=== PATIENT | male | born 1960 | race American Indian/Alaskan Native ===

== ENCOUNTER 2016-06-20 10:57 | Emergency (ER) | payer BC, OTHER ==
[2016-06-20 11:12] VITALS: BMI 37.6
--- NOTE | 2016-06-20 13:13 | C.PDOC ---
History Of Present Illness 56 y/o male, whose PMHx includes CHF, presents to the ED complaining of intermittent episodes of twitching sensation to left medial upper arm x 2 days. Patient states he is compliant with his medications but since he is a "heart patient" he is concerned for cardiac issue. He denies chest pain, shortness of breath, weight gain, or leg swelling. Patient also complains of 2-3 episodes of watery stool for the last few days. Denies fever, abdominal pain, nausea, or vomiting. Time Seen by Provider: 06/20/16 12:46 Chief Complaint (Nursing): Upper Extremity Problem/Injury History Per: Patient History/Exam Limitations: no limitations Onset/Duration Of Symptoms: Days (2), Intermittent Episodes, Gradual, Persistent Current Symptoms Are (Timing): Still Present Exacerbating Factor(s): Nothing Recent travel outside of the [place]: No Past Medical History Reviewed: Historical Data, Nursing Documentation, Vital Signs Vital Signs: Last Vital Signs Temp 98.9 F 06/20/16 15:05 Pulse 68 06/20/16 15:05 Resp 20 06/20/16 15:05 BP 137/74 06/20/16 15:05 Pulse Ox 96 06/20/16 15:07 - Medical History PMH: Arthritis (Gout), Asthma, Bronchitis, CAD, CHF, Diverticulitis, Hiatal Hernia, HTN Surgical History: Coronary Stent (x3), Hernia Repair (4 years ago) - [facility] Procedures CORONAR ARTERIOGR-2 CATH (11/28/03) INJECT/INFUSE NEC (04/10/07) LEFT HEART CARDIAC CATH (11/28/03) LT HEART ANGIOCARDIOGRAM (11/28/03) OTHER LOCAL DESTRUC SKIN (12/10/03) Family History: States: Unknown Family Hx - Social History Hx Tobacco Use: No Hx Alcohol Use: No Hx Substance Use: No - Immunization History Hx Tetanus Toxoid Vaccination: No Hx Influenza Vaccination: No Hx Pneumococcal Vaccination: No Review Of Systems Except As Marked, All Systems Reviewed And Found Negative. Constitutional: Negative for: Fever, Other (weight gain) Cardiovascular: Positive for: Other (twitching sensation in left arm). Negative for: Chest Pain, Edema Respiratory: Negative for: Shortness of Breath Gastrointestinal: Positive for: Diarrhea. Negative for: Nausea, Vomiting, Abdominal Pain Physical Exam - Physical Exam Appears: Non-toxic, No Acute Distress Skin: Normal Color, Warm, Dry, Other (left upper ext- no erythema, warmth, ecchymosis. no swelling noted. ) Head: Atraumatic, Normacephalic Eye(s): bilateral: Normal Inspection, PERRL Oral Mucosa: Moist Neck: Normal ROM, Supple Chest: Symmetrical, No Tenderness Cardiovascular: Rhythm Regular, No Edema, No Murmur Respiratory: Normal Breath Sounds, No Rales, No Rhonchi, No Wheezing Gastrointestinal/Abdominal: Normal Exam, Soft, No Tenderness, No Guarding, No Rebound Back: Normal Inspection, No CVA Tenderness Extremity: Normal ROM, No Tenderness, No Calf Tenderness, Capillary Refill (< 2 seconds), No Swelling Pulses: Left Radial: Normal, Right Radial: Normal Neurological/Psych: Oriented x3, Normal Speech, Normal Cognition, Normal Motor, Normal Sensation ED Course And Treatment - Laboratory Results Result Diagrams: 06/20/16 14:06 06/20/16 14:06 ECG: Interpreted By Me, Viewed By Me ECG Rhythm: Sinus Rhythm ECG Interpretation: Normal Interpretation Of ECG: nsr, no st-t changes Rate From EC O2 Sat by Pulse Oximetry: 96 (ra) Pulse Ox Interpretation: Normal Medical Decision Making Medical Decision Making: Plan: * EKG * Blood Work [address] Lackey. will d/c pt from ED and he will f/u with Dr Lackey later this week. Disposition Discussed With : Kodak Lackey Jr. Doctor Will See Patient In The: Office Counseled Patient/Family Regarding: Studies Performed, Diagnosis, Need For Followup - Disposition Disposition: HOME/ ROUTINE Disposition Time: 15:07 Condition: GOOD Forms: General Discharge Instructions - Clinical Impression Clinical Impression: Muscle twitch - PA / DIVISION OPERATIONS SPECIALIST / Resident Statement MD/DO has reviewed & agrees with the documentation as recorded. - Scribe Statement The provider has reviewed the documentation as recorded by the Scribe (Kathleen Billingsley) All medical record entries made by the Scribe were at my direction and personally dictated by me. I have reviewed the chart and agree that the record accurately reflects my personal performance of the history, physical exam, medical decision making, and the department course for this patient. I have also personally directed, reviewed, and agree with the discharge instructions and disposition.
[2016-06-20 14:17] LABS: CHLORIDE 100 mmol/L (98-107)
[2016-06-20 14:18] LABS: POTASSIUM 4.6 mmol/L (3.6-5.2); SODIUM 140 mmol/L (132-148)
[2016-06-20 14:20] LABS: ALKALINE PHOSPHATASE 95 U/L (38-126); AST/SGOT 61 U/L (17-59); BILIRUBIN,TOTAL 0.6 mg/dL (0.2-1.3); BLOOD UREA NITROGEN 12 mg/dL (9-20); CARBON DIOXIDE 31 mmol/L (22-30); GFR AFRICAN-AMERICAN > 60; GLUCOSE,RANDOM 94 mg/dL (75-110); PHOSPHOROUS 3.4 mg/dL (2.5-4.5); TOTAL PROTEIN 7.4 g/dL (6.3-8.3)
[2016-06-20 14:21] LABS: ALT/SGPT 97 U/L (21-72); CALCIUM 8.6 mg/dl (8.6-10.4)
[2016-06-20 14:51] LABS: BASO % 0.2 % (0.0-2.0); EOS # 0.1 K/uL (0.0-0.7); EOS % 1.4 % (0.0-4.0); HEMATOCRIT 41.3 % (35.0-51.0); LYMPH # 1.6 K/uL (1.0-4.3); LYMPH % 37.9 % (20.0-40.0); MEAN CELL VOLUME 74.1 fL (80.0-94.0); MEAN CORPUSCULAR HEMOGLOBIN 23.1 pg (27.0-31.0); MEAN CORPUSCULAR HGB CONC 31.2 g/dL (33.0-37.0); MEAN PLATELET VOLUME 7.9 fL (7.2-11.7); MONO # 0.6 K/uL (0.0-0.8); MONO % 13.4 % (0.0-10.0); NRBC % 0.2 % (0.0-2.0); RED CELL DISTRIBUTION WIDTH 16.7 % (11.5-14.5); WHITE BLOOD COUNT 4.2 K/uL (4.8-10.8)
[2016-06-20 15:06] VITALS: BP 137/74; PULSE 68; RESP 20; TEMP 98.9; O2SAT 96
--- NOTE | 2016-06-21 19:59 | CARD ---
APPROVED REPORT EKG Measurement Heart [id number] <Conclusion> Normal sinus rhythm Normal ECG
== END 2016-06-20 15:34 | disposition home or self-care (01) ==
LOC: C.ER 10:57
DX: R25.3 Fasciculation (principal)

== ENCOUNTER 2016-06-29 12:44 | Emergency (ER) | payer BC ==
[2016-06-29 12:45] VITALS: BMI 37.6
[2016-06-29 13:24] VITALS: TEMP 98
[2016-06-29 13:33] LABS: BASO % 0.7 % (0.0-2.0); EOS # 0.1 K/uL (0.0-0.7); EOS % 1.8 % (0.0-4.0); HEMATOCRIT 40.3 % (35.0-51.0); LYMPH # 1.6 K/uL (1.0-4.3); LYMPH % 39.1 % (20.0-40.0); MEAN CELL VOLUME 73.9 fL (80.0-94.0); MEAN CORPUSCULAR HGB CONC 31.1 g/dL (33.0-37.0); MEAN PLATELET VOLUME 7.8 fL (7.2-11.7); MONO # 0.5 K/uL (0.0-0.8); MONO % 11.5 % (0.0-10.0); RED CELL DISTRIBUTION WIDTH 16.3 % (11.5-14.5)
--- NOTE | 2016-06-29 13:39 | C.PDOC ---
History Of Present Illness 56 year old male presents to the ED with complaints of shooting pain and tremors to his left arm for the past few weeks. Patient states the pain starts at his left hand, shoots up to his left shoulder, and then his arm starts to twitch. He notes it makes him a bit short of breath and it occurred 3 times today which was more frequent than usual. He reports he was seen in the ED 9 days ago for the same complaints and had a workup and was advised to drink more water for the muscle twitches. Denies chest pain, palpitations, nausea, vomiting , sweating, or any other complaints at this time. He was seen in the office by Dr Lackey last week for the same complaint. Time Seen by Provider: 06/29/16 13:04 Chief Complaint (Nursing): Chest Pain History Per: Patient History/Exam Limitations: no limitations Onset/Duration Of Symptoms: Days Current Symptoms Are (Timing): Still Present Severity: Mild Quality: "Pain" (Shooting pain) Past Medical History Reviewed: Historical Data, Nursing Documentation, Vital Signs Vital Signs: Last Vital Signs Temp 98.0 F 06/29/16 13:03 Pulse 62 06/29/16 14:14 Resp 15 06/29/16 14:14 BP 144/72 06/29/16 14:14 Pulse Ox 100 06/29/16 14:14 - Medical History PMH: Arthritis (Gout), Asthma, Bronchitis, CAD, CHF, Diverticulitis, Hiatal Hernia, HTN Surgical History: Coronary Stent (x3), Hernia Repair (4 years ago) - [facility] Procedures CORONAR ARTERIOGR-2 CATH (11/28/03) INJECT/INFUSE NEC (04/10/07) LEFT HEART CARDIAC CATH (11/28/03) LT HEART ANGIOCARDIOGRAM (11/28/03) OTHER LOCAL DESTRUC SKIN (12/10/03) Family History: States: Unknown Family Hx - Social History Hx Tobacco Use: No Hx Alcohol Use: No Hx Substance Use: No - Immunization History Hx Tetanus Toxoid Vaccination: No Hx Influenza Vaccination: No Hx Pneumococcal Vaccination: No Review Of Systems Except As Marked, All Systems Reviewed And Found Negative. Constitutional: Negative for: Fever, Chills, Sweats Cardiovascular: Negative for: Chest Pain, Palpitations Respiratory: Positive for: Shortness of Breath (+Mild SOB). Negative for: Cough Gastrointestinal: Negative for: Vomiting Musculoskeletal: Positive for: Arm Pain (+Shooting arm pain and tremors) Neurological: Negative for: Weakness, Numbness Physical Exam - Physical Exam Appears: Non-toxic, No Acute Distress Skin: Normal Color, Warm, Dry Head: Atraumatic, Normacephalic Eye(s): bilateral: Normal Inspection Oral Mucosa: Moist Neck: Supple Chest: Symmetrical Cardiovascular: Rhythm Regular Respiratory: Normal Breath Sounds, No Accessory Muscle Use Extremity: Normal ROM, No Tenderness, Capillary Refill (< 2 seconds), No Deformity, No Swelling Pulses: Left Radial: Normal, Right Radial: Normal Neurological/Psych: Oriented x3, Normal Speech, Normal Cognition, Normal Motor, Normal Sensation ED Course And Treatment - Laboratory Results Result Diagrams: 06/29/16 13:28 06/29/16 13:28 Lab Interpretation: No Acute Changes (except Ca slightly low 8.4.) ECG: Interpreted By Me, Viewed By Me ECG Rhythm: Sinus Rhythm ECG Interpretation: Normal Interpretation Of ECG: No acute ST/T wave changes Rate From EC O2 Sat by Pulse Oximetry: 98 (Room air) Pulse Ox Interpretation: Normal Progress Note: EKG and Blood work ordered and reviewed. - Physician Consult Information Time Consulting Physician Contacted: 14:40 Physician Contacted: Kodak Lackey Jr. Outcome Of Conversation: Patient to be discharged and he will follow up in the office. Disposition Counseled Patient/Family Regarding: Studies Performed, Diagnosis, Need For Followup - Disposition Disposition: HOME/ ROUTINE Disposition Time: 14:40 Condition: STABLE Additional Instructions: Encourage plenty of fluids and try to increase your calcium intake. Instructions: Muscle Spasm (ED) - Clinical Impression Clinical Impression: History of hypertension, Muscle spasm - Scribe Statement The provider has reviewed the documentation as recorded by the Scribe Surjit Celestin. Provider Attestation: All medical record entries made by the Scribe were at my direction and personally dictated by me. I have reviewed the chart and agree that the record accurately reflects my personal performance of the history, physical exam, medical decision making, and the department course for this patient. I have also personally directed, reviewed, and agree with the discharge instructions and disposition.
[2016-06-29 13:49] LABS: CHLORIDE 99 mmol/L (98-107); POTASSIUM 4.1 mmol/L (3.6-5.2); SODIUM 139 mmol/L (132-148)
[2016-06-29 13:51] LABS: GFR AFRICAN-AMERICAN > 60
[2016-06-29 13:52] LABS: ALKALINE PHOSPHATASE 70 U/L (38-126); ALT/SGPT 87 U/L (21-72); AST/SGOT 88 U/L (17-59); BILIRUBIN,TOTAL 0.6 mg/dL (0.2-1.3); BLOOD UREA NITROGEN 11 mg/dL (9-20); CALCIUM 8.4 mg/dl (8.6-10.4); CARBON DIOXIDE 30 mmol/L (22-30); GLUCOSE,RANDOM 93 mg/dL (75-110); MAGNESIUM 1.7 mg/dL (1.6-2.3); TOTAL PROTEIN 7.5 g/dL (6.3-8.3)
[2016-06-29 14:15] VITALS: BP 144/72; PULSE 62; RESP 15
[2016-06-29 14:40] VITALS: O2SAT 98
--- NOTE | 2016-06-30 21:31 | CARD ---
APPROVED REPORT EKG Measurement Heart [id number] <Conclusion> Normal sinus rhythm Normal ECG
== END 2016-06-29 15:15 | disposition home or self-care (01) ==
LOC: C.ER 12:44
DX: M62.838 Other muscle spasm (principal)

== ENCOUNTER 2016-09-09 09:50 | Emergency (ER) | payer BC, MEDICAID ==
[2016-09-09 09:50] VITALS: BMI 37.6
[2016-09-09 10:47] LABS: RBC URINE 2 /hpf (0-3); URINE BILIRUBIN NEGATIVE (NEGATIVE); URINE BLOOD NEGATIVE (NEGATIVE); URINE COLOR Yellow (YELLOW); URINE GLUCOSE (UA) NORMAL (Normal); URINE KETONE NEGATIVE (NEGATIVE); URINE LEUKOCYTE ESTERASE NEG Leu/uL (Negative); URINE PROTEIN 1+ mg/dL (NEGATIVE); URINE UROBILINOGEN NORMAL mg/dL (0.2-1.0); WBC URINE < 1 /hpf (0-5)
[2016-09-09] MEDS ORDERED: Sodium Chloride 0.9% 1,000 ML IV STA (11:12)
[2016-09-09] MEDS ORDERED: Sodium Chloride 0.9% 1,000 ML ONE (11:26)
[2016-09-09 11:41] LABS: BASO % 0.6 % (0.0-2.0); EOS % 0.2 % (0.0-4.0); LYMPH # 1.4 K/uL (1.0-4.3); LYMPH % 28.4 % (20.0-40.0); MEAN CELL VOLUME 73.7 fL (80.0-94.0); MEAN CORPUSCULAR HEMOGLOBIN 23.3 pg (27.0-31.0); MEAN CORPUSCULAR HGB CONC 31.6 g/dL (33.0-37.0); MEAN PLATELET VOLUME 7.5 fL (7.2-11.7); MONO # 0.5 K/uL (0.0-0.8); MONO % 10.3 % (0.0-10.0); NRBC % 0.1 % (0.0-2.0); RED CELL DISTRIBUTION WIDTH 16.4 % (11.5-14.5)
[2016-09-09 11:47] LABS: CHLORIDE 97 mmol/L (98-107)
[2016-09-09 11:48] LABS: POTASSIUM 4.7 mmol/L (3.6-5.2); SODIUM 136 mmol/L (132-148)
[2016-09-09 11:50] LABS: ALB/GLOB RATIO 1.4 (1.0-2.1); ALKALINE PHOSPHATASE 131 U/L (38-126); ALT/SGPT 90 U/L (21-72); AST/SGOT 58 U/L (17-59); BLOOD UREA NITROGEN 15 mg/dL (9-20); CARBON DIOXIDE 29 mmol/L (22-30); GFR AFRICAN-AMERICAN > 60; GLUCOSE,RANDOM 98 mg/dL (75-110); TOTAL PROTEIN 6.9 g/dL (6.3-8.3)
[2016-09-09 11:51] LABS: CALCIUM 8.2 mg/dl (8.6-10.4)
[2016-09-09 12:00] LABS: BILIRUBIN,TOTAL 0.3 mg/dL (0.2-1.3)
--- NOTE | 2016-09-09 12:41 | C.PDOC ---
History Of Present Illness 56 yr old male presents to the ER with complaints of right flank pain, nausea and diarrhea for the past 3 days. Patient denies chest pain, SOB, vomiting, dysuria, incontinence, weakness or numbness. Time Seen by Provider: 09/09/16 11:04 Chief Complaint (Nursing): GI Problem History Per: Patient History/Exam Limitations: no limitations Onset/Duration Of Symptoms: Days (3) Past Medical History Reviewed: Historical Data, Nursing Documentation, Vital Signs Vital Signs: Last Vital Signs Temp 98.2 F 09/09/16 12:52 Pulse 57 L 09/09/16 12:52 Resp 19 09/09/16 12:52 BP 170/98 H 09/09/16 12:52 Pulse Ox 96 09/09/16 13:54 - Medical History PMH: Arthritis, Asthma, Bronchitis, CAD, CHF, Diverticulitis, Hiatal Hernia, HTN Surgical History: Coronary Stent (x3), Hernia Repair (4 years ago) - [facility] Procedures CORONAR ARTERIOGR-2 CATH (11/28/03) INJECT/INFUSE NEC (04/10/07) LEFT HEART CARDIAC CATH (11/28/03) LT HEART ANGIOCARDIOGRAM (11/28/03) OTHER LOCAL DESTRUC SKIN (12/10/03) Family History: States: No Known Family Hx - Social History Hx Tobacco Use: No Hx Alcohol Use: Yes Hx Substance Use: No - Immunization History Hx Tetanus Toxoid Vaccination: No Hx Influenza Vaccination: No Hx Pneumococcal Vaccination: No Review Of Systems Except As Marked, All Systems Reviewed And Found Negative. Cardiovascular: Negative for: Chest Pain Respiratory: Negative for: Shortness of Breath Gastrointestinal: Positive for: Nausea. Negative for: Vomiting, Diarrhea Genitourinary: Negative for: Dysuria, Incontinence Musculoskeletal: Positive for: Other ((+) Right flank pain ) Neurological: Negative for: Weakness, Numbness Physical Exam - Physical Exam Appears: Well, Non-toxic, No Acute Distress Skin: Warm, Dry, No Rash Head: Atraumatic, Normacephalic Chest: Symmetrical, No Tenderness Cardiovascular: Rhythm Regular, No Murmur Respiratory: Normal Breath Sounds, No Rales, No Rhonchi, No Stridor, No Wheezing Gastrointestinal/Abdominal: Soft, Tenderness (Tenderness to the RUQ and right flank ), No Guarding, No Rebound Extremity: Normal ROM, No Swelling Neurological/Psych: Oriented x3, Normal Speech, Normal Motor ED Course And Treatment - Laboratory Results Result Diagrams: 09/09/16 11:36 09/09/16 11:36 O2 Sat by Pulse Oximetry: 96 - CT Scan/US CT - Abd & Pelvis Other Rad Studies (CT/US): Read By Radiologist, Radiology Report Reviewed CT/US Interpretation: PROCEDURE: CT Abdomen and Pelvis without intravenous contrast. HISTORY: Right flank pain. COMPARISON: 10/01/2015. TECHNIQUE: CT scan of the abdomen and pelvis was performed without administration of oral or intravenous contrast. Coronal and sagittal reformatted images were obtained. Radiation dose: Total exam DLP = 1623.45 mGy-cm. This CT exam was performed using one or more of the following dose reduction techniques: Automated exposure control, adjustment of the mA and/or kV according to patient size, and/or use of iterative reconstruction technique. FINDINGS: LOWER THORAX : There is bibasilar subsegmental atelectasis. LIVER: The liver is normal in size. No gross lesion or ductal dilatation. GALLBLADDER AND BILE DUCTS: No calcified gallstones. PANCREAS: The pancreas is normal in size. No gross lesion or ductal dilatation. SPLEEN: The spleen is normal in size. ADRENALS: Both adrenal glands are normal in size without discrete nodule. KIDNEYS AND URETERS: Both kidneys are normal in size without hydronephrosis or nephrolithiasis. VASCULATURE: No aortic aneurysm. BOWEL: The small bowel loops are normal in caliber. There is no evidence of bowel dilatation or wall thickening. There is colonic diverticulosis without CT evidence for acute diverticulitis. APPENDIX: Normal appendix. PERITONEUM: No free fluid. No free air. LYMPH NODES: No enlarged lymph nodes. BLADDER: Partially decompressed. REPRODUCTIVE: The prostate gland is normal in size both. BONES : No acute fracture. There is mild multilevel degenerative disc disease without destructive bony lesion. OTHER FINDINGS: None. IMPRESSION: 1. No evidence of nephrolithiasis, hydronephrosis or obstructive uropathy. 2. Colonic diverticulosis without CT evidence for acute diverticulitis. Progress Note: On re-exam patient feels better, tolerates po and is stable to be d/c home with PMD follow up. Medical Decision Making Medical Decision Making: PLAN: * CT - Abd & Pelvis * CBC * CMP * Urinalysis * Sodium Chloride IV Disposition - Disposition Disposition: HOME/ ROUTINE Disposition Time: 13:52 Condition: STABLE Additional Instructions: Follow up with your PMD within 1-2 days. Return to ED if feel worse. Prescriptions: Dicyclomine [Bentyl] 20 mg PO TID #30 tab oxyCODONE/Acetaminophen [Percocet 5/325 mg Tab] 1 tab PO QID PRN #20 tab PRN Reason: Pain Instructions: Abdominal Pain (ED) - Clinical Impression Clinical Impression: Abdominal pain - PA / SALES REPRESENTATIVE [employer] / Resident Statement MD/DO has reviewed & agrees with the documentation as recorded. - Scribe Statement The provider has reviewed the documentation as recorded by the Scribe Loyda Tripp All medical record entries made by the Deniz were at my direction and personally dictated by me. I have reviewed the chart and agree that the record accurately reflects my personal performance of the history, physical exam, medical decision making, and the department course for this patient. I have also personally directed, reviewed, and agree with the discharge instructions and disposition.
[2016-09-09 12:56] VITALS: BP 170/98; PULSE 57; RESP 19; TEMP 98.2
--- NOTE | 2016-09-09 12:59 | CT ---
PROCEDURE: CT Abdomen and Pelvis without intravenous contrast HISTORY: Right flank pain COMPARISON: 10/01/2015. TECHNIQUE: CT scan of the abdomen and pelvis was performed without administration of oral or intravenous contrast. Coronal and sagittal reformatted images were obtained. Radiation dose: Total exam DLP = 1623.45 mGy-cm. This CT exam was performed using one or more of the following dose reduction techniques: Automated exposure control, adjustment of the mA and/or kV according to patient size, and/or use of iterative reconstruction technique. FINDINGS: LOWER THORAX: There is bibasilar subsegmental atelectasis. LIVER: The liver is normal in size. No gross lesion or ductal dilatation. GALLBLADDER AND BILE DUCTS: No calcified gallstones. PANCREAS: The pancreas is normal in size. No gross lesion or ductal dilatation. SPLEEN: The spleen is normal in size. ADRENALS: Both adrenal glands are normal in size without discrete nodule. KIDNEYS AND URETERS: Both kidneys are normal in size without hydronephrosis or nephrolithiasis. VASCULATURE: No aortic aneurysm. BOWEL: The small bowel loops are normal in caliber. There is no evidence of bowel dilatation or wall thickening. There is colonic diverticulosis without CT evidence for acute diverticulitis. APPENDIX: Normal appendix. PERITONEUM: No free fluid. No free air. LYMPH NODES: No enlarged lymph nodes. BLADDER: Partially decompressed. REPRODUCTIVE: The prostate gland is normal in size both. BONES: No acute fracture. There is mild multilevel degenerative disc disease without destructive bony lesion. OTHER FINDINGS: None. IMPRESSION: 1. No evidence of nephrolithiasis, hydronephrosis or obstructive uropathy. 2. Colonic diverticulosis without CT evidence for acute diverticulitis.
[2016-09-09 13:02] VITALS: O2SAT 96
== END 2016-09-09 14:03 | disposition home or self-care (01) ==
LOC: C.ER 09:50
DX: R10.11 Right upper quadrant pain (principal)
CPT/HCPCS: 36415; 74176; 80053; 81001; 83690; 85025; 96360; 99285; J7040

== ENCOUNTER 2016-09-23 11:33 | Emergency (ER) | payer BC ==
[2016-09-23 11:34] VITALS: BMI 37.6
--- NOTE | 2016-09-23 12:58 | C.PDOC ---
History Of Present Illness 56-year-old male, presents to the emergency department with complaints of non- radiating, right-sided lower-back pain, intermittently for the past 2-3 weeks/ Patient states he had similar symptoms two weeks ago and was discharged home. States pain got better, but then it came back. Patient denies trauma, fevers, or any other associated symptoms. No numbness/weakness. Time Seen by Provider: 09/23/16 12:26 Chief Complaint (Nursing): Dizziness/Lightheaded History Per: Patient History/Exam Limitations: no limitations Onset/Duration Of Symptoms: Days Current Symptoms Are (Timing): Still Present Severity: Moderate Context: worsened with movement Recent travel outside of the [place]: No Past Medical History Reviewed: Historical Data, Nursing Documentation, Vital Signs Vital Signs: Last Vital Signs Temp 98.7 F 09/23/16 15:39 Pulse 66 09/23/16 15:39 Resp 20 09/23/16 15:39 BP 185/97 H 09/23/16 15:39 Pulse Ox 98 09/23/16 15:52 - Medical History PMH: Arthritis, Asthma, Bronchitis, CAD, CHF, Diverticulitis, Hiatal Hernia, HTN Denies: Chronic Kidney Disease Surgical History: Coronary Stent (x3), Hernia Repair (4 years ago) - [facility] Procedures CORONAR ARTERIOGR-2 CATH (11/28/03) INJECT/INFUSE NEC (04/10/07) LEFT HEART CARDIAC CATH (11/28/03) LT HEART ANGIOCARDIOGRAM (11/28/03) OTHER LOCAL DESTRUC SKIN (12/10/03) Family History: States: No Known Family Hx - Social History Hx Tobacco Use: No Hx Alcohol Use: Yes Hx Substance Use: No - Immunization History Hx Tetanus Toxoid Vaccination: No Hx Influenza Vaccination: No Hx Pneumococcal Vaccination: No Review Of Systems Except As Marked, All Systems Reviewed And Found Negative. Constitutional: Negative for: Fever, Chills Cardiovascular: Negative for: Chest Pain Respiratory: Negative for: Shortness of Breath Gastrointestinal: Negative for: Nausea, Vomiting Genitourinary: Negative for: Incontinence Musculoskeletal: Positive for: Back Pain Neurological: Negative for: Weakness, Numbness Physical Exam - Physical Exam Appears: Non-toxic, No Acute Distress Skin: Warm, Dry, No Rash Head: Atraumatic, Normacephalic Eye(s): bilateral: Normal Inspection, PERRL Nose: Normal Oral Mucosa: Moist Lips: Normal Appearing Neck: Normal ROM, Supple Chest: Symmetrical, No Tenderness Cardiovascular: Rhythm Regular, No Friction Rub, No Murmur Respiratory: Normal Breath Sounds, No Accessory Muscle Use, No Rales, No Rhonchi , No Wheezing Gastrointestinal/Abdominal: Soft, No Tenderness, No Guarding, No Rebound Back: No CVA Tenderness, No Vertebral Tenderness, Paraspinal Tenderness (right, lumbar) Extremity: Normal ROM Neurological/Psych: Oriented x3, Normal Speech, Normal Cranial Nerves, Normal Motor Gait: Steady ED Course And Treatment - Laboratory Results Result Diagrams: 09/23/16 13:40 09/23/16 14:10 O2 Sat by Pulse Oximetry: 98 (on RA) Medical Decision Making Medical Decision Making: Old records reviewed, the patient was last seen in the ED on 09/09/16 for similar symptoms, had a CT abd/pelvis which was negative and patient was discharged home. Plan: * CMP * CBC * Decadron, Lidocaine, IVFs, Toradol * Reassess and Disposition On re-exam, the patient reports improvement of symptoms. Lungs are CTA, heart is RRR, abdomen is soft, non-tender and patient is tolerating Mac. Ambulatory in the ED with steady gait. Follow up with the medical doctor within 1-2 days. Return if worsened. Disposition - Disposition Referrals: Kodak Lackey Jr., MD [Medical Doctor] - Disposition: HOME/ ROUTINE Disposition Time: 15:48 Condition: GOOD Additional Instructions: Follow up with the medical doctor within 1-2 days. Return if worsened. Prescriptions: Lidocaine 5% [Lidoderm] 1 patch TOP DAILY #7 patch Naproxen [Naprosyn] 500 mg PO BID #20 tab oxyCODONE/Acetaminophen [Percocet 5/325 mg Tab] 1 tab PO QID PRN #20 tab PRN Reason: Pain Instructions: Acute Low Back Pain (ED), Hypertension (ED) - Clinical Impression Clinical Impression: Hypertension, Back pain - PA / CLIENT SERVICE EXECUTIVE / Resident Statement MD/DO has reviewed & agrees with the documentation as recorded. - Scribe Statement The provider has reviewed the documentation as recorded by the Scribe (Daniel Doss) All medical record entries made by the Scribe were at my direction and personally dictated by me. I have reviewed the chart and agree that the record accurately reflects my personal performance of the history, physical exam, medical decision making, and the department course for this patient. I have also personally directed, reviewed, and agree with the discharge instructions and disposition.
[2016-09-23] MEDS ORDERED: Lidocaine 5% Patch TD STA (13:03)
[2016-09-23] MEDS ORDERED: Sodium Chloride 0.9% 1,000 ML IV ONE (13:03)
[2016-09-23] MEDS ORDERED: Dexamethasone 4 mg/1 ml IVP STA (13:03)
[2016-09-23] MEDS ORDERED: Dexamethasone 4 mg/1 ml ONE ×2 (13:13→13:17)
[2016-09-23] MEDS ORDERED: Lidocaine 5% Patch TD ONE (13:13)
[2016-09-23 13:46] LABS: BASO % 0.7 % (0.0-2.0); EOS # 0.1 K/uL (0.0-0.7); HEMATOCRIT 40.5 % (35.0-51.0); LYMPH # 1.9 K/uL (1.0-4.3); LYMPH % 38.4 % (20.0-40.0); MEAN CELL VOLUME 74.1 fL (80.0-94.0); MEAN CORPUSCULAR HEMOGLOBIN 22.9 pg (27.0-31.0); MEAN CORPUSCULAR HGB CONC 30.9 g/dL (33.0-37.0); MEAN PLATELET VOLUME 8.1 fL (7.2-11.7); MONO # 0.6 K/uL (0.0-0.8); MONO % 11.2 % (0.0-10.0); NRBC % 0.1 % (0.0-2.0); RED CELL DISTRIBUTION WIDTH 16.8 % (11.5-14.5)
[2016-09-23 14:27] LABS: CHLORIDE 102 mmol/L (98-107)
[2016-09-23 14:28] LABS: SODIUM 137 mmol/L (132-148)
[2016-09-23 14:30] LABS: ALB/GLOB RATIO 1.1 (1.0-2.1); ALKALINE PHOSPHATASE 94 U/L (38-126); ALT/SGPT 91 U/L (21-72); AST/SGOT 86 U/L (17-59); BILIRUBIN,TOTAL 0.7 mg/dL (0.2-1.3); BLOOD UREA NITROGEN 12 mg/dL (9-20); CARBON DIOXIDE 27 mmol/L (22-30); GFR AFRICAN-AMERICAN > 60; GLUCOSE,RANDOM 87 mg/dL (75-110); TOTAL PROTEIN 6.8 g/dL (6.3-8.3)
[2016-09-23 14:31] LABS: CALCIUM 7.8 mg/dl (8.6-10.4)
[2016-09-23 15:40] VITALS: BP 185/97; PULSE 66; RESP 20; TEMP 98.7
[2016-09-23 15:51] VITALS: O2SAT 98
== END 2016-09-23 16:04 | disposition home or self-care (01) ==
LOC: C.ER 11:33
DX: M54.5 Low back pain (principal); I10 Essential (primary) hypertension
CPT/HCPCS: 80053; 85025; 96361; 96374; 96375; 99285; J1100; J1885; J7040

== ENCOUNTER 2016-09-26 11:07 | Emergency (ER) | payer BC ==
[2016-09-26 11:07] VITALS: BMI 37.6
[2016-09-26 12:25] VITALS: RESP 20; TEMP 98.1
[2016-09-26] MEDS ORDERED: Sodium Chloride 0.9% 1,000 ML IV ONE (12:54)
--- NOTE | 2016-09-26 13:26 | C.PDOC ---
History Of Present Illness 56-year-old male, PMHx includes Hypertension, presents to the emergency department with complaints of high blood pressure. Patient states he is taking medication, but pressure is 180/100 at home. He is also experiencing intermittent back pain on movement and is requesting medication. Denies trauma, numbness/weakness, fevers, bladder/bowel incontinence, or any other associated symptoms. No other complaints at this time. Time Seen by Provider: 09/26/16 11:24 Chief Complaint (Nursing): High Blood Pressure History Per: Patient History/Exam Limitations: no limitations Onset/Duration Of Symptoms: Days Current Symptoms Are (Timing): Still Present Past Medical History Reviewed: Historical Data, Nursing Documentation, Vital Signs Vital Signs: Last Vital Signs Temp 98.1 F 09/26/16 13:40 Pulse 78 09/26/16 13:40 Resp 20 09/26/16 13:40 BP 159/63 H 09/26/16 13:40 Pulse Ox 99 09/27/16 15:32 - Medical History PMH: Arthritis, Asthma, Bronchitis, CAD, CHF, Diverticulitis, Hiatal Hernia, HTN Denies: Chronic Kidney Disease Surgical History: Coronary Stent (x3), Hernia Repair (4 years ago) - [facility] Procedures CORONAR ARTERIOGR-2 CATH (11/28/03) INJECT/INFUSE NEC (04/10/07) LEFT HEART CARDIAC CATH (11/28/03) LT HEART ANGIOCARDIOGRAM (11/28/03) OTHER LOCAL DESTRUC SKIN (12/10/03) Family History: States: No Known Family Hx - Social History Hx Tobacco Use: No Hx Alcohol Use: Yes Hx Substance Use: No - Immunization History Hx Tetanus Toxoid Vaccination: No Hx Influenza Vaccination: No Hx Pneumococcal Vaccination: No Review Of Systems Except As Marked, All Systems Reviewed And Found Negative. Constitutional: Negative for: Fever, Chills Cardiovascular: Negative for: Chest Pain, Palpitations Respiratory: Negative for: Shortness of Breath, Hemoptysis Gastrointestinal: Negative for: Vomiting Musculoskeletal: Positive for: Back Pain Neurological: Negative for: Weakness, Numbness, Headache, Dizziness Physical Exam - Physical Exam Appears: Non-toxic, No Acute Distress Skin: Warm, Dry, No Rash Head: Atraumatic, Normacephalic Eye(s): bilateral: Normal Inspection, PERRL Nose: Normal Oral Mucosa: Moist Lips: Normal Appearing Neck: Normal ROM Chest: Symmetrical Cardiovascular: Rhythm Regular, No Murmur Respiratory: Normal Breath Sounds, No Accessory Muscle Use Extremity: Normal ROM Neurological/Psych: Oriented x3, Normal Speech ED Course And Treatment O2 Sat by Pulse Oximetry: 99 Medical Decision Making Medical Decision Making: Old records reviewed, the patient was last seen on 09/23/16 for similar symptoms , had negative lab work, and was discharged home. On re-exam, the patient reports improvement of symptoms. BP improved. Lungs are CTA, heart is RRR, abdomen is soft, non-tender and patient is tolerating PO well. Ambulatory in the ED with steady gait. Follow up with the medical doctor within 1-2 days. Return if worsened. Disposition - Disposition Referrals: Kodak Lackey Jr., MD [Medical Doctor] - Disposition: HOME/ ROUTINE Disposition Time: 13:23 Condition: GOOD Additional Instructions: Follow up with the medical doctor within 1-2 days without fail. Return if worsened Prescriptions: cloNIDine [Catapres (RENAL)] 0.1 mg PO ONCE #10 tab Instructions: Hypertension (DC) - Clinical Impression Clinical Impression: HTN (hypertension), Muscle spasm - PA / CHIEF JAILER / Resident Statement MD/DO has reviewed & agrees with the documentation as recorded. - Scribe Statement The provider has reviewed the documentation as recorded by the Scribe (Daniel Doss) All medical record entries made by the Scribe were at my direction and personally dictated by me. I have reviewed the chart and agree that the record accurately reflects my personal performance of the history, physical exam, medical decision making, and the department course for this patient. I have also personally directed, reviewed, and agree with the discharge instructions and disposition.
[2016-09-26 13:41] VITALS: BP 159/63; PULSE 78; O2SAT 99
== END 2016-09-26 13:49 | disposition home or self-care (01) ==
LOC: C.ER 11:07
DX: I10 Essential (primary) hypertension (principal); M62.830 Muscle spasm of back
CPT/HCPCS: 96372; 99283; J1885; J2270

== ENCOUNTER 2016-09-29 16:19 | Emergency (ER) | payer BC ==
[2016-09-29 16:19] VITALS: BMI 37.6
[2016-09-29 16:46] VITALS: BP 174/90; PULSE 64; RESP 20; TEMP 98.3; O2SAT 97
--- NOTE | 2016-09-29 17:03 | C.PDOC ---
History Of Present Illness 56 y/o male presents to the ED with complaints of right abdominal cramping for the past few hours. Pt reports drinking a bottle of magnesium citrate due to constipation. This is patient's 4th visit to ED for vague pains this month. Seen 09/09/[address] abdomen showing diverticulosis without diverticulitis, Rx percocet for which he has ran out. Denies fever, chills, vomiting, or any other complaints. Time Seen by Provider: 09/29/16 16:44 Chief Complaint (Nursing): Abdominal Pain History Per: Patient History/Exam Limitations: no limitations Onset/Duration Of Symptoms: Hrs Current Symptoms Are (Timing): Still Present Severity: Moderate Location Of Pain/Discomfort: RUQ, RLQ Radiation Of Pain To:: None Quality Of Discomfort: Cramping Associated Symptoms: denies: Fever, Nausea, Vomiting Alleviating Factors: None Recent travel outside of the [place]: No Past Medical History Reviewed: Historical Data, Nursing Documentation, Vital Signs Vital Signs: Last Vital Signs Temp 98.3 F 09/29/16 16:45 Pulse 64 09/29/16 16:45 Resp 20 09/29/16 16:45 BP 174/90 H 09/29/16 16:45 Pulse Ox 97 09/29/16 18:38 - Medical History PMH: Arthritis, Asthma, Bronchitis, CAD, CHF, Diverticulitis, Hiatal Hernia, HTN Surgical History: Coronary Stent (x3), Hernia Repair (4 years ago) - [facility] Procedures CORONAR ARTERIOGR-2 CATH (11/28/03) INJECT/INFUSE NEC (04/10/07) LEFT HEART CARDIAC CATH (11/28/03) LT HEART ANGIOCARDIOGRAM (11/28/03) OTHER LOCAL DESTRUC SKIN (12/10/03) Family History: States: Unknown Family Hx - Social History Hx Tobacco Use: No Hx Alcohol Use: Yes Hx Substance Use: No - Immunization History Hx Tetanus Toxoid Vaccination: No Hx Influenza Vaccination: No Hx Pneumococcal Vaccination: No Review Of Systems Except As Marked, All Systems Reviewed And Found Negative. Constitutional: Negative for: Fever, Chills Gastrointestinal: Positive for: Abdominal Pain. Negative for: Vomiting Physical Exam - Physical Exam Appears: Non-toxic, No Acute Distress, Other (morbidly obese) Skin: Warm, Dry, No Rash Head: Atraumatic, Normacephalic Neck: Normal, Normal ROM, Supple Chest: Symmetrical, Other (midline diaphysis) Cardiovascular: Rhythm Regular, No Murmur Respiratory: Normal Breath Sounds, No Rales, No Rhonchi, No Wheezing Gastrointestinal/Abdominal: Soft, Tenderness (mild right sided), No Guarding, No Rebound Extremity: Normal ROM Extremity: Bilateral: Atraumatic Neurological/Psych: Oriented x3, Normal Speech ED Course And Treatment O2 Sat by Pulse Oximetry: 97 (room air) Pulse Ox Interpretation: Normal Medical Decision Making Medical Decision Making: resolving constipation, pt dx with diverticulosis and NOT diverticulitis 09/09/16 , given percocet x 20 tabs for abd pain, took a laxative (mag citrate) this am and has had crampy abd pain and diarrhea today. Benign belly exam, aside from obesity. pt defers w/u with informed consent. no recent abx and despite multiple recent ED evals (usually negative) low susp of c-diff considering more likely diarrhea from this AM's laxative use. liquid/ fruit diet for 3 days educated. Disposition Doctor Will See Patient In The: Office Counseled Patient/Family Regarding: Studies Performed, Diagnosis - Disposition Referrals: Kodak Lackey Jr., MD [Medical Doctor] - Disposition: HOME/ ROUTINE Disposition Time: 17:02 Condition: GOOD Additional Instructions: eat plenty of fresh fruits and vegetables in the next 3 days Naproxyn 500 mg every 12 hours as needed. Follow-up with Dr. Lackey as needed. Instructions: Acute Diarrhea (ED), Gas and Bloating (ED) - Clinical Impression Clinical Impression: Abdominal colic, Diarrhea - Scribe Statement The provider has reviewed the documentation as recorded by the Deniz Davis Provider Attestation: All medical record entries made by the Deniz were at my direction and personally dictated by me. I have reviewed the chart and agree that the record accurately reflects my personal performance of the history, physical exam, medical decision making, and the department course for this patient. I have also personally directed, reviewed, and agree with the discharge instructions and disposition.
--- NOTE | 2016-10-03 11:12 | CARD ---
APPROVED REPORT EKG Measurement Heart [id number] <Conclusion> Normal sinus rhythm Possible Left atrial enlargement Borderline ECG
== END 2016-09-29 17:26 | disposition home or self-care (01) ==
LOC: C.ER 16:19
DX: R10.9 Unspecified abdominal pain (principal); R19.7 Diarrhea, unspecified
CPT/HCPCS: 96372; 99284; J1885

== ENCOUNTER 2016-10-17 13:58 | Emergency (ER) | payer BC ==
[2016-10-17 13:58] VITALS: BMI 37.6
[2016-10-17 14:25] VITALS: RESP 18; O2SAT 100
--- NOTE | 2016-10-17 14:34 | C.PDOC ---
History Of Present Illness 56 yr old male presents to the ER with complaints of right foot/ankle injury and exacerbated back pain, onset [employer]. Patient states he stepped into a pothole and twisted his foot. Patient states lost balance and fell against the wall and felt a crack to the front of foot. Patient states was able to walk on scene. Patient denies head injury, LOC, leg pain, weakness or numbness. Prior records were reviewed which shows patient has multiple ER visits on 09/2016 for various symptoms. History of back pain and is s/p percocet on 09/23. R FOOT/ANKLE INJURY, EXAC BACK PAIN ONSET [employer]. PS STEPPED INTO POT HOLE AND TWISTED FOOT. LOST BALANCE AND FELL AGAINST WALL. FELT CRACK FRONT OF FOOT. + AMBUL ON SCENE. BACK PAIN L LOWER BACK. past medical history includes asthma, CAD, CHF, bronchitis, and hypertension MULT ER VISITS 09/2016 FOR VARIOUS SX. +HO CHRONIC BP. S/P PERCOCET 09/23 EXAM NAD RLE FOOT +TEND TOP OF FOOT, DIFFUSE. NO MALLEOLAR TEND. NO GROSS DEFORM. +MILD SWELL - HPI Time Seen by Provider: 10/17/16 14:23 Chief Complaint (Nursing): Lower Extremity Problem/Injury History Per: Patient History/Exam Limitations: no limitations Onset/Duration Of Symptoms: Sudden Onset ([employer]) Past Medical History Reviewed: Historical Data, Nursing Documentation, Vital Signs Vital Signs: Last Vital Signs Temp 98.7 F 10/17/16 14:15 Pulse 80 10/17/16 14:15 Resp 18 10/17/16 14:15 BP 176/70 H 10/17/16 14:15 Pulse Ox 100 10/17/16 15:42 - Medical History PMH: Arthritis, Asthma, Bronchitis, CAD, CHF, Diverticulitis, Hiatal Hernia, HTN Surgical History: Coronary Stent (x3), Hernia Repair (4 years ago) - [facility] Procedures CORONAR ARTERIOGR-2 CATH (11/28/03) INJECT/INFUSE NEC (04/10/07) LEFT HEART CARDIAC CATH (11/28/03) LT HEART ANGIOCARDIOGRAM (11/28/03) OTHER LOCAL DESTRUC SKIN (12/10/03) Family History: States: No Known Family Hx - Social History Hx Tobacco Use: No Hx Alcohol Use: No Hx Substance Use: No - Immunization History Hx Tetanus Toxoid Vaccination: No Hx Influenza Vaccination: No Hx Pneumococcal Vaccination: No Review Of Systems Except As Marked, All Systems Reviewed And Found Negative. Musculoskeletal: Positive for: Back Pain (Exacerbated ), Foot Pain (right foot/ ankle injury ). Negative for: Leg Pain Neurological: Negative for: Weakness, Numbness Physical Exam - Physical Exam Appears: Non-toxic, No Acute Distress Skin: Warm, Dry, No Rash Head: Atraumatic, Normacephalic Chest: Symmetrical, No Tenderness Cardiovascular: Rhythm Regular, No Murmur Respiratory: Normal Breath Sounds, No Rales, No Rhonchi, No Stridor, No Wheezing Back: Normal Inspection, No CVA Tenderness, No Paraspinal Tenderness Extremity: No Calf Tenderness, Other (Right Lower Extremity - Diffuse tenderness to the top of foot and mild swelling. No malleolar tenderness. No gross deformity. ) ED Course And Treatment O2 Sat by Pulse Oximetry: 100 (RA ) Pulse Ox Interpretation: Normal - Other Rad R FOOT X-Ray: Interpreted by Me (NEG) R ANKLE X-Ray: Interpreted by Me (NEG) Orthopedic Time Performed: 16:16 Time Out: Side verified, Site verified, Patient ID confirmed Procedure: Splint Type: Long, Posterior Location: Right, Leg, Foot Consent obtained: Verbal Performed by: Attending Physician Diagnosis: Sprain Capillary Refill: Normal Compartment: Normal Distal Sensation: Normal Distal Motor Function: Normal Patient tolerated procedure: Well Medical Decision Making Medical Decision Making: PLAN: * X-Ray - Right Ankle, Right Foot * Toradol IM Disposition Counseled Patient/Family Regarding: Studies Performed, Diagnosis, Need For Followup, Rx Given - Disposition Referrals: Ryan Sanchez DPM [Staff Provider] - [facility] [address] [Outside] [facility] [Outside] Disposition: HOME/ ROUTINE Disposition Time: 15:40 Condition: IMPROVED Prescriptions: Acetaminophen/Codeine [Tylenol/Codeine 300 MG/30 MG] 2 tab PO Q6H #20 tab Cyclobenzaprine [Flexeril] 10 mg PO TID #15 tab Ibuprofen [Motrin] 600 mg PO Q6 #30 tab Instructions: Ankle Sprain (ED), Acute Low Back Pain (ED) - Clinical Impression Clinical Impression: Ankle sprain, Back sprain - Scribe Statement The provider has reviewed the documentation as recorded by the Deniz Tripp Provider Attestation: All medical record entries made by the Wallyibe were at my direction and personally dictated by me. I have reviewed the chart and agree that the record accurately reflects my personal performance of the history, physical exam, medical decision making, and the department course for this patient. I have also personally directed, reviewed, and agree with the discharge instructions and disposition.
--- NOTE | 2016-10-17 15:56 | RAD ---
PROCEDURE: Right Ankle Radiographs. HISTORY: TRAUMA COMPARISON: None FINDINGS: BONES: No acute fracture. Plantar calcaneal spur. JOINTS: Pes planus deformity. Tibiotalar articulation appears intact. Osteoarthritis at talonavicular articulation. SOFT TISSUES: Normal. OTHER FINDINGS: None. IMPRESSION: No acute fracture. Talonavicular osteoarthritis. Pes planus. Plantar calcaneal spur.
--- NOTE | 2016-10-17 15:58 | RAD ---
PROCEDURE: Right Foot Radiographs. HISTORY: trauma COMPARISON: None. FINDINGS: BONES: No acute fracture. Plantar calcaneal spur. Incidentally noted os peroneum. Talonavicular osteoarthritis. JOINTS: Normal. SOFT TISSUES: Normal. OTHER FINDINGS: None. IMPRESSION: No acute fracture.
[2016-10-17 16:38] VITALS: BP 174/82; PULSE 62; TEMP 98
== END 2016-10-17 16:40 | disposition home or self-care (01) ==
LOC: C.ER 13:58
DX: S93.401A Sprain of unspecified ligament of right ankle, initial encounter (principal); S33.5XXA Sprain of ligaments of lumbar spine, initial encounter; W17.2XXA Fall into hole, initial encounter; Y92.410 Unspecified street and highway as the place of occurrence of the external cause
CPT/HCPCS: 29505; 73610; 73630; 96372; 97116; 97161; 99284; G8978; G8979; G8980; J1885

== ENCOUNTER 2016-10-25 09:58 | Observation (INO) | payer BC ==
[2016-10-25 09:58] VITALS: BMI 37.6
--- NOTE | 2016-10-25 10:21 | C.PDOC ---
History Of Present Illness 56 y/o male, history of CAD with bypass, presents to ED with c/o facial numbness. Patient reports he woke up at 6 AM with left sided facial numbness and left sided hand and arm numbness. Patient reports symptoms are gradually improving and notes symptoms have resolved on arrival to ER at 10:00. Denies chest pain, SOB, fever, or other associated symptoms. PMD: Dr. Lackey Time Seen by Provider: 10/25/16 10:08 Chief Complaint (Nursing): Weakness/Neurological Deficit History Per: Patient History/Exam Limitations: no limitations Onset/Duration Of Symptoms: Hrs Current Symptoms Are (Timing): Gone Seizure Or Post-ictal Symptoms: None Fall Associated With With Symptoms: No Past Medical History Reviewed: Historical Data, Nursing Documentation, Vital Signs Vital Signs: Last Vital Signs Temp 98.7 F 10/25/16 10:00 Pulse 59 L 10/25/16 11:09 Resp 20 10/25/16 11:09 BP 158/75 H 10/25/16 11:09 Pulse Ox 99 10/25/16 11:28 - Medical History PMH: Arthritis, Asthma, Bronchitis, CAD, CHF, Diverticulitis, Hiatal Hernia, HTN Surgical History: Coronary Stent (x3), Hernia Repair (4 years ago) - [facility] Procedures CORONAR ARTERIOGR-2 CATH (11/28/03) INJECT/INFUSE NEC (04/10/07) LEFT HEART CARDIAC CATH (11/28/03) LT HEART ANGIOCARDIOGRAM (11/28/03) OTHER LOCAL DESTRUC SKIN (12/10/03) Family History: States: Unknown Family Hx - Social History Hx Tobacco Use: No Hx Alcohol Use: Yes Hx Substance Use: No - Immunization History Hx Tetanus Toxoid Vaccination: No Hx Influenza Vaccination: No Hx Pneumococcal Vaccination: No Review Of Systems Except As Marked, All Systems Reviewed And Found Negative. Constitutional: Negative for: Fever, Chills ENT: Negative for: Ear Pain Cardiovascular: Negative for: Chest Pain, Palpitations Respiratory: Negative for: Cough, Shortness of Breath, Wheezing Gastrointestinal: Negative for: Nausea, Vomiting, Abdominal Pain Genitourinary: Negative for: Dysuria Musculoskeletal: Negative for: Neck Pain Skin: Negative for: Rash Neurological: Positive for: Numbness (left sided face, left arm/hand). Negative for: Weakness, Incoordination, Change in Speech, Confusion, Seizures, Altered Mental Status, Headache, Dizziness Physical Exam - Physical Exam Appears: Well, Non-toxic, No Acute Distress Skin: Normal Color, Warm, Dry Head: Atraumatic, Normacephalic Eye(s): bilateral: Normal Inspection, PERRL, EOMI Nose: Normal Oral Mucosa: Moist Neck: Normal ROM, No Midline Cervical Tenderness, No Paracervical Tenderness, Supple Chest: Symmetrical Cardiovascular: Rhythm Regular Respiratory: Normal Breath Sounds, No Accessory Muscle Use, No Rales, No Rhonchi , No Wheezing Gastrointestinal/Abdominal: Soft, No Tenderness, No Mass, No Distention, No Guarding, No Rebound Back: Normal Inspection Extremity: Normal ROM, No Tenderness, No Calf Tenderness, Capillary Refill (< 2 sec.), No Swelling Extremity: Bilateral: Normal Color And Temperature Neurological/Psych: Oriented x3, Normal Speech, Normal Cognition, Normal Cranial Nerves, Normal Motor, Normal Sensation Gait: Steady ED Course And Treatment - Laboratory Results Result Diagrams: 10/25/16 10:27 10/25/16 10:27 O2 Sat by Pulse Oximetry: 99 (RA) Pulse Ox Interpretation: Normal - Other Rad Chest XRay X-Ray: Read By Radiologist Interpretation: IMPRESSION: Mild venous congestion. Mild bilateral hilar prominence. - CT Scan/US CT Head Other Rad Studies (CT/US): Read By Radiologist, Radiology Report Reviewed CT/US Interpretation: FINDINGS: HEMORRHAGE: No intracranial hemorrhage. BRAIN : No mass effect or edema. Intracranial atherosclerotic calcifications. The gomez-white matter differentiation appears intact. If there is persistent neurologic deficit, an MRI is a more sensitive exam in the setting of acute ischemia. VENTRICLES: No hydrocephalus. CALVARIUM: Unremarkable. PARANASAL SINUSES: Unremarkable as visualized. No significant inflammatory changes. MASTOID AIR CELLS: Unremarkable as visualized. No inflammatory changes. OTHER FINDINGS: None. IMPRESSION: No acute intracranial pathology identified. Please note that MRI with diffusion imaging is more sensitive in the detection of acute ischemic event. NIHSS Stroke Scale - Date/Time Evaluation Performed Date Performed: 10/25/16 Time Performed: 11:25 When Was NIHSS Performed: Baseline - How Severe is the Stoke Level of Consciousness: 0=Alert LOC to Questions: 0=Both comments correct LOC to commands: 0=Obeys both correctly Best Gaze: 0=Normal Visual: 0=No visual loss Facial: 0=Normal Motor Arm - Left: 0=No drift Motor Arm - Right: 0=No drift Motor Leg - Left: 0=No drift Motor Leg - Right: 0=No drift Limb Ataxia: 0=Absent Sensory: 0=Normal Best Language: 0=No aphasia Dysarthia: 0=Normal articulation Extinction & Inattention (Neglect): 0=Normal, no object Score: 0 Severity Of Stroke: 0= No Stroke rTPA Inclusion/Exclusion - Refusal of Treatment Patient Refused Treatment: No - Inclusion Criteria for Altepase Patient is 18 years or Older: Yes The Clinical Diagnosis of Ischemic Stroke That is Causing a Potentially Disabling Neurological Deficit: No Time of Onset is Well Established to be Less Than 270 Minute Before Treatment Would Begin: No Risk/Benefit Discussed With Patient/Family Member Present: No Medical Decision Making Medical Decision Making: Patient not at TPA candidate due to being outside of window and resolution of symptoms by arrival. Head CT, EKG, CxR, labs ordered. 11:22AM Cxray shows mild venous congestion. CT head shows no acute intracranial pathology. Aspirin ordered but patient refusing as he reports he took 325mg at 4am today. EKG shows sinus bradycardia at 59bpm with non-specific ST changes. Trop x 1 negative. Other labs grossly normal. Dr. Lackey admitting to Dr. Avalos currently. Will transfer care to Dr. Avalos for tele observation for tia. Disposition - Disposition Disposition: HOSPITALIZED Disposition Time: 11:23 Condition: FAIR - Clinical Impression Clinical Impression: TIA (transient ischemic attack) - Scribe Statement The provider has reviewed the documentation as recorded by the Deniz Cohen Provider Attestation: All medical record entries made by the Deniz were at my direction and personally dictated by me. I have reviewed the chart and agree that the record accurately reflects my personal performance of the history, physical exam, medical decision making, and the department course for this patient. I have also personally directed, reviewed, and agree with the discharge instructions and disposition.
[2016-10-25 10:38] LABS: BASO % 0.2 % (0.0-2.0); EOS # 0.1 K/uL (0.0-0.7); EOS % 2.4 % (0.0-4.0); HEMATOCRIT 41.1 % (35.0-51.0); LYMPH # 1.3 K/uL (1.0-4.3); LYMPH % 36.3 % (20.0-40.0); MEAN CELL VOLUME 74.3 fL (80.0-94.0); MEAN CORPUSCULAR HEMOGLOBIN 23.6 pg (27.0-31.0); MEAN CORPUSCULAR HGB CONC 31.8 g/dL (33.0-37.0); MEAN PLATELET VOLUME 7.6 fL (7.2-11.7); MONO # 0.4 K/uL (0.0-0.8); MONO % 12.8 % (0.0-10.0); NRBC % 0.2 % (0.0-2.0); RED CELL DISTRIBUTION WIDTH 16.7 % (11.5-14.5); WHITE BLOOD COUNT 3.4 K/uL (4.8-10.8)
[2016-10-25 10:39] LABS: CHLORIDE 96 mmol/L (98-107)
[2016-10-25 10:40] LABS: POTASSIUM 3.8 mmol/L (3.6-5.2); SODIUM 140 mmol/L (132-148)
[2016-10-25 10:41] LABS: CHOLESTEROL 130 mg/dL (0-199)
[2016-10-25 10:42] LABS: ALB/GLOB RATIO 1.2 (1.0-2.1); ALKALINE PHOSPHATASE 73 U/L (38-126); ALT/SGPT 94 U/L (21-72); AST/SGOT 79 U/L (17-59); BILIRUBIN,TOTAL 0.6 mg/dL (0.2-1.3); BLOOD UREA NITROGEN 8 mg/dL (9-20); CALCIUM 8.1 mg/dl (8.6-10.4); CARBON DIOXIDE 31 mmol/L (22-30); GFR AFRICAN-AMERICAN > 60; GLUCOSE,RANDOM 88 mg/dL (75-110)
[2016-10-25 10:46] LABS: INR 1.1
--- NOTE | 2016-10-25 10:51 | RAD ---
HISTORY: facial numbness COMPARISON: 02/12/2016 FINDINGS: LUNGS: Mild venous congestion. Mild bilateral hilar prominence. PLEURA: No significant pleural effusion identified, no pneumothorax apparent. CARDIOVASCULAR: Mild cardiomegaly. OSSEOUS STRUCTURES: Degenerative changes in the spine and shoulders. VISUALIZED UPPER ABDOMEN: Normal. OTHER FINDINGS: None. IMPRESSION: Mild venous congestion. Mild bilateral hilar prominence.
--- NOTE | 2016-10-25 11:20 | CT ---
PROCEDURE: CT HEAD WITHOUT CONTRAST. HISTORY: facial numbness COMPARISON: Noncontrast head CT performed 03/08/16 TECHNIQUE: Axial computed tomography images were obtained through the head/brain without intravenous contrast. Radiation dose: Total exam DLP = 954.68 mGy-cm. This CT exam was performed using one or more of the following dose reduction techniques: Automated exposure control, adjustment of the mA and/or kV according to patient size, and/or use of iterative reconstruction technique. FINDINGS: HEMORRHAGE: No intracranial hemorrhage. BRAIN: No mass effect or edema. Intracranial atherosclerotic calcifications. The gomez-white matter differentiation appears intact. If there is persistent neurologic deficit, an MRI is a more sensitive exam in the setting of acute ischemia. VENTRICLES: No hydrocephalus. CALVARIUM: Unremarkable. PARANASAL SINUSES: Unremarkable as visualized. No significant inflammatory changes. MASTOID AIR CELLS: Unremarkable as visualized. No inflammatory changes. OTHER FINDINGS: None. IMPRESSION: No acute intracranial pathology identified. Please note that MRI with diffusion imaging is more sensitive in the detection of acute ischemic event.
--- NOTE | 2016-10-25 12:32 | CP.PCM.HP ---
History of Present Illness - History of Present Illness History of Present Illness: 56 years old male with past medical history of bronchitis, CAD x3 stents, S/P CABG, CHF, diverticulitis, hiatal hernia S/P hernia repair 4 years back, hypertension presented to the emergency department with complaint of left-sided facial numbness and left-sided upper limb numbness when he woke up at 6 AM stop Patient reports symptoms improved gradually and have resolved on arrival to ER. No fever, nausea, vomiting No chest pain, shortness of breath, cough, limb swelling. No diarrhea, urinary symptoms. No recent history of trauma/fall/head injury. Present on Admission - Present on Admission Any Indicators Present on Admission: No Past Patient History - Infectious Disease Hx of Infectious Diseases: None - Past Medical History & Family History Past Medical History?: Yes - Past Social History Smoking Status: Never Smoked - CARDIAC Hx Congestive Heart Failure: Yes Hx Hypertension: Yes - PULMONARY Hx Asthma: Yes Hx Bronchitis: Yes - NEUROLOGICAL Hx Neurological Disorder: No - HEENT Hx HEENT Problems: No - ENDOCRINE/METABOLIC Hx Endocrine Disorders: No - HEMATOLOGICAL/ONCOLOGICAL Hx Blood Disorders: No - INTEGUMENTARY Hx Dermatological Problems: Yes Hx Cellulitis: Yes - MUSCULOSKELETAL/RHEUMATOLOGICAL Hx Arthritis: Yes - GASTROINTESTINAL Hx Diverticulitis: Yes - GENITOURINARY/GYNECOLOGICAL Hx Genitourinary Disorders: No - PSYCHIATRIC Hx Substance Use: No - SURGICAL HISTORY Hx Coronary Stent: Yes (x3) - ANESTHESIA Hx Anesthesia: Yes Hx Anesthesia Reactions: No Hx Malignant Hyperthermia: No Meds Home Medications: Home Medication List Medication Instructions Recorded Confirmed Type Aspirin [Ecotrin] 81 mg PO DAILY #30 tabec 10/27/16 Rx Rosuvastatin Calcium [Crestor] 10 mg PO HS #30 tab 10/27/16 Rx Temazepam [Restoril] 15 mg PO HS PRN #10 cap 10/27/16 Rx Allergies/Adverse Reactions: Allergies Allergy/AdvReac Type Severity Reaction Status Date / Time cephalexin monohydrate AdvReac VOMITING Verified 11/05/16 10:18 [From Keflex] iodixanol [From Visipaque] AdvReac VOMITING Verified 11/05/16 10:18 ctscan dye AdvReac VOMITING Uncoded 11/05/16 10:18 Physical Exam - Constitutional Appears: Well - Head Exam Head Exam: ATRAUMATIC, NORMAL INSPECTION, NORMOCEPHALIC - Eye Exam Eye Exam: EOMI, Normal appearance, PERRL Pupil Exam: NORMAL ACCOMODATION, PERRL - ENT Exam ENT Exam: Mucous Membranes Moist, Normal Exam - Neck Exam Neck exam: Positive for: Normal Inspection - Respiratory Exam Respiratory Exam: Decreased Breath Sounds - Cardiovascular Exam Cardiovascular Exam: REGULAR RHYTHM, +S1, +S2 - GI/Abdominal Exam GI & Abdominal Exam: Diminished Bowel Sounds, Soft - Rectal Exam Rectal Exam: Deferred Results - Vital Signs Recent Vital Signs: Last Vital Signs Temp 98.7 F 10/25/16 10:00 Pulse 59 L 10/25/16 11:09 Resp 20 10/25/16 11:09 BP 158/75 H 10/25/16 11:09 Pulse Ox 99 10/25/16 11:28 - Labs Result Diagrams: 10/25/16 10:27 10/25/16 10:27 Assessment & Plan (1) Abdominal colic Status: Acute (2) Abdominal pain Status: Acute (3) Abdominal pain Status: Acute (4) Abdominal pain Status: Acute (5) Abscess Status: Acute (6) Acute bronchitis Status: Acute (7) Allergic reaction Status: Acute (8) Ankle sprain Status: Acute (9) Arm pain Status: Acute (10) Back pain Status: Acute (11) Back sprain Status: Acute (12) CAD (coronary artery disease) Status: Acute (13) Chest pain Status: Acute (14) Cough Status: Acute (15) Dental caries Status: Acute (16) Diarrhea Status: Acute (17) Diarrhea Status: Acute (18) Diverticulitis Status: Acute (19) Eye infection Status: Acute (20) Flank pain Status: Acute (21) Gastroenteritis Status: Acute (22) Gout Status: Acute (23) Gout attack Status: Acute (24) Gout of wrist Status: Acute (25) History of hypertension Status: Acute (26) Hypertension Status: Acute (27) Left facial numbness Status: Acute (28) Muscle spasm Status: Acute (29) Muscle twitch Status: Acute (30) Pain Status: Acute (31) Palpitations Status: Acute (32) Palpitations Status: Acute (33) Pancolitis Status: Acute (34) Poorly controlled blood pressure Status: Acute (35) Prophylactic measure Status: Acute (36) Rectal bleed Status: Acute (37) TIA (transient ischemic attack) Status: Acute (38) TIA (transient ischemic attack) Status: Acute (39) Upper respiratory infection Status: Acute (40) Vertigo Status: Acute (41) Viral URI with cough Status: Acute (42) Vomiting Status: Acute (43) Wound check, abscess Status: Acute (44) Dizziness Status: Chronic (45) HTN (hypertension) Status: Chronic (46) History of CHF (congestive heart failure) Status: Chronic (47) History of coronary artery disease Status: Chronic (48) History of gout Status: Chronic - Assessment and Plan (Free Text) Plan: Labs and meds reviewed Labs within normal limits CT head notedno acute intracranial pathology EKG noted Neuro consult Neuro checks Aspirin Coreg Colchicine
--- NOTE | 2016-10-25 20:41 | CP.PCM.CON ---
History of Present Illness - History of Present Illness History of Present Illness: CC: left facial numbness and left arm discomfort HPI: 54 year old AAM With past medical history significant for hypertension morbid obesity gout moderate coronary artery disease status post catheterization 3 who presented with complains of left facial numbness and a sharp shooting left arm discomfort which woke him at 4:30 in the morning. According to the patient he has been having intermittent episodes of chest pain accompanied with palpitations and fluttering in the chest for a couple of weeks prior to presentation. The morning of presentation when he had the above symptoms it was accompanied with some dizziness and neck pain. He describes the symptom as a sharp shooting left arm pain.There were no associated symptoms of shortness of breath , there were no alleviating or relieving factors. Review of Systems - Review of Systems All systems: reviewed and no additional remarkable complaints except - Constitutional Constitutional: As Per HPI, Fatigue - EENT Eyes: As Per HPI Ears: As Per HPI Nose/Mouth/Throat: As Per HPI - Cardiovascular Cardiovascular: Chest Pain, Dyspnea, Lightheadedness - Respiratory Respiratory: As Per HPI - Gastrointestinal Gastrointestinal: As Per HPI - Reproductive: Male Reproductive:Male: As Per HPI - Musculoskeletal Musculoskeletal: As Per HPI - Integumentary Integumentary: As Per HPI - Neurological Neurological: Dizziness, Paresthesias - Psychiatric Psychiatric: As Per HPI - Endocrine Endocrine: As Per HPI - Hematologic/Lymphatic Hematologic: As Per HPI Past Patient History - Infectious Disease Hx of Infectious Diseases: None - Past Medical History & Family History Past Medical History?: Yes Pertinent Family History: Both parents had PPM in their 80's. Brother has CHF - Past Social History Smoking Status: Never Smoked - CARDIAC Hx Congestive Heart Failure: Yes Hx Hypertension: Yes - PULMONARY Hx Asthma: Yes Hx Bronchitis: Yes - NEUROLOGICAL Hx Neurological Disorder: No - HEENT Hx HEENT Problems: No - RENAL Hx Chronic Kidney Disease: No - ENDOCRINE/METABOLIC Hx Endocrine Disorders: No - HEMATOLOGICAL/ONCOLOGICAL Hx Blood Disorders: No - INTEGUMENTARY Hx Dermatological Problems: Yes Hx Cellulitis: Yes - MUSCULOSKELETAL/RHEUMATOLOGICAL Hx Arthritis: Yes - GASTROINTESTINAL Hx Diverticulitis: Yes - GENITOURINARY/GYNECOLOGICAL Hx Genitourinary Disorders: No - PSYCHIATRIC Hx Substance Use: No - SURGICAL HISTORY Hx Coronary Stent: Yes (x3) - ANESTHESIA Hx Anesthesia: Yes Hx Anesthesia Reactions: No Hx Malignant Hyperthermia: No Meds Allergies/Adverse Reactions: Allergies Allergy/AdvReac Type Severity Reaction Status Date / Time cephalexin monohydrate AdvReac VOMITING Verified 10/25/16 10:08 [From Keflex] iodixanol [From Visipaque] AdvReac VOMITING Verified 10/25/16 10:08 ctscan dye AdvReac VOMITING Uncoded 10/25/16 10:08 - Medications Medications: Current Medications Allopurinol (Zyloprim) 100 mg PO DAILY [facility] Aspirin (Aspirin) 325 mg PO DAILY [facility] Carvedilol (Coreg) 25 mg PO BID [facility] Last Admin: 10/25/16 17:20 Dose: 25 mg Colchicine (Colocrys) 0.6 mg PO DAILY [facility] Lisinopril (Zestril) 40 mg PO BID [facility] Last Admin: 10/25/16 17:20 Dose: 40 mg Pneumococcal Polyvalent Vaccine (Pneumovax 23 Vaccine) 0.5 ml IM .ONCE ONE Stop: 10/28/16 10:01 Rosuvastatin Calcium (Crestor) 10 mg PO [facility] Physical Exam - Constitutional Appears: Well - Head Exam Head Exam: ATRAUMATIC, NORMAL INSPECTION, NORMOCEPHALIC - Eye Exam Eye Exam: EOMI, Normal appearance, PERRL Pupil Exam: NORMAL ACCOMODATION, PERRL - Neck Exam Neck exam: Positive for: Normal Inspection - Respiratory Exam Respiratory Exam: Clear to Auscultation Bilateral, NORMAL BREATHING PATTERN - Cardiovascular Exam Cardiovascular Exam: REGULAR RHYTHM, +S1, +S2, Systolic Murmur - GI/Abdominal Exam GI & Abdominal Exam: Normal Bowel Sounds, Soft. absent: Tenderness - Rectal Exam Rectal Exam: Deferred - Extremities Exam Extremities exam: Positive for: normal inspection - Back Exam Back exam: NORMAL INSPECTION - Neurological Exam Neurological exam: Alert, CN II-XII Intact, Oriented x3, Reflexes Normal - Psychiatric Exam Psychiatric exam: Normal Affect, Normal Mood - Skin Skin Exam: Dry, Intact, Normal Color, Warm Results - Vital Signs Recent Vital Signs: Last Vital Signs Temp 98.3 F 10/25/16 15:56 Pulse 60 10/25/16 19:50 Resp 20 10/25/16 19:50 BP 163/73 H 10/25/16 19:50 Pulse Ox 97 10/25/16 15:56 - Labs Result Diagrams: 10/25/16 10:27 10/25/16 10:27 Assessment & Plan (1) TIA (transient ischemic attack) Assessment and Plan: etiology ? thomboembolic carotid dopplers echo monitor on telemetry MRI asa, statins, acei Status: Acute (2) Chest pain Assessment and Plan: atpical recent ischemic w/u in 11/16 showed no evidence of ischemia CIDNI keep pt on asa, bb, statins Status: Acute (3) History of hypertension Assessment and Plan: bp fluctuant cont with coreg and acei Status: Acute (4) CAD (coronary artery disease) Assessment and Plan: hx of cardiac catheterization and moderate CAD per pt keep pt on asa bb, statins Status: Acute
--- NOTE | 2016-10-26 05:23 | CON ---
DATE: HISTORY OF PRESENT ILLNESS: This is a 56-year-old black male with past medical history of coronary artery disease bypass and hernia surgery ------ and came here with the complaint of fascial numbness when he woke up at 6 'o clock in the morning and also numbness and pain in the left upper extremity. Symptoms resolved, came to the hospital. His blood pressure is goes up and blood pressure was 158/75. No shortness of breath. No chest pain. PAST MEDICAL HISTORY: As above. Has some arthritis, asthma, gout, coronary artery disease, CHF, diverticulitis, hiatal hernia, and hypertension. SURGICAL HISTORY: Coronary stent and hernia surgery. REVIEW OF SYSTEMS: A 10-point review of systems was negative except shortness of breath. PHYSICAL EXAMINATION HEENT: Normocephalic and atraumatic NECK: Supple. NEUROLOGIC: Awake, alert, oriented to x3. No aphasia. Cranial nerves II and XII tested. Pupil reactive. EOM intact. Visual bolden full. No facial asymmetry. Tongue midline. Motor examination, moves all the extremities equally. Tone normal. Deep tendon reflexes 1+. Both plantars are downgoing. Sensory appears intact. Gait deferred. Cerebellar, no dysmetria on [id number] or heel or ball. IMPRESSION: Possible transient ischemic attack. CAT scan of the head was negative. Workup is in progress. We will follow up. Tani Alba MD
--- NOTE | 2016-10-26 09:55 | CP.PCM.PCO ---
Physician Communication Note - Physician Communication Note Physician Communication Note: c/w asa and keep sbp btw 120-130 mm hg. c/w presnt mx.
[2016-10-26] MEDS: Enoxaparin 40 mg Syringe SC SCH (10:02)
--- NOTE | 2016-10-26 11:02 | CP.PCM.PN ---
Subjective - Date & Time of Evaluation Date of Evaluation: 10/26/16 Time of Evaluation: 13:20 - Subjective Subjective: clinically same Objective - Vital Signs/Intake and Output Vital Signs (last 24 hours): Temp Pulse Resp BP Pulse Ox 98.1 F 64 98 H 164/81 H 98 10/26/16 08:06 10/26/16 09:58 10/26/16 08:06 10/26/16 10:01 10/25/16 23:00 Intake and Output: 10/26/16 10/26/16 06:59 18:59 Intake Total 900 Output Total 950 Balance -50 - Medications Medications: Current Medications Allopurinol (Zyloprim) 100 mg PO DAILY [facility] Last Admin: 10/26/16 10:01 Dose: 100 mg Aspirin (Aspirin) 325 mg PO DAILY [facility] Last Admin: 10/26/16 10:01 Dose: 325 mg Carvedilol (Coreg) 25 mg PO BID [facility] Last Admin: 10/26/16 10:01 Dose: 25 mg Colchicine (Colocrys) 0.6 mg PO DAILY [facility] Last Admin: 10/26/16 10:19 Dose: 0.6 mg Diphenhydramine HCl (Benadryl) 25 mg PO TID PRN PRN Reason: Itching / Pruritus Last Admin: 10/25/16 23:04 Dose: 25 mg Enoxaparin Sodium (Lovenox) 40 mg SC DAILY [facility] Last Admin: 10/26/16 10:02 Dose: 40 mg Lisinopril (Zestril) 40 mg PO BID [facility] Last Admin: 10/26/16 10:01 Dose: 40 mg Pneumococcal Polyvalent Vaccine (Pneumovax 23 Vaccine) 0.5 ml IM .ONCE ONE Stop: 10/28/16 10:01 Rosuvastatin Calcium (Crestor) 10 mg PO HS [facility] Last Admin: 10/25/16 21:26 Dose: 10 mg Temazepam (Restoril) 15 mg PO HS PRN PRN Reason: Sleep Last Admin: 10/25/16 23:04 Dose: 15 mg - Labs Labs: PT 13.1 SECONDS (9.7-12.2) H 10/25/16 10:27 INR 1.1 10/25/16 10:27 APTT 31 SECONDS (21-34) 10/25/16 10:27 - Constitutional Appears: Well - Head Exam Head Exam: ATRAUMATIC, NORMAL INSPECTION, NORMOCEPHALIC - Eye Exam Eye Exam: EOMI, Normal appearance, PERRL Pupil Exam: NORMAL ACCOMODATION, PERRL - ENT Exam ENT Exam: Mucous Membranes Moist, Normal Exam - Neck Exam Neck Exam: Full ROM, Normal Inspection. absent: Lymphadenopathy - Respiratory Exam Respiratory Exam: Decreased Breath Sounds - Cardiovascular Exam Cardiovascular Exam: REGULAR RHYTHM, +S1, +S2 - GI/Abdominal Exam GI & Abdominal Exam: Soft, Diminished Bowel Sounds - Rectal Exam Rectal Exam: Deferred Assessment and Plan (1) Abdominal colic Status: Acute (2) Abdominal pain Status: Acute (3) Abdominal pain Status: Acute (4) Abdominal pain Status: Acute (5) Abscess Status: Acute (6) Acute bronchitis Status: Acute (7) Allergic reaction Status: Acute (8) Ankle sprain Status: Acute (9) Arm pain Status: Acute (10) Back pain Status: Acute (11) Back sprain Status: Acute (12) CAD (coronary artery disease) Status: Acute (13) Chest pain Status: Acute (14) Cough Status: Acute (15) Dental caries Status: Acute (16) Diarrhea Status: Acute (17) Diarrhea Status: Acute (18) Diverticulitis Status: Acute (19) Eye infection Status: Acute (20) Flank pain Status: Acute (21) Gastroenteritis Status: Acute (22) Gout Status: Acute (23) Gout attack Status: Acute (24) Gout of wrist Status: Acute (25) History of hypertension Status: Acute (26) Hypertension Status: Acute (27) Left facial numbness Status: Acute (28) Muscle spasm Status: Acute (29) Muscle twitch Status: Acute (30) Pain Status: Acute (31) Palpitations Status: Acute (32) Palpitations Status: Acute (33) Pancolitis Status: Acute (34) Poorly controlled blood pressure Status: Acute (35) Prophylactic measure Status: Acute (36) Rectal bleed Status: Acute (37) TIA (transient ischemic attack) Status: Acute (38) TIA (transient ischemic attack) Status: Acute (39) Upper respiratory infection Status: Acute (40) Vertigo Status: Acute (41) Viral URI with cough Status: Acute (42) Vomiting Status: Acute (43) Wound check, abscess Status: Acute (44) Dizziness Status: Chronic (45) HTN (hypertension) Status: Chronic (46) History of CHF (congestive heart failure) Status: Chronic (47) History of coronary artery disease Status: Chronic (48) History of gout Status: Chronic - Assessment and Plan (Free Text) Plan: pt clinically better pending echo Neuro on board Neuro checks Aspirin Coreg Colchicine dvt px Dr Angulo
--- NOTE | 2016-10-26 12:58 | VASCLAB ---
PROCEDURE: HISTORY: TIA COMPARISON: None available. TECHNIQUE: Grayscale and duplex Doppler evaluation of the cervical carotid and vertebral arteries were performed. The common carotid, carotid bifurcations and cervical Internal Carotid Artery (ICA) and proximal External Carotid Artery (ECA) were evaluated. The vertebral arteries were evaluated for gross patency and flow direction. Report prepared by Timur Barton, BS, RVT FINDINGS: RIGHT CAROTID ARTERIES: 1. Common Carotid Artery: No significant focal plaque formation of the right common carotid artery. Maximum Peak Systolic velocity: 87 cm/sec: End-diastolic velocity 10 cm/sec. 2. Carotid Bifurcation: plaque formation. Maximum Peak Systolic velocity: 74 cm/sec: End-diastolic velocity 11 cm/sec. 3. Internal Carotid Artery: Plaque description: 3.1. Proximal Segment: Peak systolic velocity 45 cm/sec: End-diastolic velocity 10 cm/sec - % stenosis 0-15% 3.2. Middle Segment: Peak systolic velocity 58 cm/sec: End-diastolic velocity 18 cm/sec - % stenosis 0-15% 3.3. Distal Segment: Peak systolic velocity 78 cm/sec: End-diastolic velocity 19 cm/sec - % stenosis 0-15% 4. External Carotid Artery: No significant focal plaque formation. Peak systolic velocity 64 cm/sec 5. ICA/CCA Ratio: 0.9 LEFT CAROTID ARTERIES: 1. Common Carotid Artery: No significant focal plaque formation of the left common carotid artery. Maximum Peak Systolic velocity: 85 cm/sec: End-diastolic velocity 11 cm/sec. 2. Carotid Bifurcation: plaque formation. Maximum Peak Systolic velocity: 64 cm/sec: End-diastolic velocity 7 cm/sec. 3. Internal Carotid Artery: Plaque description: 3.1. Proximal Segment: Peak systolic velocity 55 cm/sec: End-diastolic velocity 18 cm/sec - % stenosis 0-15% 3.2. Middle Segment: Peak systolic velocity 77 cm/sec: End-diastolic velocity 24 cm/sec - % stenosis 0-15% 3.3. Distal Segment: Peak systolic velocity 89 cm/sec: End-diastolic velocity 22 cm/sec - % stenosis 0-15% 4. External Carotid Artery: No significant focal plaque formation. Peak systolic velocity 82 cm/sec 5. ICA/CCA Ratio: 1.0 VERTEBRAL ARTERIES: 1. Right Vertebral Artery: The right vertebral artery flow direction is antegrade. 2. Left Vertebral Artery: The left vertebral artery flow direction is antegrade. OTHER FINDINGS: 1. Right Brachial Blood pressure: 184 mmHg. 2. Left Brachial Blood pressure: 180 mmHg. IMPRESSION: RIGHT: Duplex scan does not suggest hemodynamically significant stenosis of the right extracranial carotid arteries. LEFT: Duplex scan does not suggest hemodynamically significant stenosis of the left extracranial carotid arteries.
--- NOTE | 2016-10-27 01:42 | CP.PCM.PN ---
Subjective - Date & Time of Evaluation Date of Evaluation: 10/26/16 Time of Evaluation: 20:00 - Subjective Subjective: feeling better echo pending Objective - Vital Signs/Intake and Output Vital Signs (last 24 hours): Temp Pulse Resp BP Pulse Ox 98.4 F 82 20 157/95 H 99 10/26/16 16:05 10/26/16 16:05 10/26/16 16:05 10/26/16 17:47 10/26/16 16:05 Intake and Output: 10/26/16 10/27/16 18:59 06:59 Intake Total 500 480 Output Total 350 Balance 150 480 - Medications Medications: Current Medications Allopurinol (Zyloprim) 100 mg PO DAILY [facility] Last Admin: 10/26/16 10:01 Dose: 100 mg Aspirin (Aspirin) 325 mg PO DAILY [facility] Last Admin: 10/26/16 10:01 Dose: 325 mg Carvedilol (Coreg) 25 mg PO BID [facility] Last Admin: 10/26/16 17:47 Dose: 25 mg Colchicine (Colocrys) 0.6 mg PO DAILY [facility] Last Admin: 10/26/16 10:19 Dose: 0.6 mg Diphenhydramine HCl (Benadryl) 25 mg PO TID PRN PRN Reason: Itching / Pruritus Last Admin: 10/26/16 21:40 Dose: 25 mg Enoxaparin Sodium (Lovenox) 40 mg SC DAILY [facility] Last Admin: 10/26/16 10:02 Dose: 40 mg Lisinopril (Zestril) 40 mg PO BID [facility] Last Admin: 10/26/16 17:47 Dose: 40 mg Pneumococcal Polyvalent Vaccine (Pneumovax 23 Vaccine) 0.5 ml IM .ONCE ONE Stop: 10/28/16 10:01 Rosuvastatin Calcium (Crestor) 10 mg PO HS [facility] Last Admin: 10/26/16 21:40 Dose: 10 mg Temazepam (Restoril) 15 mg PO HS PRN PRN Reason: Sleep Last Admin: 10/26/16 21:40 Dose: 15 mg - Labs Labs: PT 13.1 SECONDS (9.7-12.2) H 10/25/16 10:27 INR 1.1 10/25/16 10:27 APTT 31 SECONDS (21-34) 10/25/16 10:27 - Constitutional Appears: Well - Head Exam Head Exam: ATRAUMATIC, NORMAL INSPECTION, NORMOCEPHALIC - Eye Exam Eye Exam: EOMI, Normal appearance, PERRL Pupil Exam: NORMAL ACCOMODATION, PERRL - ENT Exam ENT Exam: Mucous Membranes Moist, Normal Exam - Neck Exam Neck Exam: Full ROM, Normal Inspection. absent: Lymphadenopathy - Respiratory Exam Respiratory Exam: Clear to Ausculation Bilateral, NORMAL BREATHING PATTERN - Cardiovascular Exam Cardiovascular Exam: REGULAR RHYTHM, +S1, +S2, Murmur - GI/Abdominal Exam GI & Abdominal Exam: Soft, Normal Bowel Sounds. absent: Tenderness - Rectal Exam Rectal Exam: Deferred - Extremities Exam Extremities Exam: Full ROM, Normal Capillary Refill, Normal Inspection. absent : Joint Swelling, Pedal Edema - Back Exam Back Exam: NORMAL INSPECTION - Neurological Exam Neurological Exam: Alert, Awake, CN II-XII Intact, Oriented x3 - Psychiatric Exam Psychiatric exam: Normal Affect, Normal Mood - Skin Skin Exam: Dry, Intact, Normal Color, Warm Assessment and Plan (1) TIA (transient ischemic attack) Assessment & Plan: w/u in progress carotid/MRI Status: Acute (2) Chest pain Assessment & Plan: atypical acs ruled out echo pending Status: Acute (3) History of hypertension Assessment & Plan: cont with coreg and acei Status: Acute (4) CAD (coronary artery disease) Assessment & Plan: stable outpt w/u Status: Acute
[2016-10-27 09:04] VITALS: PULSE 62
[2016-10-27] MEDS: Enoxaparin 40 mg Syringe SC SCH (09:27)
--- NOTE | 2016-10-27 13:19 | CP.PCM.PN ---
Subjective - Date & Time of Evaluation Date of Evaluation: 10/27/16 Time of Evaluation: 11:40 - Subjective Subjective: clinically same Objective - Vital Signs/Intake and Output Vital Signs (last 24 hours): Temp Pulse Resp BP Pulse Ox 98.0 F 62 18 145/78 96 10/27/16 07:10 10/27/16 07:10 10/27/16 07:10 10/27/16 09:27 10/27/16 07:10 Intake and Output: 10/27/16 10/27/16 06:59 18:59 Intake Total 600 Balance 600 - Medications Medications: Current Medications Allopurinol (Zyloprim) 100 mg PO DAILY [facility] Last Admin: 10/27/16 09:29 Dose: Not Given Aspirin (Aspirin) 325 mg PO DAILY [facility] Last Admin: 10/27/16 09:27 Dose: 325 mg Carvedilol (Coreg) 25 mg PO BID [facility] Last Admin: 10/27/16 09:27 Dose: 25 mg Colchicine (Colocrys) 0.6 mg PO DAILY [facility] Last Admin: 10/27/16 09:27 Dose: 0.6 mg Diphenhydramine HCl (Benadryl) 25 mg PO TID PRN PRN Reason: Itching / Pruritus Last Admin: 10/26/16 21:40 Dose: 25 mg Enoxaparin Sodium (Lovenox) 40 mg SC DAILY [facility] Last Admin: 10/27/16 09:27 Dose: 40 mg Lisinopril (Zestril) 40 mg PO BID [facility] Last Admin: 10/27/16 09:27 Dose: 40 mg Pneumococcal Polyvalent Vaccine (Pneumovax 23 Vaccine) 0.5 ml IM .ONCE ONE Stop: 10/28/16 10:01 Rosuvastatin Calcium (Crestor) 10 mg PO HS [facility] Last Admin: 10/26/16 21:40 Dose: 10 mg Temazepam (Restoril) 15 mg PO HS PRN PRN Reason: Sleep Last Admin: 10/26/16 21:40 Dose: 15 mg - Labs Labs: PT 13.1 SECONDS (9.7-12.2) H 10/25/16 10:27 INR 1.1 10/25/16 10:27 APTT 31 SECONDS (21-34) 10/25/16 10:27 - Constitutional Appears: Well - Head Exam Head Exam: ATRAUMATIC, NORMAL INSPECTION, NORMOCEPHALIC - Eye Exam Eye Exam: EOMI, Normal appearance, PERRL Pupil Exam: NORMAL ACCOMODATION, PERRL - ENT Exam ENT Exam: Mucous Membranes Moist, Normal Exam - Neck Exam Neck Exam: Full ROM, Normal Inspection. absent: Lymphadenopathy - Respiratory Exam Respiratory Exam: Decreased Breath Sounds - Cardiovascular Exam Cardiovascular Exam: REGULAR RHYTHM, +S1, +S2 - GI/Abdominal Exam GI & Abdominal Exam: Soft, Diminished Bowel Sounds - Rectal Exam Rectal Exam: Deferred Assessment and Plan (1) Abdominal colic Status: Acute (2) Abdominal pain Status: Acute (3) Abdominal pain Status: Acute (4) Abdominal pain Status: Acute (5) Abscess Status: Acute (6) Acute bronchitis Status: Acute (7) Allergic reaction Status: Acute (8) Ankle sprain Status: Acute (9) Arm pain Status: Acute (10) Back pain Status: Acute (11) Back sprain Status: Acute (12) CAD (coronary artery disease) Status: Acute (13) Chest pain Status: Acute (14) Cough Status: Acute (15) Dental caries Status: Acute (16) Diarrhea Status: Acute (17) Diarrhea Status: Acute (18) Diverticulitis Status: Acute (19) Eye infection Status: Acute (20) Flank pain Status: Acute (21) Gastroenteritis Status: Acute (22) Gout Status: Acute (23) Gout attack Status: Acute (24) Gout of wrist Status: Acute (25) History of hypertension Status: Acute (26) Hypertension Status: Acute (27) Left facial numbness Status: Acute (28) Muscle spasm Status: Acute (29) Muscle twitch Status: Acute (30) Pain Status: Acute (31) Palpitations Status: Acute (32) Palpitations Status: Acute (33) Pancolitis Status: Acute (34) Poorly controlled blood pressure Status: Acute (35) Prophylactic measure Status: Acute (36) Rectal bleed Status: Acute (37) TIA (transient ischemic attack) Status: Acute (38) TIA (transient ischemic attack) Status: Acute (39) Upper respiratory infection Status: Acute (40) Vertigo Status: Acute (41) Viral URI with cough Status: Acute (42) Vomiting Status: Acute (43) Wound check, abscess Status: Acute (44) Dizziness Status: Chronic (45) HTN (hypertension) Status: Chronic (46) History of CHF (congestive heart failure) Status: Chronic (47) History of coronary artery disease Status: Chronic (48) History of gout Status: Chronic - Assessment and Plan (Free Text) Plan: pt clinically better no acute event overnight cleared for discharge fup as advised abhishek home meds fup with Dr Kev arvizu return to ed if symptoms recur
[2016-10-27 17:10] VITALS: RESP 20; TEMP 98.2; O2SAT 97
--- NOTE | 2016-10-27 17:19 | CP.PCM.PN ---
Subjective - Date & Time of Evaluation Date of Evaluation: 10/27/16 Time of Evaluation: 17:18 - Subjective Subjective: PT SEEN BY DR. Florinda AREVALO AND CLEARED FOR D/C HOME TODAY. RX TO BE GIVEN FOR ASA AND CRESTOR. ALSO RX FOR RESTORIL PRN. PT TO F/U WITH DR. AREVALO, DR. RODAS AND DR. OAKES IN THE OFFICE. D/C INSTRUCTIONS DISCUSSED WITH PT. Objective - Vital Signs/Intake and Output Vital Signs (last 24 hours): Temp Pulse Resp BP Pulse Ox 98.2 F 62 20 169/69 H 97 10/27/16 16:00 10/27/16 16:00 10/27/16 16:00 10/27/16 16:00 10/27/16 16:00 Intake and Output: 10/27/16 10/27/16 06:59 18:59 Intake Total 600 Balance 600 - Medications Medications: Current Medications Allopurinol (Zyloprim) 100 mg PO DAILY [facility] Last Admin: 10/27/16 09:29 Dose: Not Given Aspirin (Aspirin) 325 mg PO DAILY [facility] Last Admin: 10/27/16 09:27 Dose: 325 mg Carvedilol (Coreg) 25 mg PO BID [facility] Last Admin: 10/27/16 09:27 Dose: 25 mg Colchicine (Colocrys) 0.6 mg PO DAILY [facility] Last Admin: 10/27/16 09:27 Dose: 0.6 mg Diphenhydramine HCl (Benadryl) 25 mg PO TID PRN PRN Reason: Itching / Pruritus Last Admin: 10/26/16 21:40 Dose: 25 mg Enoxaparin Sodium (Lovenox) 40 mg SC DAILY [facility] Last Admin: 10/27/16 09:27 Dose: 40 mg Lisinopril (Zestril) 40 mg PO BID [facility] Last Admin: 10/27/16 09:27 Dose: 40 mg Pneumococcal Polyvalent Vaccine (Pneumovax 23 Vaccine) 0.5 ml IM .ONCE ONE Stop: 10/28/16 10:01 Rosuvastatin Calcium (Crestor) 10 mg PO HS [facility] Last Admin: 10/26/16 21:40 Dose: 10 mg Temazepam (Restoril) 15 mg PO HS PRN PRN Reason: Sleep Last Admin: 10/26/16 21:40 Dose: 15 mg - Labs Labs: PT 13.1 SECONDS (9.7-12.2) H 10/25/16 10:27 INR 1.1 10/25/16 10:27 APTT 31 SECONDS (21-34) 10/25/16 10:27
[2016-10-27 17:36] VITALS: BP 185/66
[2016-10-28] MEDS ORDERED: Pneumococcal 23-Valent Vaccine IM ONE (10:00)
--- NOTE | 2016-10-28 13:13 | CARD ---
APPROVED REPORT EKG Measurement Heart [id number] <Conclusion> Sinus bradycardia Nonspecific T wave abnormality Abnormal ECG
--- NOTE | 2016-11-11 06:43 | CARD ---
APPROVED REPORT EXAM: Two-dimensional and M-mode echocardiogram with Doppler and color Doppler. Other Information Quality : GoodRhythm : NSR INDICATION CVA/TIA Chest Pain Congestive Heart Failure Palpitations RISK FACTORS Hypertension M-Mode DIMENSIONS RVDd1.04 (2.1-3.2cm)Left Atrium (MM)5.08 (2.5-4.0cm) IVSd1.30 (0.7-1.1cm)Aortic Root3.17 (2.2-3.7cm) LVDd5.73 (4.0-5.6cm)Aortic Cusp Exc.2.47 (1.5-2.0cm) PWd1.43 (0.7-1.1cm)FS (%) 37 % LVDs3.60 (2.0-3.8cm)LVEF (%)66 (>50%) Mitral Valve MV E Mjfhocxq14.0cm/sMV A Gbwkjxsr07.8cm/sE/A ratio1.3 TDI E/Lateral E'0.0E/Medial E'0.0 Tricuspid Valve TR Peak [id number]/sTR Peak Gr.[id number] LEFT VENTRICLE The left ventricle is normal size. There is normal left ventricular wall thickness. Left ventricle systolic function is normal. The Ejection Fraction is 65-70%. There is normal LV segmental wall motion. The left ventricular diastolic function is normal. RIGHT VENTRICLE The right ventricle is normal size. There is normal right ventricular wall thickness. The right ventricular systolic function is normal. ATRIA The left atrium is moderately dilated. The right atrium size is normal. The interatrial septum is intact with no evidence for an atrial septal defect. AORTIC VALVE The aortic valve is normal in structure. No aortic regurgitation is present. There is no aortic valvular stenosis. There is no aortic valvular vegetation. MITRAL VALVE The mitral valve is normal in structure. There is no evidence of mitral valve prolapse. There is no mitral valve stenosis. There is no mitral valve regurgitation noted. TRICUSPID VALVE The tricuspid valve is normal in structure. There is mild tricuspid regurgitation. Right ventricular systolic pressure is estimated at 30-40 mmHg. There is mild pulmonary hypertension. PULMONIC VALVE The pulmonic valve is not well visualized. There is mild pulmonic valvular regurgitation. GREAT VESSELS The aortic root is normal in size. PERICARDIAL EFFUSION There is no significant pericardial effusion. <Conclusion> Left ventricle systolic function is normal. The Ejection Fraction is 65-70%. No aortic regurgitation is present. There is no mitral valve regurgitation noted. There is mild tricuspid regurgitation. There is mild pulmonary hypertension. There is mild pulmonic valvular regurgitation.
== END 2016-10-27 18:10 | disposition home or self-care (01) ==
LOC: C.ER 09:58 → C.9E 11:24 → C.6T 12:43
PROVIDERS: ADMIT Internal Medicine Nephrology; ATTEND Internal Medicine Nephrology
DX: R53.1 Weakness (principal); I25.10 Atherosclerotic heart disease of native coronary artery without angina pectoris; I11.0 Hypertensive heart disease with heart failure; I50.9 Heart failure, unspecified; J45.909 Unspecified asthma, uncomplicated; M10.9 Gout, unspecified; Z95.5 Presence of coronary angioplasty implant and graft; Z68.41 Body mass index [BMI] 40.0-44.9, adult
CPT/HCPCS: 70450; 71010; 80053; 80061; 82948; 84484; 85025; 85610; 85730; 86850; 86900; 93005; 93306; 93880; 97116; 97161; 99285; G0378; G8978; G8979; G8980; J1650

== ENCOUNTER 2016-11-05 10:14 | Emergency (ER) | payer BC ==
[2016-11-05 10:14] VITALS: BMI 37.6
[2016-11-05 10:22] VITALS: PULSE 65; RESP 16; TEMP 97.9; O2SAT 97
--- NOTE | 2016-11-05 11:04 | C.PDOC ---
History Of Present Illness 56 yr old male with PMHx of HTN presents to the ER stating upon waking up this morning he felt dizzy. Reports checking his blood pressure and found it be 200/ 110. Patient reports he took his clonidine. Patient states he is only suppose to take clonidine when his blood pressure is 200, however did not take his Coreg and lisinopril today. Denies fever, vision changes, chest pain, SOB, nausea, vomiting, weakness or numbness. Time Seen by Provider: 11/05/16 10:23 Chief Complaint (Nursing): High Blood Pressure History Per: Patient History/Exam Limitations: no limitations Onset/Duration Of Symptoms: Sudden Onset (This morning ) Past Medical History Reviewed: Historical Data, Nursing Documentation, Vital Signs Vital Signs: Last Vital Signs Temp 97.9 F 11/05/16 10:18 Pulse 65 11/05/16 10:18 Resp 16 11/05/16 10:18 BP 169/60 H 11/05/16 12:59 Pulse Ox 97 11/05/16 12:18 - Medical History PMH: Arthritis, Asthma, Bronchitis, CAD, CHF, Diverticulitis, Hiatal Hernia, HTN Surgical History: Coronary Stent (x3), Hernia Repair (4 years ago) - [facility] Procedures CORONAR ARTERIOGR-2 CATH (11/28/03) INJECT/INFUSE NEC (04/10/07) LEFT HEART CARDIAC CATH (11/28/03) LT HEART ANGIOCARDIOGRAM (11/28/03) OTHER LOCAL DESTRUC SKIN (12/10/03) Family History: States: No Known Family Hx - Social History Hx Tobacco Use: No Hx Alcohol Use: No Hx Substance Use: No - Immunization History Hx Tetanus Toxoid Vaccination: No Hx Influenza Vaccination: No Hx Pneumococcal Vaccination: No Review Of Systems Except As Marked, All Systems Reviewed And Found Negative. Constitutional: Negative for: Fever Eyes: Negative for: Vision Change Cardiovascular: Negative for: Chest Pain Respiratory: Negative for: Shortness of Breath Gastrointestinal: Negative for: Nausea, Vomiting Neurological: Positive for: Dizziness. Negative for: Weakness, Numbness Physical Exam - Physical Exam Appears: Non-toxic, No Acute Distress, Other ((+) Obese ) Skin: Warm, Dry, No Rash Head: Atraumatic, Normacephalic Chest: Symmetrical, No Tenderness Cardiovascular: Rhythm Regular, No Murmur Respiratory: Normal Breath Sounds, No Rales, No Rhonchi, No Stridor, No Wheezing Extremity: Normal ROM, No Swelling Neurological/Psych: Oriented x3, Normal Speech, Normal Motor ED Course And Treatment - Laboratory Results Result Diagrams: 11/05/16 11:27 11/05/16 11:27 ECG: Interpreted By Me, Viewed By Me ECG Rhythm: Sinus Rhythm ECG Interpretation: Normal Interpretation Of ECG: Normal axis. Normal intervals. Rate From EC (BPM) O2 Sat by Pulse Oximetry: 97 (RA ) - CT Scan/US CT - Head Other Rad Studies (CT/US): Read By Radiologist, Radiology Report Reviewed CT/US Interpretation: PROCEDURE: CT HEAD WITHOUT CONTRAST. HISTORY: R/O Bleed. COMPARISON: 10/25/2016. TECHNIQUE: Axial computed tomography images were obtained through the head/brain without intravenous contrast. Radiation dose: Total exam DLP = 986 mGy-cm. This CT exam was performed using one or more of the following dose reduction techniques: Automated exposure control, adjustment of the mA and/or kV according to patient size, and/or use of iterative reconstruction technique. FINDINGS: HEMORRHAGE: No intracranial hemorrhage. BRAIN: No mass effect or edema. Scattered focal lucencies in the subcortical and periventricular white matter suggestive for chronic microvascular ischemic change. Stable calcification in the posterior left occipital lobe. Small punctate hypodensities in the right cerebellum on series 2 , image 10 and image 9 which may represent small lacunar infarcts. VENTRICLES: Unremarkable. No hydrocephalus. CALVARIUM: Unremarkable. PARANASAL SINUSES : Mild mucosal thickening in the right maxillary sinus. MASTOID AIR CELLS: Unremarkable as visualized. No inflammatory changes. OTHER FINDINGS: Intracranial arterial calcifications. IMPRESSION: Chronic microvascular ischemic changes. Small punctate hypodensities in the right cerebellum on series 2, image 10 and image 9 which may represent small lacunar infarcts. Mild mucosal thickening of the right maxillary sinus. If focal neurologic deficit persists, consider MRI. Medical Decision Making Medical Decision Making: PLAN: * CT - Head * EKG * Troponin * CBC * CMP * Antivert PO * Coreg PO * Lisinopril PO Disposition - Disposition Referrals: Kodak Lackey Jr., MD [Medical Doctor] - Disposition: HOME/ ROUTINE Disposition Time: 12:20 Condition: IMPROVED Additional Instructions: Thank you for letting us take care of you today. Your provider was Dr. Passafaro. You were treated for hypertension. The emergency medical care you received today was directed at your acute symptoms. If you were prescribed any medication, please fill it and take as directed. It may take several days for your symptoms to resolve. Return to the Emergency Department if your symptoms worsen, do not improve, or if you have any other problems. Please contact your doctor or call one of the physicians/clinics you have been referred to that are listed on the Patient Visit Information form that is included in your discharge packet. Bring any paperwork you were given at discharge with you along with any medications you are taking to your follow up visit. Our treatment cannot replace ongoing medical care by a primary care provider (PCP) outside of the emergency department. Thank you for allowing the [facility] team to be part of your care today. Follow up with your primary doctor on Monday for a repeat blood pressure check and further management. Instructions: Hypertension (ED) Forms: [employer] (Frisian) - Clinical Impression Clinical Impression: HTN (hypertension) - Scribe Statement The provider has reviewed the documentation as recorded by the Deniz Tripp Provider Attestation: All medical record entries made by the Deniz were at my direction and personally dictated by me. I have reviewed the chart and agree that the record accurately reflects my personal performance of the history, physical exam, medical decision making, and the department course for this patient. I have also personally directed, reviewed, and agree with the discharge instructions and disposition.
--- NOTE | 2016-11-05 11:33 | CT ---
PROCEDURE: CT HEAD WITHOUT CONTRAST. HISTORY: R/O Bleed COMPARISON: 10/25/2016 TECHNIQUE: Axial computed tomography images were obtained through the head/brain without intravenous contrast. Radiation dose: Total exam DLP = 986 mGy-cm. This CT exam was performed using one or more of the following dose reduction techniques: Automated exposure control, adjustment of the mA and/or kV according to patient size, and/or use of iterative reconstruction technique. FINDINGS: HEMORRHAGE: No intracranial hemorrhage. BRAIN: No mass effect or edema. Scattered focal lucencies in the subcortical and periventricular white matter suggestive for chronic microvascular ischemic change. Stable calcification in the posterior left occipital lobe. Small punctate hypodensities in the right cerebellum on series 2, image 10 and image 9 which may represent small lacunar infarcts. VENTRICLES: Unremarkable. No hydrocephalus. CALVARIUM: Unremarkable. PARANASAL SINUSES: Mild mucosal thickening in the right maxillary sinus. MASTOID AIR CELLS: Unremarkable as visualized. No inflammatory changes. OTHER FINDINGS: Intracranial arterial calcifications. IMPRESSION: Chronic microvascular ischemic changes. Small punctate hypodensities in the right cerebellum on series 2, image 10 and image 9 which may represent small lacunar infarcts. Mild mucosal thickening of the right maxillary sinus. If focal neurologic deficit persists, consider MRI.
[2016-11-05 11:35] LABS: BASO % 0.4 % (0.0-2.0); EOS # 0.1 K/uL (0.0-0.7); EOS % 2.1 % (0.0-4.0); HEMOGLOBIN 12.9 g/dL (12.0-18.0); LYMPH # 1.5 K/uL (1.0-4.3); LYMPH % 38.8 % (20.0-40.0); MEAN CORPUSCULAR HEMOGLOBIN 23.3 pg (27.0-31.0); MEAN CORPUSCULAR HGB CONC 31.1 g/dL (33.0-37.0); MEAN PLATELET VOLUME 7.5 fL (7.2-11.7); MONO # 0.4 K/uL (0.0-0.8); MONO % 9.5 % (0.0-10.0); NEUT # 1.9 K/uL (1.8-7.0); NEUT % 49.2 % (50.0-75.0); NRBC % 0.1 % (0.0-2.0); RBC 5.54 Mil/uL (4.40-5.90); RED CELL DISTRIBUTION WIDTH 16.6 % (11.5-14.5); WHITE BLOOD COUNT 3.9 K/uL (4.8-10.8)
[2016-11-05 11:44] LABS: ALBUMIN 3.6 g/dL (3.5-5.0)
[2016-11-05 11:46] LABS: GFR AFRICAN-AMERICAN > 60; GFR NON-AFRICAN AMERICAN > 60
[2016-11-05 11:47] LABS: ALB/GLOB RATIO 1.1 (1.0-2.1); ALT/SGPT 114 U/L (21-72); AST/SGOT 74 U/L (17-59); BLOOD UREA NITROGEN 12 mg/dL (9-20)
[2016-11-05 11:48] LABS: CALCIUM 8.4 mg/dl (8.6-10.4)
[2016-11-05 13:00] VITALS: BP 169/60
== END 2016-11-05 13:00 | disposition home or self-care (01) ==
LOC: C.ER 10:14
DX: I10 Essential (primary) hypertension (principal)

== ENCOUNTER 2016-12-23 12:46 | Observation (INO) | payer BC ==
[2016-12-23 12:46] VITALS: BMI 37.6
[2016-12-23] MEDS ORDERED: Aspirin 325 mg EC Tablets PO STA (13:35)
[2016-12-23] MEDS ORDERED: Aspirin 325 mg EC Tablets PO ONE (13:59)
[2016-12-23 14:05] LABS: BASO % 0.5 % (0.0-2.0); EOS # 0.1 K/uL (0.0-0.7); EOS % 1.6 % (0.0-4.0); HEMATOCRIT 42.5 % (35.0-51.0); LYMPH # 1.6 K/uL (1.0-4.3); LYMPH % 38.3 % (20.0-40.0); MEAN CELL VOLUME 74.5 fL (80.0-94.0); MEAN CORPUSCULAR HEMOGLOBIN 23.9 pg (27.0-31.0); MEAN PLATELET VOLUME 7.7 fL (7.2-11.7); MONO # 0.6 K/uL (0.0-0.8); MONO % 13.5 % (0.0-10.0); NRBC % 0.1 % (0.0-2.0); RED CELL DISTRIBUTION WIDTH 16.1 % (11.5-14.5); WHITE BLOOD COUNT 4.3 K/uL (4.8-10.8)
[2016-12-23 14:13] LABS: INR 1.2
--- NOTE | 2016-12-23 14:20 | RAD ---
PROCEDURE: CHEST RADIOGRAPH, 1 VIEW HISTORY: SOB COMPARISON: Comparison is made to 10/25/2016 FINDINGS: LUNGS: No evidence of new infiltrate or consolidation in the lungs PLEURA: No pneumothorax or pleural fluid seen. CARDIOVASCULAR: Normal. OSSEOUS STRUCTURES: No significant abnormalities. VISUALIZED UPPER ABDOMEN: Normal. OTHER FINDINGS: None. IMPRESSION: No active disease.
--- NOTE | 2016-12-23 15:01 | C.PDOC ---
History Of Present Illness 56 year old male, with a past medical history of HTN, CAD, and CHF, presents to the ED with complaints of sweats, palpitations, lightheadedness, and high blood pressure for two days. Patient states he has had " three cardiac caths in my life." Blood pressure was measured to be 162/102 and has been "high for a couple of days." Patient has been taking various medications for symptoms including Naproxen, baby aspirin, prednisone, and lisinopril. He denies headache , weakness, numbness, slurred speech, visual changes, or chest pain. Time Seen by Provider: 12/23/16 13:05 Chief Complaint (Nursing): High Blood Pressure History Per: Patient History/Exam Limitations: no limitations Onset/Duration Of Symptoms: Days (2 days ) Current Symptoms Are (Timing): Still Present Associated Symptoms: Dizziness (described as lightheadedness ). denies: Chest Pain, Headache Recent travel outside of the [place]: No Additional History Per: Prior Records Past Medical History Reviewed: Historical Data, Nursing Documentation, Vital Signs Vital Signs: Last Vital Signs Temp 98.2 F 12/23/16 17:10 Pulse 62 12/23/16 17:10 Resp 20 12/23/16 17:10 BP 160/84 H 12/23/16 17:10 Pulse Ox 98 12/23/16 18:24 - Medical History PMH: Arthritis, Asthma, Bronchitis, CAD, CHF, Diverticulitis, Hiatal Hernia, HTN Surgical History: Coronary Stent (x3), Hernia Repair (4 years ago) - [facility] Procedures CORONAR ARTERIOGR-2 CATH (11/28/03) INJECT/INFUSE NEC (04/10/07) LEFT HEART CARDIAC CATH (11/28/03) LT HEART ANGIOCARDIOGRAM (11/28/03) OTHER LOCAL DESTRUC SKIN (12/10/03) Family History: States: Unknown Family Hx - Social History Hx Tobacco Use: No Hx Alcohol Use: Yes Hx Substance Use: No - Immunization History Hx Tetanus Toxoid Vaccination: No Hx Influenza Vaccination: No Hx Pneumococcal Vaccination: No Review Of Systems Constitutional: Positive for: Sweats, Other (high blood pressure ). Negative for: Fever, Chills Cardiovascular: Positive for: Palpitations, Light Headedness. Negative for: Chest Pain, Paroxysmal Noc. Dyspnea Respiratory: Negative for: Cough, Shortness of Breath Gastrointestinal: Negative for: Nausea, Vomiting, Abdominal Pain, Diarrhea Neurological: Negative for: Weakness, Numbness, Headache Physical Exam - Physical Exam Appears: Non-toxic, No Acute Distress, Other (Patient appears comfortable and is obese) Skin: Warm, Dry Head: Atraumatic, Normacephalic Eye(s): bilateral: Normal Inspection, PERRL, EOMI Oral Mucosa: Moist Neck: Supple Chest: Symmetrical, No Deformity, No Tenderness Cardiovascular: Rhythm Regular, No Murmur Respiratory: Normal Breath Sounds, No Rales, No Rhonchi, No Wheezing Gastrointestinal/Abdominal: Soft, No Tenderness, No Distention, No Guarding, No Rebound Extremity: Normal ROM, No Tenderness, No Pedal Edema, No Calf Tenderness, Capillary Refill (good capillary refill, less than two seconds ), No Deformity, No Swelling Neurological/Psych: Oriented x3, Normal Speech, Normal Cognition, Normal Cranial Nerves, No Cerebellar Signs, Normal Motor, Normal Sensation Gait: Steady ED Course And Treatment - Laboratory Results Result Diagrams: 12/23/16 13:58 12/23/16 14:58 Lab Interpretation: Normal (trop/bnp neg.) ECG: Interpreted By Me, Viewed By Mi ECG Interpretation: Normal Rate From EC O2 Sat by Pulse Oximetry: 98 (room air ) Pulse Ox Interpretation: Normal - Radiology CXR: Interpreted by Me CXR Interpretation: Yes: No Acute Disease, Heart Size (+ megaly) Progress Note: EKG and blood work was ordered. Patient was given aspirin and placed on Oxygen via nasal cannula. Reevaluation Time: 15:47 Reassessment Condition: Improved (remains asymptomatic) - Physician Consult Information Outcome Of Conversation: 1545: d/w Dr. Lackey- PMD, ok to Tele obs. Medical Decision Making Medical Decision Making: though bp and labs wnl, and no s/s of CHF, pt with worstening SOB, TORRES, palps which may be anginal equivalent. ASA given Consider stress test/Card Echo Disposition Doctor Will See Patient In The: Hospital Counseled Patient/Family Regarding: Studies Performed, Diagnosis - Disposition Disposition: HOSPITALIZED Disposition Time: 15:48 Condition: GOOD - Clinical Impression Clinical Impression: History of CHF (congestive heart failure), Palpitation - Scribe Statement The provider has reviewed the documentation as recorded by the Wallyibcorey Rodriguez All medical record entries made by the Scribe were at my direction and personally dictated by me. I have reviewed the chart and agree that the record accurately reflects my personal performance of the history, physical exam, medical decision making, and the department course for this patient. I have also personally directed, reviewed, and agree with the discharge instructions and disposition.
[2016-12-23 15:10] LABS: CHLORIDE 98 mmol/L (98-107)
[2016-12-23 15:11] LABS: POTASSIUM 4.5 mmol/L (3.6-5.2); SODIUM 139 mmol/L (132-148)
[2016-12-23 15:13] LABS: ALB/GLOB RATIO 1.1 (1.0-2.1); AST/SGOT 114 U/L (17-59); BILIRUBIN,TOTAL 0.6 mg/dL (0.2-1.3); CARBON DIOXIDE 29 mmol/L (22-30); GFR AFRICAN-AMERICAN > 60; TOTAL PROTEIN 7.4 g/dL (6.3-8.3)
[2016-12-23 15:14] LABS: ALKALINE PHOSPHATASE 77 U/L (38-126); ALT/SGPT 148 U/L (21-72); BLOOD UREA NITROGEN 8 mg/dL (9-20); CALCIUM 8.7 mg/dl (8.6-10.4); GLUCOSE,RANDOM 81 mg/dL (75-110)
--- NOTE | 2016-12-23 16:39 | CP.PCM.HP ---
History of Present Illness - History of Present Illness History of Present Illness: CC: My blood pressure is high Patient is a 56 year old male with PMHx HTN, CHF, Gout, sleep apnea who presents to the ED with complaint of elevated blood pressure, light headedness, and episode of palpitations. Patient states he checks his blood pressure at home and has noticed his systolic pressure in 170s and diastolic pressure in low 100s the past few days. Patient states that he was also feeling light- headed at that time and had one episode of palpitations yesterday that resolved on its own after a few minutes. Patient denies nausea, vomiting, diaphoresis. Patient states that he has not been taking his lasix for a while because it makes him urinate too often throughout the day. Patient states compliance with all other medications. Patient currently denying light-headedness, palpitations , chest pain, leg swelling, dyspnea. PMD: Darya PMHx: HTN, CHF, sleep apnea, gout Meds: lisinopril 40mg BID, uloric 40mg PO daily, colchicine 0.12, coreg 25mg BID , ASA 325 daily PSHx: abdominal hernia, left wrist complication due to gout, left axilla cyst removal FamHx: parents and brother with CAD, stents, father with permanent pacemaker SocialHx: denies tobacco, alcohol, drugs; lives with girlfriend Present on Admission - Present on Admission Any Indicators Present on Admission: No Review of Systems - Constitutional Constitutional: Sleep Apnea. absent: Chills, Fever - EENT Eyes: absent: Blurred Vision - Cardiovascular Cardiovascular: absent: Chest Pain, Chest Pain at Rest, Diaphoresis, Dyspnea - Respiratory Respiratory: absent: Cough Past Patient History - Infectious Disease Hx of Infectious Diseases: None - Past Medical History & Family History Past Medical History?: Yes - Past Social History Smoking Status: Never Smoked - CARDIAC Hx Congestive Heart Failure: Yes Hx Hypertension: Yes - PULMONARY Hx Asthma: Yes Hx Bronchitis: Yes - NEUROLOGICAL Hx Neurological Disorder: No - HEENT Hx HEENT Problems: No - RENAL Hx Chronic Kidney Disease: No - ENDOCRINE/METABOLIC Hx Endocrine Disorders: No - HEMATOLOGICAL/ONCOLOGICAL Hx Blood Disorders: No - INTEGUMENTARY Hx Dermatological Problems: Yes Hx Cellulitis: Yes - MUSCULOSKELETAL/RHEUMATOLOGICAL Hx Arthritis: Yes - GASTROINTESTINAL Hx Diverticulitis: Yes - GENITOURINARY/GYNECOLOGICAL Hx Genitourinary Disorders: No - PSYCHIATRIC Hx Substance Use: No - SURGICAL HISTORY Hx Coronary Stent: Yes (x3) - ANESTHESIA Hx Anesthesia: Yes Hx Anesthesia Reactions: No Hx Malignant Hyperthermia: No Meds Allergies/Adverse Reactions: Allergies Allergy/AdvReac Type Severity Reaction Status Date / Time cephalexin monohydrate AdvReac VOMITING Verified 12/23/16 12:57 [From Keflex] iodixanol [From Visipaque] AdvReac VOMITING Verified 12/23/16 12:57 ctscan dye AdvReac VOMITING Uncoded 11/05/16 10:18 Physical Exam - Constitutional Appears: Non-toxic, No Acute Distress - Head Exam Head Exam: ATRAUMATIC, NORMOCEPHALIC - Eye Exam Eye Exam: EOMI, Normal appearance - ENT Exam ENT Exam: Mucous Membranes Moist - Respiratory Exam Respiratory Exam: Clear to Auscultation Bilateral, NORMAL BREATHING PATTERN. absent: Rales, Rhonchi, Wheezes, Respiratory Distress - Cardiovascular Exam Cardiovascular Exam: REGULAR RHYTHM, +S1, +S2. absent: JVD - GI/Abdominal Exam GI & Abdominal Exam: Normal Bowel Sounds, Soft. absent: Tenderness - Extremities Exam Additional comments: trace pitting edema bilateral lower extremities - Neurological Exam Neurological exam: Alert, Oriented x3 - Psychiatric Exam Psychiatric exam: Normal Affect - Skin Skin Exam: Dry, Warm Results - Vital Signs Recent Vital Signs: Last Vital Signs Temp 98.2 F 12/23/16 15:26 Pulse 61 12/23/16 15:26 Resp 18 12/23/16 15:26 BP 165/101 H 12/23/16 15:26 Pulse Ox 98 12/23/16 15:48 - Labs Result Diagrams: 12/23/16 13:58 12/23/16 14:58 Labs: Laboratory Results - last 24 hr 12/23/16 12/23/16 12/23/16 13:58 13:58 14:58 WBC 4.3 L RBC 5.70 Hgb 13.6 Hct 42.5 MCV 74.5 L MCH 23.9 L MCHC 32.0 L RDW 16.1 H Plt Count 309 MPV 7.7 Neut % (Auto) 46.1 L Lymph % (Auto) 38.3 [place] % (Auto) 13.5 H Eos % (Auto) 1.6 Baso % (Auto) 0.5 Neut # 2.0 Lymph # 1.6 [place] # 0.6 Eos # 0.1 Baso # 0.0 PT 13.0 H INR 1.2 APTT 29 Sodium 139 Potassium 4.5 Chloride 98 Carbon Dioxide 29 Anion Gap 16 BUN 8 L Creatinine 0.9 Est GFR ( Amer) > 60 Est GFR (Non-Af Amer) > 60 Random Glucose 81 Calcium 8.7 Total Bilirubin 0.6 AST 114 H ALT 148 H D Alkaline Phosphatase 77 Troponin I < 0.0120 NT-Pro-B Natriuret Pep 35.0 Total Protein 7.4 Albumin 3.9 Globulin 3.5 Albumin/Globulin Ratio 1.1 Assessment & Plan - Assessment and Plan (Free Text) Assessment: Hypertensive urgency continue home medications lisinopril 40mg PO BID and coreg 25 BID adding lasix 80 PO daily, to start now first CINDI negative, continue to trend monitor on telemetry check lipid panel in AM, check Hgb A1c CHF last echo 10/2016: LVEF 65-70%, no arotic regurgitation, mild tricuspid regurgitation, mild pulmonary HTN, mild pulmonary valve regurgitation continue lisinopril, coreg, aspirin adding lasix 80mg PO daily BNP 35 HLD continue crestor 10mg PO HS (patient admits not taking at home) Gout continue colchicine 0.12mg PO daily pt takes uloric at home- non-formulary here Prophylactic measure pepcid 20mg PO BID heparin 5000u sc q8 restoril 15mg PO HS prn All medical management as per Dr. Lackey
[2016-12-24 07:03] LABS: BASO % 0.7 % (0.0-2.0); EOS # 0.1 K/uL (0.0-0.7); EOS % 1.5 % (0.0-4.0); HEMATOCRIT 41.5 % (35.0-51.0); LYMPH # 1.4 K/uL (1.0-4.3); MEAN CORPUSCULAR HEMOGLOBIN 24.1 pg (27.0-31.0); MEAN CORPUSCULAR HGB CONC 32.5 g/dL (33.0-37.0); MEAN PLATELET VOLUME 7.9 fL (7.2-11.7); MONO # 0.4 K/uL (0.0-0.8); MONO % 11.2 % (0.0-10.0); NRBC % 0.1 % (0.0-2.0)
[2016-12-24 07:14] LABS: ALB/GLOB RATIO 1.2 (1.0-2.1); ALKALINE PHOSPHATASE 76 U/L (38-126); ALT/SGPT 138 U/L (21-72); AST/SGOT 99 U/L (17-59); BILIRUBIN,TOTAL 0.5 mg/dL (0.2-1.3); BLOOD UREA NITROGEN 11 mg/dL (9-20); CALCIUM 8.9 mg/dl (8.6-10.4); CARBON DIOXIDE 26 mmol/L (22-30); CHLORIDE 100 mmol/L (98-107); CHOLESTEROL 114 mg/dL (0-199); GFR AFRICAN-AMERICAN > 60; GLUCOSE,RANDOM 94 mg/dL (75-110); POTASSIUM 4.2 mmol/L (3.6-5.2); SODIUM 137 mmol/L (132-148); TOTAL PROTEIN 6.8 g/dL (6.3-8.3)
--- NOTE | 2016-12-24 16:28 | CP.PCM.DIS ---
Provider - Provider Date of Admission: 12/23/16 15:45 Attending physician: Kodak Lackey Jr, MD Primary care physician: Dr. Lackey Time Spent in preparation of Discharge (in minutes): 45 Diagnosis - Discharge Diagnosis (1) Hypertensive urgency Status: Acute Comment: Patient was discharged with home meds and new Rx of Lasix 80 mg PO daily. Hospital Course - Lab Results Lab Results: Most Recent Lab Values WBC 4.0 K/uL (4.8-10.8) L 12/24/16 06:50 RBC 5.61 Mil/uL (4.40-5.90) 12/24/16 06:50 Hgb 13.5 g/dL (12.0-18.0) 12/24/16 06:50 Hct 41.5 % (35.0-51.0) 12/24/16 06:50 MCV 74.0 fL (80.0-94.0) L 12/24/16 06:50 MCH 24.1 pg (27.0-31.0) L 12/24/16 06:50 MCHC 32.5 g/dL (33.0-37.0) L 12/24/16 06:50 RDW 16.0 % (11.5-14.5) H 12/24/16 06:50 Plt Count 293 K/uL (130-400) 12/24/16 06:50 MPV 7.9 fL (7.2-11.7) 12/24/16 06:50 Neut % (Auto) 50.6 % (50.0-75.0) 12/24/16 06:50 Lymph % (Auto) 36.0 % (20.0-40.0) 12/24/16 06:50 [place] % (Auto) 11.2 % (0.0-10.0) H 12/24/16 06:50 Eos % (Auto) 1.5 % (0.0-4.0) 12/24/16 06:50 Baso % (Auto) 0.7 % (0.0-2.0) 12/24/16 06:50 Neut # 2.0 K/uL (1.8-7.0) 12/24/16 06:50 Lymph # 1.4 K/uL (1.0-4.3) 12/24/16 06:50 [place] # 0.4 K/uL (0.0-0.8) 12/24/16 06:50 Eos # 0.1 K/uL (0.0-0.7) 12/24/16 06:50 Baso # 0.0 K/uL (0.0-0.2) 12/24/16 06:50 PT 13.0 SECONDS (9.7-12.2) H 12/23/16 13:58 INR 1.2 12/23/16 13:58 APTT 29 SECONDS (21-34) 12/23/16 13:58 Sodium 137 mmol/L (132-148) 12/24/16 06:50 Potassium 4.2 mmol/L (3.6-5.2) 12/24/16 06:50 Chloride 100 mmol/L (98-107) 12/24/16 06:50 Carbon Dioxide 26 mmol/L (22-30) 12/24/16 06:50 Anion Gap 16 (10-20) 12/24/16 06:50 BUN 11 mg/dL (9-20) 12/24/16 06:50 Creatinine 0.8 MG/DL (0.8-1.5) 12/24/16 06:50 Est GFR ( Amer) > 60 12/24/16 06:50 Est GFR (Non-Af Amer) > 60 12/24/16 06:50 Random Glucose 94 mg/dL (75-110) 12/24/16 06:50 Hemoglobin A1c 6.2 % (4.2-6.5) 12/23/16 19:57 Calcium 8.9 mg/dl (8.6-10.4) 12/24/16 06:50 Total Bilirubin 0.5 mg/dL (0.2-1.3) 12/24/16 06:50 AST 99 U/L (17-59) H 12/24/16 06:50 ALT 138 U/L (21-72) H 12/24/16 06:50 Alkaline Phosphatase 76 U/L (38-126) 12/24/16 06:50 Total Creatine Kinase 228 U/L (55-170) H 12/24/16 02:25 CK-MB (Mass) 0.52 ng/mL (0.0-3.38) 12/24/16 02:25 Troponin I < 0.0120 ng/mL (0.00-0.120) 12/23/16 14:58 Troponin I, Quant < 0.0120 ng/mL (0.00-0.120) 12/24/16 02:25 NT-Pro-B Natriuret Pep 35.0 pg/mL (0-900) 12/23/16 14:58 Total Protein 6.8 g/dL (6.3-8.3) 12/24/16 06:50 Albumin 3.7 g/dL (3.5-5.0) 12/24/16 06:50 Globulin 3.0 gm/dL (2.2-3.9) 12/24/16 06:50 Albumin/Globulin Ratio 1.2 (1.0-2.1) 12/24/16 06:50 Triglycerides 177 mg/dL (0-149) H D 12/24/16 06:50 Cholesterol 114 mg/dL (0-199) 12/24/16 06:50 LDL Cholesterol Direct 66 mg/dL (0-129) 12/24/16 06:50 HDL Cholesterol 29 mg/dL (30-70) L 12/24/16 06:50 - Hospital Course Hospital Course: CC: My blood pressure is high Patient is a 56 year old male with PMHx HTN, CHF, Gout, sleep apnea who presents to the ED with complaint of elevated blood pressure, light headedness, and episode of palpitations. Patient states he checks his blood pressure at home and has noticed his systolic pressure in 170s and diastolic pressure in low 100s the past few days. Patient states that he was also feeling light- headed at that time and had one episode of palpitations yesterday that resolved on its own after a few minutes. Patient denies nausea, vomiting, diaphoresis. Patient states that he has not been taking his lasix for a while because it makes him urinate too often throughout the day. Patient states compliance with all other medications. Patient currently denying light-headedness, palpitations , chest pain, leg swelling, dyspnea. BP in the ED was found to be 167/90. Patient was observed overnight. Home medications were restarted lisinopril 40mg PO BID and coreg 25 BID and lasix 80 PO daily was added. CINDI was negative X 3 and EKG was reviewed by Dr. Lackey. NSR 54 bpm. CXR done showed no active disease. Patient was discharged with home medications plus new prescription of Lasix 80 mg PO daily. Patient to make appointment with Dr. Lackey on Tuesday 12/26. This is only a summary course. Please see chart for full details. Discharge Exam - Head Exam Head Exam: ATRAUMATIC, NORMOCEPHALIC - Eye Exam Eye Exam: EOMI, Normal appearance Pupil Exam: NORMAL ACCOMODATION, PERRL - ENT Exam ENT Exam: Mucous Membranes Moist - Neck Exam Neck exam: Full Rom - Respiratory Exam Respiratory Exam: Clear to PA & Lateral, NORMAL BREATHING PATTERN - Cardiovascular Exam Cardiovascular Exam: REGULAR RHYTHM, RRR - GI/Abdominal Exam GI & Abdominal Exam: Normal Bowel Sounds - Extremities Exam Extremities exam: full ROM - Back Exam Back exam: FULL ROM - Neurological Exam Neurological exam: Alert, CN II-XII Intact, Oriented x3 - Psychiatric Exam Psychiatric exam: Normal Affect, Normal Mood - Skin Skin Exam: Dry, Intact, Warm Discharge Plan - Discharge Medications Prescriptions: Furosemide [Lasix] 80 mg PO DAILY #30 tab - Follow Up Plan Condition: GOOD Disposition: HOME/ ROUTINE Instructions: Furosemide (By mouth), Heart Failure (DC), Palpitations (DC), Heart Healthy Diet (DC), Dizziness (GEN) Additional Instructions: Please discharge patient to home as per Dr. Lackey. Please resume all home medications as prescribed. Please take Lasix 80 mg PO daily. Patient left before prescription was given. Medication transmitted to pharmacy on file. Please follow up with Dr. Lackey within 1 week of discharge. Please return to the emergency room if symptoms return. Referrals: Kodak Lackey Jr., MD [Medical Doctor] -
[2016-12-24 17:36] VITALS: BP 135/85; PULSE 65; RESP 20; TEMP 98.2; O2SAT 96
--- NOTE | 2016-12-26 16:32 | CARD ---
APPROVED REPORT EKG Measurement Heart [id number] <Conclusion> Sinus bradycardia Nonspecific T wave abnormality Abnormal ECG
== END 2016-12-24 18:25 | disposition home or self-care (01) ==
LOC: C.ER 12:46 → C.9E 15:45 → C.6T 17:05
PROVIDERS: ADMIT Internal Medicine; ATTEND Internal Medicine
DX: I16.0 Hypertensive urgency (principal); I11.0 Hypertensive heart disease with heart failure; I50.9 Heart failure, unspecified; I25.10 Atherosclerotic heart disease of native coronary artery without angina pectoris; G47.30 Sleep apnea, unspecified; E78.5 Hyperlipidemia, unspecified; J45.909 Unspecified asthma, uncomplicated; M10.9 Gout, unspecified; Z95.5 Presence of coronary angioplasty implant and graft
CPT/HCPCS: 36415; 71010; 80053; 80061; 83036; 83880; 84484; 85025; 85610; 85730; 99285; G0378; J1644

== ENCOUNTER 2017-02-13 10:44 | Emergency (ER) | payer BC ==
[2017-02-13 10:46] VITALS: BMI 37.6
--- NOTE | 2017-02-13 12:35 | C.PDOC ---
History Of Present Illness 56 year old male, with a PMHx of Diverticulitis, presents to the ED with complaints of abdominal pain and diarrhea for one day. Patient reports he believes it is a stomach virus but was concerned when he saw red specks in his stool. He took Imodium this morning and notes he is feeling better in the ED. Patient reports symptoms feels similar to when he had diverticulitis but symptoms are currently much more mild. Patient denies chest pain, shortness of breath, nausea, vomiting, fever, or chills. Time Seen by Provider: 02/13/17 11:40 Chief Complaint (Nursing): Abdominal Pain History Per: Patient History/Exam Limitations: no limitations Onset/Duration Of Symptoms: Days (1 day ) Current Symptoms Are (Timing): Better Location Of Pain/Discomfort: Diffuse Radiation Of Pain To:: None Quality Of Discomfort: "Pain" Associated Symptoms: Diarrhea. denies: Fever, Chills, Nausea, Vomiting Exacerbating Factors: None Alleviating Factors: OTC Meds (imodium ) Recent travel outside of the [place]: No Past Medical History Reviewed: Historical Data, Nursing Documentation, Vital Signs Vital Signs: Last Vital Signs Temp 97.7 F 02/13/17 13:11 Pulse 69 02/13/17 13:11 Resp 18 02/13/17 13:11 BP 134/79 02/13/17 13:11 Pulse Ox 98 02/13/17 13:15 - Medical History PMH: Arthritis, Asthma, Bronchitis, CAD, CHF, Diverticulitis, Hiatal Hernia, HTN Surgical History: Coronary Stent (x3), Hernia Repair (4 years ago) - [facility] Procedures CORONAR ARTERIOGR-2 CATH (11/28/03) INJECT/INFUSE NEC (04/10/07) LEFT HEART CARDIAC CATH (11/28/03) LT HEART ANGIOCARDIOGRAM (11/28/03) OTHER LOCAL DESTRUC SKIN (12/10/03) Family History: States: Unknown Family Hx - Social History Hx Tobacco Use: No Hx Alcohol Use: Yes Hx Substance Use: No - Immunization History Hx Tetanus Toxoid Vaccination: No Hx Influenza Vaccination: No Hx Pneumococcal Vaccination: No Review Of Systems Constitutional: Negative for: Fever, Chills Cardiovascular: Negative for: Chest Pain, Palpitations Gastrointestinal: Positive for: Abdominal Pain, Diarrhea. Negative for: Nausea , Vomiting Genitourinary: Negative for: Dysuria, Hematuria Physical Exam - Physical Exam Appears: Non-toxic, No Acute Distress Skin: Warm, Dry, No Rash Head: Atraumatic, Normacephalic, No Tenderness Eye(s): bilateral: Normal Inspection, PERRL, EOMI Oral Mucosa: Moist Neck: Supple Chest: Symmetrical, No Deformity Cardiovascular: Rhythm Regular, No Murmur Respiratory: No Rales, No Rhonchi, No Wheezing, Other (clear to auscultation bilaterally ) Gastrointestinal/Abdominal: Soft, No Tenderness, No Distention, No Guarding, No Rebound Extremity: Normal ROM, No Tenderness Neurological/Psych: Oriented x3 Gait: Steady ED Course And Treatment O2 Sat by Pulse Oximetry: 98 (RA) Progress Note: Patient was given . Disposition Counseled Patient/Family Regarding: Diagnosis, Need For Followup, Rx Given - Disposition Referrals: YOUR,PMD [Other] Disposition: HOME/ ROUTINE Disposition Time: 12:58 Condition: IMPROVED Prescriptions: Ciprofloxacin [Cipro] 1 tab PO BID #14 tab Metronidazole [Flagyl] 500 mg PO BID #14 tab Phenobarb/Hyoscy/Atropine/Scop [ Tablet] 16.2 mg PO Q6 PRN #20 tablet PRN Reason: Diarrhea Instructions: Acute Diarrhea (ED) Forms: [facility] (Nigerien) - Clinical Impression Clinical Impression: Diarrhea - Scribe Statement The provider has reviewed the documentation as recorded by the Scribe Rosa Rodriguez All medical record entries made by the Scribe were at my direction and personally dictated by me. I have reviewed the chart and agree that the record accurately reflects my personal performance of the history, physical exam, medical decision making, and the department course for this patient. I have also personally directed, reviewed, and agree with the discharge instructions and disposition.
[2017-02-13 13:12] VITALS: BP 134/79; PULSE 69; RESP 18; TEMP 97.7
[2017-02-13] MEDS ORDERED: Belladonna-Phenobarbital PO STA (13:14)
[2017-02-13 13:15] VITALS: O2SAT 98
[2017-02-13] MEDS ORDERED: Belladonna-Phenobarbital ONE (13:17)
== END 2017-02-13 13:33 | disposition home or self-care (01) ==
LOC: C.ER 10:44
DX: R19.7 Diarrhea, unspecified (principal)

== ENCOUNTER 2017-04-28 10:57 | Emergency (ER) | payer BC, MEDICAID ==
[2017-04-28 10:57] VITALS: BMI 37.6
[2017-04-28 11:40] VITALS: O2SAT 98
[2017-04-28] MEDS ORDERED: Belladonna-Phenobarbital PO STA (12:25)
--- NOTE | 2017-04-28 12:27 | C.PDOC ---
History Of Present Illness 57 year old male, with a PMHx of Diverticulitis, presents to the ED with complaints of RUQ abdominal pain that developed this morning. Pt reports few episodes of watery diarrhea. Pt reports having similar symptoms in the past which was diagnosed as stomach virus. Pt notes he was concerned because he saw specs of blood in the stool today. Denies fever, chills, chest pain, SOB, nausea , vomiting, back pain, dysuria, or hematuria. Time Seen by Provider: 04/28/17 11:55 Chief Complaint (Nursing): Abdominal Pain History Per: Patient History/Exam Limitations: no limitations Onset/Duration Of Symptoms: Days Current Symptoms Are (Timing): Still Present Location Of Pain/Discomfort: RUQ Radiation Of Pain To:: None Quality Of Discomfort: "Pain" Associated Symptoms: Diarrhea. denies: Nausea, Vomiting, Loss Of Appetite, Back Pain, Chest Pain, Constipation, Urinary Symptoms Exacerbating Factors: None Alleviating Factors: None Recent travel outside of the [place]: No Additional History Per: Patient Past Medical History Reviewed: Historical Data, Nursing Documentation, Vital Signs Vital Signs: Last Vital Signs Temp 98.6 F 04/28/17 11:36 Pulse 68 04/28/17 11:36 Resp 18 04/28/17 11:36 BP 130/82 04/28/17 11:36 Pulse Ox 98 04/28/17 12:42 - Medical History PMH: Arthritis, Asthma, Bronchitis, CAD, CHF, Diverticulitis, Hiatal Hernia, HTN Denies: Chronic Kidney Disease Surgical History: Coronary Stent (x3), Hernia Repair (4 years ago) - [facility] Procedures CORONAR ARTERIOGR-2 CATH (11/28/03) INJECT/INFUSE NEC (04/10/07) LEFT HEART CARDIAC CATH (11/28/03) LT HEART ANGIOCARDIOGRAM (11/28/03) OTHER LOCAL DESTRUC SKIN (12/10/03) Family History: States: Unknown Family Hx - Social History Hx Tobacco Use: No Hx Alcohol Use: Yes Hx Substance Use: No - Immunization History Hx Tetanus Toxoid Vaccination: Yes Hx Influenza Vaccination: Yes Hx Pneumococcal Vaccination: Yes Review Of Systems Except As Marked, All Systems Reviewed And Found Negative. Constitutional: Negative for: Fever, Chills Cardiovascular: Negative for: Chest Pain, Palpitations Respiratory: Negative for: Cough, Shortness of Breath Gastrointestinal: Positive for: Abdominal Pain, Diarrhea, Hematochezia. Negative for: Nausea, Vomiting, Constipation Genitourinary: Negative for: Dysuria, Frequency, Hematuria, Penile Discharge Musculoskeletal: Negative for: Back Pain Physical Exam - Physical Exam Appears: Well, Non-toxic, No Acute Distress Skin: Normal Color, Warm, Dry, No Rash, No Ecchymosis Head: Normacephalic Eye(s): bilateral: PERRL Nose: No Flaring, No Discharge Oral Mucosa: Moist, No Drooling Throat: No Erythema, No Drooling Neck: Supple Cardiovascular: Rhythm Regular, No Murmur Respiratory: No Accessory Muscle Use, No Rales, No Rhonchi, No Wheezing Gastrointestinal/Abdominal: Soft, Tenderness (mild tenderness Right lateral abdominal wall/ RIght flank tenderness. NO skin cahnges.), No Guarding, No Rebound, Hernia Back: No CVA Tenderness Extremity: Normal ROM, No Pedal Edema, No Deformity Neurological/Psych: Oriented x3, Normal Speech ED Course And Treatment - Laboratory Results Result Diagrams: 04/28/17 12:47 04/28/17 12:47 Lab Interpretation: No Changes Compared To Prior Results O2 Sat by Pulse Oximetry: 98 (RA) Pulse Ox Interpretation: Normal - Other Rad Abdomen, 2 views X-Ray: Read By Radiologist Interpretation: COMPARISON: CT abdomen and pelvis without contrast performed 09/09/16. FINDINGS: Examination limited by habitus. BOWEL: Nonobstructive bowel gas pattern. No definite free air. BONES: Degenerative changes of the spine and bilateral hips. OTHER FINDINGS: None. IMPRESSION: No acute findings identified. Progress Note: Blood work, UA, Abdomen x-ray ordered and reviewed. Pt was given . On re-eval, pt is afebrile, hemodynamicaly stable. Non-toxic. Ambulatory in ED with stable gait. Pt is asking for food, " hungry". Afebrile, hemodynamicaly stable. Non-toxic. Abd: benign, (-) guarding, (-) rebound. Back : (-) CVA tenderness. Blood work, UA results review , compare to previous visit to ED and appears unchanged, at baseline. Abd xray review (-) air-fluid level, gas pattern c/w constipation. Pt has clinical findings c/w Right sided flank tenderness r/o muscle strain. Pt advised. ref. to f/u with PMD in 2 -3 days for re-eavl. Disposition Counseled Patient/Family Regarding: Diagnosis, Need For Followup, Rx Given - Disposition Referrals: [facility] [Outside] Kodak Lackey Jr., MD [Medical Doctor] - Disposition: HOME/ ROUTINE Disposition Time: 13:48 Condition: STABLE Additional Instructions: Light duty Take medication for pain as need Follow up with PMD in 2 -3 days for re-evaluation. Return to ED if any worsening or new changes. Prescriptions: Methocarbamol [Robaxin] 500 mg PO TID #14 tab Polyethylene Glycol 3350 [Miralax] 17 gm PO DAILY #1 bottle traMADol [Ultram] 50 mg PO TID #7 tab Instructions: Abdominal Pain (ED), Muscle Strain (ED) Forms: [employer] [facility] (Greenlandic) - Clinical Impression Clinical Impression: Abdominal bloating, Muscle strain - PA / BUSINESS SERVICES REPRESENTATIVE / Resident Statement MD/DO has reviewed & agrees with the documentation as recorded. - Scribe Statement The provider has reviewed the documentation as recorded by the Wallyibcorey moseley All medical record entries made by the Wallyibcorey were at my direction and personally dictated by me. I have reviewed the chart and agree that the record accurately reflects my personal performance of the history, physical exam, medical decision making, and the department course for this patient. I have also personally directed, reviewed, and agree with the discharge instructions and disposition.
[2017-04-28] MEDS ORDERED: Belladonna-Phenobarbital ONE (12:47)
[2017-04-28 12:51] LABS: BASO % 0.8 % (0.0-2.0); EOS # 0.1 K/uL (0.0-0.7); EOS % 1.9 % (0.0-4.0); HEMOGLOBIN 13.8 g/dL (12.0-18.0); LYMPH # 1.8 K/uL (1.0-4.3); LYMPH % 39.4 % (20.0-40.0); MEAN CELL VOLUME 75.9 fL (80.0-94.0); MEAN CORPUSCULAR HEMOGLOBIN 25.5 pg (27.0-31.0); MEAN CORPUSCULAR HGB CONC 33.6 g/dL (33.0-37.0); MEAN PLATELET VOLUME 7.4 fL (7.2-11.7); MONO # 0.5 K/uL (0.0-0.8); MONO % 10.1 % (0.0-10.0); NEUT # 2.2 K/uL (1.8-7.0); NEUT % 47.8 % (50.0-75.0); NRBC % 0.1 % (0.0-2.0); RBC 5.41 Mil/uL (4.40-5.90); RED CELL DISTRIBUTION WIDTH 15.8 % (11.5-14.5); WHITE BLOOD COUNT 4.7 K/uL (4.8-10.8)
[2017-04-28 13:02] LABS: SQUAMOUS EPITHIAL < 1 /hpf (0-5); URINE BACTERIA RARE (<OCC); URINE BILIRUBIN NEGATIVE (NEGATIVE); URINE BLOOD NEGATIVE (NEGATIVE); URINE CLARITY Clear (Clear); URINE COLOR Straw (YELLOW); URINE GLUCOSE (UA) NORMAL (Normal); URINE LEUKOCYTE ESTERASE NEG Leu/uL (Negative); URINE NITRATE NEGATIVE (NEGATIVE); URINE PROTEIN NEGATIVE (NEGATIVE); URINE UROBILINOGEN NORMAL mg/dL (0.2-1.0)
[2017-04-28 13:03] LABS: ALBUMIN 4.2 g/dL (3.5-5.0); ALT/SGPT 120 U/L (21-72); AST/SGOT 114 U/L (17-59); BLOOD UREA NITROGEN 14 mg/dL (9-20); CALCIUM 8.9 mg/dl (8.6-10.4); GFR AFRICAN-AMERICAN > 60; GFR NON-AFRICAN AMERICAN > 60; LIPASE 126 U/L (23-300)
--- NOTE | 2017-04-28 14:10 | RAD ---
HISTORY: pain COMPARISON: CT abdomen and pelvis without contrast performed 09/09/16 FINDINGS: Examination limited by habitus. BOWEL: Nonobstructive bowel gas pattern. No definite free air. BONES: Degenerative changes of the spine and bilateral hips. OTHER FINDINGS: None. IMPRESSION: No acute findings identified.
[2017-04-28 15:26] VITALS: BP 140/72; PULSE 82; RESP 20; TEMP 99
== END 2017-04-28 15:25 | disposition home or self-care (01) ==
LOC: C.ER 10:57
DX: R14.0 Abdominal distension (gaseous) (principal); S39.011A Strain of muscle, fascia and tendon of abdomen, initial encounter; X58.XXXA Exposure to other specified factors, initial encounter

== ENCOUNTER 2017-05-08 08:04 | Emergency (ER) | payer MEDICAID ==
[2017-05-08 08:05] VITALS: BMI 37.6
[2017-05-08 08:13] VITALS: O2SAT 98
[2017-05-08 09:05] LABS: BASO % 0.9 % (0.0-2.0); EOS # 0.1 K/uL (0.0-0.7); EOS % 2.1 % (0.0-4.0); HEMOGLOBIN 12.2 g/dL (12.0-18.0); LYMPH # 1.8 K/uL (1.0-4.3); LYMPH % 41.3 % (20.0-40.0); MEAN CELL VOLUME 75.5 fL (80.0-94.0); MEAN CORPUSCULAR HEMOGLOBIN 25.4 pg (27.0-31.0); MEAN CORPUSCULAR HGB CONC 33.7 g/dL (33.0-37.0); MEAN PLATELET VOLUME 7.5 fL (7.2-11.7); MONO # 0.4 K/uL (0.0-0.8); MONO % 8.3 % (0.0-10.0); NEUT # 2.1 K/uL (1.8-7.0); NEUT % 47.4 % (50.0-75.0); NRBC % 0.1 % (0.0-2.0); RBC 4.79 Mil/uL (4.40-5.90); RED CELL DISTRIBUTION WIDTH 15.4 % (11.5-14.5); WHITE BLOOD COUNT 4.3 K/uL (4.8-10.8)
[2017-05-08 09:14] LABS: ALB/GLOB RATIO 1.1 (1.0-2.1); ALBUMIN 3.7 g/dL (3.5-5.0); ALT/SGPT 54 U/L (21-72); AST/SGOT 53 U/L (17-59); BLOOD UREA NITROGEN 15 mg/dL (9-20); CALCIUM 9.3 mg/dl (8.6-10.4); GFR AFRICAN-AMERICAN > 60; GFR NON-AFRICAN AMERICAN > 60
[2017-05-08 09:20] LABS: B-TYPE NATRIURETIC PEPTIDE 34.7 pg/mL (0-900)
--- NOTE | 2017-05-08 09:31 | C.PDOC ---
History Of Present Illness 57 y/o male, with history of HTN and CAD, presents to the ER complaining of fluttering, sharp, and electric like chest pain which began last night. Patient states that the pain is resolved at this time . Patient denies having SOB, dizziness, fever, chills, headache, nausea, vomiting, and diarrhea. Time Seen by Provider: 05/08/17 08:22 Chief Complaint (Nursing): Chest Pain History Per: Patient History/Exam Limitations: no limitations Onset/Duration Of Symptoms: Days Severity: Moderate Quality: Sharp Past Medical History Reviewed: Historical Data, Nursing Documentation, Vital Signs Vital Signs: Last Vital Signs Temp 98.6 F 05/08/17 09:47 Pulse 61 05/08/17 09:47 Resp 20 05/08/17 09:47 BP 135/91 H 05/08/17 09:47 Pulse Ox 98 05/08/17 11:15 - Medical History PMH: Arthritis, Asthma, Bronchitis, CAD, CHF, Diverticulitis, Hiatal Hernia, HTN Denies: Chronic Kidney Disease Surgical History: Coronary Stent (x3), Hernia Repair (4 years ago) - [facility] Procedures CORONAR ARTERIOGR-2 CATH (11/28/03) INJECT/INFUSE NEC (04/10/07) LEFT HEART CARDIAC CATH (11/28/03) LT HEART ANGIOCARDIOGRAM (11/28/03) OTHER LOCAL DESTRUC SKIN (12/10/03) Family History: States: No Known Family Hx - Social History Hx Tobacco Use: No Hx Alcohol Use: Yes Hx Substance Use: No - Immunization History Hx Tetanus Toxoid Vaccination: Yes Hx Influenza Vaccination: Yes Hx Pneumococcal Vaccination: Yes Review Of Systems Except As Marked, All Systems Reviewed And Found Negative. Constitutional: Negative for: Fever, Chills Cardiovascular: Positive for: Chest Pain Respiratory: Negative for: Shortness of Breath Gastrointestinal: Negative for: Nausea, Vomiting, Diarrhea Neurological: Negative for: Dizziness Physical Exam - Physical Exam Appears: Well, Non-toxic, No Acute Distress, Other (cooperative, conversational) Skin: Normal Color, Warm Head: Atraumatic, Normacephalic Eye(s): bilateral: Normal Inspection Nose: Normal Oral Mucosa: Moist Neck: Supple Chest: Symmetrical Gastrointestinal/Abdominal: Normal Exam, Soft, Other (obese) Extremity: Normal ROM, No Pedal Edema Neurological/Psych: Oriented x3, Normal Speech, Normal Motor, Normal Sensation ED Course And Treatment - Laboratory Results Result Diagrams: 05/08/17 08:51 05/08/17 08:51 O2 Sat by Pulse Oximetry: 98 (RA) Pulse Ox Interpretation: Normal - Other Rad No standard instances X-Ray: Viewed By Me, Read By Radiologist Interpretation: HISTORY: chest pain. COMPARISON: Chest x-ray performed . TECHNIQUE: Chest, one view. FINDINGS: Examination limited by habitus. LUNGS: Bilateral hilar prominence. No focal consolidation. Please note that chest x-ray has limited sensitivity for the detection of pulmonary masses. PLEURA: No significant pleural effusion identified. No definite pneumothorax. CARDIOVASCULAR: Borderline cardiomegaly. OSSEOUS STRUCTURES: No acute osseous abnormality identified. VISUALIZED UPPER ABDOMEN: Unremarkable. OTHER FINDINGS: None. IMPRESSION: Borderline cardiomegaly. Bilateral hilar prominence. Medical Decision Making Medical Decision Making: Impression: Chest Pain Plan: --CXR --Labs --EKG Progress: CXR was unremarkable. Case was discussed with . Disposition Discussed With : Kodak Lackey Jr. Doctor Will See Patient In The: ED Counseled Patient/Family Regarding: Studies Performed, Diagnosis - Disposition Disposition: HOME/ ROUTINE Disposition Time: 09:31 Condition: STABLE Instructions: Chest Pain (ED) Forms: [facility] (Senegalese), General Discharge Instructions - POA Present On Arrival: None - Clinical Impression Clinical Impression: Chest pain - Scribe Statement The provider has reviewed the documentation as recorded by the Wallyibcorey Arredondo Provider Attestation: All medical record entries made by the Wallyibcorey were at my direction and personally dictated by me. I have reviewed the chart and agree that the record accurately reflects my personal performance of the history, physical exam, medical decision making, and the department course for this patient. I have also personally directed, reviewed, and agree with the discharge instructions and disposition.
[2017-05-08 09:47] VITALS: BP 135/91; PULSE 61; RESP 20; TEMP 98.6
--- NOTE | 2017-05-08 10:17 | RAD ---
HISTORY: chest pain COMPARISON: Chest x-ray performed 12/23/16 TECHNIQUE: Chest, one view. FINDINGS: Examination limited by habitus. LUNGS: Bilateral hilar prominence. No focal consolidation. Please note that chest x-ray has limited sensitivity for the detection of pulmonary masses. PLEURA: No significant pleural effusion identified. No definite pneumothorax. CARDIOVASCULAR: Borderline cardiomegaly. OSSEOUS STRUCTURES: No acute osseous abnormality identified. VISUALIZED UPPER ABDOMEN: Unremarkable. OTHER FINDINGS: None. IMPRESSION: Borderline cardiomegaly. Bilateral hilar prominence.
--- NOTE | 2017-05-09 11:52 | CARD ---
APPROVED REPORT EKG Measurement Heart [id number] <Conclusion> Normal sinus rhythm Nonspecific T wave abnormality Abnormal ECG
== END 2017-05-08 09:50 | disposition home or self-care (01) ==
LOC: C.ER 08:04
DX: R07.9 Chest pain, unspecified (principal); I10 Essential (primary) hypertension; I25.10 Atherosclerotic heart disease of native coronary artery without angina pectoris

== ENCOUNTER 2017-05-09 08:20 | Emergency (ER) | payer MEDICAID ==
[2017-05-09 08:21] VITALS: BMI 37.6
--- NOTE | 2017-05-09 09:08 | C.PDOC ---
History Of Present Illness 57-year-old male, PMHx includes Hypertension, Hernia, and CAD s/p 3 stents, presents to the emergency department with complaints of left sided chest pain lasting three seconds at a time, intermittent in nature, that is associated with "swelling." that started a few days ago. Patient notes he was seen in ED yesterday, and was discharged home, but symptoms returned last night, resulting in him returning to the ED fir re-evaluation. Patient notes he had a cardiac echo that showed cardiomegaly. Patient states that the pain has resolved at this time, and is usually only recurring at night. Patient denies having SOB, dizziness, fever, chills, headache, nausea, vomiting/diarrhea, or any other associated symptoms. No other complaints at this time. Chief Complaint (Nursing): Chest Pain History Per: Patient History/Exam Limitations: no limitations Onset/Duration Of Symptoms: Days Current Symptoms Are (Timing): Still Present Past Medical History Reviewed: Historical Data, Nursing Documentation, Vital Signs Vital Signs: Last Vital Signs Temp 98.6 F 05/09/17 10:49 Pulse 63 05/09/17 10:49 Resp 18 05/09/17 10:49 BP 131/69 05/09/17 10:49 Pulse Ox 99 05/09/17 14:07 - Medical History PMH: Arthritis, Asthma, Bronchitis, CAD, CHF, Diverticulitis, Hiatal Hernia, HTN Surgical History: Coronary Stent (x3), Hernia Repair (4 years ago) - [facility] Procedures CORONAR ARTERIOGR-2 CATH (11/28/03) INJECT/INFUSE NEC (04/10/07) LEFT HEART CARDIAC CATH (11/28/03) LT HEART ANGIOCARDIOGRAM (11/28/03) OTHER LOCAL DESTRUC SKIN (12/10/03) Family History: States: No Known Family Hx - Social History Hx Tobacco Use: No Hx Alcohol Use: Yes Hx Substance Use: No - Immunization History Hx Tetanus Toxoid Vaccination: Yes Hx Influenza Vaccination: Yes Hx Pneumococcal Vaccination: Yes Review Of Systems Except As Marked, All Systems Reviewed And Found Negative. Constitutional: Negative for: Fever, Chills Cardiovascular: Positive for: Chest Pain. Negative for: Palpitations, Edema, Light Headedness Respiratory: Negative for: Cough, Shortness of Breath Gastrointestinal: Negative for: Nausea, Vomiting, Abdominal Pain Musculoskeletal: Negative for: Neck Pain, Back Pain Neurological: Negative for: Weakness, Headache, Dizziness Physical Exam - Physical Exam Appears: Non-toxic, No Acute Distress Skin: Warm, Dry, No Rash Head: Atraumatic, Normacephalic Eye(s): bilateral: Normal Inspection, PERRL Nose: Normal Oral Mucosa: Moist Lips: Normal Appearing Neck: Normal ROM Chest: Symmetrical, Tenderness (Reproducible with palpation) Cardiovascular: Rhythm Regular, No Murmur, No JVD Respiratory: Normal Breath Sounds, No Accessory Muscle Use Gastrointestinal/Abdominal: Soft, No Tenderness Extremity: Normal ROM Neurological/Psych: Oriented x3, Normal Speech ED Course And Treatment - Laboratory Results Result Diagrams: 05/09/17 09:59 05/09/17 09:59 O2 Sat by Pulse Oximetry: 99 (RA) Pulse Ox Interpretation: Normal - Radiology CXR: Viewed By Me, Read By Radiologist (Borderline cardiomegaly. Bilateral hilar prominence) Medical Decision Making Medical Decision Making: Plan: * EKG * CMP, Trop I * CBC * Chest X-Ray * Reassess and Disposition Reassess Trop is negative. Patients labs are unremarkable. Patient with atypical chest wall pain, will be discharged for outpatient f/u with PMD. Disposition - Disposition Referrals: [facility] [Outside] Disposition: HOME/ ROUTINE Disposition Time: 14:09 Condition: GOOD Instructions: Chest Wall Pain (ED) Forms: [facility] (Estonian) Print Language: SLOVAK - Clinical Impression Clinical Impression: Chest discomfort, Atypical chest pain - Scribe Statement The provider has reviewed the documentation as recorded by the Scribe (Daniel Doss) All medical record entries made by the Scribe were at my direction and personally dictated by me. I have reviewed the chart and agree that the record accurately reflects my personal performance of the history, physical exam, medical decision making, and the department course for this patient. I have also personally directed, reviewed, and agree with the discharge instructions and disposition.
[2017-05-09 10:03] LABS: EOS # 0.1 K/uL (0.0-0.7); EOS % 1.5 % (0.0-4.0); HEMOGLOBIN 13.1 g/dL (12.0-18.0); LYMPH # 1.8 K/uL (1.0-4.3); LYMPH % 35.9 % (20.0-40.0); MEAN CELL VOLUME 75.8 fL (80.0-94.0); MEAN CORPUSCULAR HEMOGLOBIN 24.9 pg (27.0-31.0); MEAN CORPUSCULAR HGB CONC 32.8 g/dL (33.0-37.0); MEAN PLATELET VOLUME 7.4 fL (7.2-11.7); MONO # 0.5 K/uL (0.0-0.8); MONO % 9.8 % (0.0-10.0); NEUT # 2.6 K/uL (1.8-7.0); NEUT % 51.8 % (50.0-75.0); NRBC % 0.1 % (0.0-2.0); RBC 5.25 Mil/uL (4.40-5.90); RED CELL DISTRIBUTION WIDTH 14.9 % (11.5-14.5); WHITE BLOOD COUNT 5.1 K/uL (4.8-10.8)
[2017-05-09 10:15] LABS: ALBUMIN 4.1 g/dL (3.5-5.0); ALT/SGPT 60 U/L (21-72); AST/SGOT 56 U/L (17-59); BLOOD UREA NITROGEN 17 mg/dL (9-20); CALCIUM 8.9 mg/dl (8.6-10.4); GFR AFRICAN-AMERICAN > 60; GFR NON-AFRICAN AMERICAN > 60
--- NOTE | 2017-05-09 10:20 | RAD ---
HISTORY: chest pain COMPARISON: Chest x-ray performed 05/08/17 TECHNIQUE: Chest, one view. FINDINGS: Emanation limited by habitus. LUNGS: No focal consolidation. Please note that chest x-ray has limited sensitivity for the detection of pulmonary masses. PLEURA: No significant pleural effusion identified. No definite pneumothorax . CARDIOVASCULAR: Borderline cardiomegaly. Bilateral hilar prominence. OSSEOUS STRUCTURES: Degenerative changes of the spine. VISUALIZED UPPER ABDOMEN: Unremarkable. OTHER FINDINGS: None. IMPRESSION: No focal consolidation, significant pleural effusion, or definite pneumothorax identified. Borderline cardiomegaly. Bilateral hilar prominence.
[2017-05-09 10:50] VITALS: BP 131/69; PULSE 63; RESP 18; TEMP 98.6
[2017-05-09 14:07] VITALS: O2SAT 99
--- NOTE | 2017-05-10 13:54 | CARD ---
APPROVED REPORT EKG Measurement Heart [id number] <Conclusion> Normal sinus rhythm Nonspecific T wave abnormality Abnormal ECG
== END 2017-05-09 10:57 | disposition home or self-care (01) ==
LOC: C.ER 08:20
DX: R07.89 Other chest pain (principal)

== ENCOUNTER 2017-06-08 01:09 | Emergency (ER) | payer MEDICAID, MEDICARE ==
[2017-06-08 01:10] VITALS: BMI 37.6
--- NOTE | 2017-06-08 01:24 | C.PDOC ---
History Of Present Illness pt tripped and fell around 8 pm,landed on his buttocks and hurt his left wrist. While trying to sleep, left wrist started to hurt more. NO LOC , remembers the event. Dull throbbing pain., Moves all fingers and good pulses Time Seen by Provider: 06/08/17 01:23 Chief Complaint (Nursing): Upper Extremity Problem/Injury History Per: Patient History/Exam Limitations: no limitations Onset/Duration Of Symptoms: Hrs Current Symptoms Are (Timing): Still Present Quality: Squeezing Severity: Moderate Pain Scale Rating Of: 4 Exacerbating Factor(s): Movement Recent travel outside of the [place]: No Additional History Per: Patient Past Medical History Reviewed: Historical Data, Nursing Documentation, Vital Signs Vital Signs: Last Vital Signs Temp 98 F 06/08/17 01:16 Pulse 71 06/08/17 01:16 Resp 20 06/08/17 01:16 BP 175/88 H 06/08/17 01:16 Pulse Ox 98 06/08/17 02:15 - Medical History PMH: Arthritis, Asthma, Bronchitis, CAD, CHF, Diverticulitis, Hiatal Hernia, HTN Denies: Chronic Kidney Disease Surgical History: Coronary Stent (x3), Hernia Repair (4 years ago) - [facility] Procedures CORONAR ARTERIOGR-2 CATH (11/28/03) INJECT/INFUSE NEC (04/10/07) LEFT HEART CARDIAC CATH (11/28/03) LT HEART ANGIOCARDIOGRAM (11/28/03) OTHER LOCAL DESTRUC SKIN (12/10/03) Family History: States: No Known Family Hx - Social History Hx Tobacco Use: No Hx Alcohol Use: Yes Hx Substance Use: No - Immunization History Hx Tetanus Toxoid Vaccination: Yes Hx Influenza Vaccination: Yes Hx Pneumococcal Vaccination: Yes Review Of Systems Constitutional: Negative for: Fever, Chills Cardiovascular: Negative for: Chest Pain Respiratory: Negative for: Shortness of Breath Musculoskeletal: Positive for: Back Pain, Other (lweft wrist pain) Skin: Negative for: Rash Neurological: Negative for: Weakness Psych: Negative for: Anxiety Physical Exam - Physical Exam Appears: Non-toxic, No Acute Distress Skin: Warm, Dry Neck: Trachea Midline, Supple Back: CVA Tenderness (mild right), No Vertebral Tenderness, No Muscle Spasm, No Paraspinal Tenderness, Straight Leg Raising (pain 40 degrees) Extremity: Tenderness (left wrist), Capillary Refill, Swelling (mild left wrist) , Other (moves all fingers, old surgical scar dorsum left wrist) Extremity: Bilateral: Normal Color And Temperature, Normal ROM Pulses: Left Radial: Normal, Right Radial: Normal, Left Dorsalis Pedis: Normal, Right Dorsalis Pedis: Normal Neurological/Psych: Oriented x3, Normal Speech, Normal Cognition Gait: Steady ED Course And Treatment O2 Sat by Pulse Oximetry: 98 Pulse Ox Interpretation: Normal - Other Rad wrist X-Ray: Interpreted by Me, Viewed By Me Interpretation: no fx or dislocation Disposition Counseled Patient/Family Regarding: Studies Performed, Diagnosis, Need For Followup, Rx Given - Disposition Referrals: Kodak aLckey Jr., MD [Family Provider] - Disposition: HOME/ ROUTINE Disposition Time: 01:24 Condition: FAIR Prescriptions: traMADol [Ultram] 50 mg PO QID PRN #20 tab PRN Reason: Pain, Severe (8-10) Instructions: Low Back Pain (DC), Wrist Sprain (DC) Forms: [facility] (Beninese) - Clinical Impression Clinical Impression: Wrist pain, left, Fall, Back pain
[2017-06-08] MEDS ORDERED: HYDROmorphone 1 mg/ml ISec IM STA (02:12)
[2017-06-08] MEDS ORDERED: HYDROmorphone 1 mg/ml ISec ONE (02:16)
[2017-06-08 03:26] VITALS: TEMP 97.5
[2017-06-08 05:22] VITALS: BP 135/78; PULSE 64; RESP 18; O2SAT 97
--- NOTE | 2017-06-08 09:08 | RAD ---
PROCEDURE: Left Wrist Radiographs. HISTORY: fall COMPARISON: None. FINDINGS: BONES: No acute fracture or destructive bony lesion identified. JOINTS: Limited degenerative changes seen at the radiocarpal joints. No dislocation. SOFT TISSUES: Normal. OTHER FINDINGS: Old ununited ulnar styloid fracture is noted versus accessory ossicle. IMPRESSION: No acute fracture or dislocation identified. Limited degenerative changes seen at the radial side of the wrist as discussed above.
== END 2017-06-08 05:32 | disposition home or self-care (01) ==
LOC: C.ER 01:09
DX: M25.532 Pain in left wrist (principal); M54.9 Dorsalgia, unspecified; I25.10 Atherosclerotic heart disease of native coronary artery without angina pectoris; I10 Essential (primary) hypertension; I50.9 Heart failure, unspecified
CPT/HCPCS: 73110; 82948; 96372; 99285; J1170

== ENCOUNTER 2017-07-08 11:48 | Emergency (ER) | payer MEDICARE ==
[2017-07-08 11:49] VITALS: BMI 37.6
--- NOTE | 2017-07-08 12:32 | C.PDOC ---
History Of Present Illness 57 year old male presents to ED for evaluation of episode of tight left lateral chest wall pain yesterday. Patient states his blood pressure was high yesterday and this morning returned to normal limits after taking his BP medication. Notes taking 2 Aspirin today and yesterday. Although he does not have chest pain today or at this time, and feels "fine". Denies cough, shortness of breath , palpitations, lightheadedness, headache, n/v/d, back pain, or fever. Time Seen by Provider: 07/08/17 12:19 Chief Complaint (Nursing): Chest Pain History Per: Patient History/Exam Limitations: no limitations Onset/Duration Of Symptoms: Days Current Symptoms Are (Timing): Gone Severity: None Pain Scale Rating Of: 0 Quality: Sharp Associated Symptoms: denies: Nausea, Dyspnea, Diaphoresis, Syncope Modifying Factors: None Exacerbating Factors: None Alleviating Factors: None Recent travel outside of the [place]: No Additional History Per: Patient Past Medical History Reviewed: Historical Data, Nursing Documentation, Vital Signs Vital Signs: Last Vital Signs Temp 97.9 F 07/08/17 13:49 Pulse 69 07/08/17 13:18 Resp 16 07/08/17 13:18 BP 133/77 07/08/17 13:18 Pulse Ox 97 07/08/17 13:26 - Medical History PMH: Arthritis, Asthma, Bronchitis, CAD, CHF, Diverticulitis, Hiatal Hernia, HTN Denies: Chronic Kidney Disease Surgical History: Coronary Stent (x3), Hernia Repair (4 years ago) - [facility] Procedures CORONAR ARTERIOGR-2 CATH (11/28/03) INJECT/INFUSE NEC (04/10/07) LEFT HEART CARDIAC CATH (11/28/03) LT HEART ANGIOCARDIOGRAM (11/28/03) OTHER LOCAL DESTRUC SKIN (12/10/03) Family History: States: Unknown Family Hx - Social History Hx Tobacco Use: No Hx Alcohol Use: Yes Hx Substance Use: No - Immunization History Hx Tetanus Toxoid Vaccination: Yes Hx Influenza Vaccination: Yes Hx Pneumococcal Vaccination: Yes Review Of Systems Except As Marked, All Systems Reviewed And Found Negative. Constitutional: Negative for: Fever, Chills Cardiovascular: Negative for: Chest Pain, Palpitations, Edema, Light Headedness Respiratory: Negative for: Cough, Shortness of Breath Gastrointestinal: Negative for: Nausea, Vomiting, Abdominal Pain Neurological: Negative for: Weakness, Numbness, Headache, Dizziness Physical Exam - Physical Exam Appears: Well, Non-toxic, No Acute Distress Skin: Normal Color, Warm, Dry Head: Atraumatic, Normacephalic Eye(s): bilateral: Normal Inspection, EOMI Oral Mucosa: Moist Neck: Normal ROM, Supple Chest: Symmetrical, No Tenderness Cardiovascular: Rhythm Regular, No Murmur Respiratory: Normal Breath Sounds, No Rales, No Rhonchi, No Wheezing Gastrointestinal/Abdominal: Soft, No Tenderness Extremity: Normal ROM, No Pedal Edema, No Deformity Neurological/Psych: Oriented x3, Normal Speech ED Course And Treatment - Laboratory Results Result Diagrams: 07/08/17 12:36 07/08/17 12:36 ECG: Interpreted By Me, Viewed By Me ECG Rhythm: Sinus Rhythm ECG Interpretation: No Acute Changes Rate From EC (bpm) O2 Sat by Pulse Oximetry: 97 (RA) Pulse Ox Interpretation: Normal Medical Decision Making Medical Decision Making: Impression: chest pain Prior records reviewed: patient has multiple ER visits for similar chest pain presentation and cardiac workup Plan: Blood work CXR Reassess Labs, EKG and CXR reviewed with no acute changes from prior visit. Patient remained seated comfortably in no distress and denied any chest pain or SOB during ED evaluation. Based on negative findings on secured entrance monitor and labs, likely ACS. Patient is stable for discharge and advised to follow up with Dr Lackey, or return to hospital if symptoms persist. Disposition Counseled Patient/Family Regarding: Studies Performed, Diagnosis, Need For Followup - Disposition Referrals: Kodak Lackey Jr., MD [Medical Doctor] - Disposition: HOME/ ROUTINE Disposition Time: 13:50 Condition: STABLE Additional Instructions: Please follow up with Dr Lackey outpatient. Continue with current medications. Return to the emergency department at any time if symptoms persist or worsen. Instructions: Chest Pain (DC) Forms: [facility] (Faroese) - POA Present On Arrival: None - Clinical Impression Clinical Impression: Chest discomfort - PA / NUTRITION FACULTY MEMBER / Resident Statement MD/DO has reviewed & agrees with the documentation as recorded. - Scribe Statement The provider has reviewed the documentation as recorded by the Scribe Shelli Avalos All medical record entries made by the Scribe were at my direction and personally dictated by me. I have reviewed the chart and agree that the record accurately reflects my personal performance of the history, physical exam, medical decision making, and the department course for this patient. I have also personally directed, reviewed, and agree with the discharge instructions and disposition.
[2017-07-08 12:47] LABS: BASO % 0.5 % (0.0-2.0); EOS % 0.4 % (0.0-4.0); HEMOGLOBIN 13.2 g/dL (12.0-18.0); LYMPH # 1.2 K/uL (1.0-4.3); LYMPH % 23.9 % (20.0-40.0); MEAN CELL VOLUME 74.3 fL (80.0-94.0); MEAN CORPUSCULAR HEMOGLOBIN 24.4 pg (27.0-31.0); MEAN CORPUSCULAR HGB CONC 32.8 g/dL (33.0-37.0); MEAN PLATELET VOLUME 7.8 fL (7.2-11.7); MONO # 0.3 K/uL (0.0-0.8); MONO % 6.1 % (0.0-10.0); NEUT # 3.6 K/uL (1.8-7.0); NEUT % 69.1 % (50.0-75.0); RBC 5.42 Mil/uL (4.40-5.90); RED CELL DISTRIBUTION WIDTH 15.7 % (11.5-14.5); WHITE BLOOD COUNT 5.2 K/uL (4.8-10.8)
[2017-07-08 12:51] LABS: INR 1.1; PROTHROMBIN TIME 12.3 SECONDS (9.7-12.2)
[2017-07-08 12:56] LABS: ALBUMIN 4.1 g/dL (3.5-5.0); ALT/SGPT 54 U/L (21-72); AST/SGOT 52 U/L (17-59); BLOOD UREA NITROGEN 19 mg/dL (9-20); CALCIUM 8.9 mg/dl (8.6-10.4); GFR AFRICAN-AMERICAN > 60; GFR NON-AFRICAN AMERICAN > 60
[2017-07-08 13:20] VITALS: BP 133/77; PULSE 69; RESP 16
[2017-07-08 13:26] VITALS: O2SAT 97
[2017-07-08 13:50] VITALS: TEMP 97.9
--- NOTE | 2017-07-08 15:15 | RAD ---
Chest x-ray two views History: Chest pain. Comparison: 05/09/2017 Findings: Mild venous congestion. Right hilar prominence. Mild patchy consolidative changes in the right infrahilar region. Top normal heart size. Upper lobe granulomatous changes. Impression: Mild venous congestion. Right hilar prominence. Mild patchy consolidative changes in the right infrahilar region. Top normal heart size. Upper lobe granulomatous changes.
== END 2017-07-08 13:54 | disposition home or self-care (01) ==
LOC: C.ER 11:48
DX: R07.89 Other chest pain (principal)

== ENCOUNTER 2017-10-05 10:23 | Emergency (ER) | payer MEDICARE ==
[2017-10-05 10:24] VITALS: BMI 37.6
[2017-10-05 10:29] VITALS: PULSE 69
--- NOTE | 2017-10-05 11:30 | C.PDOC ---
History Of Present Illness 57 y/o male with history of CHF and Hemorrhoids presents to ED with c/o bright red spots in stool noticed for 2 days. Patient denies fever, abdominal pain, nausea, vomiting or any other complaints at this time. Time Seen by Provider: 10/05/17 11:05 Chief Complaint (Nursing): GI Problem History Per: Patient History/Exam Limitations: no limitations Onset/Duration Of Symptoms: Days Current Symptoms Are (Timing): Still Present Past Medical History Reviewed: Historical Data, Nursing Documentation, Vital Signs Vital Signs: Last Vital Signs Temp 99.1 F 10/05/17 10:27 Pulse 69 10/05/17 10:27 Resp 16 10/05/17 10:27 BP 123/75 10/05/17 10:27 Pulse Ox 98 10/05/17 11:35 - Medical History PMH: Arthritis, Asthma, Bronchitis, CAD, CHF, Diverticulitis, Hiatal Hernia, HTN Surgical History: Coronary Stent (x3), Hernia Repair (4 years ago) - [facility] Procedures CORONAR ARTERIOGR-2 CATH (11/28/03) INJECT/INFUSE NEC (04/10/07) LEFT HEART CARDIAC CATH (11/28/03) LT HEART ANGIOCARDIOGRAM (11/28/03) OTHER LOCAL DESTRUC SKIN (12/10/03) Family History: States: No Known Family Hx - Social History Hx Tobacco Use: No Hx Alcohol Use: Yes Hx Substance Use: No - Immunization History Hx Tetanus Toxoid Vaccination: Yes Hx Influenza Vaccination: Yes Hx Pneumococcal Vaccination: Yes Review Of Systems Constitutional: Negative for: Fever, Chills Gastrointestinal: Positive for: Hematochezia. Negative for: Nausea, Vomiting, Abdominal Pain, Diarrhea Musculoskeletal: Negative for: Back Pain Skin: Negative for: Rash Physical Exam - Physical Exam Appears: Non-toxic, No Acute Distress Skin: Warm, Dry, No Rash Head: Atraumatic, Normacephalic Eye(s): bilateral: Normal Inspection Oral Mucosa: Moist Neck: Normal ROM, Supple Cardiovascular: Rhythm Regular Respiratory: Normal Breath Sounds, No Rales, No Rhonchi, No Wheezing Gastrointestinal/Abdominal: Soft, No Tenderness, No Guarding, Hernia ( protruding and non tender), Other (obese abdomen. surgical scar intact) Rectal: Normal Exam, No Heme Positive, No Blood Streaked Stool Back: No CVA Tenderness, No Paraspinal Tenderness Neurological/Psych: Oriented x3, Normal Speech, Normal Cognition ED Course And Treatment O2 Sat by Pulse Oximetry: 98 (RA) Pulse Ox Interpretation: Normal Disposition Counseled Patient/Family Regarding: Diagnosis, Need For Followup, Rx Given - Disposition Referrals: Kodak Lackey Jr., MD [Medical Doctor] - Disposition: HOME/ ROUTINE Disposition Time: 11:42 Condition: STABLE Prescriptions: Docusate Sodium [Colace] 100 mg PO BID #30 capsule Psyllium Husk/Aspartame [Metamucil Fiber Singles Packet] 3.4 gm PO DAILY #30 powd.pack Forms: [facility] (Nicaraguan), General Discharge Instructions - POA Present On Arrival: None - Clinical Impression Clinical Impression: Rectal bleeding - Scribe Statement The provider has reviewed the documentation as recorded by the Scribcorey Frazier All medical record entries made by the Scribe were at my direction and personally dictated by me. I have reviewed the chart and agree that the record accurately reflects my personal performance of the history, physical exam, medical decision making, and the department course for this patient. I have also personally directed, reviewed, and agree with the discharge instructions and disposition.
[2017-10-05 11:54] VITALS: BP 131/84; RESP 18; TEMP 98.3; O2SAT 97
== END 2017-10-05 11:58 | disposition home or self-care (01) ==
LOC: C.ER 10:23
DX: K62.5 Hemorrhage of anus and rectum (principal)

== ENCOUNTER 2017-10-19 11:53 | Emergency (ER) | payer MEDICARE ==
[2017-10-19 11:53] VITALS: BMI 37.6
[2017-10-19 12:03] VITALS: TEMP 98.8; O2SAT 96
--- NOTE | 2017-10-19 12:43 | C.PDOC ---
History Of Present Illness 57yo male with history of hypertension, CAD, comes to ER with complaints of palpitations and mild chest pain since last night. Patient states the pain has now resolved and denies any associated shortness of breath. He also denies any fever, chills, weakness, numbness, and offers no other medical complaints. Time Seen by Provider: 10/19/17 12:02 Chief Complaint (Nursing): Palpitations History Per: Patient History/Exam Limitations: no limitations Current Symptoms Are (Timing): Gone Associated Symptoms: denies: Nausea, Dyspnea, Diaphoresis, Syncope Additional History Per: Patient Past Medical History Reviewed: Historical Data, Nursing Documentation, Vital Signs Vital Signs: Last Vital Signs Temp 98.8 F 10/19/17 11:58 Pulse 84 10/19/17 13:23 Resp 19 10/19/17 13:23 BP 141/70 10/19/17 13:23 Pulse Ox 96 10/19/17 13:23 - Medical History PMH: Arthritis, Asthma, Bronchitis, CAD, CHF, Diverticulitis, Hiatal Hernia, HTN Denies: Chronic Kidney Disease Surgical History: Coronary Stent (x3), Hernia Repair (4 years ago) - [facility] Procedures CORONAR ARTERIOGR-2 CATH (11/28/03) INJECT/INFUSE NEC (04/10/07) LEFT HEART CARDIAC CATH (11/28/03) LT HEART ANGIOCARDIOGRAM (11/28/03) OTHER LOCAL DESTRUC SKIN (12/10/03) Family History: States: Unknown Family Hx - Social History Hx Tobacco Use: No Hx Alcohol Use: Yes Hx Substance Use: No - Immunization History Hx Tetanus Toxoid Vaccination: Yes Hx Influenza Vaccination: Yes Hx Pneumococcal Vaccination: Yes Review Of Systems Except As Marked, All Systems Reviewed And Found Negative. Constitutional: Negative for: Fever, Chills Cardiovascular: Negative for: Chest Pain, Palpitations Respiratory: Negative for: Shortness of Breath Gastrointestinal: Negative for: Nausea, Vomiting, Abdominal Pain Neurological: Negative for: Weakness, Numbness Physical Exam - Physical Exam Appears: Non-toxic, No Acute Distress, Other (morbidly obese) Skin: Normal Color, Warm, Dry Head: Atraumatic, Normacephalic Eye(s): bilateral: Normal Inspection Neck: Normal ROM, Supple Chest: Symmetrical, No Tenderness Cardiovascular: Rhythm Regular, No Murmur Respiratory: Normal Breath Sounds Gastrointestinal/Abdominal: Soft, No Tenderness Back: Normal Inspection Extremity: Normal ROM, No Pedal Edema, No Deformity Neurological/Psych: Oriented x3 ED Course And Treatment - Laboratory Results Result Diagrams: 10/19/17 12:41 10/19/17 12:41 O2 Sat by Pulse Oximetry: 96 (RA) Pulse Ox Interpretation: Normal Progress Note: Labs, EKG, Urinalysis, CXR ordered. Patient given Aspirin and IV Fluids Medical Decision Making Medical Decision Making: atypical pain, palpitations. pt cannot characterize pain, only states it lasted for seconds. numouse visits for similar. labs imaging pending pt reassesed no symptoms, pt reading newspaper. offered obs, declines states will return with worsening symptoms or concerns. Disposition - Disposition Referrals: [facility] [Outside] [facility] [Outside] Maldonado Valdivia MD [Staff Provider] - Disposition: HOME/ ROUTINE Disposition Time: 03:00 Condition: STABLE Additional Instructions: you are declining observation in the hospital . return to er wiht worsening symtoms or concerns. Instructions: Chest Pain Forms: [employer] (Serbian) - Clinical Impression Clinical Impression: Chest pain, Palpitations - Scribe Statement The provider has reviewed the documentation as recorded by the Deniz Tamez Provider Attestation: All medical record entries made by the Wallyibe were at my direction and personally dictated by me. I have reviewed the chart and agree that the record accurately reflects my personal performance of the history, physical exam, medical decision making, and the department course for this patient. I have also personally directed, reviewed, and agree with the discharge instructions and disposition.
[2017-10-19 12:47] LABS: BASO % 0.4 % (0.0-2.0); EOS # 0.1 K/uL (0.0-0.7); EOS % 1.8 % (0.0-4.0); HEMOGLOBIN 12.3 g/dL (12.0-18.0); LYMPH # 1.6 K/uL (1.0-4.3); LYMPH % 36.2 % (20.0-40.0); MEAN CORPUSCULAR HEMOGLOBIN 24.8 pg (27.0-31.0); MEAN CORPUSCULAR HGB CONC 33.5 g/dL (33.0-37.0); MEAN PLATELET VOLUME 7.1 fL (7.2-11.7); MONO # 0.4 K/uL (0.0-0.8); MONO % 8.8 % (0.0-10.0); NEUT # 2.4 K/uL (1.8-7.0); NEUT % 52.8 % (50.0-75.0); NRBC % 0.1 % (0.0-2.0); RBC 4.96 Mil/uL (4.40-5.90); RED CELL DISTRIBUTION WIDTH 15.4 % (11.5-14.5); WHITE BLOOD COUNT 4.5 K/uL (4.8-10.8)
[2017-10-19 12:56] LABS: INR 1.2; PROTHROMBIN TIME 13.3 SECONDS (9.7-12.2)
--- NOTE | 2017-10-19 13:01 | RAD ---
Date of service: 10/19/2017 PROCEDURE: CHEST RADIOGRAPH, 1 VIEW HISTORY: chest pain COMPARISON: 07/08/2017. FINDINGS: LUNGS: Clear. PLEURA: No pneumothorax or pleural fluid seen. CARDIOVASCULAR: No radiographic findings to suggest acute or significant cardiovascular disease. OSSEOUS STRUCTURES: No significant abnormalities. VISUALIZED UPPER ABDOMEN: Normal. OTHER FINDINGS: None. IMPRESSION: No active disease. No acute/significant interval changes.
[2017-10-19 13:08] LABS: ALB/GLOB RATIO 1.2 (1.0-2.1); ALT/SGPT 58 U/L (21-72); AST/SGOT 54 U/L (17-59); BLOOD UREA NITROGEN 14 mg/dL (9-20); CALCIUM 9.4 mg/dl (8.6-10.4); GFR AFRICAN-AMERICAN > 60; GFR NON-AFRICAN AMERICAN > 60
[2017-10-19 13:26] VITALS: BP 141/70; PULSE 84; RESP 19
[2017-10-19 13:36] LABS: SQUAMOUS EPITHIAL < 1 /hpf (0-5); URINE BILIRUBIN NEGATIVE (NEGATIVE); URINE BLOOD NEGATIVE (NEGATIVE); URINE CLARITY Clear (Clear); URINE COLOR Straw (YELLOW); URINE GLUCOSE (UA) NORMAL (Normal); URINE LEUKOCYTE ESTERASE NEG Leu/uL (Negative); URINE PROTEIN NEGATIVE (NEGATIVE); URINE UROBILINOGEN NORMAL mg/dL (0.2-1.0)
== END 2017-10-19 13:53 | disposition home or self-care (01) ==
LOC: C.ER 11:53
DX: R07.9 Chest pain, unspecified (principal); R00.2 Palpitations; I25.10 Atherosclerotic heart disease of native coronary artery without angina pectoris; I11.0 Hypertensive heart disease with heart failure; I50.9 Heart failure, unspecified; Z95.5 Presence of coronary angioplasty implant and graft

== ENCOUNTER 2017-11-01 16:59 | Emergency (ER) | payer MEDICARE ==
[2017-11-01 16:59] VITALS: BMI 37.6
[2017-11-01 17:20] VITALS: RESP 20
[2017-11-01 18:45] LABS: SQUAMOUS EPITHIAL 1 /hpf (0-5); URINE BACTERIA RARE (<OCC); URINE BILIRUBIN NEGATIVE (NEGATIVE); URINE BLOOD NEGATIVE (NEGATIVE); URINE CLARITY Clear (Clear); URINE COLOR Yellow (YELLOW); URINE GLUCOSE (UA) NORMAL (Normal); URINE HYALINE CAST 0-2 /lpf (0-2); URINE LEUKOCYTE ESTERASE NEG Leu/uL (Negative); URINE PROTEIN NEGATIVE (NEGATIVE); URINE UROBILINOGEN NORMAL mg/dL (0.2-1.0)
--- NOTE | 2017-11-01 19:58 | C.PDOC ---
Time Seen by Provider: 11/01/17 17:47 Chief Complaint (Nursing): Abdominal Pain History Per: Patient Onset/Duration Of Symptoms: Days (few), Intermittent Episodes (lasting only 1 second) Current Symptoms Are (Timing): Still Present Severity: Moderate Location Of Pain/Discomfort: RLQ Radiation Of Pain To:: None Quality Of Discomfort: Sharp, Stabbing Exacerbating Factors: None Alleviating Factors: None Additional History Per: Prior Records Past Medical History Reviewed: Historical Data, Nursing Documentation, Vital Signs Vital Signs: Last Vital Signs Temp 98.9 F 11/01/17 17:17 Pulse 85 11/01/17 17:17 Resp 20 11/01/17 17:17 BP 155/81 H 11/01/17 17:17 Pulse Ox 98 11/01/17 17:17 - Medical History PMH: Arthritis, Asthma, Bronchitis, CAD, CHF, Diverticulitis, Hiatal Hernia, HTN Surgical History: Coronary Stent (x3), Hernia Repair ([facility]) - [facility] Procedures CORONAR ARTERIOGR-2 CATH (11/28/03) INJECT/INFUSE NEC (04/10/07) LEFT HEART CARDIAC CATH (11/28/03) LT HEART ANGIOCARDIOGRAM (11/28/03) OTHER LOCAL DESTRUC SKIN (12/10/03) Family History: States: Unknown Family Hx - Social History Hx Tobacco Use: No Hx Alcohol Use: Yes Hx Substance Use: No - Immunization History Hx Tetanus Toxoid Vaccination: Yes Hx Influenza Vaccination: Yes Hx Pneumococcal Vaccination: Yes Review Of Systems Except As Marked, All Systems Reviewed And Found Negative. Constitutional: Negative for: Fever, Weakness Cardiovascular: Negative for: Chest Pain Respiratory: Negative for: Shortness of Breath Gastrointestinal: Negative for: Vomiting, Diarrhea, Constipation, Melena, Hematochezia, Hematemesis Genitourinary: Negative for: Dysuria, Hematuria, Scrotal Pain Musculoskeletal: Negative for: Neck Pain, Back Pain, Leg Pain Skin: Negative for: Rash Neurological: Negative for: Weakness, Numbness Physical Exam - Physical Exam Appears: Non-toxic, No Acute Distress Skin: Normal Color, Warm, Dry, No Rash Head: Atraumatic, Normacephalic Eye(s): bilateral: PERRL, EOMI Neck: Normal ROM, Supple Cardiovascular: Rhythm Regular Respiratory: Normal Breath Sounds, No Accessory Muscle Use Gastrointestinal/Abdominal: Soft, No Tenderness Back: No CVA Tenderness Male Genital: No Testicular Tenderness, No Testicular Swelling, No Inguinal Tenderness, No Inguinal Swelling, No Scrotal Swelling Extremity: Normal ROM, No Pedal Edema, No Calf Tenderness Neurological/Psych: Oriented x3, Normal Motor, Normal Sensation ED Course And Treatment - Laboratory Results Interpretation Of Abnormal: Urinalysis normal O2 Sat by Pulse Oximetry: 98 Pulse Ox Interpretation: Normal Progress Note: Pt is asymptomatic in the ED. Reassessment Condition: Improved Disposition Counseled Patient/Family Regarding: Studies Performed, Diagnosis, Need For Followup - Disposition Referrals: Kodak Lackey Jr., MD [Medical Doctor] - Disposition: HOME/ ROUTINE Disposition Time: 19:58 Condition: STABLE Additional Instructions: Follow up with your doctor for further evaluation and treatment. Return to the ER if you develop fever, vomiting, pain becomes constant, worsening of symptoms or if you have any other concerns. Forms: [facility] (Upper Sorbian), General Discharge Instructions - Clinical Impression Clinical Impression: Intermittent abdominal pain
[2017-11-01 20:15] VITALS: BP 158/77; PULSE 71; TEMP 98; O2SAT 99
== END 2017-11-01 20:15 | disposition home or self-care (01) ==
LOC: C.ER 16:59
DX: R10.31 Right lower quadrant pain (principal)

== ENCOUNTER 2017-11-06 11:33 | Emergency (ER) | payer MEDICARE ==
[2017-11-06 11:34] VITALS: BMI 37.6
--- NOTE | 2017-11-06 12:52 | C.PDOC ---
History Of Present Illness 57 y/o male with PMHx of incisional hernia presents to the ER complaining of worsening pain near the hernia site for the past 2-3 days. Of note, patient is already scheduled to see surgery for evaluation. Pain worsened over the weekend and became associated with nausea. Otherwise patient denies any vomiting, diarrhea, fever, chills, chest pain, or SOB. Patient was instructed by PMD to come to the ER for any worsening symptoms. PMD: Dr. Lackey Time Seen by Provider: 11/06/17 12:26 Chief Complaint (Nursing): Abdominal Pain History Per: Patient History/Exam Limitations: no limitations Onset/Duration Of Symptoms: Days Current Symptoms Are (Timing): Still Present Past Medical History Reviewed: Historical Data, Nursing Documentation, Vital Signs Vital Signs: Last Vital Signs Temp 98.5 F 11/06/17 16:24 Pulse 62 11/06/17 16:24 Resp 14 11/06/17 16:24 BP 135/90 11/06/17 16:24 Pulse Ox 98 11/06/17 16:28 - Medical History PMH: Arthritis, Asthma, Bronchitis, CAD, CHF, Diverticulitis, Hiatal Hernia, HTN Surgical History: Coronary Stent (x3), Hernia Repair ([facility]) - [facility] Procedures CORONAR ARTERIOGR-2 CATH (11/28/03) INJECT/INFUSE NEC (04/10/07) LEFT HEART CARDIAC CATH (11/28/03) LT HEART ANGIOCARDIOGRAM (11/28/03) OTHER LOCAL DESTRUC SKIN (12/10/03) Family History: States: Unknown Family Hx - Social History Hx Tobacco Use: No Hx Alcohol Use: Yes Hx Substance Use: No - Immunization History Hx Tetanus Toxoid Vaccination: Yes Hx Influenza Vaccination: Yes Hx Pneumococcal Vaccination: Yes Review Of Systems Except As Marked, All Systems Reviewed And Found Negative. Gastrointestinal: Positive for: Nausea, Abdominal Pain Physical Exam - Physical Exam Appears: Non-toxic, No Acute Distress Skin: Normal Color, Warm, Dry Head: Atraumatic, Normacephalic Eye(s): bilateral: Normal Inspection, PERRL, EOMI Oral Mucosa: Moist Neck: Normal ROM, Supple Chest: Symmetrical Cardiovascular: Rhythm Regular, No Murmur Respiratory: Normal Breath Sounds, No Rales, No Rhonchi, No Wheezing Gastrointestinal/Abdominal: Soft, No Guarding, No Rebound, Hernia (incisional hernia with tenderness) Back: Normal Inspection, No CVA Tenderness Extremity: Bilateral: Atraumatic, Normal Color And Temperature, Normal ROM Neurological/Psych: Oriented x3, Normal Speech, Normal Cranial Nerves ED Course And Treatment - Laboratory Results Result Diagrams: 11/06/17 13:05 11/06/17 13:05 O2 Sat by Pulse Oximetry: 98 (RA) Pulse Ox Interpretation: Normal - CT Scan/US CT A/P Other Rad Studies (CT/US): Read By Radiologist, Radiology Report Reviewed CT/US Interpretation: Accession No. : [id number]. Patient Name / ID : KAYY ZAMORA / [id number]. Exam Date : 11/06/2017 15:06:37 ( Approved ). Study Comment : Sex / Age : M / 57Y. Creator : Yovani Samuel MD. Dictator : Yovani Samuel MD. 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 Approver2 : Report Date : 11/06/2017 15:59:19. My Comment : . Date of service: 11/06/2017. PROCEDURE: CT Abdomen and Pelvis without intravenous contrast. HISTORY: Abdominal pain. COMPARISON: 09/09/2016. TECHNIQUE: Without contrast.. Contrast dose: 0. Radiation dose: Total exam DLP = 1145.74 mGy-cm. This CT exam was performed using one or more of the following dose reduction techniques: Automated exposure control, adjustment of the mA and/or kV according to patient size, and/or use of iterative reconstruction technique. FINDINGS: LOWER THORAX: Unremarkable. LIVER: Unremarkable. No gross lesion or ductal dilatation. GALLBLADDER AND BILE DUCTS : Unremarkable. PANCREAS: Unremarkable. No gross lesion or ductal dilatation. SPLEEN: Unremarkable. ADRENALS: Unremarkable. No mass. KIDNEYS AND URETERS: Unremarkable. No hydronephrosis. No solid mass. VASCULATURE: Unremarkable. No aortic aneurysm. BOWEL: Diverticulosis, multifocal, including hepatic flexure, transverse colon, descending colon. No evidence of diverticulitis. No bowel obstruction. APPENDIX: Not identified. No secondary findings of appendicitis. PERITONEUM: Unremarkable. No free fluid. No free air. LYMPH NODES: Nonspecific sub cm bilateral pelvic lymph nodes are identified. There are no significantly enlarged retroperitoneal or pelvic lymph nodes. BLADDER: Unremarkable. REPRODUCTIVE: Normal prostate. BONES: No acute fracture. OTHER FINDINGS: None. IMPRESSION: No acute abnormality. Colonic diverticulosis without evidence of diverticulitis. Nonspecific subcentimeter pelvic lymphadenopathy. No additional abnormality. Medical Decision Making Medical Decision Making: Impression: Hernia Initial Plan: * CMP * CBC * Lipase * Troponin I * Urinalysis * 20 mg IV Pepcid * 30 mg IV Toradol * 4 mg IV Zofran * CT A/P with IV contrast Discussed w/ Dr. Lackey who states patient is scheduled to see surgery. If imaging is normal, patient can be discharged home and follow up with surgery at scheduled appointment. 1625 - hernia is reducible. Patient symptoms resolved. Will discharge home to follow up with surgeon and Dr. Lackey as planned. Copy of CT report provided. Disposition Discussed With Dr.: Kodak Lackey Jr. Doctor Will See Patient In The: Office Counseled Patient/Family Regarding: Studies Performed, Diagnosis, Need For Followup, Rx Given - Disposition Referrals: Kodak Lackey Jr., MD [Medical Doctor] - Disposition: HOME/ ROUTINE Disposition Time: 16:26 Condition: IMPROVED Additional Instructions: follow up with your doctor within 2 days you must call to make an appointment take medication as needed for pain return to ER if symptoms worsens or progress Prescriptions: Famotidine [Pepcid] 20 mg PO BID #20 tab Ondansetron ODT [Zofran ODT] 4 mg PO TID PRN #12 odt PRN Reason: Nausea/Vomiting Instructions: Acute Abdomen (Belly Pain), Adult (DC), Abdominal Hernia (DC) Forms: [facility] (Brazilian), General Discharge Instructions - Clinical Impression Clinical Impression: Abdominal pain, Hernia - Scribe Statement The provider has reviewed the documentation as recorded by the Deniz Saenz Provider Attestation: All medical record entries made by the Deniz were at my direction and personally dictated by me. I have reviewed the chart and agree that the record accurately reflects my personal performance of the history, physical exam, medical decision making, and the department course for this patient. I have also personally directed, reviewed, and agree with the discharge instructions and disposition.
[2017-11-06 13:09] LABS: EOS # 0.1 K/uL (0.0-0.7); HEMOGLOBIN 12.3 g/dL (12.0-18.0); MEAN CORPUSCULAR HEMOGLOBIN 24.4 pg (27.0-31.0); MONO # 0.7 K/uL (0.0-0.8); RED CELL DISTRIBUTION WIDTH 15.6 % (11.5-14.5)
[2017-11-06 13:12] LABS: SQUAMOUS EPITHIAL 4 /hpf (0-5); URINE BILIRUBIN NEGATIVE (NEGATIVE); URINE BLOOD NEGATIVE (NEGATIVE); URINE CLARITY Clear (Clear); URINE COLOR Yellow (YELLOW); URINE GLUCOSE (UA) NORMAL (Normal); URINE LEUKOCYTE ESTERASE NEG Leu/uL (Negative); URINE PROTEIN NEGATIVE (NEGATIVE); URINE UROBILINOGEN NORMAL mg/dL (0.2-1.0)
[2017-11-06 13:21] LABS: BASO % 0.5 % (0.0-2.0); EOS % 1.8 % (0.0-4.0); LYMPH # 2.6 K/uL (1.0-4.3); LYMPH % 34.1 % (20.0-40.0); MEAN CELL VOLUME 75.4 fL (80.0-94.0); MEAN CORPUSCULAR HGB CONC 32.4 g/dL (33.0-37.0); MEAN PLATELET VOLUME 7.7 fL (7.2-11.7); MONO % 8.7 % (0.0-10.0); NEUT # 4.3 K/uL (1.8-7.0); NEUT % 54.9 % (50.0-75.0); NRBC % 0.2 % (0.0-2.0); RBC 5.04 Mil/uL (4.40-5.90)
[2017-11-06 13:23] LABS: WHITE BLOOD COUNT 7.8 K/uL (4.8-10.8)
[2017-11-06 13:32] LABS: ALB/GLOB RATIO 1.2 (1.0-2.1); ALBUMIN 3.9 g/dL (3.5-5.0); ALT/SGPT 47 U/L (21-72); AST/SGOT 43 U/L (17-59); BLOOD UREA NITROGEN 15 mg/dL (9-20); GFR AFRICAN-AMERICAN > 60; GFR NON-AFRICAN AMERICAN > 60; LIPASE 89 U/L (23-300)
--- NOTE | 2017-11-06 16:00 | CT ---
Date of service: 11/06/2017 PROCEDURE: CT Abdomen and Pelvis without intravenous contrast HISTORY: Abdominal pain COMPARISON: 09/09/2016 TECHNIQUE: Without contrast.. Contrast dose: 0 Radiation dose: Total exam DLP = 1145.74 mGy-cm. This CT exam was performed using one or more of the following dose reduction techniques: Automated exposure control, adjustment of the mA and/or kV according to patient size, and/or use of iterative reconstruction technique. FINDINGS: LOWER THORAX: Unremarkable. LIVER: Unremarkable. No gross lesion or ductal dilatation. GALLBLADDER AND BILE DUCTS: Unremarkable. PANCREAS: Unremarkable. No gross lesion or ductal dilatation. SPLEEN: Unremarkable. ADRENALS: Unremarkable. No mass. KIDNEYS AND URETERS: Unremarkable. No hydronephrosis. No solid mass. VASCULATURE: Unremarkable. No aortic aneurysm. BOWEL: Diverticulosis, multifocal, including hepatic flexure, transverse colon, descending colon. No evidence of diverticulitis. No bowel obstruction. APPENDIX: Not identified. No secondary findings of appendicitis. PERITONEUM: Unremarkable. No free fluid. No free air. LYMPH NODES: Nonspecific sub cm bilateral pelvic lymph nodes are identified. There are no significantly enlarged retroperitoneal or pelvic lymph nodes. BLADDER: Unremarkable. REPRODUCTIVE: Normal prostate BONES: No acute fracture. OTHER FINDINGS: None. IMPRESSION: No acute abnormality. Colonic diverticulosis without evidence of diverticulitis. Nonspecific subcentimeter pelvic lymphadenopathy. No additional abnormality.
[2017-11-06 16:25] VITALS: BP 135/90; PULSE 62; RESP 14; TEMP 98.5; O2SAT 98
== END 2017-11-06 16:47 | disposition home or self-care (01) ==
LOC: C.ER 11:33
DX: K43.2 Incisional hernia without obstruction or gangrene (principal); R10.9 Unspecified abdominal pain
CPT/HCPCS: 74176; 80053; 81001; 83690; 84484; 85025; 96374; 96375; 99284; J1885; J2405

== ENCOUNTER 2017-11-09 17:31 | Observation (INO) | payer MEDICARE ==
[2017-11-09 18:02] VITALS: BMI 37.3
[2017-11-09 18:24] LABS: BASO % 0.6 % (0.0-2.0); EOS # 0.1 K/uL (0.0-0.7); EOS % 1.8 % (0.0-4.0); HEMOGLOBIN 12.7 g/dL (12.0-18.0); LYMPH # 1.8 K/uL (1.0-4.3); LYMPH % 27.7 % (20.0-40.0); MEAN CELL VOLUME 74.9 fL (80.0-94.0); MEAN CORPUSCULAR HEMOGLOBIN 24.8 pg (27.0-31.0); MEAN PLATELET VOLUME 6.7 fL (7.2-11.7); MONO # 0.5 K/uL (0.0-0.8); MONO % 8.2 % (0.0-10.0); NEUT # 4.1 K/uL (1.8-7.0); NEUT % 61.7 % (50.0-75.0); NRBC % 0.1 % (0.0-2.0); RBC 5.11 Mil/uL (4.40-5.90); RED CELL DISTRIBUTION WIDTH 15.6 % (11.5-14.5); WHITE BLOOD COUNT 6.7 K/uL (4.8-10.8)
--- NOTE | 2017-11-09 18:30 | C.PDOC ---
History Of Present Illness 57 y/o male presents to ED with c/o left facial numbness and left arm numbness at 2:30pm. Patient states he felt dizzy and lightheaded, thought he was going to pass out, reports episode lasted 2 minutes and resolved. At ED patient is asymptomatic and denies weakness, chest pain, sob or any other complaints at this time. Time Seen by Provider: 11/09/17 18:29 Chief Complaint (Nursing): Weakness/Neurological Deficit History Per: Patient History/Exam Limitations: no limitations Onset/Duration Of Symptoms: Hrs Current Symptoms Are (Timing): Still Present Past Medical History Reviewed: Historical Data, Nursing Documentation, Vital Signs Vital Signs: Last Vital Signs Temp 98.7 F 11/09/17 18:07 Pulse 67 11/09/17 18:40 Resp 20 11/09/17 18:07 BP 157/90 H 11/09/17 18:07 Pulse Ox 96 11/09/17 19:01 - Medical History PMH: Arthritis, Asthma, Bronchitis, CAD, CHF, Diverticulitis, Hiatal Hernia, HTN Surgical History: Coronary Stent (x3), Hernia Repair ([facility]) - [facility] Procedures CORONAR ARTERIOGR-2 CATH (11/28/03) INJECT/INFUSE NEC (04/10/07) LEFT HEART CARDIAC CATH (11/28/03) LT HEART ANGIOCARDIOGRAM (11/28/03) OTHER LOCAL DESTRUC SKIN (12/10/03) Family History: States: No Known Family Hx - Social History Hx Tobacco Use: No Hx Alcohol Use: Yes Hx Substance Use: No - Immunization History Hx Tetanus Toxoid Vaccination: Yes Hx Influenza Vaccination: Yes Hx Pneumococcal Vaccination: Yes Review Of Systems Except As Marked, All Systems Reviewed And Found Negative. Cardiovascular: Positive for: Light Headedness Neurological: Positive for: Numbness. Negative for: Weakness Physical Exam - Physical Exam Appears: Non-toxic, No Acute Distress Skin: Warm, Dry, No Rash Head: Atraumatic, Normacephalic Eye(s): bilateral: Normal Inspection (No nystagmus) Oral Mucosa: Moist Neck: Supple Cardiovascular: Rhythm Regular Respiratory: Normal Breath Sounds, No Rales, No Rhonchi, No Wheezing Gastrointestinal/Abdominal: Soft, No Tenderness, No Guarding, No Rebound Extremity: Normal ROM, Capillary Refill (<2 seconds) Neurological/Psych: Oriented x3, Normal Speech, Normal Cognition, Normal Cranial Nerves, Normal Motor, Normal Sensation, Normal Reflexes ED Course And Treatment - Laboratory Results Result Diagrams: 11/09/17 18:20 11/09/17 18:20 ECG: Interpreted By Me, Viewed By Me ECG Rhythm: Sinus Rhythm, Nonspecific Changes Rate From EC (BPM) O2 Sat by Pulse Oximetry: 96 (RA) Pulse Ox Interpretation: Normal NIHSS Stroke Scale 2 - Date/Time Evaluation Performed Date Performed: 11/09/17 Time Performed: 18:50 When Was NIHSS Performed: Baseline - How Severe is the Stroke Level of Consciousness: 0=Alert LOC to Questions: 0=Both comments correct LOC to commands: 0=Obeys both correctly Best Gaze: 0=Normal Visual: 0=No visual loss Facial: 0=Normal Motor Arm - Left: 0=No drift Motor Arm - Right: 0=No drift Motor Leg - Left: 0=No drift Motor Leg - Right: 0=No drift Limb Ataxia: 0=Absent Sensory: 0=Normal Best Language: 0=No aphasia Dysarthia: 0=Normal articulation Extinction & Inattention (Neglect): 0=Normal, no object Score: 0 Medical Decision Making Medical Decision Makin- Went to see patient but he was taken to ct scan prior to my evaluation 18:50- D/w Dr. Bentley, not TPA candidate case s/o Dr. Ferro at 1900 pending labs, evaluation and disposition Disposition - Disposition Disposition Time: 19:00 Condition: FAIR Forms: [facility] (Kiswahili) - Clinical Impression Clinical Impression: TIA (transient ischemic attack) - Scribe Statement The provider has reviewed the documentation as recorded by the Scribe Todd Frazier All medical record entries made by the Scribe were at my direction and personally dictated by me. I have reviewed the chart and agree that the record accurately reflects my personal performance of the history, physical exam, medical decision making, and the department course for this patient. I have also personally directed, reviewed, and agree with the discharge instructions and disposition. Physician Patient Turnover Patient Signed Over To: Colleen Ferro Handoff Comments: pending labs, disposition
[2017-11-09 18:33] LABS: INR 1.1; PROTHROMBIN TIME 12.3 SECONDS (9.7-12.2)
--- NOTE | 2017-11-09 18:38 | CT ---
Date of service: 11/09/2017 PROCEDURE: CT HEAD WITHOUT CONTRAST. HISTORY: Left-sided weakness. Hypertension. Presenting with dizziness. COMPARISON: 11/05/2016. TECHNIQUE: Axial computed tomography images were obtained through the head/brain without intravenous contrast. Coronal and sagittal reconstructed images. Radiation dose: Total exam DLP = 905.22 mGy-cm. This CT exam was performed using one or more of the following dose reduction techniques: Automated exposure control, adjustment of the mA and/or kV according to patient size, and/or use of iterative reconstruction technique. FINDINGS: HEMORRHAGE: No intracranial hemorrhage. BRAIN: No mass effect or edema. No atrophy or chronic microvascular ischemic changes. VENTRICLES: Unremarkable. No hydrocephalus. CALVARIUM: Unremarkable. PARANASAL SINUSES: Mild chronic ethmoid air cell disease. MASTOID AIR CELLS: Unremarkable as visualized. No inflammatory changes. OTHER FINDINGS: None. IMPRESSION: No acute intracranial abnormalities. No significant findings to account for the clinical presentation. No significant interval change compared to the prior examination(s). Code stroke protocol: Study completed 18:31. Radiologist notified 18:28. Results conveyed verbally at 18:35 findings discussed with the attending in the emergency department Dr. Hernandez. Interpretation finalized and available for review 18:37
[2017-11-09 18:39] LABS: ALB/GLOB RATIO 1.2 (1.0-2.1); ALBUMIN 4.3 g/dL (3.5-5.0); ALT/SGPT 53 U/L (21-72); AST/SGOT 38 U/L (17-59); BLOOD UREA NITROGEN 20 mg/dL (9-20); CALCIUM 9.5 mg/dl (8.6-10.4); GFR AFRICAN-AMERICAN > 60; GFR NON-AFRICAN AMERICAN > 60; HDL CHOLESTEROL 38 mg/dL (30-70)
[2017-11-09 18:46] LABS: LDL CHOLESTEROL 73 mg/dL (0-129)
[2017-11-09] MEDS ORDERED: Aspirin 325 mg EC Tablets PO STA (18:51)
--- NOTE | 2017-11-09 18:57 | RAD ---
Date of service: 11/09/2017 HISTORY: Code Stroke COMPARISON: 10/19/2017 FINDINGS: LUNGS: Opacity at right base common nonspecific. Limited examination due to body habitus. Follow-up advised to exclude developing pneumonia. No other abnormal opacity elsewhere. PLEURA: No significant pleural effusion identified, no pneumothorax apparent. CARDIOVASCULAR: Normal. OSSEOUS STRUCTURES: No significant abnormalities. VISUALIZED UPPER ABDOMEN: Normal. OTHER FINDINGS: None. IMPRESSION: Abnormal opacity at right base. Limited examination. Followup to exclude developing pneumonia.
[2017-11-09] MEDS ORDERED: Aspirin 325 mg EC Tablets PO ONE (19:02)
[2017-11-10 00:04] VITALS: RESP 20
--- NOTE | 2017-11-10 03:30 | CP.PCM.HP ---
History of Present Illness - History of Present Illness History of Present Illness: HPI: Patient is a 57 year old male with a past medical history of HTN, CHF, gout , and sleep apnea, who presents to the hospital with complaints of numbness in the left side of the face, left arm, dizziness, and sweating. The patient states that around 2:30pm, he felt dizzy, has profuse sweating, felt numb on his left face and left arm, and felt like he was going to black out. This episode lasted for a few minutes and then all symptoms resolved. He then experienced the same symptoms around 4pm, which also resolved after a few minutes. He has never had similar symptoms in the past. He did not try anything at home to relieve his symptoms and nothing made it worse. Currently, the patient reports feeling better and denies symptoms of dizziness, numbness, tingling, slurred speech, weakness, sweating, changes in vision, chest pain, palpitations, nausea, vomiting, fevers, headaches, dysuria, constipation. PMD: Dr. Lackey PMHx: HTN, CHF, gout, sleep apnea SurgHx: Cardiac cath x3 in 2017, Wrist surgery 2017, Herniorrhaphy FamHx: Father- DM, pacemaker; Mother- Pacemaker; Brother- MD SocHx: denies tobacco, alcohol, and drug use; lives with girlfriend of 22yr in ; retired, on disability for CHF. Allergies: Keflex (anaphylaxis); IV contrast (anaphylaxis) Medications: Coreg, Lisinopril, Uloric, Lasix, Pepcid, Naproxen prn, Colchicine (does not remember doses) Present on Admission - Present on Admission Any Indicators Present on Admission: No Review of Systems - Constitutional Constitutional: absent: Chills, Fever, Headache, Weakness - EENT Eyes: Change in Vision, Other Visual Disturbances Ears: Dizziness - Cardiovascular Cardiovascular: absent: Chest Pain, Dyspnea, Edema, Lightheadedness, Palpitations - Respiratory Respiratory: absent: Cough, Dyspnea, Hemoptysis, Dyspnea on Exertion - Gastrointestinal Gastrointestinal: absent: Abdominal Pain, Constipation, Diarrhea, Hematemesis, Hematochezia, Melena, Nausea, Vomiting - Genitourinary Genitourinary: absent: Dysuria, Hematuria - Neurological Neurological: Dizziness, Numbness (left face, left arm), Tingling (left face, left arm), Other Visual Disturbances ("felt like about to black out"). absent: Abnormal Speech, Headaches - Endocrine Endocrine: absent: Palpitations - Hematologic/Lymphatic Hematologic: absent: Easy Bleeding, Easy Bruising Past Patient History - Infectious Disease Hx of Infectious Diseases: None - Past Medical History & Family History Past Medical History?: Yes - Past Social History Smoking Status: Never Smoked - CARDIAC Hx Congestive Heart Failure: Yes Hx Hypertension: Yes - PULMONARY Hx Asthma: Yes Hx Bronchitis: Yes - NEUROLOGICAL Hx Neurological Disorder: No - HEENT Hx HEENT Problems: No - ENDOCRINE/METABOLIC Hx Endocrine Disorders: No - HEMATOLOGICAL/ONCOLOGICAL Hx Blood Disorders: No - INTEGUMENTARY Hx Dermatological Problems: Yes Hx Cellulitis: Yes - MUSCULOSKELETAL/RHEUMATOLOGICAL Hx Arthritis: Yes - GASTROINTESTINAL Hx Diverticulitis: Yes - GENITOURINARY/GYNECOLOGICAL Hx Genitourinary Disorders: No - PSYCHIATRIC Hx Substance Use: No - SURGICAL HISTORY Hx Coronary Stent: Yes (x3) - ANESTHESIA Hx Anesthesia: Yes Hx Anesthesia Reactions: No Hx Malignant Hyperthermia: No Meds Allergies/Adverse Reactions: Allergies Allergy/AdvReac Type Severity Reaction Status Date / Time cephalexin monohydrate AdvReac VOMITING Verified 11/09/17 18:01 [From Keflex] iodixanol [From Visipaque] AdvReac VOMITING Verified 11/09/17 18:01 ctscan dye AdvReac VOMITING Uncoded 11/09/17 18:01 Physical Exam - Constitutional Appears: No Acute Distress - Head Exam Head Exam: ATRAUMATIC, NORMAL INSPECTION - Eye Exam Eye Exam: EOMI, Normal appearance, PERRL Pupil Exam: PERRL - ENT Exam ENT Exam: Mucous Membranes Moist - Respiratory Exam Respiratory Exam: Clear to Auscultation Bilateral, NORMAL BREATHING PATTERN. absent: Rales, Rhonchi, Wheezes, Respiratory Distress - Cardiovascular Exam Cardiovascular Exam: REGULAR RHYTHM, +S1, +S2 - GI/Abdominal Exam GI & Abdominal Exam: Normal Bowel Sounds, Soft. absent: Firm, Mass Additional comments: obese; vertical well healed scar below umbilicus; ventral hernia noted - Extremities Exam Extremities exam: Positive for: pedal edema (mild pitting edema b/l LE), pedal pulses present. Negative for: tenderness - Neurological Exam Neurological exam: Alert, CN II-XII Intact, Oriented x3 - Expanded Neurological Exam Expanded Patient oriented to: person, place, time Cranial nerves: EOM's Intact: Normal, Facial Palsey w/Forehead Movement: Normal , Facial Palsey w/o Forehead Movement: Normal, Facial Sensation: Normal, Tongue Deviation: Normal Cerebellar Function: Finger to Nose: Normal, Heel to Babcock: Normal Upper motor neuron: Babinski Sign: Normal, Scott Neglect: Normal, Pronator Drift : Normal, Sensory Extinction: Normal Neuro motor strength exam: Left Upper Extremity: 5, Right Upper Extremity: 5, Left Lower Extremity: 5, Right Lower Extremity: 5 - Psychiatric Exam Psychiatric exam: Normal Affect, Normal Mood - Skin Skin Exam: Dry, Intact, Normal Color, Warm Results - Vital Signs Recent Vital Signs: Last Vital Signs Temp 98.0 F 11/09/17 23:30 Pulse 73 11/09/17 23:30 Resp 20 11/09/17 23:30 BP 160/84 H 11/09/17 23:30 Pulse Ox 98 11/09/17 23:30 - Labs Result Diagrams: 11/09/17 18:20 11/09/17 18:20 Labs: Laboratory Results - last 24 hr 11/09/17 11/09/17 11/09/17 18:08 18:20 18:20 WBC 6.7 RBC 5.11 Hgb 12.7 Hct 38.3 MCV 74.9 L MCH 24.8 L MCHC 33.0 RDW 15.6 H Plt Count 285 MPV 6.7 L Neut % (Auto) 61.7 Lymph % (Auto) 27.7 [place] % (Auto) 8.2 Eos % (Auto) 1.8 Baso % (Auto) 0.6 Neut # (Auto) 4.1 Lymph # (Auto) 1.8 [place] # (Auto) 0.5 Eos # (Auto) 0.1 Baso # (Auto) 0.0 PT 12.3 H INR 1.1 APTT 37 H Sodium Potassium Chloride Carbon Dioxide Anion Gap BUN Creatinine Est GFR ( Amer) Est GFR (Non-Af Amer) POC Glucose (mg/dL) 109 Random Glucose Hemoglobin A1c Calcium Total Bilirubin AST ALT Alkaline Phosphatase Troponin I Total Protein Albumin Globulin Albumin/Globulin Ratio Triglycerides Cholesterol LDL Cholesterol Direct HDL Cholesterol Blood Type Antibody Screen 11/09/17 11/09/17 11/09/17 18:20 18:20 18:31 WBC RBC Hgb Hct MCV MCH MCHC RDW Plt Count MPV Neut % (Auto) Lymph % (Auto) [place] % (Auto) Eos % (Auto) Baso % (Auto) Neut # (Auto) Lymph # (Auto) [place] # (Auto) Eos # (Auto) Baso # (Auto) PT INR APTT Sodium 142 Potassium 3.9 Chloride 100 Carbon Dioxide 31 H Anion Gap 15 BUN 20 Creatinine 1.1 Est GFR ( Amer) > 60 Est GFR (Non-Af Amer) > 60 POC Glucose (mg/dL) Random Glucose 109 Hemoglobin A1c 6.5 Calcium 9.5 Total Bilirubin 0.3 AST 38 ALT 53 Alkaline Phosphatase 103 Troponin I < 0.0120 Total Protein 7.7 Albumin 4.3 Globulin 3.4 Albumin/Globulin Ratio 1.2 Triglycerides 264 H D Cholesterol 154 LDL Cholesterol Direct 73 HDL Cholesterol 38 Blood Type O POSITIVE Antibody Screen Negative Assessment & Plan - Assessment and Plan (Free Text) Assessment: TIA - Neurology consulted: Dr. Bentley; help appreciated - Per Dr. Bentley: not a TPA candidate; order Brain MRI and Echo - Admitted to telemetry; continue to monitor; neuro checks Q4 - NIH score 0 - In the ED, was given ASA 325mg PO once, Plavix 300mg PO once - Head CT: no acute intracranial abnormalities - Continue home medication: Crestor 10mg PO HS, ASA 325mg PO daily - Brain MRI: f/u - Echo: f/u HTN - Admitted to telemetry - Continue home medication: Coreg 25mg PO BID, Lisinopril 40mg PO BID - Monitor vitals CHF - Continue home medication: Lasix 40mg PO daily, Coreg 25mg PO BID Gout - Continue home medication: Uloric 40mg PO daily, Colocrys 0.12mg PO daily Prophylaxis - DVT: SCDs - GI: Pepcid 20mg PO BID (home med) - Heart healthy, 2g Na, Mod carb diet Management per Dr. Lackey
[2017-11-10 08:49] LABS: BASO % 0.4 % (0.0-2.0); EOS # 0.1 K/uL (0.0-0.7); HEMOGLOBIN 12.4 g/dL (12.0-18.0); LYMPH # 1.1 K/uL (1.0-4.3); LYMPH % 26.2 % (20.0-40.0); MEAN CELL VOLUME 74.8 fL (80.0-94.0); MEAN CORPUSCULAR HEMOGLOBIN 24.5 pg (27.0-31.0); MEAN CORPUSCULAR HGB CONC 32.8 g/dL (33.0-37.0); MEAN PLATELET VOLUME 7.2 fL (7.2-11.7); MONO # 0.4 K/uL (0.0-0.8); MONO % 8.9 % (0.0-10.0); NEUT # 2.7 K/uL (1.8-7.0); NEUT % 62.5 % (50.0-75.0); NRBC % 0.2 % (0.0-2.0); RBC 5.04 Mil/uL (4.40-5.90); RED CELL DISTRIBUTION WIDTH 15.4 % (11.5-14.5); WHITE BLOOD COUNT 4.3 K/uL (4.8-10.8)
[2017-11-10 09:03] LABS: ALB/GLOB RATIO 1.2 (1.0-2.1); ALBUMIN 3.9 g/dL (3.5-5.0); ALT/SGPT 55 U/L (21-72); AST/SGOT 52 U/L (17-59); BLOOD UREA NITROGEN 18 mg/dL (9-20); GFR AFRICAN-AMERICAN > 60; GFR NON-AFRICAN AMERICAN > 60
--- NOTE | 2017-11-10 09:32 | CP.PCM.CON ---
<Kaelyn Esteban - Last Filed: 11/10/17 15:06> History of Present Illness - History of Present Illness History of Present Illness: Neurology Consult Note for Dr. Bentley. Patient is a 57 year old male with a past medical history of HTN, CHF, gout, and sleep apnea, who presents to the hospital with complaints of numbness in the left side of the face, left arm, dizziness, and sweating. Patient experienced symptoms of left arm/facial numbness twice yesterday afternoon at 2: 30pm and 4:00pm. Symptoms resolved spontaneously both times after a couple of minutes. Neurology consulted on the case due to Code Stroke. Patient had NIH score of 0 on admission. He was given ASA 325 PO/Plavix 300mg PO once. Head CT w/o contrast on admission was negative for any acute intracranial abnormallties. Patient denies any fevers, headache, dizziness, vision changes, current motor or sensory loss, lack of tearing, dry mouth, hearing loss, tinnitus, facial/orbital pain, recent camping trips. PMHx: As stated Above PSHx: Cardiac Cath x3 in 2017, Herniagraphy, Wrist Surgery in 2017 Allergies: Keflex (anaphylaxis); IV contrast (anaphylaxis) SocialHx: Denies tobacco, alcohol, and illcit drug use. Lives with girlfriend of 22 years in . Is sexually active with his girlfriend. Uses protection. Hos: 2016 for Elevated BP/CHF Meds: Reviewed. Review of Systems - Review of Systems All systems: reviewed and no additional remarkable complaints except Review of Systems: As per HPI Past Patient History - Infectious Disease Hx of Infectious Diseases: None - Past Medical History & Family History Past Medical History?: Yes - Past Social History Smoking Status: Never Smoked - CARDIAC Hx Congestive Heart Failure: Yes Hx Hypertension: Yes - PULMONARY Hx Asthma: Yes Hx Bronchitis: Yes - NEUROLOGICAL Hx Neurological Disorder: No - HEENT Hx HEENT Problems: No - ENDOCRINE/METABOLIC Hx Endocrine Disorders: No - HEMATOLOGICAL/ONCOLOGICAL Hx Blood Disorders: No - INTEGUMENTARY Hx Dermatological Problems: Yes Hx Cellulitis: Yes - MUSCULOSKELETAL/RHEUMATOLOGICAL Hx Arthritis: Yes - GASTROINTESTINAL Hx Diverticulitis: Yes - GENITOURINARY/GYNECOLOGICAL Hx Genitourinary Disorders: No - PSYCHIATRIC Hx Substance Use: No - SURGICAL HISTORY Hx Coronary Stent: Yes (x3) - ANESTHESIA Hx Anesthesia: Yes Hx Anesthesia Reactions: No Hx Malignant Hyperthermia: No Meds Allergies/Adverse Reactions: Allergies Allergy/AdvReac Type Severity Reaction Status Date / Time cephalexin monohydrate AdvReac VOMITING Verified 11/09/17 18:01 [From Keflex] iodixanol [From Visipaque] AdvReac VOMITING Verified 11/09/17 18:01 ctscan dye AdvReac VOMITING Uncoded 11/09/17 18:01 - Medications Medications: Current Medications Aspirin (Aspirin) 325 mg PO DAILY [facility] Carvedilol (Coreg) 25 mg PO BID [facility] Colchicine (Colocrys) 0.12 mg PO DAILY [facility] Docusate Sodium (Colace) 100 mg PO BID [facility] Famotidine (Pepcid) 20 mg PO BID [facility] Furosemide (Lasix) 40 mg PO DAILY [facility] Home Med (Febuxostat [Uloric]) 40 mg PO DAILY [facility] Lisinopril (Zestril) 40 mg PO BID [facility] Rosuvastatin Calcium (Crestor) 10 mg PO HS [facility] Physical Exam - Constitutional Appears: Well, Non-toxic, No Acute Distress - Head Exam Head Exam: ATRAUMATIC, NORMAL INSPECTION, NORMOCEPHALIC Additional comments: Face, non-tender to palpation. - Eye Exam Eye Exam: EOMI, Normal appearance, PERRL. absent: Scleral icterus - ENT Exam ENT Exam: Mucous Membranes Moist - Respiratory Exam Respiratory Exam: Clear to Auscultation Bilateral. absent: Accessory Muscle Use - Cardiovascular Exam Cardiovascular Exam: +S1, +S2 - GI/Abdominal Exam GI & Abdominal Exam: absent: Soft - Extremities Exam Extremities exam: Positive for: normal inspection. Negative for: pedal edema - Neurological Exam Neurological exam: Alert, CN II-XII Intact, Oriented x3 Additional comments: No motor or sensory Deficit Normal DTR in Upper extremity 5/5 Muscle Strength in Upper and lower extremity. Negative Tinel's Sign on Left forearm. - Psychiatric Exam Psychiatric exam: Normal Affect, Normal Mood - Skin Skin Exam: Dry, Intact, Normal Color, Warm Results - Vital Signs Recent Vital Signs: Last Vital Signs Temp 98.2 F 11/10/17 07:00 Pulse 58 L 11/10/17 07:00 Resp 20 11/10/17 07:00 BP 163/83 H 11/10/17 07:00 Pulse Ox 97 11/10/17 07:00 - Labs Result Diagrams: 11/10/17 08:37 11/10/17 08:37 Labs: Laboratory Results - last 24 hr 11/09/17 11/09/17 11/09/17 18:08 18:20 18:20 WBC 6.7 RBC 5.11 Hgb 12.7 Hct 38.3 MCV 74.9 L MCH 24.8 L MCHC 33.0 RDW 15.6 H Plt Count 285 MPV 6.7 L Neut % (Auto) 61.7 Lymph % (Auto) 27.7 [place] % (Auto) 8.2 Eos % (Auto) 1.8 Baso % (Auto) 0.6 Neut # (Auto) 4.1 Lymph # (Auto) 1.8 [place] # (Auto) 0.5 Eos # (Auto) 0.1 Baso # (Auto) 0.0 PT 12.3 H INR 1.1 APTT 37 H Sodium Potassium Chloride Carbon Dioxide Anion Gap BUN Creatinine Est GFR ( Amer) Est GFR (Non-Af Amer) POC Glucose (mg/dL) 109 Random Glucose Hemoglobin A1c Calcium Total Bilirubin AST ALT Alkaline Phosphatase Troponin I Total Protein Albumin Globulin Albumin/Globulin Ratio Triglycerides Cholesterol LDL Cholesterol Direct HDL Cholesterol Blood Type Antibody Screen 11/09/17 11/09/17 11/09/17 18:20 18:20 18:31 WBC RBC Hgb Hct MCV MCH MCHC RDW Plt Count MPV Neut % (Auto) Lymph % (Auto) [place] % (Auto) Eos % (Auto) Baso % (Auto) Neut # (Auto) Lymph # (Auto) [place] # (Auto) Eos # (Auto) Baso # (Auto) PT INR APTT Sodium 142 Potassium 3.9 Chloride 100 Carbon Dioxide 31 H Anion Gap 15 BUN 20 Creatinine 1.1 Est GFR ( Amer) > 60 Est GFR (Non-Af Amer) > 60 POC Glucose (mg/dL) Random Glucose 109 Hemoglobin A1c 6.5 Calcium 9.5 Total Bilirubin 0.3 AST 38 ALT 53 Alkaline Phosphatase 103 Troponin I < 0.0120 Total Protein 7.7 Albumin 4.3 Globulin 3.4 Albumin/Globulin Ratio 1.2 Triglycerides 264 H D Cholesterol 154 LDL Cholesterol Direct 73 HDL Cholesterol 38 Blood Type O POSITIVE Antibody Screen Negative 11/10/17 11/10/17 08:37 08:37 WBC 4.3 L RBC 5.04 Hgb 12.4 Hct 37.8 MCV 74.8 L MCH 24.5 L MCHC 32.8 L RDW 15.4 H Plt Count 282 MPV 7.2 Neut % (Auto) 62.5 Lymph % (Auto) 26.2 [place] % (Auto) 8.9 Eos % (Auto) 2.0 Baso % (Auto) 0.4 Neut # (Auto) 2.7 Lymph # (Auto) 1.1 [place] # (Auto) 0.4 Eos # (Auto) 0.1 Baso # (Auto) 0.0 PT INR APTT Sodium 141 Potassium 4.1 Chloride 100 Carbon Dioxide 29 Anion Gap 16 BUN 18 Creatinine 0.9 Est GFR ( Amer) > 60 Est GFR (Non-Af Amer) > 60 POC Glucose (mg/dL) Random Glucose 103 Hemoglobin A1c Calcium 9.0 Total Bilirubin 0.4 AST 52 ALT 55 Alkaline Phosphatase 67 Troponin I Total Protein 7.2 Albumin 3.9 Globulin 3.3 Albumin/Globulin Ratio 1.2 Triglycerides Cholesterol LDL Cholesterol Direct HDL Cholesterol Blood Type Antibody Screen Assessment & Plan - Assessment and Plan (Free Text) Assessment: 57 year old male with a past medical history of HTN, CHF, gout, and sleep apnea , who presents to the hospital with complaints of numbness in the left side of the face, left arm, dizziness, and sweating. Patient experienced symptoms of left arm/facial numbness twice yesterday afternoon at 2:30pm and 4:00pm. Symptoms resolved on there own both times after a couple of minutes. Neurology consulted on the case due to Code Stroke. Patient had NIH score of 0 on admission. Plan: Code Stroke (Left Facial palsy and left arm numbness) DDx: Thalamic Stroke, TIA,Bels Palsy, Hemiplegic Migraine, ASA/Plavix given in the ED NIHSS - [address] Head - Negative Carotid Doppler - F/U Read MRI Head - F/U. Will put Ativan PRN for claustrophobia. ECHO - F/U Read Cont. ASA 325 Daily Blood Pressure Control w/ goal blood pressure of 130/80. Discussed with Dr. Bentley. Kaelyn Esteban, PGY-2 <Marcos Bentley - Last Filed: 11/10/17 22:11> Results - Vital Signs Recent Vital Signs: Last Vital Signs Temp 97.9 F 11/10/17 15:00 Pulse 63 08/10/18 16:00 Resp 20 11/10/17 15:00 BP 167/86 H 11/10/17 17:32 Pulse Ox 99 11/10/17 15:00 - Labs Result Diagrams: 11/10/17 08:37 11/10/17 08:37 Labs: Laboratory Results - last 24 hr 11/10/17 11/10/17 11/10/17 06:49 08:37 08:37 WBC 4.3 L RBC 5.04 Hgb 12.4 Hct 37.8 MCV 74.8 L MCH 24.5 L MCHC 32.8 L RDW 15.4 H Plt Count 282 MPV 7.2 Neut % (Auto) 62.5 Lymph % (Auto) 26.2 [place] % (Auto) 8.9 Eos % (Auto) 2.0 Baso % (Auto) 0.4 Neut # (Auto) 2.7 Lymph # (Auto) 1.1 [place] # (Auto) 0.4 Eos # (Auto) 0.1 Baso # (Auto) 0.0 Sodium 141 Potassium 4.1 Chloride 100 Carbon Dioxide 29 Anion Gap 16 BUN 18 Creatinine 0.9 Est GFR ( Amer) > 60 Est GFR (Non-Af Amer) > 60 POC Glucose (mg/dL) 105 Random Glucose 103 Calcium 9.0 Total Bilirubin 0.4 AST 52 ALT 55 Alkaline Phosphatase 67 Total Protein 7.2 Albumin 3.9 Globulin 3.3 Albumin/Globulin Ratio 1.2 11/10/17 11:39 WBC RBC Hgb Hct MCV MCH MCHC RDW Plt Count MPV Neut % (Auto) Lymph % (Auto) [place] % (Auto) Eos % (Auto) Baso % (Auto) Neut # (Auto) Lymph # (Auto) [place] # (Auto) Eos # (Auto) Baso # (Auto) Sodium Potassium Chloride Carbon Dioxide Anion Gap BUN Creatinine Est GFR ( Amer) Est GFR (Non-Af Amer) POC Glucose (mg/dL) 97 Random Glucose Calcium Total Bilirubin AST ALT Alkaline Phosphatase Total Protein Albumin Globulin Albumin/Globulin Ratio Assessment & Plan - Assessment and Plan (Free Text) Assessment: Patient seen and examined with resident and plan reviewed. Mr. Shrestha most likely has had a lacunar infarct secondary to hypertension. IN light of his multiple risk factors, he is high risk for infarct, but not a Tpa candidate. Therefore we will admit fo stroke evaluation and MRI Brain. Plan: 1. Control BP for now to normal parameters 2. MRI Brain 3. ECHo 4. aspirin 325 mg po daily 5. pt/st/ot Thank you dr. bentley
[2017-11-10] MEDS ORDERED: Home Med 1 UNIT (Febuxostat [Uloric] 40 MG) PO SCH (10:00)
--- NOTE | 2017-11-10 14:28 | CARD ---
APPROVED REPORT Date of service: 11/10/2017 EXAM: Two-dimensional and M-mode echocardiogram with Doppler and color Doppler. INDICATION CVA/TIA Congestive Heart Failure Palpitations RISK FACTORS Hypertension 2D DIMENSIONS IVSd1.2 (0.7-1.1cm)Aortic Root (2D)2.8 (2.0-3.7cm) LVDd5.0 (3.9-5.9cm)PWd1.1 (0.7-1.1cm) LVDs3.7 (2.5-4.0cm)FS (%) 25.4 % LVEF (%)57.0 (>50%) M-Mode DIMENSIONS RVDd1.21 (2.1-3.2cm)Left Atrium (MM)4.76 (2.5-4.0cm) IVSd0.98 (0.7-1.1cm)Aortic Root3.24 (2.2-3.7cm) LVDd6.17 (4.0-5.6cm)Aortic Cusp Exc.2.11 (1.5-2.0cm) PWd1.09 (0.7-1.1cm)FS (%) 44 % LVDs3.44 (2.0-3.8cm)LVEF (%)60 (>50%) Mitral Valve MV E Jgwesmmx38.7cm/sMV A Hpgcieno17.8cm/sE/A ratio2.3 TDI E/Lateral E'0.0E/Medial E'0.0 Tricuspid Valve TR Peak [id number]/sTR Peak [id number] LEFT VENTRICLE The left ventricle is normal size. There is normal left ventricular wall thickness. The left ventricular function is normal. The left ventricular ejection fraction is within the normal range. There is normal LV segmental wall motion. The left ventricular diastolic function is normal. Normal left atrial pressure. RIGHT VENTRICLE The right ventricle is normal size. The right ventricular systolic function is normal. ATRIA The left atrium is mildly dilated. The right atrium size is normal. AORTIC VALVE The aortic valve is normal in structure. No aortic regurgitation is present. MITRAL VALVE The mitral valve is normal in structure. There is no mitral valve regurgitation noted. TRICUSPID VALVE The tricuspid valve is normal in structure. There is mild tricuspid regurgitation. Right ventricular systolic pressure is estimated at - 36 mmHg. PULMONIC VALVE The pulmonary valve is normal in structure. There is trace pulmonic valvular regurgitation. GREAT VESSELS The aortic root is normal in size. The IVC is normal in size and collapses >50% with inspiration. PERICARDIAL EFFUSION There is no pericardial effusion. <Conclusion> Normal bi-ventricular function. The left atrium is mildly dilated. There is mild tricuspid regurgitation. Right ventricular systolic pressure is estimated at - 36 mmHg. There is no pericardial effusion.
--- NOTE | 2017-11-10 15:43 | CP.PCM.PN ---
Subjective - Date & Time of Evaluation Date of Evaluation: 11/10/17 Time of Evaluation: 15:40 - Subjective Subjective: PGY-1 Medicine Progress Note for Dr. Lackey's service Patient seen and examined at bedside. Patient offers no acute complaints. Patient states he has no residual weakness in his left upper or lower extremity. Patient states since he has been in the hospital he has no return of numbness or weakness. Patient denies chest pain, nausea, vomiting, sob, weakness , headaches, dizziness, dysuria, constipation, diarrhea, weakness in extremities , numbness, tingling, and slurred speech. Objective - Vital Signs/Intake and Output Vital Signs (last 24 hours): Temp Pulse Resp BP Pulse Ox 98.2 F 58 L 20 163/83 H 97 11/10/17 07:00 11/10/17 07:00 11/10/17 07:00 11/10/17 09:31 11/10/17 07:00 - Medications Medications: Current Medications Aspirin (Aspirin) 325 mg PO DAILY [facility] Last Admin: 11/10/17 09:30 Dose: 325 mg Carvedilol (Coreg) 25 mg PO BID [facility] Last Admin: 11/10/17 09:30 Dose: 25 mg Colchicine (Colocrys) 0.12 mg PO DAILY [facility] Docusate Sodium (Colace) 100 mg PO BID [facility] Last Admin: 11/10/17 09:30 Dose: 100 mg Famotidine (Pepcid) 20 mg PO BID [facility] Last Admin: 11/10/17 09:30 Dose: 20 mg Furosemide (Lasix) 40 mg PO DAILY [facility] Last Admin: 11/10/17 09:31 Dose: 40 mg Home Med (Febuxostat [Uloric]) 40 mg PO DAILY [facility] Lisinopril (Zestril) 40 mg PO BID [facility] Last Admin: 11/10/17 09:31 Dose: 40 mg Lorazepam (Ativan) 1 mg PO ONCE PRN PRN Reason: Anxiety Rosuvastatin Calcium (Crestor) 10 mg PO HS [facility] - Labs Labs: 11/10/17 08:37 11/10/17 08:37 PT 12.3 SECONDS (9.7-12.2) H 11/09/17 18:20 INR 1.1 11/09/17 18:20 APTT 37 SECONDS (21-34) H 11/09/17 18:20 - Constitutional Appears: Non-toxic, No Acute Distress - Head Exam Head Exam: NORMAL INSPECTION, NORMOCEPHALIC - Eye Exam Eye Exam: EOMI, Normal appearance. absent: Nystagmus, Scleral icterus - Respiratory Exam Respiratory Exam: Clear to Ausculation Bilateral, NORMAL BREATHING PATTERN. absent: Rales, Rhonchi, Wheezes - Cardiovascular Exam Cardiovascular Exam: REGULAR RHYTHM, +S1, +S2. absent: Tachycardia, Murmur - GI/Abdominal Exam GI & Abdominal Exam: Distended, Soft, Normal Bowel Sounds. absent: Firm, Guarding, Tenderness Additional comments: patient reports he has hernia; surgery planned for beginning of next month - Extremities Exam Extremities Exam: Normal Inspection. absent: Calf Tenderness, Pedal Edema - Back Exam Back Exam: NORMAL INSPECTION. absent: CVA tenderness (L), CVA tenderness (R) - Psychiatric Exam Psychiatric exam: Normal Affect, Normal Mood - Skin Skin Exam: Intact, Normal Color Assessment and Plan - Assessment and Plan (Free Text) Assessment: Patient is a 57 y.o male w/ PMH HTN, CHF, gout, and sleep apnea who presents to the hospital with complaints of numbness in the left side of the face and arm with dizziness and sweating. Plan: TIA HTN CHF Gout
--- NOTE | 2017-11-10 16:38 | CP.PCM.DIS ---
Provider - Provider Date of Admission: 11/09/17 19:25 Attending physician: Kodak Lackey Jr, MD Time Spent in preparation of Discharge (in minutes): 45 Hospital Course - Lab Results Lab Results: Most Recent Lab Values WBC 4.3 K/uL (4.8-10.8) L 11/10/17 08:37 RBC 5.04 Mil/uL (4.40-5.90) 11/10/17 08:37 Hgb 12.4 g/dL (12.0-18.0) 11/10/17 08:37 Hct 37.8 % (35.0-51.0) 11/10/17 08:37 MCV 74.8 fL (80.0-94.0) L 11/10/17 08:37 MCH 24.5 pg (27.0-31.0) L 11/10/17 08:37 MCHC 32.8 g/dL (33.0-37.0) L 11/10/17 08:37 RDW 15.4 % (11.5-14.5) H 11/10/17 08:37 Plt Count 282 K/uL (130-400) 11/10/17 08:37 MPV 7.2 fL (7.2-11.7) 11/10/17 08:37 Neut % (Auto) 62.5 % (50.0-75.0) 11/10/17 08:37 Lymph % (Auto) 26.2 % (20.0-40.0) 11/10/17 08:37 Ware % (Auto) 8.9 % (0.0-10.0) 11/10/17 08:37 Eos % (Auto) 2.0 % (0.0-4.0) 11/10/17 08:37 Baso % (Auto) 0.4 % (0.0-2.0) 11/10/17 08:37 Neut # (Auto) 2.7 K/uL (1.8-7.0) 11/10/17 08:37 Lymph # (Auto) 1.1 K/uL (1.0-4.3) 11/10/17 08:37 Ware # (Auto) 0.4 K/uL (0.0-0.8) 11/10/17 08:37 Eos # (Auto) 0.1 K/uL (0.0-0.7) 11/10/17 08:37 Baso # (Auto) 0.0 K/uL (0.0-0.2) 11/10/17 08:37 PT 12.3 SECONDS (9.7-12.2) H 11/09/17 18:20 INR 1.1 11/09/17 18:20 APTT 37 SECONDS (21-34) H 11/09/17 18:20 Sodium 141 mmol/L (132-148) 11/10/17 08:37 Potassium 4.1 mmol/L (3.6-5.2) 11/10/17 08:37 Chloride 100 mmol/L (98-107) 11/10/17 08:37 Carbon Dioxide 29 mmol/L (22-30) 11/10/17 08:37 Anion Gap 16 (10-20) 11/10/17 08:37 BUN 18 mg/dL (9-20) 11/10/17 08:37 Creatinine 0.9 mg/dL (0.8-1.5) 11/10/17 08:37 Est GFR ( Amer) > 60 11/10/17 08:37 Est GFR (Non-Af Amer) > 60 11/10/17 08:37 POC Glucose (mg/dL) 97 mg/dL (65-110) 11/10/17 11:39 Random Glucose 103 mg/dL (75-110) 11/10/17 08:37 Hemoglobin A1c 6.5 % (4.2-6.5) 11/09/17 18:20 Calcium 9.0 mg/dl (8.6-10.4) 11/10/17 08:37 Total Bilirubin 0.4 mg/dL (0.2-1.3) 11/10/17 08:37 AST 52 U/L (17-59) 11/10/17 08:37 ALT 55 U/L (21-72) 11/10/17 08:37 Alkaline Phosphatase 67 U/L (38-126) 11/10/17 08:37 Troponin I < 0.0120 ng/mL (0.00-0.120) 11/09/17 18:20 Total Protein 7.2 g/dL (6.3-8.3) 08/10/18 08:37 Albumin 3.9 g/dL (3.5-5.0) 11/10/17 08:37 Globulin 3.3 gm/dL (2.2-3.9) 11/10/17 08:37 Albumin/Globulin Ratio 1.2 (1.0-2.1) 11/10/17 08:37 Triglycerides 264 mg/dL (0-149) H D 11/09/17 18:20 Cholesterol 154 mg/dL (0-199) 11/09/17 18:20 LDL Cholesterol Direct 73 mg/dL (0-129) 11/09/17 18:20 HDL Cholesterol 38 mg/dL (30-70) 11/09/17 18:20 Blood Type O POSITIVE 11/09/17 18:31 Antibody Screen Negative 11/09/17 18:31 - Hospital Course Hospital Course: PMD: Dr. Lackey PMHx: HTN, CHF, gout, sleep apnea SurgHx: Cardiac cath x3 in 2017, Wrist surgery 2017, Herniorrhaphy FamHx: Father- DM, pacemaker; Mother- Pacemaker; Brother- MA SocHx: denies tobacco, alcohol, and drug use; lives with girlfriend of 22yr in ; retired, on disability for CHF. Allergies: Keflex (anaphylaxis); IV contrast (anaphylaxis) Medications: Coreg, Lisinopril, Uloric, Lasix, Pepcid, Naproxen prn, Colchicine Upon Admission: Patient is a 57 year old male with a past medical history of HTN, CHF, gout, and sleep apnea, who presents to the hospital with complaints of numbness in the left side of the face, left arm, dizziness, and sweating. The patient states that around 2:30pm, he felt dizzy, has profuse sweating, felt numb on his left face and left arm, and felt like he was going to black out. This episode lasted for a few minutes and then all symptoms resolved. He then experienced the same symptoms around 4pm, which also resolved after a few minutes. He has never had similar symptoms in the past. He did not try anything at home to relieve his symptoms and nothing made it worse. Currently, the patient reports feeling better and denies symptoms of dizziness, numbness, tingling, slurred speech, weakness, sweating, changes in vision, chest pain, palpitations, nausea, vomiting, fevers, headaches, dysuria, constipation. Hospital Course: Patient is a 57 yo male who came to the hospital for evaluation of left left face and arm numbness with facial droop x 2 episodes before arriving at hospital. Code stroke was called; NIH was 0 at initial evaluation. Patient has no residual deficits, no focal neurologic deficits, no hemiparesis, or weakness. CT head was negative stroke. Patient is have outpatient MRI done and followup with neurologist and PMD. Discharge Plan: Patient is stable for discharge to home as per Dr. Lackey. Patient should followup with Dr. Bentley and Dr. Lackey within 1 week after discharge from hospital. Patient should continue taking all of his home medications, no medication adjustments were made in this admission. Patient to have MRI Head w.o contrast outpatient. Patient is instructed to return to the hospital if symptoms recur or worsen. Disclaimer: Entailed above is a synopsis of patient's admission to hospital. For a full report please refer to the EMR. Discharge Exam - Head Exam Head Exam: ATRAUMATIC, NORMAL INSPECTION, NORMOCEPHALIC - Eye Exam Eye Exam: EOMI, Normal appearance. absent: Nystagmus, Scleral icterus - Respiratory Exam Respiratory Exam: NORMAL BREATHING PATTERN. absent: Rales, Rhonchi, Wheezes, Respiratory Distress - Cardiovascular Exam Cardiovascular Exam: REGULAR RHYTHM, +S1, +S2. absent: Tachycardia, Systolic Murmur - GI/Abdominal Exam GI & Abdominal Exam: Normal Bowel Sounds, Soft. absent: Distended, Firm, Guarding, Tenderness - Extremities Exam Extremities exam: normal inspection - Back Exam Back exam: NORMAL INSPECTION. absent: CVA tenderness (L), CVA tenderness (R) - Neurological Exam Neurological exam: Alert, Normal Gait, Oriented x3 Additional comments: no motor strength deficits no hemiparesis no slurred speech no facial droop - Psychiatric Exam Psychiatric exam: Normal Affect, Normal Mood - Skin Skin Exam: Intact, Normal Color Discharge Plan - Follow Up Plan Condition: FAIR Disposition: HOME/ ROUTINE Additional Instructions: Patient is stable for discharge to home as per Dr. Lackey. Patient should followup with Dr. Bentley and Dr. Lackey within 1 week after discharge from hospital. Patient should continue taking all of his home medications, no medication adjustments were made in this admission. Patient to have MRI Head w.o contrast outpatient, a script has been provided with discharge instructions. Patient is instructed to return to the hospital if symptoms recur or worsen. Patient understands the plan as listed above and agrees. Referrals: Kodak Lackey Jr., MD [Medical Doctor] - Marcos Bentley MD [Staff Provider] -
[2017-11-10 17:05] VITALS: TEMP 97.9; O2SAT 99
[2017-11-10 17:32] VITALS: BP 167/86
[2017-11-10 21:27] VITALS: PULSE 63
--- NOTE | 2017-11-11 12:33 | CARD ---
APPROVED REPORT Date of service: 11/09/2017 EKG Measurement Heart [id number] <Conclusion> Normal sinus rhythm Nonspecific T wave abnormality Borderline EKG
--- NOTE | 2017-11-12 15:58 | VASCLAB ---
Date of service: 11/10/2017 PROCEDURE: HISTORY: TIA COMPARISON: None available. TECHNIQUE: Grayscale and duplex Doppler evaluation of the cervical carotid and vertebral arteries were performed. The common carotid, carotid bifurcations and cervical Internal Carotid Artery (ICA) and proximal External Carotid Artery (ECA) were evaluated. The vertebral arteries were evaluated for gross patency and flow direction. Report prepared by Timur Barton, BS, RVT FINDINGS: RIGHT CAROTID ARTERIES: 1. Common Carotid Artery: No significant focal plaque formation of the right common carotid artery. Maximum Peak Systolic velocity: 77 cm/sec: End-diastolic velocity 14 cm/sec. 2. Carotid Bifurcation: plaque formation. Maximum Peak Systolic velocity: 71 cm/sec: End-diastolic velocity 13 cm/sec. 3. Internal Carotid Artery: Plaque description: 3.1. Proximal Segment: Peak systolic velocity 39 cm/sec: End-diastolic velocity 11 cm/sec - % stenosis 0-15% 3.2. Middle Segment: Peak systolic velocity 94 cm/sec: End-diastolic velocity 31 cm/sec - % stenosis 0-15% 3.3. Distal Segment: Peak systolic velocity 73 cm/sec: End-diastolic velocity 24 cm/sec - % stenosis 0-15% 4. External Carotid Artery: No significant focal plaque formation. Peak systolic velocity 76 cm/sec 5. ICA/CCA Ratio: 1.2 LEFT CAROTID ARTERIES: 1. Common Carotid Artery: No significant focal plaque formation of the left common carotid artery. Maximum Peak Systolic velocity: 85 cm/sec: End-diastolic velocity 12 cm/sec. 2. Carotid Bifurcation: plaque formation. Maximum Peak Systolic velocity: 88 cm/sec: End-diastolic velocity 11 cm/sec. 3. Internal Carotid Artery: Plaque description: 3.1. Proximal Segment: Peak systolic velocity 70 cm/sec: End-diastolic velocity 19 cm/sec - % stenosis 0-15% 3.2. Middle Segment: Peak systolic velocity 73 cm/sec: End-diastolic velocity 25 cm/sec - % stenosis 0-15% 3.3. Distal Segment: Peak systolic velocity 99 cm/sec: End-diastolic velocity 36 cm/sec - % stenosis 0-15% 4. External Carotid Artery: No significant focal plaque formation. Peak systolic velocity 98 cm/sec 5. ICA/CCA Ratio: 1.2 VERTEBRAL ARTERIES: 1. Right Vertebral Artery: The right vertebral artery flow direction is antegrade. 2. Left Vertebral Artery: The left vertebral artery flow direction is antegrade. OTHER FINDINGS: 1. Right Brachial Blood pressure: 142 mmHg. 2. Left Brachial Blood pressure: 136 mmHg. IMPRESSION: RIGHT: Duplex scan does not suggest hemodynamically significant stenosis of the right extracranial carotid arteries. LEFT: Duplex scan does not suggest hemodynamically significant stenosis of the left extracranial carotid arteries.
== END 2017-11-10 17:45 | disposition home or self-care (01) ==
LOC: C.ER 17:31 → C.9E 19:25 → C.6T 22:12
PROVIDERS: ADMIT Internal Medicine; ATTEND Internal Medicine
DX: G45.9 Transient cerebral ischemic attack, unspecified (principal); I11.0 Hypertensive heart disease with heart failure; I50.9 Heart failure, unspecified; I63.9 Cerebral infarction, unspecified; M10.9 Gout, unspecified; G47.30 Sleep apnea, unspecified; Z83.3 Family history of diabetes mellitus; Z95.5 Presence of coronary angioplasty implant and graft; Z79.899 Other long term (current) drug therapy; Z79.82 Long term (current) use of aspirin; J45.909 Unspecified asthma, uncomplicated
CPT/HCPCS: 36415; 70450; 71045; 80053; 80061; 82948; 83036; 84484; 85025; 85610; 85730; 86850; 86900; 93005; 93306; 93880; 97116; 97161; 97165; 97530; 99285; G0378; G8978; G8979; G8980; G8987; G8988; G8989

== ENCOUNTER 2017-12-15 11:14 | Emergency (ER) | payer MEDICARE ==
[2017-12-15 11:14] VITALS: BMI 37.3
[2017-12-15 11:44] VITALS: PULSE 66; RESP 18
--- NOTE | 2017-12-15 12:18 | C.PDOC ---
History Of Present Illness 57 y/o male presents to ED for evaluation of intermittent lightheadedness for the last 2month. Pt states he called his PMD, Dr. Lackey, and informed him about the symptoms and was instructed to report to ED for further evaluation. Also noted his blood pressure has been fluctuating for the last few days. Pt was seen here 4 days ago with similar complaints, was evaluated and discharged. Otherwise, denies chest pain, shortness of breath, nausea, vomiting, headache, weakness, numbness, or fever. Time Seen by Provider: 12/15/17 12:03 Chief Complaint (Nursing): Dizziness/Lightheaded History Per: Patient History/Exam Limitations: no limitations Onset/Duration Of Symptoms: Days Current Symptoms Are (Timing): Still Present Possible Causative Factor(s): Lightheaded W/Standing Recent travel outside of the [place]: No Additional History Per: Patient Past Medical History Reviewed: Historical Data, Nursing Documentation, Vital Signs Vital Signs: Last Vital Signs Temp 99.3 F 12/15/17 16:50 Pulse 66 12/15/17 16:50 Resp 18 12/15/17 16:50 BP 162/79 H 12/15/17 16:50 Pulse Ox 99 12/15/17 18:37 - Medical History PMH: Arthritis, Asthma, Bronchitis, CAD, CHF, Diverticulitis, Hiatal Hernia, HTN Surgical History: Coronary Stent (x3), Hernia Repair ([facility]) - [facility] Procedures CORONAR ARTERIOGR-2 CATH (11/28/03) INJECT/INFUSE NEC (04/10/07) LEFT HEART CARDIAC CATH (11/28/03) LT HEART ANGIOCARDIOGRAM (11/28/03) OTHER LOCAL DESTRUC SKIN (12/10/03) Family History: States: Unknown Family Hx - Social History Hx Tobacco Use: No Hx Alcohol Use: Yes Hx Substance Use: No - Immunization History Hx Tetanus Toxoid Vaccination: Yes Hx Influenza Vaccination: Yes Hx Pneumococcal Vaccination: Yes Review Of Systems Except As Marked, All Systems Reviewed And Found Negative. Constitutional: Negative for: Fever, Chills Cardiovascular: Positive for: Light Headedness. Negative for: Chest Pain, Palpitations, Edema Respiratory: Negative for: Shortness of Breath Gastrointestinal: Negative for: Nausea, Vomiting, Abdominal Pain Musculoskeletal: Negative for: Neck Pain Neurological: Negative for: Weakness, Numbness, Headache Physical Exam - Physical Exam Appears: Non-toxic, No Acute Distress Skin: Normal Color, Warm, Dry Head: Atraumatic, Normacephalic Eye(s): bilateral: Normal Inspection, PERRL, EOMI Ear(s): Bilateral: Normal Oral Mucosa: Moist Neck: Normal ROM, Supple Chest: Symmetrical, No Tenderness Cardiovascular: Rhythm Regular Respiratory: Normal Breath Sounds, No Rales, No Rhonchi, No Wheezing Gastrointestinal/Abdominal: Soft, No Tenderness Extremity: Normal ROM, No Swelling Pulses: Right Radial: Normal Neurological/Psych: Oriented x3, Normal Speech, Normal Cognition ED Course And Treatment - Laboratory Results Result Diagrams: 12/15/17 14:01 12/15/17 14:01 ECG: Interpreted By Me, Viewed By Me ECG Rhythm: Sinus Rhythm ECG Interpretation: No Acute Changes Interpretation Of ECG: Diffuse T wave abnormalities. Rate From EC (bpm) O2 Sat by Pulse Oximetry: 99 (RA) Pulse Ox Interpretation: Normal - CT Scan/US Head CT Other Rad Studies (CT/US): Read By Radiologist, Radiology Report Reviewed CT/US Interpretation: FINDINGS: Mild streak artifact limits evaluation of the skullbase. HEMORRHAGE: No intracranial hemorrhage. BRAIN: Mild atrophy. No mass effect or edema. The gomez-white matter differentiation appears intact. Please note that MRI with diffusion imaging is more sensitive in the detection of acute ischemic event. VENTRICLES: No hydrocephalus. CALVARIUM: Unremarkable. PARANASAL SINUSES: Unremarkable as visualized. No significant inflammatory changes. MASTOID AIR CELLS: Unremarkable as visualized. No inflammatory changes. OTHER FINDINGS: None. IMPRESSION: No acute intracranial pathology identified. CXR Other Rad Studies (CT/US): Read By Radiologist, Radiology Report Reviewed CT/US Interpretation: FINDINGS: Examination limited by habitus and hypoinflation. LUNGS: Mild biapical pleural thickening. Minimal bibasilar atelectasis. Please note that chest x-ray has limited sensitivity for the detection of pulmonary masses. PLEURA: No significant pleural effusion identified. No definite pneumothorax . CARDIOVASCULAR: Cardiomegaly. Bilateral hilar prominence. OSSEOUS STRUCTURES: Degenerative changes. VISUALIZED UPPER ABDOMEN: Unremarkable. OTHER FINDINGS: None. IMPRESSION: Mild biapical pleural thickening. Minimal bibasilar atelectasis. Bilateral hilar prominence. Cardiomegaly. Medical Decision Making Medical Decision Making: Plan: Blood work Urinalysis EKG CXR Head CT IV fluids On re-eval, pt is resting comfortably, no acute distress. No focal deficit. Pt is ambulating well. Patient wants to be d/c home. Patient is being discharged home and is instructed to follow up with PMD in 1-2 days for further evaluation. Disposition - Disposition Disposition: HOME/ ROUTINE Disposition Time: 16:36 Condition: STABLE Additional Instructions: Follow up with PMD within 1-2 days. Return to ED if feel worse. Instructions: Dizziness, Nonvertigo, (DC) Forms: [employer] ([place]) - Clinical Impression Clinical Impression: Dizziness - PA / MANAGER PULMONARY / Resident Statement MD/DO has reviewed & agrees with the documentation as recorded. - Scribe Statement The provider has reviewed the documentation as recorded by the Scribe Shelli Avalos All medical record entries made by the Wallyibcorey were at my direction and personally dictated by me. I have reviewed the chart and agree that the record accurately reflects my personal performance of the history, physical exam, medical decision making, and the department course for this patient. I have also personally directed, reviewed, and agree with the discharge instructions and disposition.
[2017-12-15] MEDS ORDERED: Sodium Chloride 0.9% 500 ML IV STA (13:12)
--- NOTE | 2017-12-15 13:27 | RAD ---
HISTORY: SOB COMPARISON: Chest x-ray performed 11/09/17 TECHNIQUE: Chest, one view. FINDINGS: Examination limited by habitus and hypoinflation. LUNGS: Mild biapical pleural thickening. Minimal bibasilar atelectasis. Please note that chest x-ray has limited sensitivity for the detection of pulmonary masses. PLEURA: No significant pleural effusion identified. No definite pneumothorax . CARDIOVASCULAR: Cardiomegaly. Bilateral hilar prominence. OSSEOUS STRUCTURES: Degenerative changes. VISUALIZED UPPER ABDOMEN: Unremarkable. OTHER FINDINGS: None. IMPRESSION: Mild biapical pleural thickening. Minimal bibasilar atelectasis. Bilateral hilar prominence. Cardiomegaly.
--- NOTE | 2017-12-15 13:43 | CT ---
Date of service: 12/15/2017 PROCEDURE: CT HEAD WITHOUT CONTRAST. HISTORY: near syncope COMPARISON: Noncontrast head CT performed 11/09/17 TECHNIQUE: Axial computed tomography images were obtained through the head/brain without intravenous contrast. Radiation dose: Total exam DLP = 1482.03 mGy-cm. This CT exam was performed using one or more of the following dose reduction techniques: Automated exposure control, adjustment of the mA and/or kV according to patient size, and/or use of iterative reconstruction technique. FINDINGS: Mild streak artifact limits evaluation of the skullbase. HEMORRHAGE: No intracranial hemorrhage. BRAIN: Mild atrophy. No mass effect or edema. The gomez-white matter differentiation appears intact. Please note that MRI with diffusion imaging is more sensitive in the detection of acute ischemic event. VENTRICLES: No hydrocephalus. CALVARIUM: Unremarkable. PARANASAL SINUSES: Unremarkable as visualized. No significant inflammatory changes. MASTOID AIR CELLS: Unremarkable as visualized. No inflammatory changes. OTHER FINDINGS: None. IMPRESSION: No acute intracranial pathology identified.
[2017-12-15 14:07] LABS: BASO % 0.6 % (0.0-2.0); EOS # 0.1 K/uL (0.0-0.7); EOS % 1.1 % (0.0-4.0); HEMOGLOBIN 12.8 g/dL (12.0-18.0); LYMPH # 1.7 K/uL (1.0-4.3); LYMPH % 31.7 % (20.0-40.0); MEAN CELL VOLUME 74.9 fL (80.0-94.0); MEAN CORPUSCULAR HEMOGLOBIN 24.1 pg (27.0-31.0); MEAN CORPUSCULAR HGB CONC 32.2 g/dL (33.0-37.0); MEAN PLATELET VOLUME 7.1 fL (7.2-11.7); MONO # 0.6 K/uL (0.0-0.8); MONO % 10.8 % (0.0-10.0); NEUT % 55.8 % (50.0-75.0); NRBC % 0.1 % (0.0-2.0); RBC 5.31 Mil/uL (4.40-5.90); RED CELL DISTRIBUTION WIDTH 15.7 % (11.5-14.5); WHITE BLOOD COUNT 5.3 K/uL (4.8-10.8)
[2017-12-15 14:08] LABS: SQUAMOUS EPITHIAL 8 /hpf (0-5); URINE BILIRUBIN NEGATIVE (NEGATIVE); URINE BLOOD NEGATIVE (NEGATIVE); URINE CLARITY Clear (Clear); URINE COLOR Yellow (YELLOW); URINE GLUCOSE (UA) NORMAL (Normal); URINE LEUKOCYTE ESTERASE NEG Leu/uL (Negative); URINE PROTEIN NEGATIVE (NEGATIVE)
[2017-12-15 14:15] LABS: INR 1.2; PROTHROMBIN TIME 12.7 SECONDS (9.7-12.2)
[2017-12-15] MEDS ORDERED: Sodium Chloride 0.9% 1,000 ML ONE (14:24)
[2017-12-15 14:28] LABS: ALB/GLOB RATIO 1.3 (1.0-2.1); ALBUMIN 4.4 g/dL (3.5-5.0); ALT/SGPT 62 U/L (21-72); AST/SGOT 54 U/L (17-59); BLOOD UREA NITROGEN 17 mg/dL (9-20); CALCIUM 9.1 mg/dl (8.6-10.4); GFR NON-AFRICAN AMERICAN > 60
[2017-12-15 14:36] LABS: CK-MB 0.68 ng/mL (0.0-3.38)
[2017-12-15 16:50] VITALS: BP 162/79; TEMP 99.3
[2017-12-15 17:24] VITALS: O2SAT 99
== END 2017-12-15 16:54 | disposition home or self-care (01) ==
LOC: C.ER 11:14
DX: R42 Dizziness and giddiness (principal)

== ENCOUNTER 2017-12-20 14:41 | Emergency (ER) | payer MEDICARE ==
[2017-12-20 14:41] VITALS: BMI 37.3
[2017-12-20 14:49] VITALS: TEMP 98.6; O2SAT 97
--- NOTE | 2017-12-20 15:26 | C.PDOC ---
History Of Present Illness 57 year old male presents to the ER with a complaint of dizziness since last week. Patient recently had an MRI done, however, he has been unable to get his results since his PMD is away. He tried calling his doctor's office who advised him to come to the ER for treatment. Denies weakness, numbness, chest pain, nausea, or vomiting. Time Seen by Provider: 12/20/17 14:50 Chief Complaint (Nursing): Dizziness/Lightheaded History Per: Patient History/Exam Limitations: no limitations Onset/Duration Of Symptoms: Days Current Symptoms Are (Timing): Still Present Seizure Or Post-ictal Symptoms: None Possible Causative Factor(s): Other (Not known) Fall Associated With With Symptoms: No Recent travel outside of the [place]: No - Symptoms Of CVA Associated Symptoms: denies: Impaired Speech, Seizure Activity, New Vision Deficit(Left), New Vision Deficit(Right), Decreased Ability To Walk, New Confusion Past Medical History Reviewed: Historical Data, Nursing Documentation, Vital Signs Vital Signs: Last Vital Signs Temp 98.6 F 12/20/17 14:44 Pulse 66 12/20/17 14:44 Resp 18 12/20/17 14:44 BP 180/100 H 12/20/17 14:44 Pulse Ox 97 12/20/17 15:46 - Medical History PMH: Arthritis, Asthma, Bronchitis, CAD, CHF, Diverticulitis, Hiatal Hernia, HTN Surgical History: Coronary Stent (x3), Hernia Repair ([facility]) - [facility] Procedures CORONAR ARTERIOGR-2 CATH (11/28/03) INJECT/INFUSE NEC (04/10/07) LEFT HEART CARDIAC CATH (11/28/03) LT HEART ANGIOCARDIOGRAM (11/28/03) OTHER LOCAL DESTRUC SKIN (12/10/03) Family History: States: Unknown Family Hx - Social History Hx Tobacco Use: No Hx Alcohol Use: Yes Hx Substance Use: No - Immunization History Hx Tetanus Toxoid Vaccination: Yes Hx Influenza Vaccination: Yes Hx Pneumococcal Vaccination: Yes Review Of Systems Constitutional: Negative for: Fever, Chills Cardiovascular: Negative for: Chest Pain, Palpitations Respiratory: Negative for: Cough Gastrointestinal: Negative for: Nausea, Vomiting Neurological: Positive for: Dizziness. Negative for: Weakness, Numbness Physical Exam - Physical Exam Appears: Non-toxic Skin: Normal Color, Warm, Dry, No Rash Head: Atraumatic, Normacephalic Eye(s): bilateral: Normal Inspection, PERRL, EOMI Ear(s): Bilateral: Normal Oral Mucosa: Moist Neck: Normal, Supple Chest: Symmetrical, No Tenderness Cardiovascular: Rhythm Regular Respiratory: Normal Breath Sounds, No Rales, No Rhonchi, No Wheezing Gastrointestinal/Abdominal: Soft, No Tenderness, Hernia (Soft reducible umbilical), Other (Obese) Back: Normal Inspection, No CVA Tenderness Extremity: Normal ROM (x4) Neurological/Psych: Oriented x3, Normal Speech, Normal Motor Gait: Steady ED Course And Treatment O2 Sat by Pulse Oximetry: 97 (room air) Pulse Ox Interpretation: Normal Medical Decision Making Medical Decision Making: Antivert administered. MRI results were faxed and reviewed. On reevaluation, patient reports improvement of symptoms, he is resting comfortably in the ER in no acute distress, ambulatory with steady gait, vitals are stable, will discharge home with Rx and instructions to follow up with PMD. Disposition - Disposition Referrals: Kodak Lackey Jr., MD [Medical Doctor] - Disposition: HOME/ ROUTINE Disposition Time: 16:13 Condition: STABLE Additional Instructions: Follow up with the medical doctor within 1-2 days without fail. return if worsened. Prescriptions: Meclizine HCl 25 mg PO TID PRN #25 tablet PRN Reason: Dizziness Instructions: Vertigo (a Type of Dizziness) (DC) Forms: [employer] ([place]ian) - Clinical Impression Clinical Impression: Vertigo - PA / HIGH [employer]S TEACHER / Resident Statement MD/DO has reviewed & agrees with the documentation as recorded. - Scribe Statement The provider has reviewed the documentation as recorded by the Scribcore[employer] Workman All medical record entries made by the Wallyibcorey were at my direction and personally dictated by me. I have reviewed the chart and agree that the record accurately reflects my personal performance of the history, physical exam, medical decision making, and the department course for this patient. I have also personally directed, reviewed, and agree with the discharge instructions and disposition.
[2017-12-20 16:56] VITALS: BP 168/82; PULSE 64; RESP 20
== END 2017-12-20 16:57 | disposition home or self-care (01) ==
LOC: C.ER 14:41
DX: R42 Dizziness and giddiness (principal)

== ENCOUNTER 2017-12-31 20:28 | Emergency (ER) | payer MEDICARE ==
[2017-12-31 20:28] VITALS: BMI 37.3
[2017-12-31 21:04] VITALS: BP 133/82; RESP 20; TEMP 98.3
[2017-12-31] MEDS ORDERED: Magnesium Citrate Oral SOL (300 ml) PO ONE (21:17)
--- NOTE | 2017-12-31 21:20 | C.PDOC ---
History Of Present Illness 57yo male, comes to ER reporting right sided abdominal pain. Patient states his diet mostly includes BBQ and fried chicken. Patient's max weight was 500lbs and now is down to 265 lbs. He denies any fever, chills, vomiting or diarrhea. NO other complaints. Time Seen by Provider: 12/31/17 21:12 Chief Complaint (Nursing): Abdominal Pain History Per: Patient History/Exam Limitations: no limitations Onset/Duration Of Symptoms: Days Current Symptoms Are (Timing): Still Present Location Of Pain/Discomfort: RUQ, RLQ Quality Of Discomfort: "Pain" Associated Symptoms: denies: Nausea, Vomiting, Diarrhea Additional History Per: Patient Past Medical History Reviewed: Historical Data, Nursing Documentation, Vital Signs Vital Signs: Last Vital Signs Temp 98.3 F 12/31/17 20:52 Pulse 82 12/31/17 20:52 Resp 20 12/31/17 20:52 BP 133/82 12/31/17 20:52 Pulse Ox 94 L 12/31/17 20:52 - Medical History PMH: Arthritis, Asthma, Bronchitis, CAD, CHF, Diverticulitis, Hiatal Hernia, HTN Surgical History: Coronary Stent (x3), Hernia Repair ([facility]) - [facility] Procedures CORONAR ARTERIOGR-2 CATH (11/28/03) INJECT/INFUSE NEC (04/10/07) LEFT HEART CARDIAC CATH (11/28/03) LT HEART ANGIOCARDIOGRAM (11/28/03) OTHER LOCAL DESTRUC SKIN (12/10/03) Family History: States: Unknown Family Hx - Social History Hx Tobacco Use: No Hx Alcohol Use: Yes Hx Substance Use: No - Immunization History Hx Tetanus Toxoid Vaccination: Yes Hx Influenza Vaccination: Yes Hx Pneumococcal Vaccination: Yes Review Of Systems Except As Marked, All Systems Reviewed And Found Negative. Constitutional: Negative for: Fever, Chills Gastrointestinal: Positive for: Abdominal Pain. Negative for: Nausea, Vomiting, Diarrhea Physical Exam - Physical Exam Appears: Non-toxic, No Acute Distress, Other (morbidly obese) Skin: Warm, Dry Head: Atraumatic, Normacephalic Eye(s): bilateral: Normal Inspection Neck: Supple Chest: Symmetrical Cardiovascular: Rhythm Regular Respiratory: Normal Breath Sounds Gastrointestinal/Abdominal: Soft, No Tenderness, Other (globus abdomen; alternatingly tympanic and dull to percussion) Extremity: Normal ROM Neurological/Psych: Oriented x3 ED Course And Treatment O2 Sat by Pulse Oximetry: 94 (RA) Medical Decision Making Medical Decision Making: Prior visits reviewed, patient has had [address] Abd/Pelvis and [address] head due to dramatic presentation, with no significant findings. crampy abd colic, R sided, alternating tympanic and dull to percussion c/w constipation max weight 500# down to 265# now Still with significant dietary indescretions Defers w/u with informed consent and prefers laxative now and re-eval in AM PRN bottle of Mag Citrate given Disposition Doctor Will See Patient In The: Office Counseled Patient/Family Regarding: Studies Performed, Diagnosis - Disposition Referrals: Kodak Lackey Jr., MD [Medical Doctor] - Disposition: HOME/ ROUTINE Disposition Time: 21:19 Condition: GOOD Additional Instructions: drink bottle of Mag Citrate now and re-evaluate your abdominal discomfort after using the bathroom 2-3 times diet and exercise changes 7 fresh fruits/vegetables/day drink more water Follow-up w Dr Lackey or return to ED as needed. Instructions: Constipation, Adult (DC) Forms: [employer] (Bhutanese) - Clinical Impression Clinical Impression: Abdominal pain, colicky - Scribe Statement The provider has reviewed the documentation as recorded by the Deniz Tamez Provider Attestation: All medical record entries made by the Deniz were at my direction and personally dictated by me. I have reviewed the chart and agree that the record accurately reflects my personal performance of the history, physical exam, medical decision making, and the department course for this patient. I have also personally directed, reviewed, and agree with the discharge instructions and disposition.
[2017-12-31] MEDS ORDERED: Magnesium Citrate Oral SOL (300 ml) ONE (21:21)
[2017-12-31 21:26] VITALS: PULSE 78
[2017-12-31 21:59] VITALS: O2SAT 94
== END 2017-12-31 21:25 | disposition home or self-care (01) ==
LOC: C.ER 20:28
DX: R10.9 Unspecified abdominal pain (principal); R10.84 Generalized abdominal pain; I50.9 Heart failure, unspecified; I25.10 Atherosclerotic heart disease of native coronary artery without angina pectoris; I10 Essential (primary) hypertension

== ENCOUNTER 2018-01-29 10:09 | Emergency (ER) | payer MEDICARE ==
[2018-01-29 10:09] VITALS: BMI 37.3
[2018-01-29 10:34] VITALS: RESP 20; O2SAT 98
--- NOTE | 2018-01-29 10:56 | RAD ---
Date of service: 01/29/2018 PROCEDURE: CHEST RADIOGRAPH, 1 VIEW HISTORY: abd pain COMPARISON: Chest radiograph dated 12/15/2017. FINDINGS: LUNGS: Clear. PLEURA: No pneumothorax or pleural fluid seen. CARDIOVASCULAR: Aortic atherosclerotic calcifications. Cardiomediastinal silhouette stably prominent. OSSEOUS STRUCTURES: Unchanged. VISUALIZED UPPER ABDOMEN: Normal. OTHER FINDINGS: None. IMPRESSION: No active disease.
[2018-01-29 10:57] LABS: BASO # 0.1 K/uL (0.0-0.2); BASO % 1.1 % (0.0-2.0); EOS # 0.1 K/uL (0.0-0.7); EOS % 1.2 % (0.0-4.0); HEMOGLOBIN 13.3 g/dL (12.0-18.0); LYMPH # 1.9 K/uL (1.0-4.3); LYMPH % 40.8 % (20.0-40.0); MEAN CELL VOLUME 74.8 fL (80.0-94.0); MEAN CORPUSCULAR HGB CONC 32.1 g/dL (33.0-37.0); MEAN PLATELET VOLUME 7.2 fL (7.2-11.7); MONO # 0.5 K/uL (0.0-0.8); MONO % 11.2 % (0.0-10.0); NEUT # 2.1 K/uL (1.8-7.0); NEUT % 45.7 % (50.0-75.0); NRBC % 0.1 % (0.0-2.0); RBC 5.52 Mil/uL (4.40-5.90); RED CELL DISTRIBUTION WIDTH 15.9 % (11.5-14.5); WHITE BLOOD COUNT 4.7 K/uL (4.8-10.8)
[2018-01-29 11:07] LABS: ALB/GLOB RATIO 1.2 (1.0-2.1); ALBUMIN 4.3 g/dL (3.5-5.0); BLOOD UREA NITROGEN 16 mg/dL (9-20); CALCIUM 8.3 mg/dl (8.6-10.4); GFR NON-AFRICAN AMERICAN > 60; LIPASE 80 U/L (23-300)
[2018-01-29 11:16] LABS: ALT/SGPT 47 U/L (21-72); AST/SGOT 39 U/L (17-59)
[2018-01-29 12:53] VITALS: BP 148/86; PULSE 59; TEMP 98.4
--- NOTE | 2018-01-29 13:07 | C.PDOC ---
History Of Present Illness 57 y/o male presents to ED with c/o left sided sharp chest pain for 2 days worse with movement. Patient also c/o rash to right arm since earlier today. Patient denies sob, cough, fever, new exposures or any other complaints at this time. Time Seen by Provider: 01/29/18 10:26 Chief Complaint (Nursing): Chest Pain History Per: Patient History/Exam Limitations: no limitations Onset/Duration Of Symptoms: Days Current Symptoms Are (Timing): Still Present Past Medical History Reviewed: Historical Data, Nursing Documentation, Vital Signs Vital Signs: Last Vital Signs Temp 98.4 F 01/29/18 12:52 Pulse 59 L 01/29/18 12:52 Resp 20 01/29/18 12:52 BP 148/86 01/29/18 12:52 Pulse Ox 98 01/29/18 12:52 - Medical History PMH: Arthritis, Asthma, Bronchitis, CAD, CHF, Diverticulitis, Hiatal Hernia, HTN Surgical History: Coronary Stent (x3), Hernia Repair ([facility]) - [facility] Procedures CORONAR ARTERIOGR-2 CATH (11/28/03) INJECT/INFUSE NEC (04/10/07) LEFT HEART CARDIAC CATH (11/28/03) LT HEART ANGIOCARDIOGRAM (11/28/03) OTHER LOCAL DESTRUC SKIN (12/10/03) Family History: States: No Known Family Hx - Social History Hx Tobacco Use: No Hx Alcohol Use: Yes Hx Substance Use: No - Immunization History Hx Tetanus Toxoid Vaccination: No Hx Influenza Vaccination: Yes Hx Pneumococcal Vaccination: No Review Of Systems Constitutional: Negative for: Fever, Chills Cardiovascular: Positive for: Chest Pain Respiratory: Negative for: Cough, Shortness of Breath Gastrointestinal: Negative for: Nausea, Vomiting Skin: Positive for: Rash Physical Exam - Physical Exam Appears: Non-toxic, No Acute Distress Skin: Warm, Dry, Rash (small urticaria to right upper arm. No erythema or drainage) Head: Atraumatic, Normacephalic Eye(s): bilateral: Normal Inspection Oral Mucosa: Moist Neck: Normal ROM, Supple Cardiovascular: Rhythm Regular Respiratory: Normal Breath Sounds, No Rales, No Rhonchi, No Wheezing Gastrointestinal/Abdominal: Soft, No Tenderness, No Guarding, No Rebound Extremity: No Pedal Edema, Capillary Refill (<2 seconds) Neurological/Psych: Oriented x3, Normal Speech, Normal Cognition ED Course And Treatment - Laboratory Results Result Diagrams: 01/29/18 10:44 01/29/18 10:44 ECG: Interpreted By Me, Viewed By Me ECG Rhythm: Sinus Rhythm Rate From EC (BPM) O2 Sat by Pulse Oximetry: 98 (RA) Pulse Ox Interpretation: Normal Disposition - Disposition Referrals: Kodak Lackey Jr., MD [Medical Doctor] - Disposition: HOME/ ROUTINE Disposition Time: 12:20 Condition: GOOD Additional Instructions: SERA SULTANA, thank you for letting us take care of you today. Your provider was Maldonado Escalante DO and you were treated for RASH ON RT ARM. The emergency medical care you received today was directed at your acute symptoms. If you were prescribed any medication, please fill it and take as directed. It may take several days for your symptoms to resolve. Return to the Emergency Department if your symptoms worsen, do not improve, or if you have any other problems. Please contact your doctor or call one of the physicians/clinics you have been referred to that are listed on the Patient Visit Information form that is included in your discharge packet. Bring any paperwork you were given at discharge with you along with any medications you are taking to your follow up visit. Our treatment cannot replace ongoing medical care by a primary care provider outside of the emergency department. Thank you for allowing the [facility] team to be part of your care today. Follow up with your primary care doctor in 3-5 days for re-evaluation and further management. Prescriptions: predniSONE [Prednisone] 40 mg PO DAILY #10 tab Instructions: Skin Rash (DC) Forms: [employer] (Tunisian) - Clinical Impression Clinical Impression: Dermatitis, Non-cardiac chest pain - Scribe Statement The provider has reviewed the documentation as recorded by the Wallyibcorey Frazier All medical record entries made by the Scribe were at my direction and personally dictated by me. I have reviewed the chart and agree that the record accurately reflects my personal performance of the history, physical exam, medical decision making, and the department course for this patient. I have also personally directed, reviewed, and agree with the discharge instructions and disposition.
--- NOTE | 2018-01-30 12:31 | CARD ---
APPROVED REPORT Date of service: 01/29/2018 EKG Measurement Heart [id number] <Conclusion> Normal sinus rhythm Normal ECG
== END 2018-01-29 13:00 | disposition home or self-care (01) ==
LOC: C.ER 10:09
DX: R07.89 Other chest pain (principal); L30.9 Dermatitis, unspecified

== ENCOUNTER 2018-02-10 09:46 | Emergency (ER) | payer MEDICARE ==
[2018-02-10 09:46] VITALS: BMI 37.3
[2018-02-10 09:55] VITALS: RESP 18
--- NOTE | 2018-02-10 10:04 | C.PDOC ---
History Of Present Illness 57 y/o male, with PMHx of HTN, hyperlipidemia, presents to ED for evaluation of "left hand twitching" since last night. Notes his hands feel cold. Of note, pt has been seen here numerous times in the past for various, vague complaints. Denies fever, or other complaints. Time Seen by Provider: 02/10/18 10:02 Chief Complaint (Nursing): Upper Extremity Problem/Injury History Per: Patient History/Exam Limitations: no limitations Past Medical History Reviewed: Historical Data, Nursing Documentation, Vital Signs Vital Signs: Last Vital Signs Temp 98.2 F 02/10/18 09:52 Pulse 72 02/10/18 09:52 Resp 18 02/10/18 09:52 BP 149/80 02/10/18 09:52 Pulse Ox 100 02/10/18 09:52 - Medical History PMH: Arthritis, Asthma, Bronchitis, CAD, CHF, Diverticulitis, Hiatal Hernia, HTN Surgical History: Coronary Stent (x3), Hernia Repair ([facility]) - [facility] Procedures CORONAR ARTERIOGR-2 CATH (11/28/03) INJECT/INFUSE NEC (04/10/07) LEFT HEART CARDIAC CATH (11/28/03) LT HEART ANGIOCARDIOGRAM (11/28/03) OTHER LOCAL DESTRUC SKIN (12/10/03) Family History: States: Unknown Family Hx - Social History Hx Tobacco Use: No Hx Alcohol Use: Yes Hx Substance Use: No - Immunization History Hx Tetanus Toxoid Vaccination: Yes Hx Influenza Vaccination: Yes Hx Pneumococcal Vaccination: Yes Review Of Systems Except As Marked, All Systems Reviewed And Found Negative. Constitutional: Negative for: Fever, Chills Cardiovascular: Negative for: Chest Pain, Palpitations Respiratory: Negative for: Cough, Shortness of Breath Gastrointestinal: Negative for: Nausea, Vomiting, Abdominal Pain Musculoskeletal: Positive for: Hand Pain (left hand twitching) Neurological: Negative for: Weakness, Numbness Physical Exam - Physical Exam Appears: Non-toxic, No Acute Distress Skin: Normal Color, Warm, Dry Head: Atraumatic, Normacephalic Eye(s): bilateral: Normal Inspection Oral Mucosa: Moist Neck: Supple Cardiovascular: Rhythm Regular, No Murmur Respiratory: Normal Breath Sounds, No Rales, No Rhonchi, No Wheezing Gastrointestinal/Abdominal: Soft, No Tenderness Extremity: Normal ROM, No Tenderness, Capillary Refill (less than 2 seconds), No Deformity, No Swelling Extremity: Bilateral: Atraumatic, Normal Color And Temperature Pulses: Left Radial: Normal, Right Radial: Normal Neurological/Psych: Oriented x3, Normal Speech, Normal Motor, Normal Sensation ED Course And Treatment O2 Sat by Pulse Oximetry: 100 (RA) Pulse Ox Interpretation: Normal Medical Decision Making Medical Decision Making: ?reynauds. refuses labs Pt declines lab testing at initial evaluation, now agrees to have urine checked. Urinalysis was ordered. pt reassesed urine neg symptosm resolved. asking numeorus times for dc. Disposition - Disposition Referrals: Konrad Hastings MD [Staff Provider] - Disposition: HOME/ ROUTINE Disposition Time: 12:00 Condition: STABLE Additional Instructions: you are declining lab evaluation todya. return to any er with worsening symptoms or concerns. Instructions: Dysuria, Adult (DC), Neuropathic Pain, Hand Numbness Forms: [employer] (Albanian) - Clinical Impression Clinical Impression: Cold hands, Dysuria - Scribe Statement The provider has reviewed the documentation as recorded by the Scribe KP All medical record entries made by the Scribe were at my direction and p ersonally dictated by me. I have reviewed the chart and agree that the record accurately reflects my personal performance of the history, physical exam, medical decision making, and the department course for this patient. I have also personally directed, reviewed, and agree with the discharge instructions and disposition.
[2018-02-10 11:32] LABS: SQUAMOUS EPITHIAL 1 /hpf (0-5); URINE BILIRUBIN NEGATIVE (NEGATIVE); URINE BLOOD NEGATIVE (NEGATIVE); URINE CLARITY Clear (Clear); URINE COLOR Yellow (YELLOW); URINE GLUCOSE (UA) NORMAL (Normal); URINE LEUKOCYTE ESTERASE NEG Leu/uL (Negative); URINE PROTEIN 1+ mg/dL (NEGATIVE); URINE UROBILINOGEN NORMAL mg/dL (0.2-1.0)
[2018-02-10 11:39] VITALS: PULSE 78; TEMP 98
[2018-02-10 12:00] VITALS: BP 139/76
[2018-02-10 13:31] VITALS: O2SAT 100
== END 2018-02-10 12:00 | disposition home or self-care (01) ==
LOC: C.ER 09:46
DX: R30.0 Dysuria (principal); R20.9 Unspecified disturbances of skin sensation; E78.5 Hyperlipidemia, unspecified; I50.9 Heart failure, unspecified; I10 Essential (primary) hypertension; I25.10 Atherosclerotic heart disease of native coronary artery without angina pectoris

== ENCOUNTER 2018-03-09 13:19 | Emergency (ER) | payer MEDICARE ==
[2018-03-09 13:22] VITALS: BMI 37.3
[2018-03-09 13:51] VITALS: TEMP 97.9
--- NOTE | 2018-03-09 13:58 | C.PDOC ---
History Of Present Illness 58 y/o male with PMHx of HTN, CAD, and CHF, presents to the ED complaining of palpitations that began this morning. Patient describes feeling his heart racing. He denies any chest pain, SOB, diaphoresis, nausea, vomiting, fevers, or chills. Patient offers no other complaints at this time. He reports symptoms have improved at present and he feels better. Time Seen by Provider: 03/09/18 13:31 Chief Complaint (Nursing): Palpitations History Per: Patient History/Exam Limitations: no limitations Onset/Duration Of Symptoms: Hrs Current Symptoms Are (Timing): Gone Quality Of Symptoms: Rapid Heart Rate Past Medical History Reviewed: Historical Data, Nursing Documentation, Vital Signs Vital Signs: Last Vital Signs Temp 97.9 F 03/09/18 13:30 Pulse 65 03/09/18 13:30 Resp 21 03/09/18 13:30 BP 162/75 H 03/09/18 13:30 Pulse Ox 98 03/09/18 13:30 - Medical History PMH: Arthritis, Asthma, Bronchitis, CAD, CHF, Diverticulitis, Hiatal Hernia, HTN Surgical History: Coronary Stent (x3), Hernia Repair ([facility]) - [facility] Procedures CORONAR ARTERIOGR-2 CATH (11/28/03) INJECT/INFUSE NEC (04/10/07) LEFT HEART CARDIAC CATH (11/28/03) LT HEART ANGIOCARDIOGRAM (11/28/03) OTHER LOCAL DESTRUC SKIN (12/10/03) Family History: States: Unknown Family Hx - Social History Hx Tobacco Use: No Hx Alcohol Use: Yes Hx Substance Use: No - Immunization History Hx Tetanus Toxoid Vaccination: No Hx Influenza Vaccination: Yes (12/2017) Hx Pneumococcal Vaccination: No Review Of Systems Constitutional: Negative for: Fever, Chills, Sweats Eyes: Negative for: Vision Change Cardiovascular: Positive for: Palpitations. Negative for: Chest Pain Respiratory: Negative for: Cough, Shortness of Breath Gastrointestinal: Negative for: Nausea, Vomiting Neurological: Negative for: Weakness, Numbness, Headache, Dizziness Physical Exam - Physical Exam Additional Physical Exam Comments: Constitutional: No acute distress. Head: Normocephalic. Atraumatic. Eyes: PERRL. ENT: Moist mucous membranes. Neck: Supple. Cardiovascular: Regular rate. No extra heart sounds. Radial pulse 2+ bilaterally. Chest: No tenderness. Respiratory: Clear to auscultation bilaterally. No crackles. GI: Soft. Nontender. Nondistended. Back: No CVA tenderness. Musculoskeletal: No tenderness or swelling of extremities. Skin: No rash. Neurologic: Alert, no focal deficit. ED Course And Treatment - Laboratory Results Result Diagrams: 03/09/18 14:01 03/09/18 14:01 ECG: Interpreted By Me, Viewed By Me ECG Rhythm: Sinus Rhythm Interpretation Of ECG: no ST elevations, normal intervals Rate From EC (bpm) O2 Sat by Pulse Oximetry: 98 (RA) Pulse Ox Interpretation: Normal Medical Decision Making Medical Decision Making: Impression: Palpitations Plan: --CMP --CK-MB --CPK --Trop --CBC --Chest x-ray CXR: FINDINGS: LUNGS: The lungs are well inflated and clear. PLEURA: No pleural effusions or pneumothorax. CARDIOVASCULAR: The heart is normal in size. No aortic atherosclerotic calcifi cation present. OSSEOUS STRUCTURES: Within normal limits for the patient's age. VISUALIZED UPPER ABDOMEN: Normal. OTHER FINDINGS: None. IMPRESSION: No active pulmonary disease. Patient with no symptoms while in ED. Work up unremarkable. No chest pain. Discharged home, f/u PMD, instructed to return to ED for any chest pain or dyspnea. Disposition - Disposition Referrals: Kodak Lackey Jr., MD [Medical Doctor] - Disposition: HOME/ ROUTINE Disposition Time: 14:44 Condition: STABLE Instructions: Palpitations Forms: [facility] (Romanian) - Clinical Impression Clinical Impression: Palpitations - Scribe Statement The provider has reviewed the documentation as recorded by the Wallyibcorey Saenz Provider Attestation: All medical record entries made by the Scribe were at my direction and per sonally dictated by me. I have reviewed the chart and agree that the record accurately reflects my personal performance of the history, physical exam, medical decision making, and the department course for this patient. I have also personally directed, reviewed, and agree with the discharge instructions and disposition.
[2018-03-09 14:05] LABS: BASO % 0.3 % (0.0-2.0); EOS % 1.2 % (0.0-4.0); HEMOGLOBIN 13.5 g/dL (12.0-18.0); LYMPH # 1.4 K/uL (1.0-4.3); LYMPH % 33.6 % (20.0-40.0); MEAN CELL VOLUME 76.1 fL (80.0-94.0); MEAN CORPUSCULAR HEMOGLOBIN 24.6 pg (27.0-31.0); MEAN CORPUSCULAR HGB CONC 32.3 g/dL (33.0-37.0); MEAN PLATELET VOLUME 6.9 fL (7.2-11.7); MONO # 0.4 K/uL (0.0-0.8); MONO % 9.9 % (0.0-10.0); NEUT # 2.2 K/uL (1.8-7.0); NRBC % 0.1 % (0.0-2.0); RBC 5.5 Mil/uL (4.40-5.90); RED CELL DISTRIBUTION WIDTH 16.3 % (11.5-14.5); WHITE BLOOD COUNT 4.1 K/uL (4.8-10.8)
[2018-03-09 14:23] LABS: ALB/GLOB RATIO 1.2 (1.0-2.1); ALBUMIN 4.1 g/dL (3.5-5.0); ALT/SGPT 38 U/L (21-72); AST/SGOT 46 U/L (17-59); BLOOD UREA NITROGEN 17 mg/dL (9-20); CALCIUM 8.9 mg/dl (8.6-10.4); GFR NON-AFRICAN AMERICAN > 60
--- NOTE | 2018-03-09 14:28 | RAD ---
Date of service: 03/09/2018 HISTORY: palpitations COMPARISON: 01/29/2018. FINDINGS: LUNGS: The lungs are well inflated and clear. PLEURA: No pleural effusions or pneumothorax. CARDIOVASCULAR: The heart is normal in size. No aortic atherosclerotic calcification present. OSSEOUS STRUCTURES: Within normal limits for the patient's age. VISUALIZED UPPER ABDOMEN: Normal. OTHER FINDINGS: None. IMPRESSION: No active pulmonary disease.
[2018-03-09 14:29] VITALS: BP 132/60; PULSE 67; RESP 18
[2018-03-09 14:33] LABS: CK-MB 0.78 ng/mL (0.0-3.38)
[2018-03-09 14:40] VITALS: O2SAT 98
--- NOTE | 2018-03-13 18:56 | CARD ---
APPROVED REPORT Date of service: 03/09/2018 EKG Measurement Heart [id number] <Conclusion> Normal sinus rhythm Nonspecific T wave abnormality Abnormal ECG
== END 2018-03-09 14:58 | disposition home or self-care (01) ==
LOC: C.ER 13:19
DX: R00.2 Palpitations (principal)

== ENCOUNTER 2018-05-01 17:59 | Inpatient (IN) | payer MEDICARE ==
[2018-05-01 17:59] VITALS: PULSE 115; BMI 37.3
--- NOTE | 2018-05-01 18:49 | C.PDOC ---
History Of Present Illness 58 year old male with a Hx of HTN, arrhythmia on coreg no anticoagulation, high cholesterol, CHF on 40mg of lasix, presents to the ER with a complaint of palpitations that began one hour [employer] with chest pain. Patient reports having pa lpitations with chest pain at the same time. Last week patient had similar occurrence for which he was admitted at [place]. He reports receiving 25mg of cardizem and 325mg of aspirin by EMS. Patient reports symptoms have much improved, now with mild chest pain. Denies SOB, trauma, fall, or other com plaints. He reports taking 25mg of coreg and 40mg of lasix earlier. Patient's PMD is Dr. Lackey. Time Seen by Provider: 05/01/18 18:34 Chief Complaint (Nursing): Palpitations History Per: Patient History/Exam Limitations: no limitations Onset/Duration Of Symptoms: Hrs Current Symptoms Are (Timing): Better Recent travel outside of the [place]: No Past Medical History Reviewed: Historical Data, Nursing Documentation, Vital Signs Vital Signs: Last Vital Signs Temp 97.8 F 05/01/18 18:18 Pulse 82 05/01/18 18:18 Resp 16 05/01/18 18:18 BP 133/77 05/01/18 18:18 Pulse Ox 97 05/01/18 18:18 - Medical History PMH: Arthritis, Asthma, Bronchitis, CAD, CHF, Diverticulitis, Hiatal Hernia, HTN Denies: Chronic Kidney Disease Surgical History: Coronary Stent (x3), Hernia Repair ([facility]) - [facility] Procedures CORONAR ARTERIOGR-2 CATH (11/28/03) INJECT/INFUSE NEC (04/10/07) LEFT HEART CARDIAC CATH (11/28/03) LT HEART ANGIOCARDIOGRAM (11/28/03) OTHER LOCAL DESTRUC SKIN (12/10/03) Family History: States: Unknown Family Hx - Social History Hx Tobacco Use: No Hx Alcohol Use: Yes Hx Substance Use: No - Immunization History Hx Tetanus Toxoid Vaccination: Yes Hx Influenza Vaccination: Yes Hx Pneumococcal Vaccination: Yes Review Of Systems Except As Marked, All Systems Reviewed And Found Negative. Cardiovascular: Positive for: Chest Pain, Palpitations Physical Exam - Physical Exam Appears: Non-toxic Skin: Normal Color, Warm, Dry Head: Atraumatic, Normacephalic Eye(s): bilateral: Normal Inspection Oral Mucosa: Moist Neck: Normal, Supple Chest: Symmetrical, No Tenderness Cardiovascular: Rhythm Regular Respiratory: Normal Breath Sounds, No Rales, No Rhonchi, No Wheezing Gastrointestinal/Abdominal: Soft, No Tenderness Back: No CVA Tenderness Extremity: Normal ROM (x4) Neurological/Psych: Oriented x3, Normal Speech Gait: Steady ED Course And Treatment - Laboratory Results Result Diagrams: 05/01/18 19:48 05/01/18 19:48 ECG: Interpreted By Me, Viewed By Me ECG Rhythm: Atrial Flutter ECG Interpretation: Abnormal Interpretation Of EC:1 block, no STEMI Rate From EC O2 Sat by Pulse Oximetry: 97 (room air) Pulse Ox Interpretation: Normal Medical Decision Making Medical Decision Making: Afib with rvr 4:1 block, atrial flutter. Spoke with Dr. Valdivia who wanted tele admission, coreg 25mg, and 75 of lovenox. Spoke with Dr. Lackey, will accept patient to his service. Already given ASA in the field Repeat EKG w/ out stemi, afib. Pt in NAD CBC unremarkable CXR unremarkable Paged Dr. Lackey's Med resident: to see pt. Disposition - Disposition Disposition Time: 20:10 Condition: STABLE Forms: [facility] (Malay) - Clinical Impression Clinical Impression: Atrial flutter - Scribe Statement The provider has reviewed the documentation as recorded by the Scribe Timur Workman All medical record entries made by the Scribe were at my direction and personally dictated by me. I have reviewed the chart and agree that the record accurately reflects my personal performance of the history, physical exam, medical decision making, and the department course for this patient. I have also personally directed, reviewed, and agree with the discharge instructions and dis position.
[2018-05-01] MEDS ORDERED: Enoxaparin 80 mg Syringe SC STA (18:52)
[2018-05-01] MEDS ORDERED: Enoxaparin 40 mg Syringe ONE (19:25)
[2018-05-01 19:52] LABS: EOS # 0.1 K/uL (0.0-0.7); EOS % 1.1 % (0.0-4.0); HEMOGLOBIN 13.6 g/dL (12.0-18.0); LYMPH # 1.5 K/uL (1.0-4.3); MEAN CELL VOLUME 76.1 fL (80.0-94.0); MEAN CORPUSCULAR HGB CONC 31.5 g/dL (33.0-37.0); MEAN PLATELET VOLUME 7.4 fL (7.2-11.7); MONO # 0.4 K/uL (0.0-0.8); MONO % 8.3 % (0.0-10.0); NEUT # 3.1 K/uL (1.8-7.0); NEUT % 59.6 % (50.0-75.0); RBC 5.67 Mil/uL (4.40-5.90); RED CELL DISTRIBUTION WIDTH 16.2 % (11.5-14.5); WHITE BLOOD COUNT 5.1 K/uL (4.8-10.8)
[2018-05-01 20:06] LABS: INR 1.3; PROTHROMBIN TIME 13.7 SECONDS (9.7-12.2)
[2018-05-01 20:09] LABS: ALB/GLOB RATIO 1.3 (1.0-2.1); ALBUMIN 4.2 g/dL (3.5-5.0); ALT/SGPT 39 U/L (21-72); AST/SGOT 39 U/L (17-59); BLOOD UREA NITROGEN 20 mg/dL (9-20); CALCIUM 8.6 mg/dl (8.6-10.4); GFR NON-AFRICAN AMERICAN 57
--- NOTE | 2018-05-01 22:06 | CP.PCM.HP ---
History of Present Illness - History of Present Illness History of Present Illness: PGY1 H&P for Dr. Lackey's service CC: palpitations, SOB, chest discomfort This is a 58 year old male with PMH of CHF, CAD, HTN, hiatal hernia, sleep apnea, morbid obesity, gout, recently diagnosed arrhythmia (atrial flutter/atrial fibrillation) who was brought in by EMS with complaints of palpitations, high blood pressure and a heaviness in his chest earlier today. Chest heaviness is described as being located in the middle of his chest, and associated with shortness of breath described as difficulty catching his breath. He was also experiencing slight dizziness, lightheadedness and a little nausea during this time. Pt states that he was just making dinner when the symptoms began out of nowhere, and only resolved after administration of cardizem 25 mg IVP in the EMS. He denies fever, chills, sharp chest pain, ripping quality of chest pain, syncope, numbness or tingling, headache, blurry vision, neck pain, arm pain, cough, abdominal pain, n/v/d, recent travel, recent illness, car rides extending longer than 4 hours, leg pain or swelling. Patient reports that he had a similar episode on 04/21, where he was admitted to [facility] and discharged (04/23) on xarelto starter pack (20 mg PO daily). Patient followed up with PMD, who referred him to Dr. Valdivia, cardiology. However, pt has not been able to follow up with cardiology yet. PMD: Darya PMH: CHF, CAD, HTN, hiatal hernia, sleep apnea, morbid obesity, gout, recently diagnosed arrhythmia (atrial flutter/atrial fibrillation) PSH: hernia repair 2018, left wrist surgery because of gout flare 2016, catheterization x 3 (no stents placed, last done more than 10 years ago) Meds: Lasix 40 mg PO daily, ASA 325 PO daily, Coreg 25 mg PO BID, Lisinopril 40 mg PO BID, Crestor 10 mg PO QHS, Xarelto 20 mg PO. Uloric 40 mg PO daily (not taking it), Colchicine as needed Allx: Keflex, contrast dye FHx: Father with pacemaker, brother with pacemaker, strong cardiac history in family. Mother with asthma. SHx: denies history of smoking, occasional etoh use. Pt is on disability due to CHF and lives in with his girlfriend. Present on Admission - Present on Admission Any Indicators Present on Admission: No Review of Systems - Review of Systems All systems: reviewed and no additional remarkable complaints except (as per HPI) Past Patient History - Infectious Disease Hx of Infectious Diseases: None - Past Medical History & Family History Past Medical History?: Yes - Past Social History Smoking Status: Never Smoked - CARDIAC Hx Congestive Heart Failure: Yes Hx Hypertension: Yes - PULMONARY Hx Asthma: Yes Hx Bronchitis: Yes - NEUROLOGICAL Hx Neurological Disorder: No - HEENT Hx HEENT Problems: No - RENAL Hx Chronic Kidney Disease: No - ENDOCRINE/METABOLIC Hx Endocrine Disorders: No - HEMATOLOGICAL/ONCOLOGICAL Hx Blood Disorders: No - INTEGUMENTARY Hx Dermatological Problems: No - MUSCULOSKELETAL/RHEUMATOLOGICAL Hx Arthritis: Yes - GASTROINTESTINAL Hx Diverticulitis: Yes - GENITOURINARY/GYNECOLOGICAL Hx Genitourinary Disorders: No - PSYCHIATRIC Hx Substance Use: No - SURGICAL HISTORY Hx Coronary Stent: Yes (x3) - ANESTHESIA Hx Anesthesia: Yes Hx Anesthesia Reactions: No Hx Malignant Hyperthermia: No Meds Allergies/Adverse Reactions: Allergies Allergy/AdvReac Type Severity Reaction Status Date / Time cephalexin monohydrate AdvReac VOMITING Verified 04/21/18 16:49 [From Keflex] iodixanol [From Visipaque] AdvReac VOMITING Verified 04/21/18 16:49 ctscan dye AdvReac VOMITING Uncoded 04/21/18 16:49 Physical Exam - Constitutional Appears: Non-toxic, No Acute Distress - Head Exam Head Exam: ATRAUMATIC, NORMAL INSPECTION - Eye Exam Eye Exam: Conjunctival injection (bilaterally), EOMI, PERRL. absent: Normal appearance (proptosis bilaterally) Additional comments: arcus senilis bilaterally - ENT Exam ENT Exam: Mucous Membranes Moist - Neck Exam Neck exam: Positive for: Normal Inspection - Respiratory Exam Respiratory Exam: NORMAL BREATHING PATTERN. absent: Decreased Breath Sounds, Clear to Auscultation Bilateral, Rales, Rhonchi, Wheezes, Respiratory Distress - Cardiovascular Exam Cardiovascular Exam: Irregular Rhythm, +S1, +S2 - GI/Abdominal Exam GI & Abdominal Exam: Distended (baseline as per pt), Hernia (ventral hernia), Normal Bowel Sounds, Soft. absent: Guarding, Rebound, Rigid, Tenderness - Extremities Exam Extremities exam: Positive for: normal capillary refill, normal inspection, pedal pulses present. Negative for: calf tenderness, pedal edema, tenderness - Back Exam Back exam: NORMAL INSPECTION. absent: CVA tenderness (L), CVA tenderness (R) - Neurological Exam Neurological exam: Alert, Oriented x3 - Psychiatric Exam Psychiatric exam: Normal Affect, Normal Mood - Skin Skin Exam: Dry, Normal Color, Warm Results - Vital Signs Recent Vital Signs: Last Vital Signs Temp 97.9 F 05/01/18 21:35 Pulse 99 H 05/01/18 21:35 Resp 19 05/01/18 21:35 BP 152/73 H 05/01/18 21:35 Pulse Ox 97 05/01/18 21:35 - Labs Result Diagrams: 05/01/18 19:48 05/01/18 19:48 Labs: Laboratory Results - last 24 hr 05/01/18 05/01/18 05/01/18 19:48 19:48 19:48 WBC 5.1 RBC 5.67 Hgb 13.6 Hct 43.2 MCV 76.1 L MCH 24.0 L MCHC 31.5 L RDW 16.2 H Plt Count 372 MPV 7.4 Neut % (Auto) 59.6 Lymph % (Auto) 30.0 [place] % (Auto) 8.3 Eos % (Auto) 1.1 Baso % (Auto) 1.0 Neut # (Auto) 3.1 Lymph # (Auto) 1.5 [place] # (Auto) 0.4 Eos # (Auto) 0.1 Baso # (Auto) 0.0 PT 13.7 H INR 1.3 APTT 29 Sodium 139 Potassium 4.2 Chloride 101 Carbon Dioxide 28 Anion Gap 14 BUN 20 Creatinine 1.3 Est GFR ( Amer) > 60 Est GFR (Non-Af Amer) 57 Random Glucose 102 D Calcium 8.6 Total Bilirubin 0.3 AST 39 ALT 39 Alkaline Phosphatase 68 Troponin I < 0.0120 Total Protein 7.5 Albumin 4.2 Globulin 3.3 Albumin/Globulin Ratio 1.3 TSH 3rd Generation 1.38 Assessment & Plan - Assessment and Plan (Free Text) Assessment: This is a 58 year old male with PMH of CHF, CAD, HTN, hiatal hernia, sleep apnea, morbid obesity, gout, recently diagnosed arrhythmia (atrial flutter/atrial fibrillation) who was brought in by EMS with complaints of palpitations, high blood pressure and a heaviness in his chest. Plan: Symptomatic arrythmia (atrial fibrillation/atrial flutter), possibly due to hx of MAZIN, family cardiac hx, hx of CHF Currently asymptomatic on my initial evaluation Pt found to be in Afib with RVR in the ED, went into Atrial flutter 4-1 conduction block Patient reports that he had a similar episode on 04/21, where he was admitted to [facility] and discharged (04/23) on xarelto starter pack (20 mg PO daily). CXR shows some pulmonary vascular congestion, no pulmonary edema; will f/u o fficial reading in am Magnesium is 1.8 Phosphorous is 3.8 ED physician spoke with Dr. Valdivia, cardiology: Coreg 25mg PO given, and Lovenox 75 mg SC given Continue Xarelto 20 mg PO daily, Coreg 25 mg PO BID Troponin x1 is negative, will trend CINDI q6h x2 with EKG q6h x2 Cardiology consulted, Dr. Valdivia. Recommendations appreciated F/u echocardiogram Polydipsia, Polyuria, xerostomia; possible due to home lasix treatment Glucose is 102 on admission F/u HgbA1c in am Hx of CAD Continue home ASA 325 mg PO, Coreg 25 mg PO BID F/u cardiology recommendations for further management Hx of CHF Other than new onset arrythmia, CHF seems to be well controlled Echocardiogram 11/10/17 shows LVEF of 57%, normal biventricular function, left atrium is mildly dilated, mild tricuspid regurgitation, RVSP is estimated at 36 mmHg. Will hold home lasix 40 mg PO daily as Cr is 1.3 (1.1 on 04/23 at [facility]) F/u cardiology recommendations for further management F/u echocardiogram Hx of HLD Continue home Rosuvastatin 10 mg PO QHS F/u lipid panel in am Hx of HTN Continue home Lisinopril 40 mg PO BID F/u cardiology recommendations for further management Hx of gout Pharmacy does not have uloric 40 mg PO, we use Allopurinol Cr is 1.3, will re-evaluation need for gout medication in the am Hx of sleep apnea, likely due to morbid obesity BMI>40.0 Pt does not use cpap at home, will consider cpap if needed SpO2>95% on RA GI ppx: Protonix 40 mg PO daily VTE ppx: Pt will be started on Xarelto 20 mg PO in the am, he received Lovenox 75 units SC in the ED as per cardio, SCDs HHD Dispo: admit to telemetry Case was reviewed and discussed with attending physician, Dr. Lackey All medical management as per Dr. Darya Rodriguez PGY1
[2018-05-01] MEDS ORDERED: Magnesium Sulfate 1 gm in D5W 1 GM/100 ML BAG IVPB SCH (22:15)
[2018-05-02 03:04] LABS: CK-MB 0.59 ng/mL (0.0-3.38)
[2018-05-02 03:35] VITALS: RESP 20
[2018-05-02 06:52] LABS: BASO # 0.1 K/uL (0.0-0.2); BASO % 1.1 % (0.0-2.0); EOS # 0.1 K/uL (0.0-0.7); EOS % 1.4 % (0.0-4.0); HEMOGLOBIN 13.2 g/dL (12.0-18.0); LYMPH # 1.7 K/uL (1.0-4.3); LYMPH % 36.6 % (20.0-40.0); MEAN CELL VOLUME 76.6 fL (80.0-94.0); MEAN CORPUSCULAR HEMOGLOBIN 24.3 pg (27.0-31.0); MEAN CORPUSCULAR HGB CONC 31.7 g/dL (33.0-37.0); MEAN PLATELET VOLUME 7.5 fL (7.2-11.7); MONO # 0.5 K/uL (0.0-0.8); MONO % 10.1 % (0.0-10.0); NEUT # 2.4 K/uL (1.8-7.0); NEUT % 50.8 % (50.0-75.0); NRBC % 0.2 % (0.0-2.0); RBC 5.46 Mil/uL (4.40-5.90); RED CELL DISTRIBUTION WIDTH 16.2 % (11.5-14.5); WHITE BLOOD COUNT 4.6 K/uL (4.8-10.8)
[2018-05-02 07:00] LABS: ALB/GLOB RATIO 1.3 (1.0-2.1); ALBUMIN 4.1 g/dL (3.5-5.0); ALT/SGPT 45 U/L (21-72); AST/SGOT 33 U/L (17-59); BLOOD UREA NITROGEN 20 mg/dL (9-20); CALCIUM 8.6 mg/dl (8.6-10.4); GFR NON-AFRICAN AMERICAN > 60; HDL CHOLESTEROL 31 mg/dL (30-70)
--- NOTE | 2018-05-02 07:04 | CP.PCM.PN ---
Subjective - Date & Time of Evaluation Date of Evaluation: 05/02/18 Time of Evaluation: 07:50 - Subjective Subjective: Patient examined at bedside. Per nursing, patient sustained a 5.44 second pause on telemetry. Pt reports he was asymptomatic during event when examined by overnight resident. Patient reports his A Fib is newly diagnosed`2 wks ago, and can feel attacks coming on. He reports he experiences palpitations and rapid heart beat. Denies palpitations, rapid heart beat, dizziness, SOB, nausea currently. Objective - Vital Signs/Intake and Output Vital Signs (last 24 hours): Temp Pulse Resp BP Pulse Ox 98.3 F 106 H 20 112/68 95 05/02/18 00:00 05/02/18 00:20 05/02/18 00:00 05/02/18 00:00 05/02/18 00:00 - Medications Medications: Current Medications Acetaminophen (Tylenol 325mg Tab) 650 mg PO Q6 PRN PRN Reason: Pain, Mild (1-3) Aspirin (Aspirin) 325 mg PO DAILY [facility] Carvedilol (Coreg) 25 mg PO BID [facility] Furosemide (Lasix) 40 mg PO DAILY [facility] Lisinopril (Zestril) 40 mg PO BID [facility] Last Admin: 05/01/18 23:13 Dose: 40 mg Pantoprazole Sodium (Protonix Ec Tab) 40 mg PO DAILY [facility] Rivaroxaban (Xarelto) 20 mg PO DAILY [facility] Rosuvastatin Calcium (Crestor) 10 mg PO HS [facility] Last Admin: 05/01/18 23:13 Dose: 10 mg - Labs Labs: 05/02/18 06:34 05/02/18 06:34 PT 13.7 SECONDS (9.7-12.2) H 05/01/18 19:48 INR 1.3 05/01/18 19:48 APTT 29 SECONDS (21-34) 05/01/18 19:48 - Constitutional Appears: Non-toxic, No Acute Distress - Head Exam Head Exam: ATRAUMATIC, NORMAL INSPECTION, NORMOCEPHALIC - Eye Exam Eye Exam: EOMI, Normal appearance - ENT Exam ENT Exam: Mucous Membranes Moist, Normal Exam - Neck Exam Neck Exam: Normal Inspection - Respiratory Exam Respiratory Exam: Clear to Ausculation Bilateral, NORMAL BREATHING PATTERN. absent: Respiratory Distress - Cardiovascular Exam Cardiovascular Exam: Tachycardia, REGULAR RHYTHM, +S1, +S2 - GI/Abdominal Exam GI & Abdominal Exam: Distended, Soft, Normal Bowel Sounds. absent: Tenderness Additional comments: abdominal obesity - Extremities Exam Extremities Exam: Normal Inspection. absent: Calf Tenderness, Pedal Edema - Neurological Exam Neurological Exam: Alert, Awake, Oriented x3 - Psychiatric Exam Psychiatric exam: Normal Affect, Normal Mood - Skin Skin Exam: Dry, Intact, Normal Color, Warm Assessment and Plan - Assessment and Plan (Free Text) Assessment: 58 year old male with PMHx of CHF, CAD, HTN, hiatal hernia, sleep apnea, morbid obesity, gout, newly diagnosed arrhythmia (atrial flutter/atrial fibrillation-2 wks ago) admitted for evaluation and treatment of symptomatic arrythmia Plan: Cardiac arrythmia, newly diagnosed -in A Fib w/ RVR-->A flutter w/ 4:1 AV conduction on admission -Echo(05/01): LVH, EF~55-60%. Mild mitral and tricuspid regurg. Mild pulm HTN -patient currently tachycardic, asymptomatic -cardiac enzymes negative for ACS -monitor on telemetry -cardiac rate and rhythm control, continue home coreg 25mg BID -BP control -AC w/ xarelto 20mg QD, hold home ASA 325mg -Cardio consult, Dr. Valdivia CAD, hx of 3 stents -held home ASA 325mg 2/2 starting xarelto, consider adding ASA 81mg -continue home crestor 10 HS HTN -currently well controlled -continue home lisinopril 40mg BID -home lasix held 2/2 rising Cr HLD -Lipid panel WNL -Continue home crestor 10 mg HS Sleep Apnea/Obesity -BMI>40 -consider CPAP Gout -substitute home Uloric w/ allopurinol -monitor Cr Pre-diabetes -Hgb a1c~6.4 Ppx GI ppx: Protonix 40 mg QD VTE ppx: AC w/ Xarelto 20 mg QD SCDs HHD Case Discussed w/ Dr. Lackey, -Rae Agustin, PGY-1
[2018-05-02 07:07] LABS: B-TYPE NATRIURETIC PEPTIDE 239 pg/mL (0-900)
[2018-05-02 07:10] LABS: LDL CHOLESTEROL 67 mg/dL (0-129)
[2018-05-02 07:24] LABS: INR 1.3; PROTHROMBIN TIME 13.9 SECONDS (9.7-12.2)
[2018-05-02] MEDS: Pantoprazole 40 mg EC Tab PO SCH (09:42)
--- NOTE | 2018-05-02 11:21 | RAD ---
HISTORY: palpitations COMPARISON: Chest x-ray performed 03/09/18 TECHNIQUE: Chest PA and lateral FINDINGS: LUNGS: No focal consolidation. Please note that chest x-ray has limited sensitivity for the detection of pulmonary masses. PLEURA: No significant pleural effusion identified. No definite pneumothorax . CARDIOVASCULAR: Cardiomegaly. No atherosclerotic calcification present. OSSEOUS STRUCTURES: Degenerative changes of the spine. VISUALIZED UPPER ABDOMEN: Unremarkable. OTHER FINDINGS: None. IMPRESSION: Cardiomegaly.
--- NOTE | 2018-05-02 12:32 | CARD ---
APPROVED REPORT Date of service: 05/02/2018 EXAM: Two-dimensional and M-mode echocardiogram with Doppler and color Doppler. Other Information Quality : GoodRhythm : INDICATION CAD Congestive Heart Failure RISK FACTORS Hypertension Obesity 2D DIMENSIONS IVSd1.3 (0.7-1.1cm)LVDd5.2 (3.9-5.9cm) PWd1.0 (0.7-1.1cm)LA Prqmyt00 (18-58mL) LVDs3.6 (2.5-4.0cm)FS (%) 31.5 % LVEF (%)59.0 (>50%)LVEF (Arthur's)55.23 % M-Mode DIMENSIONS Left Atrium (MM)4.43 (2.5-4.0cm)IVSd1.40 (0.7-1.1cm) Aortic Root3.68 (2.2-3.7cm)LVDd4.79 (4.0-5.6cm) Aortic Cusp Exc.2.76 (1.5-2.0cm)PWd1.06 (0.7-1.1cm) FS (%) 37 %LVDs3.02 (2.0-3.8cm) LVEF (%)67 (>50%) Mitral Valve MV E Cwyhilhd52.3cm/sMV A Vuumosor71.9cm/sE/A ratio0.9 TDI Lateral E' Peak V4.61cm/sMedial E' Peak V9.45cm/sE/Lateral E'13.9 E/Medial E'6.8 Tricuspid Valve TR Peak [id number]/sTR Peak Gr.[id number] LEFT VENTRICLE The left ventricle is normal size. There is mild to moderate concentric left ventricular hypertrophy. The Ejection Fraction is 55-60%. There is normal LV segmental wall motion. indeterminate diastolic function. RIGHT VENTRICLE The right ventricle is normal size. The right ventricular systolic function is normal. ATRIA The left atrium is moderately dilated. The right atrium size is normal. The interatrial septum is intact with no evidence for an atrial septal defect. AORTIC VALVE The aortic valve is mildly to moderately sclerotic. The aortic valve is trileaflet. No aortic regurgitation is present. MITRAL VALVE The mitral valve is normal in structure. Mitral regurgitation is mild. TRICUSPID VALVE The tricuspid valve is normal in structure. There is mild tricuspid regurgitation. Right ventricular systolic pressure is estimated at 41 mmHg. There is mild pulmonary hypertension. PULMONIC VALVE The pulmonary valve is normal in structure. GREAT VESSELS The aortic root is normal in size. The IVC is normal in size and collapses >50% with inspiration. PERICARDIAL EFFUSION There is no pericardial effusion. <Conclusion> The left ventricle is normal size. There is mild to moderate concentric left ventricular hypertrophy. The Ejection Fraction is 55-60%. indeterminate diastolic function. The left atrium is moderately dilated. Mitral regurgitation is mild. There is mild tricuspid regurgitation. Right ventricular systolic pressure is estimated at 41 mmHg. There is mild pulmonary hypertension. The aortic root is normal in size. The IVC is normal in size and collapses >50% with inspiration. There is no pericardial effusion.
--- NOTE | 2018-05-02 14:15 | CARD ---
APPROVED REPORT Date of service: 05/01/2018 EKG Measurement Heart [id number] ID [id number] <Conclusion> Atrial flutter with 4:1 AV conduction Abnormal ECG
--- NOTE | 2018-05-02 18:48 | CP.PCM.CON ---
<MeloAllyson strattonLouis - Last Filed: 05/02/18 18:37> History of Present Illness - History of Present Illness History of Present Illness: Cardiology Consult for Dr. Valdivia: 58 year old male with past medical history of CHF (EF 60%), CAD, HTN, hiatal hernia, sleep apnea, morbid obesity, gout, recently diagnosed arrhythmia (atrial flutter/atrial fibrillation) who was brought in by EMS with complaints of palpitations, high blood pressure and a heaviness in his chest. Patient describes the chest heaviness as being located in the middle of his chest without radiation. Patient states the feeling of palpitations started when he was making dinner and he called his girlfriend and they took his blood pressure at that time and it was 170/110. He states he had the same exact symptoms about 2 weeks ago that resulted in his hospitalization at [facility] [place] [facility] for atrial flutter. Patient denies shortness of breath, fever, chills, syncope, numbness or tingling, headache, blurry vision, neck pain, arm pain, cough, abdominal pain, n/v/d, recent travel or recent illness. 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 Ortez who he states has retired but he never followed up with another fabrication lead. He was scheduled to see Dr. Valdivia in the office 05/04/18. Past Medical History: CHF, CAD, HTN, hiatal hernia x2, sleep apnea, morbid obesity, gout, recently diagnosed arrhythmia (atrial flutter/atrial fibrillation) Past Surgical History: hernia repair 2018, left wrist surgery because of gout flare 2017, catheterization x 3 (patient denies stent placement, he states he does not recall when the cath procedures were completed but it has been many years and they were completed by Dr. Ortez) Medications: Lasix 40 mg PO daily, ASA 325 PO daily, Coreg 25 mg PO BID, Lisinopril 40 mg PO BID, Crestor 10 mg PO QHS, Xarelto 20 mg PO. Uloric 40 mg PO daily (not taking it), Colchicine as needed Allergies: Keflex, contrast dye --> he states he gags and has tachycardia Family History: Father with pacemaker and diabetes 91yo, brother with pacemaker 56yo, Mother with emphysema Social History: denies history of smoking, occasional etoh use (states mostly during football season about 2-3 beers and 2 shots on the weekends). Patient is on disability due to CHF and lives in with his girlfriend. 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 Review of Systems - Constitutional Constitutional: absent: Chills, Fever - EENT Eyes: absent: Blurred Vision Ears: absent: Dizziness - Cardiovascular Cardiovascular: Chest Pain, Palpitations. absent: Dyspnea, Leg Edema, Lightheadedness, Syncope - Respiratory Respiratory: absent: Cough, Dyspnea - Gastrointestinal Gastrointestinal: absent: Constipation, Diarrhea, Nausea, Vomiting - Genitourinary Genitourinary: absent: Dysuria - Neurological Neurological: absent: Dizziness, Weakness Past Patient History - Infectious Disease Hx of Infectious Diseases: None - Past Medical History & Family History Past Medical History?: Yes - Past Social History Smoking Status: Never Smoked - CARDIAC Hx Congestive Heart Failure: Yes Hx Hypertension: Yes - PULMONARY Hx Asthma: Yes Hx Bronchitis: Yes - NEUROLOGICAL Hx Neurological Disorder: No - HEENT Hx HEENT Problems: No - RENAL Hx Chronic Kidney Disease: No - ENDOCRINE/METABOLIC Hx Endocrine Disorders: No - HEMATOLOGICAL/ONCOLOGICAL Hx Blood Disorders: No - INTEGUMENTARY Hx Dermatological Problems: No - MUSCULOSKELETAL/RHEUMATOLOGICAL Hx Arthritis: Yes - GASTROINTESTINAL Hx Diverticulitis: Yes - GENITOURINARY/GYNECOLOGICAL Hx Genitourinary Disorders: No - PSYCHIATRIC Hx Substance Use: No - SURGICAL HISTORY Hx Coronary Stent: Yes (x3) - ANESTHESIA Hx Anesthesia: Yes Hx Anesthesia Reactions: No Hx Malignant Hyperthermia: No Meds Allergies/Adverse Reactions: Allergies Allergy/AdvReac Type Severity Reaction Status Date / Time cephalexin monohydrate AdvReac VOMITING Verified 04/21/18 16:49 [From Keflex] iodixanol [From Visipaque] AdvReac VOMITING Verified 04/21/18 16:49 ctscan dye AdvReac VOMITING Uncoded 04/21/18 16:49 - Medications Medications: Current Medications Acetaminophen (Tylenol 325mg Tab) 650 mg PO Q6 PRN PRN Reason: Pain, Mild (1-3) Aspirin (Aspirin) 325 mg PO DAILY [facility] Last Admin: 05/02/18 09:42 Dose: 325 mg Carvedilol (Coreg) 25 mg PO BID [facility] Last Admin: 05/02/18 17:55 Dose: 25 mg Furosemide (Lasix) 40 mg PO DAILY [facility] Lisinopril (Zestril) 40 mg PO BID [facility] Last Admin: 05/02/18 17:55 Dose: 40 mg Pantoprazole Sodium (Protonix Ec Tab) 40 mg PO DAILY [facility] Last Admin: 05/02/18 09:42 Dose: 40 mg Rivaroxaban (Xarelto) 20 mg PO DAILY [facility] Last Admin: 05/02/18 09:42 Dose: 20 mg Rosuvastatin Calcium (Crestor) 10 mg PO HS [facility] Last Admin: 05/01/18 23:13 Dose: 10 mg Physical Exam - Constitutional Appears: Non-toxic, No Acute Distress - Head Exam Head Exam: ATRAUMATIC, NORMAL INSPECTION - Eye Exam Eye Exam: EOMI, Normal appearance - ENT Exam ENT Exam: Mucous Membranes Moist - Respiratory Exam Respiratory Exam: Clear to Auscultation Bilateral, NORMAL BREATHING PATTERN - Cardiovascular Exam Cardiovascular Exam: Irregular Rhythm - GI/Abdominal Exam GI & Abdominal Exam: Distended, Normal Bowel Sounds, Soft. absent: Tenderness - Extremities Exam Extremities exam: Positive for: normal inspection - Neurological Exam Neurological exam: Alert, Oriented x3 - Psychiatric Exam Psychiatric exam: Normal Affect, Normal Mood - Skin Skin Exam: Normal Color Results - Vital Signs Recent Vital Signs: Last Vital Signs Temp 97.5 F L 05/02/18 15:37 Pulse 69 05/02/18 15:37 Resp 20 05/02/18 15:37 BP 130/78 05/02/18 17:55 Pulse Ox 97 05/02/18 15:37 - Labs Result Diagrams: 05/02/18 06:34 05/02/18 06:34 Labs: Laboratory Results - last 24 hr 05/01/18 05/01/18 05/01/18 19:48 19:48 19:48 WBC 5.1 RBC 5.67 Hgb 13.6 Hct 43.2 MCV 76.1 L MCH 24.0 L MCHC 31.5 L RDW 16.2 H Plt Count 372 MPV 7.4 Neut % (Auto) 59.6 Lymph % (Auto) 30.0 [place] % (Auto) 8.3 Eos % (Auto) 1.1 Baso % (Auto) 1.0 Neut # (Auto) 3.1 Lymph # (Auto) 1.5 [place] # (Auto) 0.4 Eos # (Auto) 0.1 Baso # (Auto) 0.0 PT 13.7 H INR 1.3 APTT 29 Sodium 139 Potassium 4.2 Chloride 101 Carbon Dioxide 28 Anion Gap 14 BUN 20 Creatinine 1.3 Est GFR ( Amer) > 60 Est GFR (Non-Af Amer) 57 Random Glucose 102 D Hemoglobin A1c Calcium 8.6 Phosphorus Magnesium Total Bilirubin 0.3 AST 39 ALT 39 Alkaline Phosphatase 68 Total Creatine Kinase CK-MB (Mass) Troponin I < 0.0120 NT-Pro-B Natriuret Pep Total Protein 7.5 Albumin 4.2 Globulin 3.3 Albumin/Globulin Ratio 1.3 Triglycerides Cholesterol LDL Cholesterol Direct HDL Cholesterol TSH 3rd Generation 1.38 05/01/18 05/02/18 05/02/18 22:47 02:15 06:34 WBC 4.6 L RBC 5.46 Hgb 13.2 Hct 41.8 MCV 76.6 L MCH 24.3 L MCHC 31.7 L RDW 16.2 H Plt Count 374 MPV 7.5 Neut % (Auto) 50.8 Lymph % (Auto) 36.6 [place] % (Auto) 10.1 H Eos % (Auto) 1.4 Baso % (Auto) 1.1 Neut # (Auto) 2.4 Lymph # (Auto) 1.7 [place] # (Auto) 0.5 Eos # (Auto) 0.1 Baso # (Auto) 0.1 PT INR APTT Sodium Potassium Chloride Carbon Dioxide Anion Gap BUN Creatinine Est GFR ( Amer) Est GFR (Non-Af Amer) Random Glucose Hemoglobin A1c Calcium Phosphorus 3.8 Magnesium 1.8 Total Bilirubin AST ALT Alkaline Phosphatase Total Creatine Kinase 93 CK-MB (Mass) 0.59 Troponin I < 0.0120 NT-Pro-B Natriuret Pep Total Protein Albumin Globulin Albumin/Globulin Ratio Triglycerides Cholesterol LDL Cholesterol Direct HDL Cholesterol TSH 3rd Generation 05/02/18 05/02/18 05/02/18 06:34 06:34 06:34 WBC RBC Hgb Hct MCV MCH MCHC RDW Plt Count MPV Neut % (Auto) Lymph % (Auto) [place] % (Auto) Eos % (Auto) Baso % (Auto) Neut # (Auto) Lymph # (Auto) [place] # (Auto) Eos # (Auto) Baso # (Auto) PT 13.9 H INR 1.3 APTT 36 H D Sodium 136 Potassium 4.3 Chloride 99 Carbon Dioxide 31 H Anion Gap 11 BUN 20 Creatinine 1.1 Est GFR ( Amer) > 60 Est GFR (Non-Af Amer) > 60 Random Glucose 105 Hemoglobin A1c 6.4 Calcium 8.6 Phosphorus Magnesium Total Bilirubin 0.5 AST 33 ALT 45 Alkaline Phosphatase 58 Total Creatine Kinase CK-MB (Mass) Troponin I NT-Pro-B Natriuret Pep 239 Total Protein 7.2 Albumin 4.1 Globulin 3.1 Albumin/Globulin Ratio 1.3 Triglycerides 148 D Cholesterol 107 LDL Cholesterol Direct 67 HDL Cholesterol 31 TSH 3rd Generation 05/02/18 12:15 WBC RBC Hgb Hct MCV MCH MCHC RDW Plt Count MPV Neut % (Auto) Lymph % (Auto) [place] % (Auto) Eos % (Auto) Baso % (Auto) Neut # (Auto) Lymph # (Auto) [place] # (Auto) Eos # (Auto) Baso # (Auto) PT INR APTT Sodium Potassium Chloride Carbon Dioxide Anion Gap BUN Creatinine Est GFR ( Amer) Est GFR (Non-Af Amer) Random Glucose Hemoglobin A1c Calcium Phosphorus Magnesium Total Bilirubin AST ALT Alkaline Phosphatase Total Creatine Kinase 90 CK-MB (Mass) 0.50 Troponin I < 0.0120 NT-Pro-B Natriuret Pep Total Protein Albumin Globulin Albumin/Globulin Ratio Triglycerides Cholesterol LDL Cholesterol Direct HDL Cholesterol TSH 3rd Generation Assessment & Plan - Assessment and Plan (Free Text) Assessment: 58 year old male with PMH of CHF, CAD, HTN, hiatal hernia, sleep apnea, morbid obesity, gout, recently diagnosed arrhythmia (atrial flutter/atrial fibrillation) who was brought in by EMS with complaints of palpitations, high blood pressure and a heaviness in his chest. Patient was recently admitted to [facility] for atrial flutter/afib and discharged (04/23) on xarelto starter pack (20 mg PO daily). Symptomatic atrial flutter - Possibly secondary to chronic HTN vs. Sleep Apnea - Currently asymptomatic at bedside - ECHO (05/02/18): EF 55-60%; Mild-moderate concentric left ventricular hypertrophy; Left atrium is moderately dilated. Mild pulmonary hypertension. - Trop negative x3 - ProBNP 239 - TSH 1.38; Mg 1.8 - Medications: * Xarelto 20 mg PO daily * Coreg 25 mg PO BID - Jig Inspector Consult: Dr. Zheng --> help appreciated - possible cardioversion [place] 2/1/19 History of Diastolic CHF - ECHO (05/02/18): EF 55-60%; Mild-moderate concentric left ventricular hypertrophy; Left atrium is moderately dilated. Mild pulmonary hypertension. - Medications: * Lasix 40 mg PO daily as Cr is 1.3 (1.1 on 04/23 at [facility]) - hold * Aspirin 81mg po daily * Coreg 25mg po bid History of CAD - Patient has previously had 3 cardiac cath procedures in the past and denies stent placement - Lipid Panel: Total Cholesterol 107; LDL 67; HDL 31; Triglycerides 148 - Medications: * Aspirin 81mg po daily * Coreg 25mg PO BID * Crestor 10mg po HS History of HTN Continue home Lisinopril 40 mg PO BID Impaired glucose tolerance - hA1c 6.4 - Heart Healthy/Moderate Carb Diet - management per primary team History of sleep apnea - likely secondary to morbid obesity - management per primary team Case discussed with Dr. Skip Melo PGY-2 <Maldonado Valdivia - Last Filed: 05/02/18 22:29> Meds - Medications Medications: Current Medications Acetaminophen (Tylenol 325mg Tab) 650 mg PO Q6 PRN PRN Reason: Pain, Mild (1-3) Aspirin (Aspirin) 325 mg PO DAILY [facility] Last Admin: 05/02/18 09:42 Dose: 325 mg Carvedilol (Coreg) 25 mg PO BID [facility] Last Admin: 05/02/18 17:55 Dose: 25 mg Furosemide (Lasix) 40 mg PO DAILY [facility] Lisinopril (Zestril) 40 mg PO BID [facility] Last Admin: 05/02/18 17:55 Dose: 40 mg Pantoprazole Sodium (Protonix Ec Tab) 40 mg PO DAILY [facility] Last Admin: 05/02/18 09:42 Dose: 40 mg Rivaroxaban (Xarelto) 20 mg PO DAILY [facility] Last Admin: 05/02/18 09:42 Dose: 20 mg Rosuvastatin Calcium (Crestor) 10 mg PO HS [facility] Last Admin: 05/01/18 23:13 Dose: 10 mg Results - Vital Signs Recent Vital Signs: Last Vital Signs Temp 97.5 F L 05/02/18 15:37 Pulse 69 05/02/18 15:37 Resp 20 05/02/18 15:37 BP 130/78 05/02/18 17:55 Pulse Ox 97 01/30/19 15:37 - Labs Result Diagrams: 05/02/18 06:34 05/02/18 06:34 Labs: Laboratory Results - last 24 hr 05/01/18 05/02/18 05/02/18 22:47 02:15 06:34 WBC 4.6 L RBC 5.46 Hgb 13.2 Hct 41.8 MCV 76.6 L MCH 24.3 L MCHC 31.7 L RDW 16.2 H Plt Count 374 MPV 7.5 Neut % (Auto) 50.8 Lymph % (Auto) 36.6 [place] % (Auto) 10.1 H Eos % (Auto) 1.4 Baso % (Auto) 1.1 Neut # (Auto) 2.4 Lymph # (Auto) 1.7 [place] # (Auto) 0.5 Eos # (Auto) 0.1 Baso # (Auto) 0.1 PT INR APTT Sodium Potassium Chloride Carbon Dioxide Anion Gap BUN Creatinine Est GFR ( Amer) Est GFR (Non-Af Amer) Random Glucose Hemoglobin A1c Calcium Phosphorus 3.8 Magnesium 1.8 Total Bilirubin AST ALT Alkaline Phosphatase Total Creatine Kinase 93 CK-MB (Mass) 0.59 Troponin I < 0.0120 NT-Pro-B Natriuret Pep Total Protein Albumin Globulin Albumin/Globulin Ratio Triglycerides Cholesterol LDL Cholesterol Direct HDL Cholesterol 05/02/18 05/02/18 05/02/18 06:34 06:34 06:34 WBC RBC Hgb Hct MCV MCH MCHC RDW Plt Count MPV Neut % (Auto) Lymph % (Auto) [place] % (Auto) Eos % (Auto) Baso % (Auto) Neut # (Auto) Lymph # (Auto) [place] # (Auto) Eos # (Auto) Baso # (Auto) PT 13.9 H INR 1.3 APTT 36 H D Sodium 136 Potassium 4.3 Chloride 99 Carbon Dioxide 31 H Anion Gap 11 BUN 20 Creatinine 1.1 Est GFR ( Amer) > 60 Est GFR (Non-Af Amer) > 60 Random Glucose 105 Hemoglobin A1c 6.4 Calcium 8.6 Phosphorus Magnesium Total Bilirubin 0.5 AST 33 ALT 45 Alkaline Phosphatase 58 Total Creatine Kinase CK-MB (Mass) Troponin I NT-Pro-B Natriuret Pep 239 Total Protein 7.2 Albumin 4.1 Globulin 3.1 Albumin/Globulin Ratio 1.3 Triglycerides 148 D Cholesterol 107 LDL Cholesterol Direct 67 HDL Cholesterol 31 05/02/18 12:15 WBC RBC Hgb Hct MCV MCH MCHC RDW Plt Count MPV Neut % (Auto) Lymph % (Auto) [place] % (Auto) Eos % (Auto) Baso % (Auto) Neut # (Auto) Lymph # (Auto) [place] # (Auto) Eos # (Auto) Baso # (Auto) PT INR APTT Sodium Potassium Chloride Carbon Dioxide Anion Gap BUN Creatinine Est GFR ( Amer) Est GFR (Non-Af Amer) Random Glucose Hemoglobin A1c Calcium Phosphorus Magnesium Total Bilirubin AST ALT Alkaline Phosphatase Total Creatine Kinase 90 CK-MB (Mass) 0.50 Troponin I < 0.0120 NT-Pro-B Natriuret Pep Total Protein Albumin Globulin Albumin/Globulin Ratio Triglycerides Cholesterol LDL Cholesterol Direct HDL Cholesterol Assessment & Plan - Assessment and Plan (Free Text) Assessment: Patient seen and evaluated personally by me. Plan of care d/w the medical physicist and as documented
--- NOTE | 2018-05-03 07:06 | CP.PCM.PN ---
Subjective - Date & Time of Evaluation Date of Evaluation: 05/03/18 Time of Evaluation: 08:35 - Subjective Subjective: Patient evaluated at bedside. No acute overnight events. Patient remains tachycardic with irregular rhythm however feels asymptomatic. Pt reports he is eager to go home once evaluated by Dr. Zheng. Pt informed his medication will be changed to include Verapamil. Denies headache, dizziness, chest pain, SOB. Objective - Vital Signs/Intake and Output Vital Signs (last 24 hours): Temp Pulse Resp BP Pulse Ox 97.9 F 113 H 20 131/86 97 05/02/18 23:35 05/03/18 04:02 05/02/18 23:35 05/02/18 23:35 05/02/18 23:35 - Medications Medications: Current Medications Acetaminophen (Tylenol 325mg Tab) 650 mg PO Q6 PRN PRN Reason: Pain, Mild (1-3) Aspirin (Aspirin) 325 mg PO DAILY [facility] Last Admin: 05/02/18 09:42 Dose: 325 mg Carvedilol (Coreg) 25 mg PO BID [facility] Last Admin: 05/02/18 17:55 Dose: 25 mg Furosemide (Lasix) 40 mg PO DAILY [facility] Lisinopril (Zestril) 40 mg PO BID [facility] Last Admin: 05/02/18 17:55 Dose: 40 mg Pantoprazole Sodium (Protonix Ec Tab) 40 mg PO DAILY [facility] Last Admin: 05/02/18 09:42 Dose: 40 mg Rivaroxaban (Xarelto) 20 mg PO DAILY [facility] Last Admin: 05/02/18 09:42 Dose: 20 mg Rosuvastatin Calcium (Crestor) 10 mg PO HS [facility] Last Admin: 05/02/18 22:28 Dose: 10 mg - Labs Labs: 05/02/18 06:34 05/02/18 06:34 PT 13.9 SECONDS (9.7-12.2) H 05/02/18 06:34 INR 1.3 05/02/18 06:34 APTT 36 SECONDS (21-34) H D 05/02/18 06:34 - Additional Findings Additional findings: - Constitutional Appears: Non-toxic, No Acute Distress - Head Exam Head Exam: ATRAUMATIC, NORMAL INSPECTION, NORMOCEPHALIC - Eye Exam Eye Exam: EOMI, Normal appearance - ENT Exam ENT Exam: Mucous Membranes Moist, Normal Exam - Neck Exam Neck Exam: Normal Inspection - Respiratory Exam Respiratory Exam: Clear to Ausculation Bilateral, NORMAL BREATHING PATTERN. absent: Respiratory Distress - Cardiovascular Exam Cardiovascular Exam: Tachycardia, REGULAR RHYTHM, +S1, +S2 - GI/Abdominal Exam GI & Abdominal Exam: Distended, Soft, Normal Bowel Sounds. absent: Tenderness Additional comments: abdominal obesity - Extremities Exam Extremities Exam: Normal Inspection. absent: Calf Tenderness, Pedal Edema - Neurological Exam Neurological Exam: Alert, Awake, Oriented x3 - Psychiatric Exam Psychiatric exam: Normal Affect, Normal Mood - Skin Skin Exam: Dry, Intact, Normal Color, Warm Assessment and Plan - Assessment and Plan (Free Text) Assessment: 58 year old male with PMHx of CHF, CAD, HTN, hiatal hernia, sleep apnea, morbid obesity, gout, newly diagnosed arrhythmia (atrial flutter/atrial fibrillation-2 wks ago) admitted for evaluation and treatment of symptomatic arrythmia Plan: Cardiac arrythmia, newly diagnosed -in A Fib w/ RVR-->A flutter w/ 4:1 AV conduction on admission -Echo(05/01): LVH, EF~55-60%. Mild mitral and tricuspid regurg. Mild pulm HTN -patient currently tachycardic, asymptomatic -cardiac enzymes negative for ACS -monitor on telemetry -cardiac rate and rhythm control, continue home coreg 25mg BID -BP control -AC w/ xarelto 20mg QD, hold home ASA 325mg -Cardio consult, Dr. Valdivia - EP consult, Dr. Zheng -pt to be evaluated for possible cardioversion. CAD, hx of 3 stents -held home ASA 325mg 2/2 starting xarelto, consider adding ASA 81mg -continue home crestor 10 HS HTN -currently well controlled -hold home lisinopril, rate still poorly controlled -start Verapamil 80mg po qd -home lasix held 2/2 rising Cr HLD -Lipid panel WNL -Continue home crestor 10 mg HS Sleep Apnea/Obesity -BMI>40 -consider CPAP Gout -substitute home Uloric w/ allopurinol -monitor Cr Pre-diabetes -Hgb a1c~6.4 Ppx GI ppx: Protonix 40 mg QD VTE ppx: AC w/ Xarelto 20 mg QD SCDs HHD Case Discussed w/ Dr. Lackey, -Rae Agustin, PGY-1
[2018-05-03 08:20] LABS: BASO % 0.9 % (0.0-2.0); EOS # 0.1 K/uL (0.0-0.7); EOS % 1.5 % (0.0-4.0); HEMOGLOBIN 13.1 g/dL (12.0-18.0); LYMPH # 1.5 K/uL (1.0-4.3); LYMPH % 33.5 % (20.0-40.0); MEAN CELL VOLUME 76.8 fL (80.0-94.0); MEAN CORPUSCULAR HEMOGLOBIN 24.3 pg (27.0-31.0); MEAN CORPUSCULAR HGB CONC 31.7 g/dL (33.0-37.0); MEAN PLATELET VOLUME 7.3 fL (7.2-11.7); MONO # 0.5 K/uL (0.0-0.8); MONO % 11.3 % (0.0-10.0); NEUT # 2.4 K/uL (1.8-7.0); NEUT % 52.8 % (50.0-75.0); NRBC % 0.1 % (0.0-2.0); RBC 5.4 Mil/uL (4.40-5.90); RED CELL DISTRIBUTION WIDTH 16.3 % (11.5-14.5); WHITE BLOOD COUNT 4.5 K/uL (4.8-10.8)
[2018-05-03 09:01] LABS: ALB/GLOB RATIO 1.3 (1.0-2.1); ALBUMIN 3.9 g/dL (3.5-5.0); ALT/SGPT 50 U/L (21-72); AST/SGOT 44 U/L (17-59); BLOOD UREA NITROGEN 13 mg/dL (9-20); CALCIUM 8.2 mg/dl (8.6-10.4); GFR NON-AFRICAN AMERICAN > 60
[2018-05-03] MEDS: Pantoprazole 40 mg EC Tab PO SCH (10:49)
--- NOTE | 2018-05-03 23:36 | CP.PCM.PN ---
Subjective - Date & Time of Evaluation Date of Evaluation: 05/03/18 Time of Evaluation: 16:20 - Subjective Subjective: Patient seen and evaluated personally by me Denies chest pain and dyspnea A Fib on AC Awaiting EP evaluation Review of Systems - Constitutional Constitutional: absent: Chills, Fever - EENT Eyes: absent: Blurred Vision Ears: absent: Dizziness - Cardiovascular Cardiovascular: Chest Pain, Palpitations. absent: Dyspnea, Leg Edema, Lightheadedness, Syncope - Respiratory Respiratory: absent: Cough, Dyspnea - Gastrointestinal Gastrointestinal: absent: Constipation, Diarrhea, Nausea, Vomiting - Genitourinary Genitourinary: absent: Dysuria - Neurological Neurological: absent: Dizziness, Weakness Physical Exam - Constitutional Appears: Non-toxic, No Acute Distress - Head Exam Head Exam: ATRAUMATIC, NORMAL INSPECTION - Eye Exam Eye Exam: EOMI, Normal appearance - ENT Exam ENT Exam: Mucous Membranes Moist - Respiratory Exam Respiratory Exam: Clear to Auscultation Bilateral, NORMAL BREATHING PATTERN - Cardiovascular Exam Cardiovascular Exam: Irregular Rhythm - GI/Abdominal Exam GI & Abdominal Exam: Distended, Normal Bowel Sounds, Soft. absent: Tenderness - Extremities Exam Extremities exam: Positive for: normal inspection - Neurological Exam Neurological exam: Alert, Oriented x3 - Psychiatric Exam Psychiatric exam: Normal Affect, Normal Mood - Skin Skin Exam: Normal Color Assessment & Plan - Assessment and Plan (Free Text) Assessment: 58 year old male with PMH of CHF, CAD, HTN, hiatal hernia, sleep apnea, morbid obesity, gout, recently diagnosed arrhythmia (atrial flutter/atrial fibrillation) who was brought in by EMS with complaints of palpitations, high blood pressure and a heaviness in his chest. Patient was recently admitted to [facility] for atrial flutter/afib and discharged (04/23) on xarelto starter pack (20 mg PO daily). Symptomatic atrial flutter - Possibly secondary to chronic HTN vs. Sleep Apnea - Currently asymptomatic at bedside - ECHO (05/02/18): EF 55-60%; Mild-moderate concentric left ventricular hypertrophy; Left atrium is moderately dilated. Mild pulmonary hypertension. - Trop negative x3 - ProBNP 239 - TSH 1.38; Mg 1.8 - Medications: * Xarelto 20 mg PO daily * Coreg 25 mg PO BID - Brickmason Apprentice Consult: Dr. Zheng --> help appreciated - possible cardioversion Monday05/04/18 History of Diastolic CHF - ECHO (05/02/18): EF 55-60%; Mild-moderate concentric left ventricular hypertrophy; Left atrium is moderately dilated. Mild pulmonary hypertension. - Medications: * Lasix 40 mg PO daily as Cr is 1.3 (1.1 on 04/23 at [facility]) - hold * Aspirin 81mg po daily * Coreg 25mg po bid History of CAD - Patient has previously had 3 cardiac cath procedures in the past and denies stent placement - Lipid Panel: Total Cholesterol 107; LDL 67; HDL 31; Triglycerides 148 - Medications: * Aspirin 81mg po daily * Coreg 25mg PO BID * Crestor 10mg po HS History of HTN Continue home Lisinopril 40 mg PO BID Impaired glucose tolerance - hA1c 6.4 - Heart Healthy/Moderate Carb Diet - management per primary team History of sleep apnea - likely secondary to morbid obesity - management per primary team Case discussed with Dr. Skip Melo PGY-2 <Maldonado Valdivia - Last Filed: 05/02/18 22:29> Objective - Vital Signs/Intake and Output Vital Signs (last 24 hours): Temp Pulse Resp BP Pulse Ox 98 F 70 20 133/68 97 05/03/18 15:27 05/03/18 15:27 05/03/18 15:27 05/03/18 21:36 05/03/18 15:27 - Medications Medications: Current Medications Acetaminophen (Tylenol 325mg Tab) 650 mg PO Q6 PRN PRN Reason: Pain, Mild (1-3) Last Admin: 05/03/18 07:36 Dose: 650 mg Aspirin (Aspirin) 325 mg PO DAILY [facility] Last Admin: 05/02/18 09:42 Dose: 325 mg Carvedilol (Coreg) 25 mg PO BID [facility] Last Admin: 05/03/18 21:36 Dose: 25 mg Furosemide (Lasix) 40 mg PO DAILY [facility] Lisinopril (Zestril) 40 mg PO BID [facility] Last Admin: 05/03/18 11:46 Dose: Not Given Pantoprazole Sodium (Protonix Ec Tab) 40 mg PO DAILY [facility] Last Admin: 05/03/18 10:49 Dose: 40 mg Rivaroxaban (Xarelto) 20 mg PO DAILY [facility] Last Admin: 05/03/18 10:49 Dose: 20 mg Rosuvastatin Calcium (Crestor) 10 mg PO HS [facility] Last Admin: 05/03/18 21:37 Dose: 10 mg Verapamil HCl (Calan Tab) 80 mg PO DAILY [facility] Last Admin: 05/03/18 11:43 Dose: 80 mg - Labs Labs: 05/03/18 08:12 05/03/18 08:12 PT 13.9 SECONDS (9.7-12.2) H 05/02/18 06:34 INR 1.3 05/02/18 06:34 APTT 36 SECONDS (21-34) H D 05/02/18 06:34
[2018-05-04 08:40] LABS: BASO % 0.3 % (0.0-2.0); EOS # 0.1 K/uL (0.0-0.7); EOS % 1.5 % (0.0-4.0); HEMOGLOBIN 12.9 g/dL (12.0-18.0); LYMPH # 1.5 K/uL (1.0-4.3); LYMPH % 33.3 % (20.0-40.0); MEAN CELL VOLUME 78.3 fL (80.0-94.0); MEAN CORPUSCULAR HEMOGLOBIN 24.5 pg (27.0-31.0); MEAN CORPUSCULAR HGB CONC 31.3 g/dL (33.0-37.0); MONO # 0.2 K/uL (0.0-0.8); NEUT # 2.6 K/uL (1.8-7.0); NEUT % 59.9 % (50.0-75.0); NRBC % 0.1 % (0.0-2.0); RBC 5.27 Mil/uL (4.40-5.90); RED CELL DISTRIBUTION WIDTH 16.5 % (11.5-14.5); WHITE BLOOD COUNT 4.4 K/uL (4.8-10.8)
[2018-05-04 08:49] LABS: ALB/GLOB RATIO 1.3 (1.0-2.1); ALT/SGPT 48 U/L (21-72); AST/SGOT 43 U/L (17-59); BLOOD UREA NITROGEN 13 mg/dL (9-20); CALCIUM 8.5 mg/dl (8.6-10.4); GFR NON-AFRICAN AMERICAN > 60
[2018-05-04 09:08] VITALS: PULSE 75; TEMP 97.6; O2SAT 97
--- NOTE | 2018-05-04 10:18 | CP.PCM.DIS ---
Provider - Provider Date of Admission: 05/01/18 20:07 Attending physician: Kodak Lackey Jr, MD Primary care physician: Dr. Lackey Consults: 05/01/18 22:10 Cardiology Consult Routine Comment: Consulting Provider: Maldonado Valdivia Consulting Physician: Maldonado Valdivia Reason for Consult: atrial flutter 05/02/18 18:36 Physician Consult Routine Comment: Consulting Provider: Kaela Zheng Consulting Physician: Kaela Zheng Reason for Consult: Atrial Flutter Time Spent in preparation of Discharge (in minutes): 30 Diagnosis - Discharge Diagnosis (1) Atrial fibrillation and flutter Status: Acute Priority: High Hospital Course - Lab Results Lab Results: Most Recent Lab Values WBC 4.4 K/uL (4.8-10.8) L 05/04/18 08:29 RBC 5.27 Mil/uL (4.40-5.90) 05/04/18 08:29 Hgb 12.9 g/dL (12.0-18.0) 05/04/18 08:29 Hct 41.3 % (35.0-51.0) 05/04/18 08:29 MCV 78.3 fL (80.0-94.0) L 05/04/18 08:29 MCH 24.5 pg (27.0-31.0) L 05/04/18 08:29 MCHC 31.3 g/dL (33.0-37.0) L 05/04/18 08:29 RDW 16.5 % (11.5-14.5) H 05/04/18 08:29 Plt Count 385 K/uL (130-400) 05/04/18 08:29 MPV 7.0 fL (7.2-11.7) L 05/04/18 08:29 Neut % (Auto) 59.9 % (50.0-75.0) 05/04/18 08:29 Lymph % (Auto) 33.3 % (20.0-40.0) 05/04/18 08:29 Fillmore % (Auto) 5.0 % (0.0-10.0) 05/04/18 08:29 Eos % (Auto) 1.5 % (0.0-4.0) 05/04/18 08:29 Baso % (Auto) 0.3 % (0.0-2.0) 05/04/18 08:29 Neut # (Auto) 2.6 K/uL (1.8-7.0) 05/04/18 08:29 Lymph # (Auto) 1.5 K/uL (1.0-4.3) 05/04/18 08:29 Fillmore # (Auto) 0.2 K/uL (0.0-0.8) 05/04/18 08:29 Eos # (Auto) 0.1 K/uL (0.0-0.7) 05/04/18 08:29 Baso # (Auto) 0.0 K/uL (0.0-0.2) 05/04/18 08:29 PT 13.9 SECONDS (9.7-12.2) H 05/02/18 06:34 INR 1.3 05/02/18 06:34 APTT 36 SECONDS (21-34) H D 05/02/18 06:34 Sodium 134 mmol/L (132-148) 05/04/18 08:29 Potassium 4.2 mmol/L (3.6-5.2) 05/04/18 08:29 Chloride 100 mmol/L (98-107) 05/04/18 08:29 Carbon Dioxide 27 mmol/L (22-30) 05/04/18 08:29 Anion Gap 12 (10-20) 05/04/18 08:29 BUN 13 mg/dL (9-20) 05/04/18 08:29 Creatinine 1.0 mg/dL (0.8-1.5) 05/04/18 08:29 Est GFR ( Amer) > 60 05/04/18 08:29 Est GFR (Non-Af Amer) > 60 05/04/18 08:29 Random Glucose 146 mg/dL (75-110) H D 05/04/18 08:29 Hemoglobin A1c 6.4 % (4.2-6.5) 05/02/18 06:34 Calcium 8.5 mg/dl (8.6-10.4) L 05/04/18 08:29 Phosphorus 3.8 mg/dL (2.5-4.5) 05/01/18 22:47 Magnesium 1.8 mg/dL (1.6-2.3) 05/01/18 22:47 Total Bilirubin 0.6 mg/dL (0.2-1.3) 05/04/18 08:29 AST 43 U/L (17-59) 05/04/18 08:29 ALT 48 U/L (21-72) 05/04/18 08:29 Alkaline Phosphatase 65 U/L (38-126) 05/04/18 08:29 Total Creatine Kinase 90 U/L (55-170) 05/02/18 12:15 CK-MB (Mass) 0.50 ng/mL (0.0-3.38) 05/02/18 12:15 Troponin I < 0.0120 ng/mL (0.00-0.120) 05/02/18 12:15 NT-Pro-B Natriuret Pep 239 pg/mL (0-900) 05/02/18 06:34 Total Protein 7.0 g/dL (6.3-8.3) 05/04/18 08:29 Albumin 4.0 g/dL (3.5-5.0) 05/04/18 08:29 Globulin 3.0 gm/dL (2.2-3.9) 05/04/18 08:29 Albumin/Globulin Ratio 1.3 (1.0-2.1) 05/04/18 08:29 Triglycerides 148 mg/dL (0-149) D 05/02/18 06:34 Cholesterol 107 mg/dL (0-199) 05/02/18 06:34 LDL Cholesterol Direct 67 mg/dL (0-129) 05/02/18 06:34 HDL Cholesterol 31 mg/dL (30-70) 05/02/18 06:34 TSH 3rd Generation 1.38 mIU/L (0.46-4.68) 05/01/18 19:48 - Hospital Course Hospital Course: Patient was evaluated for complaints of palpitations and chest pressure, and admitted and treated for Symptomatic A Fib/A Flutter. Vitals and CBC/CMP were WNL. EKG revealed patient was in A Flutter with a 4:1 block, no STEMI. Repeat EKG revealed A Fib. CXR showed no acute pathology. Dr. Valdivia, cardiology was consulted. Pt received ASA and lovenox. Patient was admitted to telemetry for monitoring, and started on coreg and lisinopril for rate/rhythm control. Anticoagulation with xarelto was initiated. Echo(05/02): EF 55-60%; Mild-moderate concentric left ventricular hypertrophy; Left atrium is moderately dilated. Mild pulmonary hypertension. Pt's CHF was treated with lasix, but held 2/2 rising creatinine, and coreg CAD treated with Coreg and Crestor HTN treated with lisinopril, but subsequently switched to verapamil due to poor rate control. Dr. Valdivia consulted Dr. Zheng for further evaluation of potential cardioversion, however patient was discharged with instruction to follow up with Dr. Zheng outpatient. Patient was discharged in stable condition with a prescription for verapamil 120mg po qd. Pt instructed to continue taking home coreg, lasix, crestor, and a baby aspirin and xarelto. Pt instructed to discontinue ASA 325mg, lisinopril and digoxin. HPI on admission: "This is a 58 year old male with PMH of CHF, CAD, HTN, hiatal hernia, sleep apnea, morbid obesity, gout, recently diagnosed arrhythmia (atrial flutter/atrial fibrillation) who was brought in by EMS with complaints of palpitations, high blood pressure and a heaviness in his chest earlier today. Chest heaviness is described as being located in the middle of his chest, and associated with shortness of breath described as difficulty catching his breath. He was also experiencing slight dizziness, lightheadedness and a little nausea during this time. Pt states that he was just making dinner when the symptoms began out of nowhere, and only resolved after administration of cardizem 25 mg IVP in the EMS. He denies fever, chills, sharp chest pain, ripping quality of chest pain, syncope, numbness or tingling, headache, blurry vision, neck pain, arm pain, cough, abdominal pain, n/v/d, recent travel, recent illness, car rides extending longer than 4 hours, leg pain or swelling. Patient reports that he had a similar episode on 04/21, where he was admitted to [facility] and discharged (04/23) on xarelto starter pack (20 mg PO daily). Patient followed up with PMD, who referred him to Dr. Valdivia, cardiology. However, pt has not been able to follow up with cardiology yet." Discharge Exam - Head Exam Head Exam: ATRAUMATIC, NORMAL INSPECTION - Eye Exam Eye Exam: EOMI, Normal appearance - ENT Exam ENT Exam: Mucous Membranes Moist, Normal Exam - Neck Exam Neck exam: Normal Inspection - Respiratory Exam Respiratory Exam: Clear to PA & Lateral, NORMAL BREATHING PATTERN, UNREMARKABLE. absent: Respiratory Distress - Cardiovascular Exam Cardiovascular Exam: Tachycardia, Irregular Rhythm - GI/Abdominal Exam GI & Abdominal Exam: Normal Bowel Sounds, Soft, Unremarkable. absent: Distended Additional comments: abdominal obesity - Back Exam Back exam: NORMAL INSPECTION - Neurological Exam Neurological exam: Alert, Normal Gait, Oriented x3 - Psychiatric Exam Psychiatric exam: Normal Affect, Normal Mood - Skin Skin Exam: Dry, Intact, Normal Color, Warm Discharge Plan - Discharge Medications Prescriptions: Verapamil ER [Calan SR Tab] 120 mg PO DAILY #30 tab - Follow Up Plan Condition: STABLE Disposition: HOME/ ROUTINE Instructions: Heart Healthy Diet, Heart Failure, Adult (DC), Atrial Flutter (DC), Verapamil Additional Instructions: Patient is stable for discharge home. Patient is being discharged home with a new prescription to be filled. Patient is instructed to stop taking home lisinopril, digoxin and Aspirin 325mg, and start new medication, Verapamil 120mg and Xarelto 20mg. Pt is to take 1 tab by mouth daily for each medication. Patient will obtain samples of Xarelto from Dr. Lackey's office today until he can follow up with an appointment he will schedule for Monday. Patient will be given a prescription for: Verapamil 120mg PO QD. Take 1 tab by mouth, daily Patient should resume home medications including: Aspirin 81mg po, daily. Take 1 by mouth each day Lasix 40mg po, daily. Take 1 by mouth daily Crestor 10mg HS. Take 1 by mouth everyday at bedtime Xarelto 20mg po, daily. Take 1 by mouth daily Coreg 25mg po, BID. Take 2 each day, 1 in the morning and 1 in the evening Patient will be discontinuing: Aspiring 325mg, daily Digoxin .225mg, daily Lisinopril 10mg po, BID Should patient have any question regarding other medications, please follow up with Dr. Lackey immediately Patient will follow up with Dr. Zheng for outpatient electrophysiology study. Patient is instructed to follow up with Dr. Valdivia, cardiology within 1 day of discharge. Patient should follow up with PMD, Dr. Lackey within several days of discharge. Patient instructed to return to the ED with any worsening of symptoms. Referrals: Kaela Zheng MD [Staff Provider] - Maldonado Valdivia MD [Staff Provider] - Kodak Lackey Jr., MD [Medical Doctor] - 05/07/18
[2018-05-04] MEDS: Pantoprazole 40 mg EC Tab PO SCH (10:34)
[2018-05-04 10:36] VITALS: BP 147/78
--- NOTE | 2018-05-07 23:56 | CARD ---
APPROVED REPORT Date of service: 05/01/2018 EKG Measurement Heart [id number] <Conclusion> Atrial flutter with variable AV block with premature ventricular or aberrantly conducted complexes Nonspecific ST abnormality Abnormal ECG
== END 2018-05-04 12:46 | disposition home or self-care (01) | DRG 309 ==
LOC: C.ER 17:59 → C.9E 20:07 → C.6T 20:50
PROVIDERS: ADMIT Internal Medicine; ATTEND Internal Medicine
DX: I48.92 Unspecified atrial flutter (principal); I50.32 Chronic diastolic (congestive) heart failure; Z68.41 Body mass index [BMI] 40.0-44.9, adult; I48.91 Unspecified atrial fibrillation; I27.20 Pulmonary hypertension, unspecified; J45.909 Unspecified asthma, uncomplicated; I11.0 Hypertensive heart disease with heart failure; Z95.5 Presence of coronary angioplasty implant and graft; I25.10 Atherosclerotic heart disease of native coronary artery without angina pectoris; G47.30 Sleep apnea, unspecified; E66.01 Morbid (severe) obesity due to excess calories

== ENCOUNTER 2018-05-07 15:42 | Observation (INO) | payer MEDICARE ==
[2018-05-07 15:42] VITALS: PULSE 115; BMI 37.3
--- NOTE | 2018-05-07 16:34 | C.PDOC ---
History Of Present Illness 58 y/o male,w/PMhx of CHF and CAD, presents to the ER complaining of shortness of breath and palpitations. Patient states that he has dyspnea on exertion and minimal orthopnea. Patient reports that he was evaluated by his PMD who referred him to the ER. He notes that he was recently admitted for similar symptoms in [facility] and he was discharged on 05/04/18.Denies having CP, fever, chills, nausea,and vomiting. Time Seen by Provider: 05/07/18 16:26 Chief Complaint (Nursing): Shortness Of Breath History Per: Patient History/Exam Limitations: no limitations Onset/Duration Of Symptoms: Days Current Symptoms Are (Timing): Still Present Severity: Moderate Past Medical History Reviewed: Historical Data, Nursing Documentation, Vital Signs Vital Signs: Last Vital Signs Temp 98.2 F 05/07/18 16:15 Pulse 118 H 05/07/18 16:15 Resp 16 05/07/18 16:15 BP 151/66 H 05/07/18 16:15 Pulse Ox 100 05/07/18 16:15 - Medical History PMH: Arthritis, Asthma, Bronchitis, CAD, CHF, Diverticulitis, Hiatal Hernia, HTN Denies: Chronic Kidney Disease Surgical History: Coronary Stent (x3), Hernia Repair ([facility]) - [facility] Procedures CORONAR ARTERIOGR-2 CATH (11/28/03) INJECT/INFUSE NEC (04/10/07) LEFT HEART CARDIAC CATH (11/28/03) LT HEART ANGIOCARDIOGRAM (11/28/03) OTHER LOCAL DESTRUC SKIN (12/10/03) Family History: States: No Known Family Hx - Social History Hx Tobacco Use: No Hx Alcohol Use: No Hx Substance Use: No - Immunization History Hx Tetanus Toxoid Vaccination: Yes Hx Influenza Vaccination: Yes Hx Pneumococcal Vaccination: Yes Review Of Systems Except As Marked, All Systems Reviewed And Found Negative. Constitutional: Negative for: Fever, Chills Cardiovascular: Positive for: Palpitations. Negative for: Chest Pain Respiratory: Positive for: Shortness of Breath Gastrointestinal: Negative for: Nausea, Vomiting Physical Exam - Physical Exam Appears: No Acute Distress Skin: Normal Color, Warm, Dry Head: Atraumatic, Normacephalic Eye(s): bilateral: Normal Inspection Nose: Normal Oral Mucosa: Moist Neck: Supple Chest: Symmetrical Cardiovascular: Rhythm Regular Respiratory: Normal Breath Sounds, No Rales, No Rhonchi, No Wheezing Gastrointestinal/Abdominal: Normal Exam, Soft, No Tenderness, No Guarding, No Rebound Extremity: Normal ROM, Other (1+ pitting edema) Neurological/Psych: Oriented x3, Normal Speech ED Course And Treatment - Laboratory Results Result Diagrams: 05/07/18 16:50 05/07/18 16:50 O2 Sat by Pulse Oximetry: 100 (RA) Pulse Ox Interpretation: Normal Medical Decision Making Medical Decision Making: Plan: --Labs --EKG Updates: 18:30 case discussed with . He recommends admitting patient to Tele Obs. Internet Project Manager has been paged. Disposition Discussed With Dr.: Kodak Lackey Jr. Counseled Patient/Family Regarding: Studies Performed - Disposition Disposition: HOME/ ROUTINE Disposition Time: 18:25 Condition: STABLE Forms: [facility] (Macedonian) - Clinical Impression Clinical Impression: Chronic congestive heart failure, Dyspnea - Scribe Statement The provider has reviewed the documentation as recorded by the Wallyibcorey Arredondo Provider Attestation: All medical record entries made by the Scribe were at my direction and personally dictated by me. I have reviewed the chart and agree that the record accurately reflects my personal performance of the history, physical exam, medical decision making, and the department course for this patient. I have also personally directed, reviewed, and agree with the discharge instructions and disposition. Decision To Admit - Pt Status Changed To: Hospital Disposition Of: Observation - . Bed Request Type: Telemetry Admitting Physician: Kodak Lackey Jr. Patient Diagnosis: Chronic congestive heart failure, Dyspnea
[2018-05-07 16:56] LABS: BASO % 0.9 % (0.0-2.0); EOS # 0.1 K/uL (0.0-0.7); EOS % 1.4 % (0.0-4.0); HEMOGLOBIN 13.9 g/dL (12.0-18.0); LYMPH # 1.4 K/uL (1.0-4.3); LYMPH % 29.6 % (20.0-40.0); MEAN CELL VOLUME 76.5 fL (80.0-94.0); MEAN CORPUSCULAR HEMOGLOBIN 23.9 pg (27.0-31.0); MEAN CORPUSCULAR HGB CONC 31.2 g/dL (33.0-37.0); MONO # 0.5 K/uL (0.0-0.8); MONO % 10.1 % (0.0-10.0); NEUT # 2.7 K/uL (1.8-7.0); NRBC % 0.1 % (0.0-2.0); RBC 5.81 Mil/uL (4.40-5.90); RED CELL DISTRIBUTION WIDTH 16.1 % (11.5-14.5); WHITE BLOOD COUNT 4.7 K/uL (4.8-10.8)
[2018-05-07 17:17] LABS: ALB/GLOB RATIO 1.4 (1.0-2.1); ALBUMIN 4.5 g/dL (3.5-5.0); ALT/SGPT 41 U/L (21-72); AST/SGOT 40 U/L (17-59); BLOOD UREA NITROGEN 17 mg/dL (9-20); CALCIUM 9.5 mg/dl (8.6-10.4); GFR NON-AFRICAN AMERICAN > 60
[2018-05-07 17:20] LABS: B-TYPE NATRIURETIC PEPTIDE 184 pg/mL (0-900)
--- NOTE | 2018-05-07 18:27 | RAD ---
HISTORY: SOB COMPARISON: Chest x-ray performed 05/01/18 TECHNIQUE: Chest PA and lateral FINDINGS: Examination limited by habitus. LUNGS: No focal consolidation. Please note that chest x-ray has limited sensitivity for the detection of pulmonary masses. PLEURA: No significant pleural effusion identified. No definite pneumothorax . CARDIOVASCULAR: Mild cardiomegaly. No atherosclerotic calcification present. OSSEOUS STRUCTURES: No acute osseous abnormality identified. VISUALIZED UPPER ABDOMEN: Unremarkable. OTHER FINDINGS: None. IMPRESSION: Mild cardiomegaly. No focal consolidation.
--- NOTE | 2018-05-07 23:14 | CP.PCM.HP ---
History of Present Illness - History of Present Illness History of Present Illness: PGY1 H&P for Dr. Lackey's service CC: palpitations, SOB This is a 58 year old male with PMH of CHF, CAD, HTN, hiatal hernia, sleep apne a, morbid obesity, gout, recently diagnosed arrhythmia (atrial flutter/atrial fibrillation on xarelto) who presented to the ED due to sob with pallpiations and high blood pressure. Pt states that he became SOB after walking 3 blocks to the store today. While feeling short of breath, he developed palpitations and when he measured his BP at home it was 177/110. Patient rPt was recently discharged from the hospital (05/01-05/04) for similar symptoms and was he was supposed to follow up with EP cardio, Dr. Zheng. He has been unable to get an appointment. Denies fever, chills, chest pain, abdominal pain, n/v/d, leg pain or swelling, dizziness, lightheadedness, syncope, blurry vision, cough. PMD: Darya Cardio: Skip VELARDE Cardio: Marce PMH: CHF, CAD, HTN, hiatal hernia, sleep apnea, morbid obesity, gout, recently diagnosed arrhythmia (atrial flutter/atrial fibrillation) PSH: hernia repair 2018, left wrist surgery because of gout flare 2017, catheterization x 3 (no stents placed, last done more than 10 years ago) Meds: Verapamil 120 mg po daily, Lasix 40 mg PO daily, ASA 325 PO daily, Coreg 25 mg PO BID, Crestor 10 mg PO QHS, Xarelto 20 mg PO. Uloric 40 mg PO daily (not taking it), Colchicine as needed Allx: Keflex, contrast dye FHx: Father with pacemaker, brother with pacemaker, strong cardiac history in family. Mother with asthma. SHx: denies history of smoking, occasional etoh use. Pt is on disability due to CHF and lives in with his girlfriend. Present on Admission - Present on Admission Any Indicators Present on Admission: No Review of Systems - Review of Systems All systems: reviewed and no additional remarkable complaints except (as per HPI) Past Patient History - Infectious Disease Hx of Infectious Diseases: None - Past Medical History & Family History Past Medical History?: Yes - Past Social History Smoking Status: Never Smoked - CARDIAC Hx Congestive Heart Failure: Yes Hx Hypertension: Yes - PULMONARY Hx Asthma: Yes Hx Bronchitis: Yes - NEUROLOGICAL Hx Neurological Disorder: No - HEENT Hx HEENT Problems: No - RENAL Hx Chronic Kidney Disease: No - ENDOCRINE/METABOLIC Hx Endocrine Disorders: No - HEMATOLOGICAL/ONCOLOGICAL Hx Blood Disorders: No - INTEGUMENTARY Hx Dermatological Problems: No - MUSCULOSKELETAL/RHEUMATOLOGICAL Hx Arthritis: Yes - GASTROINTESTINAL Hx Diverticulitis: Yes - GENITOURINARY/GYNECOLOGICAL Hx Genitourinary Disorders: No - PSYCHIATRIC Hx Substance Use: No - SURGICAL HISTORY Hx Coronary Stent: Yes (x3) - ANESTHESIA Hx Anesthesia: Yes Hx Anesthesia Reactions: No Hx Malignant Hyperthermia: No Meds Allergies/Adverse Reactions: Allergies Allergy/AdvReac Type Severity Reaction Status Date / Time cephalexin monohydrate AdvReac VOMITING Verified 04/21/18 16:49 [From Keflex] iodixanol [From Visipaque] AdvReac VOMITING Verified 04/21/18 16:49 ctscan dye AdvReac VOMITING Uncoded 04/21/18 16:49 Physical Exam - Constitutional Appears: Non-toxic, No Acute Distress - Head Exam Head Exam: ATRAUMATIC, NORMAL INSPECTION - Eye Exam Eye Exam: EOMI, PERRL - ENT Exam ENT Exam: Mucous Membranes Moist - Neck Exam Neck exam: Positive for: Normal Inspection - Respiratory Exam Respiratory Exam: NORMAL BREATHING PATTERN. absent: Rales, Rhonchi, Wheezes, Respiratory Distress, Stridor - Cardiovascular Exam Cardiovascular Exam: Tachycardia (approximately 120), Irregular Rhythm, +S1, +S2 - GI/Abdominal Exam GI & Abdominal Exam: Hernia, Soft (obese). absent: Firm, Rebound, Rigid, Tenderness - Extremities Exam Extremities exam: Positive for: normal capillary refill, normal inspection, pedal pulses present. Negative for: calf tenderness, pedal edema, tenderness - Back Exam Back exam: NORMAL INSPECTION. absent: CVA tenderness (L), CVA tenderness (R) - Neurological Exam Neurological exam: Alert, CN II-XII Intact, Oriented x3 Additional comments: 5/5 strength in upper and lower extremities bilaterally - Psychiatric Exam Psychiatric exam: Normal Affect, Normal Mood - Skin Skin Exam: Dry, Normal Color, Warm Results - Vital Signs Recent Vital Signs: Last Vital Signs Temp 98.1 F 05/07/18 21:22 Pulse 140 H 05/07/18 21:39 Resp 18 05/07/18 21:22 BP 126/78 05/07/18 21:22 Pulse Ox 97 05/07/18 21:22 - Labs Result Diagrams: 05/07/18 16:50 05/07/18 16:50 Labs: Laboratory Results - last 24 hr 05/07/18 05/07/18 05/07/18 16:50 16:50 19:31 WBC 4.7 L RBC 5.81 Hgb 13.9 Hct 44.5 MCV 76.5 L MCH 23.9 L MCHC 31.2 L RDW 16.1 H Plt Count 388 MPV 7.0 L Neut % (Auto) 58.0 Lymph % (Auto) 29.6 Edmunds % (Auto) 10.1 H Eos % (Auto) 1.4 Baso % (Auto) 0.9 Neut # (Auto) 2.7 Lymph # (Auto) 1.4 Edmunds # (Auto) 0.5 Eos # (Auto) 0.1 Baso # (Auto) 0.0 Sodium 137 Potassium 4.4 Chloride 101 Carbon Dioxide 27 Anion Gap 14 BUN 17 Creatinine 1.0 Est GFR ( Amer) > 60 Est GFR (Non-Af Amer) > 60 Random Glucose 96 D Calcium 9.5 Phosphorus 4.5 Magnesium 2.1 Total Bilirubin 0.4 AST 40 ALT 41 Alkaline Phosphatase 66 Troponin I < 0.0120 NT-Pro-B Natriuret Pep 184 Total Protein 7.7 Albumin 4.5 Globulin 3.2 Albumin/Globulin Ratio 1.4 Assessment & Plan - Assessment and Plan (Free Text) Assessment: 58 year old male with PMHx of CHF, CAD, HTN, hiatal hernia, sleep apnea, morbid obesity, gout, newly diagnosed arrhythmia (atrial flutter/atrial fibrillation-2 wks ago) presented with sob, palpitations and admitted for evaluation and treatment of symptomatic arrythmia; presented Plan: Cardiac arrythmia, newly diagnosed EKG shows Aflutte Recent Echo(05/01): LVH, EF~55-60%. Mild mitral and tricuspid regurg. Mild pulm HTN. RVSP is estimated at 41 mmHg. Patient currently tachycardic in the 140s, asymptomatic Troponin x1 is normal; will trend q6h x2 Monitor on Telemetry Cardiac rate and rhythm control, continue home coreg 25mg BID, verapamil 120 mg PO QD AC with xarelto 20 mg PO daily EP consulted, Dr. Ameen. Would like pt to be NPO for potential ablation in the am. If HR does not go below 120 bpm after coreg 25 mg PO, will consult ICU for cardizem gtt. CAD, hx of 3 stents Continue ASA 81 mg PO Continue home crestor 10 HS HTN Continue home Verapamil 120 mg PO Continue home lasix 40 mg PO daily HLD Lipid panel WNL on recent admission Continue home crestor 10 mg HS Sleep Apnea/Obesity BMI>40 Will consider cpap if needed Gout Substitute home Uloric w/ allopurinol in am Continue to monitor Creatine Pre-diabetes Hgb a1c is 6.4 on recent admission GI ppx: Protonix 20 mg QD VTE ppx: AC w/ Xarelto 20 mg QD SCDs NPO past midnight except meds Dispo: Telemetry observation Case was reviewed and discussed with attending physician, Dr. Lackey All medical management as per Dr. Darya Rodriguez PGY1
[2018-05-08 01:25] VITALS: RESP 20
[2018-05-08 01:50] LABS: CK-MB 0.37 ng/mL (0.0-3.38)
[2018-05-08 06:38] LABS: BASO % 0.4 % (0.0-2.0); EOS # 0.1 K/uL (0.0-0.7); EOS % 1.6 % (0.0-4.0); HEMOGLOBIN 13.4 g/dL (12.0-18.0); LYMPH # 1.9 K/uL (1.0-4.3); LYMPH % 36.3 % (20.0-40.0); MEAN CELL VOLUME 76.4 fL (80.0-94.0); MEAN CORPUSCULAR HEMOGLOBIN 24.2 pg (27.0-31.0); MEAN CORPUSCULAR HGB CONC 31.6 g/dL (33.0-37.0); MONO # 0.6 K/uL (0.0-0.8); MONO % 11.2 % (0.0-10.0); NEUT # 2.6 K/uL (1.8-7.0); NEUT % 50.5 % (50.0-75.0); RBC 5.57 Mil/uL (4.40-5.90); RED CELL DISTRIBUTION WIDTH 15.8 % (11.5-14.5); WHITE BLOOD COUNT 5.2 K/uL (4.8-10.8)
[2018-05-08 06:52] LABS: ALB/GLOB RATIO 1.2 (1.0-2.1); ALBUMIN 4.1 g/dL (3.5-5.0); ALT/SGPT 46 U/L (21-72); AST/SGOT 44 U/L (17-59); BLOOD UREA NITROGEN 18 mg/dL (9-20); CALCIUM 8.9 mg/dl (8.6-10.4); GFR NON-AFRICAN AMERICAN > 60
[2018-05-08 06:54] LABS: INR 1.5; PROTHROMBIN TIME 16.2 SECONDS (9.7-12.2)
[2018-05-08 07:00] LABS: CK-MB 0.4 ng/mL (0.0-3.38); TROPONIN I 0.013 ng/mL (0.00-0.120)
--- NOTE | 2018-05-08 07:44 | CP.PCM.PN ---
Subjective - Date & Time of Evaluation Date of Evaluation: 05/08/18 Time of Evaluation: 07:43 - Subjective Subjective: PGY-1 Britney Glover D.O. Medicine progress note for Dr. Lackey's service: Patient was seen and examined this morning. He says he is feeling much better. He denies chest pain and palpitations. Patient expresses his concern for taking verapamil. He associates his shortness of breath and palpitations episodes with taking this medication. Patient reports he tried to get appointment with Dr. Zheng as outpatient but was unable to see him until later this week. Objective - Vital Signs/Intake and Output Vital Signs (last 24 hours): Temp Pulse Resp BP Pulse Ox 97.6 F 103 H 20 125/91 H 100 05/07/18 23:15 05/08/18 04:34 05/07/18 23:15 05/08/18 00:10 05/07/18 23:15 - Medications Medications: Current Medications Carvedilol (Coreg) 25 mg PO BID CARLEY Docusate Sodium (Colace) 100 mg PO BID CARLEY Furosemide (Lasix) 40 mg PO DAILY CARLEY Pantoprazole Sodium (Protonix Ec Tab) 20 mg PO DAILY CARLEY Pneumococcal Polyvalent Vaccine (Pneumovax 23 Vaccine) 0.5 ml IM .ONCE ONE Stop: 05/09/18 10:01 Rivaroxaban (Xarelto) 20 mg PO DAILY CARLEY Rosuvastatin Calcium (Crestor) 10 mg PO HS CARLEY Verapamil HCl (Calan Sr Tab) 120 mg PO DAILY CARLEY Vitamin B Complex/Vitamin C (Berocca) 1 tab PO DAILY CARLEY - Labs Labs: 05/08/18 06:28 05/08/18 06:28 PT 16.2 SECONDS (9.7-12.2) H 05/08/18 06:28 INR 1.5 05/08/18 06:28 APTT 42 SECONDS (21-34) H 05/08/18 06:28 - Constitutional Appears: No Acute Distress - Head Exam Head Exam: ATRAUMATIC, NORMAL INSPECTION - Eye Exam Eye Exam: EOMI, Normal appearance, PERRL - ENT Exam ENT Exam: Mucous Membranes Moist, Normal Exam - Neck Exam Neck Exam: Normal Inspection - Respiratory Exam Respiratory Exam: Clear to Ausculation Bilateral, NORMAL BREATHING PATTERN. absent: Rales, Rhonchi, Wheezes, Respiratory Distress - Cardiovascular Exam Cardiovascular Exam: Irregular Rhythm, +S1, +S2. absent: Tachycardia - GI/Abdominal Exam GI & Abdominal Exam: Soft. absent: Distended, Tenderness Additional comments: obese ventral hernia- reducible - Extremities Exam Extremities Exam: Normal Inspection. absent: Pedal Edema - Back Exam Back Exam: NORMAL INSPECTION - Neurological Exam Neurological Exam: Alert, Awake, CN II-XII Intact, Oriented x3 - Psychiatric Exam Psychiatric exam: Normal Affect, Normal Mood - Skin Skin Exam: Dry, Normal Color, Warm Assessment and Plan - Assessment and Plan (Free Text) Assessment: 58 year old male with history of CHF, CAD, HTN, hiatal hernia, sleep apnea, morbid obesity, gout, newly diagnosed arrhythmia (atrial flutter/atrial fibrillation- 2 weeks ago) presented with SOB and palpitations. He was admitted for evaluation and treatment of symptomatic arrhythmia. Patient was unable to see Dr. Zheng as an outpatient. Plan [place] [facility] [place]. Plan: Atrial fibrillation/flutter - EKG: Aflutter RVR - Echo (05/01/18): LVH, EF 55-60%. Mild mitral and tricuspid regurg. Mild pulm HTN. RVSP is estimated at 41 mmHg. - Trop negative x3 - TSH, free T4 wnl on last admission (Apr 2018) - BNP 184 - INR 1.5 - Monitor on telemetry - Coreg 25 mg PO BID - Verapamil 120 mg PO daily - Xarelto 20 mg PO daily - EP consulted (Marce)- ablation [place]09 [place] [facility] Coronary artery disease- s/p 3 stents - Crestor 10 HS Hypertension - Vitals Q6H - Verapamil 120 mg PO daily - Lasix 40 mg PO daily H/o Hyperlipidemia - Lipid panel wnl on recent admission (Apr 2018) - Crestor 10 HS Obesity- questionable sleep apnea - Recommend outpatient sleep study to evaluate for MAZIN H/o Gout - Monitor creatinine - Not on meds Pre-diabetes - HbA1c 6.4 on recent admission (Apr 2018) Ppx: VTE: SCDs, Xarelto 20 mg PO daily GI: Protonix 20 mg PO daily Case discussed with attending, Dr. Lackey.
[2018-05-08] MEDS: Vitamin B Complex/Vitamin C Tab PO SCH (10:40)
[2018-05-08] MEDS: Pantoprazole 20 mg EC Tab PO SCH (10:40)
[2018-05-08] MEDS: Verapamil 120 mg ER Tab PO SCH (10:41)
--- NOTE | 2018-05-09 06:54 | CP.PCM.PN ---
Subjective - Date & Time of Evaluation Date of Evaluation: 05/09/18 Time of Evaluation: 09:00 - Subjective Subjective: Patient evaluated at bedside. No acute overnight events. Patient understands he is going to [facility] to undergo cardiac ablation with Dr. Zheng in attempts to terminate his new onset A. Fib/A. Flutter. Pt denies complaints of tachycardia, palpitations, dizziness, chest pressure or discomfort. Pt requests to stay ay [facility] s/p procedure rather than having to return. Objective - Vital Signs/Intake and Output Vital Signs (last 24 hours): Temp Pulse Resp BP Pulse Ox 97.8 F 78 20 121/70 99 05/08/18 23:10 05/09/18 04:00 05/08/18 23:10 05/08/18 23:10 05/08/18 23:10 - Medications Medications: Current Medications Carvedilol (Coreg) 25 mg PO BID [facility] Last Admin: 05/08/18 17:36 Dose: 25 mg Diphenhydramine HCl (Benadryl) 25 mg PO HS PRN PRN Reason: Insomnia Last Admin: 05/08/18 21:21 Dose: 25 mg Docusate Sodium (Colace) 100 mg PO BID [facility] Last Admin: 05/08/18 19:13 Dose: Not Given Furosemide (Lasix) 40 mg PO DAILY [facility] Last Admin: 05/08/18 10:40 Dose: 40 mg Pantoprazole Sodium (Protonix Ec Tab) 20 mg PO DAILY [facility] Last Admin: 05/08/18 10:40 Dose: 20 mg Pneumococcal Polyvalent Vaccine (Pneumovax 23 Vaccine) 0.5 ml IM .ONCE ONE Stop: 05/09/18 10:01 Rivaroxaban (Xarelto) 20 mg PO DAILY [facility] Last Admin: 05/08/18 10:41 Dose: 20 mg Rosuvastatin Calcium (Crestor) 10 mg PO HS [facility] Last Admin: 05/08/18 21:21 Dose: 10 mg Verapamil HCl (Calan Sr Tab) 120 mg PO DAILY [facility] Last Admin: 05/08/18 10:41 Dose: 120 mg Vitamin B Complex/Vitamin C (Berocca) 1 tab PO DAILY [facility] Last Admin: 05/08/18 10:40 Dose: 1 tab - Labs Labs: 05/08/18 06:28 05/08/18 06:28 PT 16.2 SECONDS (9.7-12.2) H 05/08/18 06:28 INR 1.5 05/08/18 06:28 APTT 42 SECONDS (21-34) H 05/08/18 06:28 - Constitutional Appears: Non-toxic, No Acute Distress - Head Exam Head Exam: ATRAUMATIC, NORMAL INSPECTION, NORMOCEPHALIC - Eye Exam Eye Exam: EOMI, Normal appearance - ENT Exam ENT Exam: Mucous Membranes Moist, Normal Exam - Neck Exam Neck Exam: Normal Inspection - Respiratory Exam Respiratory Exam: Decreased Breath Sounds, Clear to Ausculation Bilateral, NORMAL BREATHING PATTERN. absent: Respiratory Distress - Cardiovascular Exam Cardiovascular Exam: Tachycardia, Irregular Rhythm - GI/Abdominal Exam GI & Abdominal Exam: Soft, Normal Bowel Sounds. absent: Distended - Extremities Exam Extremities Exam: Normal Inspection. absent: Calf Tenderness, Pedal Edema - Neurological Exam Neurological Exam: Alert, Awake, Normal Gait, Oriented x3 - Psychiatric Exam Psychiatric exam: Normal Affect, Normal Mood - Skin Skin Exam: Dry, Intact, Normal Color, Warm Assessment and Plan - Assessment and Plan (Free Text) Assessment: 58 year old male admitted for treatment of symptomatic arrhythmia Plan: Symptomatic A. Fib/A. Flutter -monitor on telemetry -patient to be transferred to [facility] today for ablation with Dr. Zheng -Zander held -NPO -EKG: Aflutter RVR -Echo (05/01/18): LVH, EF 55-60%. Mild mitral and tricuspid regurg. Mild pulm HTN. RVSP is estimated at 41 mmHg. -Continue home Coreg 25mg BID, lasix 40mg po QD, Verapamil 120mg po QD -EP consult, Dr. Zheng HTN -continue home meds as above HLD -continue home crestor 10mg po HS Ppx -AC held for upcoming ablation, SCDs -protonix 20mg po QD Dispo: Pt to be transferred to [facility] for ablation Discussed w/ Dr. Darya Agustin, PGY-1
[2018-05-09] MEDS ORDERED: Dextrose 5%/0.45% NS 1,000 ML IV SCH (07:15)
[2018-05-09 07:33] LABS: BASO % 0.4 % (0.0-2.0); EOS # 0.1 K/uL (0.0-0.7); EOS % 1.7 % (0.0-4.0); HEMOGLOBIN 13.8 g/dL (12.0-18.0); LYMPH # 1.8 K/uL (1.0-4.3); MEAN CELL VOLUME 76.8 fL (80.0-94.0); MEAN CORPUSCULAR HEMOGLOBIN 24.9 pg (27.0-31.0); MEAN CORPUSCULAR HGB CONC 32.4 g/dL (33.0-37.0); MONO # 0.5 K/uL (0.0-0.8); NEUT # 2.7 K/uL (1.8-7.0); NEUT % 52.9 % (50.0-75.0); NRBC % 0.1 % (0.0-2.0); RBC 5.52 Mil/uL (4.40-5.90); RED CELL DISTRIBUTION WIDTH 15.7 % (11.5-14.5); WHITE BLOOD COUNT 5.1 K/uL (4.8-10.8)
[2018-05-09 07:55] LABS: ALB/GLOB RATIO 1.3 (1.0-2.1); ALBUMIN 4.1 g/dL (3.5-5.0); ALT/SGPT 45 U/L (21-72); AST/SGOT 38 U/L (17-59); BLOOD UREA NITROGEN 17 mg/dL (9-20); CALCIUM 8.9 mg/dl (8.6-10.4); GFR NON-AFRICAN AMERICAN > 60
[2018-05-09 08:10] VITALS: BP 132/87; PULSE 141; TEMP 97.5; O2SAT 100
[2018-05-09] MEDS: Verapamil 120 mg ER Tab PO SCH ×2 (08:33→10:00)
[2018-05-09] MEDS ORDERED: Pneumococcal 23-Valent Vaccine IM ONE (10:00)
[2018-05-09] MEDS: Pantoprazole 20 mg EC Tab PO SCH (10:00)
[2018-05-09] MEDS: Vitamin B Complex/Vitamin C Tab PO SCH (10:00)
--- NOTE | 2018-05-09 14:03 | CARD ---
APPROVED REPORT Date of service: 05/07/2018 EKG Measurement Heart [id number] <Conclusion> Atrial flutter with variable AV block Nonspecific ST and T wave abnormality Prolonged QT Abnormal ECG
== END 2018-05-09 21:01 | disposition short-term general hospital (02) ==
LOC: C.ER 15:42 → C.9E 18:26 → C.6T 19:54
PROVIDERS: ADMIT Internal Medicine; ATTEND Internal Medicine
DX: I48.91 Unspecified atrial fibrillation (principal); I50.9 Heart failure, unspecified; Z95.5 Presence of coronary angioplasty implant and graft; Z79.01 Long term (current) use of anticoagulants; J45.909 Unspecified asthma, uncomplicated; I25.10 Atherosclerotic heart disease of native coronary artery without angina pectoris; I11.0 Hypertensive heart disease with heart failure; G47.30 Sleep apnea, unspecified; E66.01 Morbid (severe) obesity due to excess calories; Z68.38 Body mass index [BMI] 38.0-38.9, adult; I48.92 Unspecified atrial flutter
CPT/HCPCS: 36415; 71046; 80053; 83735; 83880; 84100; 84484; 85025; 85610; 85730; 93005; 99285; G0378; J7042

== ENCOUNTER 2018-05-19 12:41 | Emergency (ER) | payer MEDICARE ==
[2018-05-19 12:41] VITALS: PULSE 115; BMI 37.3
[2018-05-19 13:02] VITALS: PULSE 63; RESP 18; O2SAT 98
--- NOTE | 2018-05-19 13:52 | C.PDOC ---
History Of Present Illness 58 y/o male pt presents to the ER c/o pounding right sided headache for several days. Pt reports these headaches occure every time he takes his Verapmil. He told his PMD and was switched to coreg and to stop taking verapamil. Pt last dose of Verapamil was today, which caused his headache again and prompted him to come visit the ER. Pt denies any neuro symptoms, visual changes, numbness or weakness. Time Seen by Provider: 05/19/18 13:18 Chief Complaint (Nursing): Headache History Per: Patient History/Exam Limitations: no limitations Onset/Duration Of Symptoms: Days Current Symptoms Are (Timing): Still Present Past Medical History Reviewed: Historical Data, Nursing Documentation, Vital Signs Vital Signs: Last Vital Signs Temp 97.7 F 05/19/18 12:57 Pulse 63 05/19/18 12:57 Resp 18 05/19/18 12:57 BP 115/55 L 05/19/18 12:57 Pulse Ox 98 05/19/18 12:57 - Medical History PMH: Arthritis, Asthma, Bronchitis, CAD, CHF, Diverticulitis, Hiatal Hernia, HTN Surgical History: Coronary Stent (x3), Hernia Repair ([facility]) - [facility] Procedures CORONAR ARTERIOGR-2 CATH (11/28/03) INJECT/INFUSE NEC (04/10/07) LEFT HEART CARDIAC CATH (11/28/03) LT HEART ANGIOCARDIOGRAM (11/28/03) OTHER LOCAL DESTRUC SKIN (12/10/03) Family History: States: Unknown Family Hx - Social History Hx Tobacco Use: No Hx Alcohol Use: No Hx Substance Use: No - Immunization History Hx Tetanus Toxoid Vaccination: Yes Hx Influenza Vaccination: Yes Hx Pneumococcal Vaccination: Yes Review Of Systems Constitutional: Negative for: Fever, Chills Eyes: Negative for: Vision Change ENT: Negative for: Ear Pain Cardiovascular: Negative for: Chest Pain, Light Headedness Respiratory: Negative for: Cough Gastrointestinal: Negative for: Nausea, Vomiting Musculoskeletal: Negative for: Neck Pain Neurological: Positive for: Headache. Negative for: Weakness, Numbness, Dizziness Psych: Negative for: Psychosis Physical Exam - Physical Exam Appears: Non-toxic, No Acute Distress Skin: Warm, Dry Head: Normacephalic, No Tenderness, No Swelling Eye(s): bilateral: PERRL, EOMI Oral Mucosa: Moist Throat: Normal Chest: Symmetrical, No Deformity Cardiovascular: Rhythm Regular Respiratory: Normal Breath Sounds Gastrointestinal/Abdominal: Soft, No Tenderness Neurological/Psych: Oriented x3, Normal Speech, Other (neuro intact ) ED Course And Treatment O2 Sat by Pulse Oximetry: 98 (RA) Pulse Ox Interpretation: Normal Medical Decision Making Medical Decision Making: pt advised to take tylenol for his headache, patient states he will buy it over the counter. Stable for discharge home at this time. No neurological deficits. Disposition - Disposition Disposition: HOME/ ROUTINE Disposition Time: 13:52 Condition: STABLE Additional Instructions: SERA SULTANA, thank you for letting us take care of you today. Your provider was Melyssa Dutton MD and you were treated for HEADACHE. The emergency medical care you received today was directed at your acute symptoms. If you were prescribed any medication, please fill it and take as directed. It may take several days for your symptoms to resolve. Return to the Emergency Department if your symptoms worsen, do not improve, or if you have any other problems. Please contact your doctor or call one of the physicians/clinics you have been referred to that are listed on the Patient Visit Information form that is included in your discharge packet. Bring any paperwork you were given at discharge with you along with any medications you are taking to your follow up visit. Our treatment cannot replace ongoing medical care by a primary care provi jin outside of the emergency department. Thank you for allowing the [facility] team to be part of your care today. If you had an X-Ray or CT scan: A Radiologist will review the ED reading if any change in treatment is needed we will contact you. If you had a blood, urine, or wound culture: It will take several days for the results, if any change in treatment is needed we will contact you. If you had an STI test: It will take 48 hours for the results. Please call after 1 week if you have not heard back. Instructions: Headache, Adult (DC) Forms: [employer] (Cambodian) - Clinical Impression Clinical Impression: Headache - Scribe Statement The provider has reviewed the documentation as recorded by the Scribe Fernandes Provider Attestation: All medical record entries made by the Scribe were at my direction and per sonally dictated by me. I have reviewed the chart and agree that the record accurately reflects my personal performance of the history, physical exam, medical decision making, and the department course for this patient. I have also personally directed, reviewed, and agree with the discharge instructions and disposition.
[2018-05-19 13:58] VITALS: BP 116/58; TEMP 98
== END 2018-05-19 13:58 | disposition home or self-care (01) ==
LOC: C.ER 12:41
DX: R51 Headache (principal); I50.9 Heart failure, unspecified; I25.10 Atherosclerotic heart disease of native coronary artery without angina pectoris; I10 Essential (primary) hypertension

== ENCOUNTER 2018-06-02 15:04 | Emergency (ER) | payer MEDICARE ==
[2018-06-02 15:05] VITALS: PULSE 115; BMI 37.3
[2018-06-02 15:41] LABS: BASO % 0.6 % (0.0-2.0); EOS # 0.1 K/uL (0.0-0.7); EOS % 1.4 % (0.0-4.0); HEMOGLOBIN 13.1 g/dL (12.0-18.0); LYMPH # 1.7 K/uL (1.0-4.3); LYMPH % 34.7 % (20.0-40.0); MEAN CELL VOLUME 76.1 fL (80.0-94.0); MEAN CORPUSCULAR HEMOGLOBIN 23.8 pg (27.0-31.0); MEAN CORPUSCULAR HGB CONC 31.2 g/dL (33.0-37.0); MEAN PLATELET VOLUME 7.1 fL (7.2-11.7); MONO # 0.4 K/uL (0.0-0.8); MONO % 8.7 % (0.0-10.0); NEUT # 2.7 K/uL (1.8-7.0); NEUT % 54.6 % (50.0-75.0); RBC 5.5 Mil/uL (4.40-5.90); RED CELL DISTRIBUTION WIDTH 14.9 % (11.5-14.5); WHITE BLOOD COUNT 4.9 K/uL (4.8-10.8)
--- NOTE | 2018-06-02 15:50 | C.PDOC ---
History Of Present Illness 58 y/o male, with history of CAD, comes in to ED complaining of SOB prior to arrival. Patient states he was walking when he became slightly SOB and had midsternal chest tightness, which now resolved. Patient denies any chest pain, f ever, or other symptoms. Time Seen by Provider: 06/02/18 15:24 Chief Complaint (Nursing): Shortness Of Breath History Per: Patient History/Exam Limitations: no limitations Onset/Duration Of Symptoms: Hrs Current Symptoms Are (Timing): Still Present Past Medical History Reviewed: Historical Data, Nursing Documentation, Vital Signs Vital Signs: Last Vital Signs Temp 98.5 F 06/02/18 15:11 Pulse 71 06/02/18 15:11 Resp 19 06/02/18 15:11 BP 163/90 H 06/02/18 15:11 Pulse Ox 98 06/02/18 15:11 - Medical History PMH: Arthritis, Asthma, Bronchitis, CAD, CHF, Diverticulitis, Hiatal Hernia, HTN Denies: Chronic Kidney Disease Surgical History: Coronary Stent (x3), Hernia Repair ([facility]) - [facility] Procedures CORONAR ARTERIOGR-2 CATH (11/28/03) INJECT/INFUSE NEC (04/10/07) LEFT HEART CARDIAC CATH (11/28/03) LT HEART ANGIOCARDIOGRAM (11/28/03) OTHER LOCAL DESTRUC SKIN (12/10/03) Family History: States: No Known Family Hx - Social History Hx Tobacco Use: No Hx Alcohol Use: No Hx Substance Use: No - Immunization History Hx Tetanus Toxoid Vaccination: No Hx Influenza Vaccination: Yes Hx Pneumococcal Vaccination: Yes Review Of Systems Except As Marked, All Systems Reviewed And Found Negative. Constitutional: Negative for: Fever, Chills Cardiovascular: Negative for: Chest Pain Respiratory: Positive for: Shortness of Breath. Negative for: Cough Physical Exam - Physical Exam Appears: Non-toxic, No Acute Distress Skin: Warm, Dry Head: Atraumatic, Normacephalic Eye(s): bilateral: Normal Inspection Oral Mucosa: Moist Neck: Supple Cardiovascular: Rhythm Regular, No Murmur Respiratory: Normal Breath Sounds, No Rales, No Rhonchi, No Wheezing Extremity: Bilateral: Atraumatic, Normal Color And Temperature, Normal ROM Neurological/Psych: Oriented x3, Normal Speech ED Course And Treatment - Laboratory Results Result Diagrams: 06/02/18 15:37 06/02/18 15:37 ECG: Interpreted By Me, Viewed By Me ECG Rhythm: Sinus Rhythm Interpretation Of ECG: No ST elevation. QT normal. Rate From EC O2 Sat by Pulse Oximetry: 98 (RA) Pulse Ox Interpretation: Normal - Radiology CXR: Interpreted by Me, Viewed By Me CXR Interpretation: Yes: Cardiomegaly (borderline). No: Infiltrates, Pnemothorax Medical Decision Making Medical Decision Making: Plan: --EKG --Labs Update: No chest pain during observation. No signs of ACS or CHF. Disposition Counseled Patient/Family Regarding: Studies Performed, Diagnosis, Need For Followup - Disposition Referrals: Kodak Lackey Jr., MD [Medical Doctor] - Disposition: HOME/ ROUTINE Disposition Time: 16:50 Condition: STABLE Instructions: Shortness of Breath (Dyspnea) (DC) Forms: [employer] (Mongolian) - POA Core Measure Indicators: Chest Pain - Clinical Impression Clinical Impression: Dyspnea - Scribe Statement The provider has reviewed the documentation as recorded by the Wallyibcorey Martinez Provider Attestation: All medical record entries made by the Scribe were at my direction and personally dictated by me. I have reviewed the chart and agree that the record accurately reflects my personal performance of the history, physical exam, medical decision making, and the department course for this patient. I have also personally directed, reviewed, and agree with the discharge instructions and disposition.
[2018-06-02 16:03] LABS: ALB/GLOB RATIO 1.3 (1.0-2.1); ALBUMIN 4.3 g/dL (3.5-5.0); ALT/SGPT 48 U/L (21-72); AST/SGOT 33 U/L (17-59); BLOOD UREA NITROGEN 12 mg/dL (9-20); CALCIUM 8.5 mg/dl (8.6-10.4); GFR NON-AFRICAN AMERICAN > 60
[2018-06-02 16:58] VITALS: BP 137/60; PULSE 70; RESP 14; TEMP 98
[2018-06-02 17:10] VITALS: O2SAT 98
--- NOTE | 2018-06-02 18:07 | RAD ---
Date of service: 06/02/2018 HISTORY: SOB COMPARISON: Comparison chest 05/07/2018. FINDINGS: LUNGS: Poor inspiration with low lung volumes, crowded bronchovascular markings and mild bibasilar atelectasis. PLEURA: No significant pleural effusion identified, no pneumothorax apparent. CARDIOVASCULAR: No aortic atherosclerotic calcification present. Mild cardiomegaly. No pulmonary vascular congestion. OSSEOUS STRUCTURES: No significant abnormalities. VISUALIZED UPPER ABDOMEN: Normal. OTHER FINDINGS: None. IMPRESSION: No active disease.
--- NOTE | 2018-06-04 14:22 | CARD ---
APPROVED REPORT Date of service: 06/02/2018 EKG Measurement Heart [id number] <Conclusion> Normal sinus rhythm Normal ECG
== END 2018-06-02 16:58 | disposition home or self-care (01) ==
LOC: C.ER 15:04
DX: R06.00 Dyspnea, unspecified (principal)